=== PATIENT | male | born 1935 | race Caucasian/White ===

== ENCOUNTER 2018-03-01 18:12 | Emergency (ER) | payer OTHER ==
--- OUTSIDE RECORDS SUMMARY | 2018-03-01 18:15 | XMS REPORT | Clinical Summary ---
:1935 Author Organization [facility] Address [address] [place] [address] Phone Care Team Providers Name Role Phone Unavailable Primary Care Provider Unavailable Allergies No Known Allergies Current Medications Prescription Sig. Disp. Refills Start Date End Date Status amLODIPine (NORVASC) Take 10 mg by mouth Active 10 MG tablet daily. thyroid, pork, 60 mg Take 30 mg by mouth Active Tab daily. aspirin 81 MG EC Take 81 mg by mouth Active tablet daily Take one tablet by mouth at bedtime . carbidopa-levodopa Take 1 tablet by mouth Active (SINEMET CR) 25-100 2 (two) times daily mg per tablet Take 1 and 1/2 tablet by mouth four times a day . carbidopa-levodopa Take 1 tablet by mouth Active (SINEMET CR) 50-200 2 (two) times daily mg per tablet Take one tablet by mouth 2 times a day at 8 am and 6 pm . docusate sodium Take 100 mg by mouth Active (COLACE) 100 MG daily. capsule donepezil (ARICEPT) Take 10 mg by mouth Active 10 MG tablet nightly. enoxaparin (LOVENOX) Inject 90 mg Active 100 mg/mL Syrg subcutaneously every 12 (twelve) hours. escitalopram oxalate Take 20 mg by mouth Active (LEXAPRO) 20 MG nightly. tablet ferrous gluconate Take 324 mg by mouth 2 Active (FERGON) 324 MG (two) times daily. tablet finasteride (PROSCAR) Take 5 mg by mouth Active 5 mg tablet daily. melatonin 3 mg Tab Take 5 mg by mouth Active tablet nightly. multivitamin per Take 2 tablets by mouth Active tablet daily. tamsulosin (FLOMAX) Take 0.4 mg by mouth Active 0.4 mg Cp24 24 hr daily. capsule Active Problems Problem Noted Date Pacemaker 12/14/2016 Hematuria 12/11/2016 Urinary tract infection associated with indwelling urethral catheter (HCC) 10/2016 Cystitis 12/11/2016 Hypothyroidism 12/11/2016 Essential hypertension 12/11/2016 Type 2 diabetes mellitus without complication (HCC) 12/11/2016 Pulmonary embolism (HCC) 12/11/2016 Overview: hsitory of pe dvt BPH (benign prostatic hyperplasia) 12/11/2016 CKD (chronic kidney disease) stage 3, GFR 30-59 ml/min 12/11/2016 Insomnia 12/11/2016 Parkinson disease ([facility]) 12/11/2016 CAD (coronary artery disease) Social History Tobacco Use Types Packs/Day Years Used Date Never Assessed Sex Assigned at Date Recorded Not on file Last Filed Vital Signs Not on file Plan of Treatment Not on file Results Not on fileafter 02/28/2017
--- OUTSIDE RECORDS SUMMARY | 2018-03-01 18:16 | XMS REPORT ---
:1935 [facility] [place] [address] Care Team Providers Name Role Phone ELIZABETH SANDY Unavailable Unavailable Problems This patient has no known problems. Allergies, Adverse Reactions, Alerts This patient has no known allergies or adverse reactions. Medications This patient has no known medications. Results Test Description Test Time Test Comments Text Results Atomic Results Result Comments CBC W/PLT COUNT & AUTO DIFFERENTIAL 2016-12-19 09:47:00 Test Item Value Reference Range Comments WHITE BLOOD CELL COUNT (BEAKER) (test ceui=733) 9.1 K/ L 4.0-10.0 RED BLOOD CELL COUNT (BEAKER) (test gfqt=711) 3.43 M/ L 4.20-5.80 HEMOGLOBIN (BEAKER) (test wpwu=276) 9.1 GM/DL 13.0-16.8 HEMATOCRIT (BEAKER) (test tjsm=372) 29.7 % 40.0-50.0 MEAN CORPUSCULAR VOLUME (BEAKER) (test kmpd=478) 86.8 fL 82.0-98.0 MEAN CORPUSCULAR HEMOGLOBIN (BEAKER) (test ykzn=118) 26.6 pg 27.0-33.0 MEAN CORPUSCULAR HEMOGLOBIN CONC (BEAKER) (test uros=869) 30.7 GM/DL 32.0- 36.0 RED CELL DISTRIBUTION WIDTH (BEAKER) (test nbxw=259) 14.5 % 10.3-14.2 PLATELET COUNT (BEAKER) (test nyay=638) 211 K/CU MM 150-430 MEAN PLATELET VOLUME (BEAKER) (test zrnp=034) 7.4 fL 6.5-10.5 NUCLEATED RED BLOOD CELLS (BEAKER) (test oedv=635) 0 /100 WBC 0-0 NEUTROPHILS RELATIVE PERCENT (BEAKER) (test xlxd=464) 38 % LYMPHOCYTES RELATIVE PERCENT (BEAKER) (test ctcr=971) 52 % MONOCYTES RELATIVE PERCENT (BEAKER) (test crzo=860) 6 % EOSINOPHILS RELATIVE PERCENT (BEAKER) (test tfim=514) 3 % BASOPHILS RELATIVE PERCENT (BEAKER) (test jhhe=627) 1 % NEUTROPHILS ABSOLUTE COUNT (BEAKER) (test jvsj=104) 3.48 K/ L 1.80-8.00 LYMPHOCYTES ABSOLUTE COUNT (BEAKER) (test zdoz=228) 4.70 K/ L 1.48-4.50 MONOCYTES ABSOLUTE COUNT (BEAKER) (test usru=915) 0.57 K/ L 0.00-1.30 EOSINOPHILS ABSOLUTE COUNT (BEAKER) (test jadg=352) 0.26 K/ L 0.00-0.50 BASOPHILS ABSOLUTE COUNT (BEAKER) (test dpho=662) 0.06 K/ L 0.00-0.20 0.00(MANUAL DIFFERENTIAL)2016-12-19 09:47:00 Test Item Value Reference Range Comments TOTAL COUNTED (BEAKER) (test ijmt=4540) WBC MORPHOLOGY (BEAKER) (test ptto=880) Normal PLT MORPHOLOGY (BEAKER) (test sdqo=922) Normal RBC MORPHOLOGY (BEAKER) (test tqhz=998) Normal BASIC METABOLIC [id number] 04:52:00 Test Item Value Reference Range Comments SODIUM (BEAKER) (test 141 meq/L 136-145 ncam=162) POTASSIUM (BEAKER) (test 3.8 meq/L 3.5-5.1 kvxt=186) CHLORIDE (BEAKER) (test 111 meq/L 98-107 fxne=765) CO2 (BEAKER) (test 21 meq/L 22-29 dtjw=816) BLOOD UREA NITROGEN 16 mg/dL 7-21 (BEAKER) (test cuwl=783) CREATININE (BEAKER) (test 1.35 mg/dL 0.57-1.25 dfyl=552) GLUCOSE RANDOM (BEAKER) 96 mg/dL 70-105 (test xlrc=204) CALCIUM (BEAKER) (test 8.2 mg/dL 8.4-10.2 qxko=567) EGFR (BEAKER) (test 51 mL/min/1.73 sq m ESTIMATED GFR IS NOT khje=8912) ACCURATE CREATININE CLEARANCE IN PREDICTING GLOMERULAR FILTRATION RATE. ESTIMATED GFR IS NOT APPLICABLE FOR DIALYSIS PATIENTS. CBC W/PLT COUNT & AUTO [id number] 09:26:00 Test Item Value Reference Range Comments WHITE BLOOD CELL COUNT (BEAKER) (test eghs=595) 8.8 K/ L 4.0-10.0 RED BLOOD CELL COUNT (BEAKER) (test afke=064) 3.40 M/ L 4.20-5.80 HEMOGLOBIN (BEAKER) (test xwyc=871) 9.5 GM/DL 13.0-16.8 HEMATOCRIT (BEAKER) (test cwoz=013) 29.6 % 40.0-50.0 MEAN CORPUSCULAR VOLUME (BEAKER) (test eygg=226) 87.0 fL 82.0-98.0 MEAN CORPUSCULAR HEMOGLOBIN (BEAKER) (test 27.8 pg 27.0-33.0 nlui=989) MEAN CORPUSCULAR HEMOGLOBIN CONC (BEAKER) (test 31.9 GM/DL 32.0-36.0 hhhx=275) RED CELL DISTRIBUTION WIDTH (BEAKER) (test 14.6 % 10.3-14.2 jdpd=315) PLATELET COUNT (BEAKER) (test imsy=978) 193 K/CU MM 150-430 MEAN PLATELET VOLUME (BEAKER) (test obws=016) 7.7 fL 6.5-10.5 NUCLEATED RED BLOOD CELLS (BEAKER) (test 0 /100 WBC 0-0 dnta=642) NEUTROPHILS RELATIVE PERCENT (BEAKER) (test 40 % zoht=806) LYMPHOCYTES RELATIVE PERCENT (BEAKER) (test 51 % ggnp=962) MONOCYTES RELATIVE PERCENT (BEAKER) (test 6 % dgtn=310) EOSINOPHILS RELATIVE PERCENT (BEAKER) (test 3 % qqva=407) BASOPHILS RELATIVE PERCENT (BEAKER) (test 0 % wsqx=381) NEUTROPHILS ABSOLUTE COUNT (BEAKER) (test 3.46 K/ L 1.80-8.00 pidc=607) LYMPHOCYTES ABSOLUTE COUNT (BEAKER) (test 4.50 K/ L 1.48-4.50 dgke=328) MONOCYTES ABSOLUTE COUNT (BEAKER) (test 0.53 K/ L 0.00-1.30 ssbn=715) EOSINOPHILS ABSOLUTE COUNT (BEAKER) (test 0.26 K/ L 0.00-0.50 oyvl=866) BASOPHILS ABSOLUTE COUNT (BEAKER) (test 0.02 K/ L 0.00-0.20 pxxb=167) 0.00(MANUAL DIFFERENTIAL)2016-12-18 09:26:00 Test Item Value Reference Range Comments TOTAL COUNTED (BEAKER) (test fhjm=2634) WBC MORPHOLOGY (BEAKER) (test sjrh=661) Normal PLT MORPHOLOGY (BEAKER) (test cwpq=934) Normal RBC MORPHOLOGY (BEAKER) (test pkvn=963) Normal URINE [id number] 07:48:00 Test Item Value Reference Range Comments CULTURE (BEAKER) (test PSEUDOMONAS >100,000 col/mL ktuy=6203) AERUGINOSA Pseudomonas aeruginosa Amikacin (test code=1) Susceptible 0-16 , Resistant <0 or >16 Aztreonam (test Susceptible 0-8 , code=32) Resistant <0 or >8 Cefepime (test code=51) Susceptible 0-8 , Resistant <0 or >8 Ceftazidime (test Susceptible 0-8 , code=27) Resistant <0 or >8 Ciprofloxacin (test Susceptible 0-1 , code=7) Resistant <0 or >1 Doripenem (test Susceptible 0-2 , rxua=301) Resistant <0 or >2 Gentamicin (test Susceptible 0-4 , code=18) Resistant <0 or >4 Imipenem (test code=19) Susceptible 0-2 , Resistant <0 or >2 Levofloxacin (test Susceptible 0-2 , code=22) Resistant <0 or >2 Meropenem (test Susceptible 0-2 , code=34) Resistant <0 or >2 Piperacillin (test Susceptible 0-16 , code=24) Resistant <0 or >16 Piperacillin + Susceptible 0-16 , Tazobactam (test Resistant <0 or >16 code=29) Tobramycin (test Susceptible 0-4 , code=25) Resistant <0 or >4 BASIC METABOLIC [id number] 05:21:00 Test Item Value Reference Range Comments SODIUM (BEAKER) (test 138 meq/L 136-145 yxjm=831) POTASSIUM (BEAKER) (test 3.4 meq/L 3.5-5.1 jual=741) CHLORIDE (BEAKER) (test 110 meq/L 98-107 vsfk=855) CO2 (BEAKER) (test 18 meq/L 22-29 uttg=721) BLOOD UREA NITROGEN 16 mg/dL 7-21 (BEAKER) (test sbna=508) CREATININE (BEAKER) (test 1.28 mg/dL 0.57-1.25 cbry=803) GLUCOSE RANDOM (BEAKER) 99 mg/dL 70-105 (test hwrl=736) CALCIUM (BEAKER) (test 8.1 mg/dL 8.4-10.2 injd=622) EGFR (BEAKER) (test 54 mL/min/1.73 sq m ESTIMATED GFR IS NOT ejzs=5925) ACCURATE CREATININE CLEARANCE IN PREDICTING GLOMERULAR FILTRATION RATE. ESTIMATED GFR IS NOT APPLICABLE FOR DIALYSIS PATIENTS. HEPARIN ASSAY - LOW MOLECULAR [id number] 15:26:00 Test Item Value Reference Range Comments LOVENOX-ANTI 10A (BEAKER) (test gpsw=6173) 0.77 u/ml 0.60-2.00 Effective 07/18/2016: Reference Range ChangeNew: 0.60-2.00 Previous: 0.60- 1.99Anti-Factor 10A Level(Heparin Assay for Low Molecular Weight Heparin) Monitoring Guidelines: Blood samples should be obtained 4 hours post subcutaneous injection (time of Peak level) Therapeutic Peak Levels: 0.6-1.0 units/mL twice daily enoxaparin 1.0-2.0 units/mL once daily enoxaparinCBC W/PLT COUNT & AUTO [id number] 14:48:00 Test Item Value Reference Range Comments WHITE BLOOD CELL COUNT (BEAKER) (test cyux=141) 10.2 K/ L 4.0-10.0 RED BLOOD CELL COUNT (BEAKER) (test ojkc=839) 3.16 M/ L 4.20-5.80 HEMOGLOBIN (BEAKER) (test uwbo=700) 9.0 GM/DL 13.0-16.8 HEMATOCRIT (BEAKER) (test hzdr=785) 27.6 % 40.0-50.0 MEAN CORPUSCULAR VOLUME (BEAKER) (test ztsx=987) 87.3 fL 82.0-98.0 MEAN CORPUSCULAR HEMOGLOBIN (BEAKER) (test 28.6 pg 27.0-33.0 frac=740) MEAN CORPUSCULAR HEMOGLOBIN CONC (BEAKER) (test 32.7 GM/DL 32.0-36.0 vzju=794) RED CELL DISTRIBUTION WIDTH (BEAKER) (test 14.7 % 10.3-14.2 fngh=071) PLATELET COUNT (BEAKER) (test dvcg=619) 175 K/CU MM 150-430 MEAN PLATELET VOLUME (BEAKER) (test cbea=528) 7.9 fL 6.5-10.5 NUCLEATED RED BLOOD CELLS (BEAKER) (test 0 /100 WBC 0-0 cabs=816) NEUTROPHILS RELATIVE PERCENT (BEAKER) (test 46 % kupg=518) LYMPHOCYTES RELATIVE PERCENT (BEAKER) (test 48 % tqkq=513) MONOCYTES RELATIVE PERCENT (BEAKER) (test 3 % qyqf=786) EOSINOPHILS RELATIVE PERCENT (BEAKER) (test 2 % dvvp=199) BASOPHILS RELATIVE PERCENT (BEAKER) (test 1 % tfqy=514) NEUTROPHILS ABSOLUTE COUNT (BEAKER) (test 4.69 K/ L 1.80-8.00 vlxr=229) LYMPHOCYTES ABSOLUTE COUNT (BEAKER) (test 4.86 K/ L 1.48-4.50 nlsv=137) MONOCYTES ABSOLUTE COUNT (BEAKER) (test 0.35 K/ L 0.00-1.30 mihf=840) EOSINOPHILS ABSOLUTE COUNT (BEAKER) (test 0.22 K/ L 0.00-0.50 pwhc=792) BASOPHILS ABSOLUTE COUNT (BEAKER) (test 0.06 K/ L 0.00-0.20 gngz=962) 0.00(MANUAL DIFFERENTIAL)2016-12-17 14:48:00 Test Item Value Reference Range Comments TOTAL COUNTED (BEAKER) (test uefl=9876) WBC MORPHOLOGY (BEAKER) (test phvy=840) Normal PLT MORPHOLOGY (BEAKER) (test whqc=221) Normal ANISOCYTOSIS (BEAKER) (test dsoo=345) 1+ few HYPOCHROMIA (BEAKER) (test phgi=166) 1+ few POIKILOCYTES (BEAKER) (test wftk=955) 1+ few BASIC METABOLIC [id number] 05:13:00 Test Item Value Reference Range Comments SODIUM (BEAKER) (test 137 meq/L 136-145 dygq=005) POTASSIUM (BEAKER) (test 3.6 meq/L 3.5-5.1 tkzk=182) CHLORIDE (BEAKER) (test 111 meq/L 98-107 dqqg=905) CO2 (BEAKER) (test 17 meq/L 22-29 cukc=708) BLOOD UREA NITROGEN 18 mg/dL 7-21 (BEAKER) (test aayk=274) CREATININE (BEAKER) (test 1.39 mg/dL 0.57-1.25 nclm=802) GLUCOSE RANDOM (BEAKER) 104 mg/dL 70-105 (test qfft=129) CALCIUM (BEAKER) (test 8.2 mg/dL 8.4-10.2 wztk=181) EGFR (BEAKER) (test 49 mL/min/1.73 sq m ESTIMATED GFR IS NOT uucj=2688) ACCURATE CREATININE CLEARANCE IN PREDICTING GLOMERULAR FILTRATION RATE. ESTIMATED GFR IS NOT APPLICABLE FOR DIALYSIS PATIENTS. BLOOD [id number] 00:00:00 Test Item Value Reference Range Comments CULTURE (BEAKER) (test hsoz=3633) No growth in 5 days BASIC METABOLIC [id number] 06:19:00 Test Item Value Reference Range Comments SODIUM (BEAKER) (test 138 meq/L 136-145 drvf=410) POTASSIUM (BEAKER) (test 3.9 meq/L 3.5-5.1 tujp=160) CHLORIDE (BEAKER) (test 109 meq/L 98-107 rjld=164) CO2 (BEAKER) (test 20 meq/L 22-29 pyxj=892) BLOOD UREA NITROGEN 22 mg/dL 7-21 (BEAKER) (test jqhr=195) CREATININE (BEAKER) (test 1.58 mg/dL 0.57-1.25 fdcd=275) GLUCOSE RANDOM (BEAKER) 97 mg/dL 70-105 (test crzo=410) CALCIUM (BEAKER) (test 8.6 mg/dL 8.4-10.2 opsc=978) EGFR (BEAKER) (test 42 mL/min/1.73 sq m ESTIMATED GFR IS NOT urgt=3951) ACCURATE CREATININE CLEARANCE IN PREDICTING GLOMERULAR FILTRATION RATE. ESTIMATED GFR IS NOT APPLICABLE FOR DIALYSIS PATIENTS. URINALYSIS W/ [id number] 18:02:00 Test Item Value Reference Range Comments COLOR (BEAKER) (test kuof=390) Yellow CLARITY (BEAKER) (test ifpx=891) Cloudy SPECIFIC GRAVITY UA (BEAKER) (test erou=813) 1.017 1.001-1.035 PH UA (BEAKER) (test lgws=978) 5.5 5.0-8.0 PROTEIN UA (BEAKER) (test dzsn=719) 70 mg/dL Negative GLUCOSE UA (BEAKER) (test hwnl=964) Negative Negative KETONES UA (BEAKER) (test zgtp=558) Negative Negative BILIRUBIN UA (BEAKER) (test mdth=634) Negative Negative BLOOD UA (BEAKER) (test ypft=997) Large Negative NITRITE UA (BEAKER) (test raxw=469) Negative Negative LEUKOCYTE ESTERASE UA (BEAKER) (test xbgo=046) Large Negative UROBILINOGEN UA (BEAKER) (test qtyv=948) 0.2 mg/dL 0.2-1.0 RBC UA (BEAKER) (test bjua=177) > /HPF WBC UA (BEAKER) (test iiaj=746) > /HPF MUCUS (BEAKER) (test nxjj=5352) Rare SQUAMOUS EPITHELIAL (BEAKER) (test jsvs=521) 2 /HPF SOURCE(BEAKER) (test klnh=8091) Urine, [place] CBC W/PLT COUNT & AUTO [id number] 09:55:00 Test Item Value Reference Range Comments WHITE BLOOD CELL COUNT (BEAKER) (test dnta=438) 11.5 K/ L 4.0-10.0 RED BLOOD CELL COUNT (BEAKER) (test rwnu=812) 3.68 M/ L 4.20-5.80 HEMOGLOBIN (BEAKER) (test pinx=254) 10.5 GM/DL 13.0-16.8 HEMATOCRIT (BEAKER) (test thar=071) 32.0 % 40.0-50.0 MEAN CORPUSCULAR VOLUME (BEAKER) (test lblq=609) 87.1 fL 82.0-98.0 MEAN CORPUSCULAR HEMOGLOBIN (BEAKER) (test 28.4 pg 27.0-33.0 cwdj=542) MEAN CORPUSCULAR HEMOGLOBIN CONC (BEAKER) (test 32.6 GM/DL 32.0-36.0 vmvy=873) RED CELL DISTRIBUTION WIDTH (BEAKER) (test 15.7 % 10.3-14.2 szdl=949) PLATELET COUNT (BEAKER) (test xlzt=616) 167 K/CU MM 150-430 MEAN PLATELET VOLUME (BEAKER) (test qzqg=320) 8.2 fL 6.5-10.5 NUCLEATED RED BLOOD CELLS (BEAKER) (test 0 /100 WBC 0-0 lvbv=475) NEUTROPHILS RELATIVE PERCENT (BEAKER) (test 48 % ieqh=014) LYMPHOCYTES RELATIVE PERCENT (BEAKER) (test 45 % vieb=701) MONOCYTES RELATIVE PERCENT (BEAKER) (test 6 % stfq=919) EOSINOPHILS RELATIVE PERCENT (BEAKER) (test 0 % vvhl=465) BASOPHILS RELATIVE PERCENT (BEAKER) (test 0 % zoqi=007) NEUTROPHILS ABSOLUTE COUNT (BEAKER) (test 5.55 K/ L 1.80-8.00 cvsu=079) LYMPHOCYTES ABSOLUTE COUNT (BEAKER) (test 5.18 K/ L 1.48-4.50 zojb=729) MONOCYTES ABSOLUTE COUNT (BEAKER) (test 0.70 K/ L 0.00-1.30 txfy=446) EOSINOPHILS ABSOLUTE COUNT (BEAKER) (test 0.05 K/ L 0.00-0.50 lzdp=684) BASOPHILS ABSOLUTE COUNT (BEAKER) (test 0.06 K/ L 0.00-0.20 efzz=350) 0.00(MANUAL DIFFERENTIAL)2016-12-15 09:55:00 Test Item Value Reference Range Comments TOTAL COUNTED (BEAKER) (test wqag=0047) PLT MORPHOLOGY (BEAKER) (test zckk=232) Normal ATYPICAL LYMPHS(BEAKER) (test vgxy=3640) Present POLYCHROMATOPHILLIC RBCS(BEAKER) (test sves=126) 1+ few BASIC METABOLIC [id number] 05:46:00 Test Item Value Reference Range Comments SODIUM (BEAKER) (test 141 meq/L 136-145 uemn=623) POTASSIUM (BEAKER) (test 4.2 meq/L 3.5-5.1 amzj=617) CHLORIDE (BEAKER) (test 111 meq/L 98-107 hcmi=433) CO2 (BEAKER) (test 18 meq/L 22-29 pfpn=484) BLOOD UREA NITROGEN 24 mg/dL 7-21 (BEAKER) (test kfoq=671) CREATININE (BEAKER) (test 1.84 mg/dL 0.57-1.25 yjlp=987) GLUCOSE RANDOM (BEAKER) 119 mg/dL 70-105 (test nbnx=542) CALCIUM (BEAKER) (test 8.7 mg/dL 8.4-10.2 ezpu=293) EGFR (BEAKER) (test 35 mL/min/1.73 sq m ESTIMATED GFR IS NOT pcjy=2463) ACCURATE CREATININE CLEARANCE IN PREDICTING GLOMERULAR FILTRATION RATE. ESTIMATED GFR IS NOT APPLICABLE FOR DIALYSIS PATIENTS. [id number] 05:27:00 Test Item Value Reference Range Comments PROTIME (BEAKER) (test zxxk=344) 14.2 seconds 11.7-14.7 INR (BEAKER) (test xruq=910) 1.1 <=5.9 PARTIAL THROMBOPLASTIN TIME (BEAKER) (test 28.3 seconds 22.5-36.0 qtdu=505) RECOMMENDED COUMADIN/WARFARIN INR THERAPY RANGESSTANDARD DOSE: 2.0 - 3.0 Includes: PROPHYLAXIS forvenous thrombosis, systemic embolization; TREATMENT for venous thrombosis and/or pulmonary embolus.HIGH RISK: Target INR is 2.5-3.5 for patients with mechanical heart valves.CBC W/PLT COUNT & AUTO [id number] 11:32:00 Test Item Value Reference Range Comments WHITE BLOOD CELL COUNT (BEAKER) (test gjan=719) 10.7 K/ L 4.0-10.0 RED BLOOD CELL COUNT (BEAKER) (test yykx=009) 3.63 M/ L 4.20-5.80 HEMOGLOBIN (BEAKER) (test kxdy=430) 10.4 GM/DL 13.0-16.8 HEMATOCRIT (BEAKER) (test emlr=898) 31.8 % 40.0-50.0 MEAN CORPUSCULAR VOLUME (BEAKER) (test dteh=824) 87.8 fL 82.0-98.0 MEAN CORPUSCULAR HEMOGLOBIN (BEAKER) (test 28.5 pg 27.0-33.0 blic=487) MEAN CORPUSCULAR HEMOGLOBIN CONC (BEAKER) (test 32.5 GM/DL 32.0-36.0 iqje=724) RED CELL DISTRIBUTION WIDTH (BEAKER) (test 15.7 % 10.3-14.2 kutx=727) PLATELET COUNT (BEAKER) (test jwqf=789) 149 K/CU MM 150-430 MEAN PLATELET VOLUME (BEAKER) (test edbi=184) 8.9 fL 6.5-10.5 NUCLEATED RED BLOOD CELLS (BEAKER) (test 0 /100 WBC 0-0 sfqt=529) NEUTROPHILS RELATIVE PERCENT (BEAKER) (test 47 % mhnv=450) LYMPHOCYTES RELATIVE PERCENT (BEAKER) (test 44 % sccc=582) MONOCYTES RELATIVE PERCENT (BEAKER) (test 7 % pxnt=467) EOSINOPHILS RELATIVE PERCENT (BEAKER) (test 1 % pmun=006) BASOPHILS RELATIVE PERCENT (BEAKER) (test 0 % cgne=673) NEUTROPHILS ABSOLUTE COUNT (BEAKER) (test 5.07 K/ L 1.80-8.00 qbic=321) LYMPHOCYTES ABSOLUTE COUNT (BEAKER) (test 4.68 K/ L 1.48-4.50 yllc=294) MONOCYTES ABSOLUTE COUNT (BEAKER) (test 0.76 K/ L 0.00-1.30 jbky=901) EOSINOPHILS ABSOLUTE COUNT (BEAKER) (test 0.13 K/ L 0.00-0.50 serx=233) BASOPHILS ABSOLUTE COUNT (BEAKER) (test 0.04 K/ L 0.00-0.20 rsho=118) 0.00(MANUAL DIFFERENTIAL)2016-12-14 11:32:00 Test Item Value Reference Range Comments TOTAL COUNTED (BEAKER) (test plcl=4283) WBC MORPHOLOGY (BEAKER) (test mvlb=272) Normal PLT MORPHOLOGY (BEAKER) (test pnqt=779) Normal RBC MORPHOLOGY (BEAKER) (test huuv=230) Normal URINE [id number] 09:07:00 Test Item Value Reference Range Comments CULTURE (BEAKER) (test xrtc=3944) No growth HEPATIC FUNCTION [id number] 05:03:00 Test Item Value Reference Range Comments TOTAL PROTEIN (BEAKER) (test bjni=474) 6.9 gm/dL 6.0-8.3 ALBUMIN (BEAKER) (test grjg=7127) 3.5 g/dL 3.5-5.0 BILIRUBIN TOTAL (BEAKER) (test lwlk=358) 0.3 mg/dL 0.2-1.2 BILIRUBIN DIRECT (BEAKER) (test pveh=463) 0.2 mg/dL 0.1-0.5 ALKALINE PHOSPHATASE (BEAKER) (test uhdv=162) 78 U/L 40-150 AST (SGOT) (BEAKER) (test uhxk=524) 17 U/L 5-34 ALT (SGPT) (BEAKER) (test nhdf=092) < U/L 6-55 [id number] 05:03:00 Test Item Value Reference Range Comments PARTIAL THROMBOPLASTIN TIME (BEAKER) (test 47.9 seconds 22.5-36.0 uavl=542) [id number] 04:57:00 Test Item Value Reference Range Comments MAGNESIUM (BEAKER) (test eqir=427) 2.0 mg/dL 1.6-2.6 BASIC METABOLIC [id number] 04:57:00 Test Item Value Reference Range Comments SODIUM (BEAKER) (test 139 meq/L 136-145 firp=280) POTASSIUM (BEAKER) (test 4.5 meq/L 3.5-5.1 lklh=981) CHLORIDE (BEAKER) (test 108 meq/L 98-107 uxlw=212) CO2 (BEAKER) (test 20 meq/L 22-29 arfz=254) BLOOD UREA NITROGEN 29 mg/dL 7-21 (BEAKER) (test lwgu=092) CREATININE (BEAKER) (test 1.84 mg/dL 0.57-1.25 wsco=124) GLUCOSE RANDOM (BEAKER) 140 mg/dL 70-105 (test rfrh=594) CALCIUM (BEAKER) (test 8.6 mg/dL 8.4-10.2 hnta=079) EGFR (BEAKER) (test 35 mL/min/1.73 sq m ESTIMATED GFR IS NOT tdbr=8495) ACCURATE CREATININE CLEARANCE IN PREDICTING GLOMERULAR FILTRATION RATE. ESTIMATED GFR IS NOT APPLICABLE FOR DIALYSIS PATIENTS. PROTHROMBIN [id number] 04:36:00 Test Item Value Reference Range Comments PROTIME (BEAKER) (test ztjw=823) 13.5 seconds 11.7-14.7 INR (BEAKER) (test mgue=493) 1.0 <=5.9 RECOMMENDED COUMADIN/WARFARIN INR THERAPY RANGESSTANDARD DOSE: 2.0 - 3.0 Includes: PROPHYLAXIS forvenous thrombosis, systemic embolization; TREATMENT for venous thrombosis and/or pulmonary embolus.HIGH RISK: Target INR is 2.5-3.5 for patients with mechanical heart valves.VANCOMYCIN LEVEL, [id number] 21: 01:00 Test Item Value Reference Range Comments VANCOMYCIN TROUGH (BEAKER) (test hrwx=478) 16.7 ug/mL 10.0-20.0 Please draw vancomycin trough \R\30 minutes prior to administration time; For trough >20 mcg/mL,hold next dose and contact pharmacy and MD.CBC W/PLT COUNT & AUTO [id number] 07:27:00 Test Item Value Reference Range Comments WHITE BLOOD CELL COUNT (BEAKER) (test zxal=252) 12.2 K/ L 4.0-10.0 RED BLOOD CELL COUNT (BEAKER) (test htng=442) 3.47 M/ L 4.20-5.80 HEMOGLOBIN (BEAKER) (test eoaz=319) 9.8 GM/DL 13.0-16.8 HEMATOCRIT (BEAKER) (test bxzy=801) 30.8 % 40.0-50.0 MEAN CORPUSCULAR VOLUME (BEAKER) (test gtky=446) 88.6 fL 82.0-98.0 MEAN CORPUSCULAR HEMOGLOBIN (BEAKER) (test 28.2 pg 27.0-33.0 dndx=802) MEAN CORPUSCULAR HEMOGLOBIN CONC (BEAKER) (test 31.8 GM/DL 32.0-36.0 svqs=209) RED CELL DISTRIBUTION WIDTH (BEAKER) (test 15.7 % 10.3-14.2 ahju=475) PLATELET COUNT (BEAKER) (test hetz=608) 133 K/CU MM 150-430 MEAN PLATELET VOLUME (BEAKER) (test tand=100) 8.9 fL 6.5-10.5 NUCLEATED RED BLOOD CELLS (BEAKER) (test 0 /100 WBC 0-0 euox=456) NEUTROPHILS RELATIVE PERCENT (BEAKER) (test 51 % feoo=198) LYMPHOCYTES RELATIVE PERCENT (BEAKER) (test 43 % cyry=292) MONOCYTES RELATIVE PERCENT (BEAKER) (test 5 % ujue=884) EOSINOPHILS RELATIVE PERCENT (BEAKER) (test 0 % hrly=296) BASOPHILS RELATIVE PERCENT (BEAKER) (test 1 % zvjs=760) NEUTROPHILS ABSOLUTE COUNT (BEAKER) (test 6.24 K/ L 1.80-8.00 pxji=922) LYMPHOCYTES ABSOLUTE COUNT (BEAKER) (test 5.21 K/ L 1.48-4.50 hkbg=432) MONOCYTES ABSOLUTE COUNT (BEAKER) (test 0.64 K/ L 0.00-1.30 akhz=863) EOSINOPHILS ABSOLUTE COUNT (BEAKER) (test 0.05 K/ L 0.00-0.50 rppl=255) BASOPHILS ABSOLUTE COUNT (BEAKER) (test 0.07 K/ L 0.00-0.20 zhzb=389) 0.00HEPATIC FUNCTION [id number] 05:28:00 Test Item Value Reference Range Comments TOTAL PROTEIN (BEAKER) (test kgzz=683) 6.4 gm/dL 6.0-8.3 ALBUMIN (BEAKER) (test jwza=1481) 3.3 g/dL 3.5-5.0 BILIRUBIN TOTAL (BEAKER) (test vvgb=106) 0.5 mg/dL 0.2-1.2 BILIRUBIN DIRECT (BEAKER) (test ymgy=892) 0.2 mg/dL 0.1-0.5 ALKALINE PHOSPHATASE (BEAKER) (test faib=174) 69 U/L 40-150 AST (SGOT) (BEAKER) (test kzyy=757) 18 U/L 5-34 ALT (SGPT) (BEAKER) (test rvyw=710) < U/L 6-55 BASIC METABOLIC [id number] 05:28:00 Test Item Value Reference Range Comments SODIUM (BEAKER) (test 132 meq/L 136-145 sluo=193) POTASSIUM (BEAKER) (test 4.2 meq/L 3.5-5.1 ewdu=300) CHLORIDE (BEAKER) (test 104 meq/L 98-107 hdll=287) CO2 (BEAKER) (test 18 meq/L 22-29 dodz=156) BLOOD UREA NITROGEN 27 mg/dL 7-21 (BEAKER) (test ieng=619) CREATININE (BEAKER) (test 1.52 mg/dL 0.57-1.25 pslb=860) GLUCOSE RANDOM (BEAKER) 126 mg/dL 70-105 (test sicr=415) CALCIUM (BEAKER) (test 8.5 mg/dL 8.4-10.2 bain=662) EGFR (BEAKER) (test 44 mL/min/1.73 sq m ESTIMATED GFR IS NOT zwul=5522) ACCURATE CREATININE CLEARANCE IN PREDICTING GLOMERULAR FILTRATION RATE. ESTIMATED GFR IS NOT APPLICABLE FOR DIALYSIS PATIENTS. [id number] 05:27:00 Test Item Value Reference Range Comments MAGNESIUM (BEAKER) (test fpld=679) 1.9 mg/dL 1.6-2.6 PROTHROMBIN [id number] 05:10:00 Test Item Value Reference Range Comments PROTIME (BEAKER) (test geua=117) 13.0 seconds 11.7-14.7 INR (BEAKER) (test whyn=407) 1.0 <=5.9 RECOMMENDED COUMADIN/WARFARIN INR THERAPY RANGESSTANDARD DOSE: 2.0 - 3.0 Includes: PROPHYLAXIS forvenous thrombosis, systemic embolization; TREATMENT for venous thrombosis and/or pulmonary embolus.HIGH RISK: Target INR is 2.5-3.5 for patients with mechanical heart valves.HEMOGLOBIN AND [id number] 17 :05:00 Test Item Value Reference Range Comments HEMOGLOBIN (BEAKER) (test ffhy=152) 10.0 GM/DL 13.0-16.8 HEMATOCRIT (BEAKER) (test mvpr=888) 31.7 % 40.0-50.0 CBC W/PLT COUNT & AUTO [id number] 10:22:00 Test Item Value Reference Range Comments WHITE BLOOD CELL COUNT (BEAKER) (test gjcj=898) 10.8 K/ L 4.0-10.0 RED BLOOD CELL COUNT (BEAKER) (test qkvw=388) 3.45 M/ L 4.20-5.80 HEMOGLOBIN (BEAKER) (test tstx=743) 9.5 GM/DL 13.0-16.8 HEMATOCRIT (BEAKER) (test iiwj=390) 30.1 % 40.0-50.0 MEAN CORPUSCULAR VOLUME (BEAKER) (test acip=024) 87.1 fL 82.0-98.0 MEAN CORPUSCULAR HEMOGLOBIN (BEAKER) (test 27.7 pg 27.0-33.0 hjst=208) MEAN CORPUSCULAR HEMOGLOBIN CONC (BEAKER) (test 31.7 GM/DL 32.0-36.0 nppm=362) RED CELL DISTRIBUTION WIDTH (BEAKER) (test 15.0 % 10.3-14.2 esxo=105) PLATELET COUNT (BEAKER) (test wasm=069) 132 K/CU MM 150-430 MEAN PLATELET VOLUME (BEAKER) (test vhxr=108) 8.3 fL 6.5-10.5 NUCLEATED RED BLOOD CELLS (BEAKER) (test 0 /100 WBC 0-0 txxm=108) NEUTROPHILS RELATIVE PERCENT (BEAKER) (test 42 % wnyi=095) LYMPHOCYTES RELATIVE PERCENT (BEAKER) (test 53 % drhg=476) MONOCYTES RELATIVE PERCENT (BEAKER) (test 5 % wwbd=647) EOSINOPHILS RELATIVE PERCENT (BEAKER) (test 0 % ztko=684) BASOPHILS RELATIVE PERCENT (BEAKER) (test 0 % qyej=987) NEUTROPHILS ABSOLUTE COUNT (BEAKER) (test 4.48 K/ L 1.80-8.00 yunn=579) LYMPHOCYTES ABSOLUTE COUNT (BEAKER) (test 5.65 K/ L 1.48-4.50 hskj=366) MONOCYTES ABSOLUTE COUNT (BEAKER) (test 0.57 K/ L 0.00-1.30 qctw=469) EOSINOPHILS ABSOLUTE COUNT (BEAKER) (test 0.02 K/ L 0.00-0.50 ytus=495) BASOPHILS ABSOLUTE COUNT (BEAKER) (test 0.03 K/ L 0.00-0.20 xhzq=837) 0.00(MANUAL DIFFERENTIAL)[id number] 10:22:00 Test Item Value Reference Range Comments TOTAL COUNTED (BEAKER) (test qqey=2646) PLT MORPHOLOGY (BEAKER) (test jrkt=797) Normal ATYPICAL LYMPHS(BEAKER) (test gpri=9501) Present HYPOCHROMIA (BEAKER) (test gjtk=435) 1+ few POLYCHROMATOPHILLIC RBCS(BEAKER) (test pyku=753) 1+ few [id number] 07:21:00 Test Item Value Reference Range Comments MAGNESIUM (BEAKER) (test nizy=350) 2.1 mg/dL 1.6-2.6 BASIC METABOLIC [id number] 07:21:00 Test Item Value Reference Range Comments SODIUM (BEAKER) (test 140 meq/L 136-145 acuk=962) POTASSIUM (BEAKER) (test 4.2 meq/L 3.5-5.1 qvam=337) CHLORIDE (BEAKER) (test 110 meq/L 98-107 njdj=735) CO2 (BEAKER) (test 21 meq/L 22-29 oixn=791) BLOOD UREA NITROGEN 29 mg/dL 7-21 (BEAKER) (test wobz=143) CREATININE (BEAKER) (test 1.69 mg/dL 0.57-1.25 rfbj=256) GLUCOSE RANDOM (BEAKER) 96 mg/dL 70-105 (test snij=314) CALCIUM (BEAKER) (test 8.9 mg/dL 8.4-10.2 jxsl=964) EGFR (BEAKER) (test 39 mL/min/1.73 sq m ESTIMATED GFR IS NOT lmqf=1228) ACCURATE CREATININE CLEARANCE IN PREDICTING GLOMERULAR FILTRATION RATE. ESTIMATED GFR IS NOT APPLICABLE FOR DIALYSIS PATIENTS. HEPATIC FUNCTION [id number] 07:21:00 Test Item Value Reference Range Comments TOTAL PROTEIN (BEAKER) (test aaib=658) 6.7 gm/dL 6.0-8.3 ALBUMIN (BEAKER) (test szoj=3167) 3.5 g/dL 3.5-5.0 BILIRUBIN TOTAL (BEAKER) (test yuvv=636) 0.6 mg/dL 0.2-1.2 BILIRUBIN DIRECT (BEAKER) (test iqgg=984) 0.3 mg/dL 0.1-0.5 ALKALINE PHOSPHATASE (BEAKER) (test sfbp=179) 76 U/L 40-150 AST (SGOT) (BEAKER) (test mhfc=562) 20 U/L 5-34 ALT (SGPT) (BEAKER) (test qteu=822) 12 U/L 6-55 PROTHROMBIN [id number] 07:05:00 Test Item Value Reference Range Comments PROTIME (BEAKER) (test mjyo=256) 14.1 seconds 11.7-14.7 INR (BEAKER) (test cweu=021) 1.1 <=5.9 RECOMMENDED COUMADIN/WARFARIN INR THERAPY RANGESSTANDARD DOSE: 2.0 - 3.0 Includes: PROPHYLAXIS forvenous thrombosis, systemic embolization; TREATMENT for venous thrombosis and/or pulmonary embolus.HIGH RISK: Target INR is 2.5-3.5 for patients with mechanical heart valves.HEMOGLOBIN AND [id number] 01 :04:00 Test Item Value Reference Range Comments HEMOGLOBIN (BEAKER) (test chcm=879) 9.7 GM/DL 13.0-16.8 HEMATOCRIT (BEAKER) (test sxcc=117) 30.6 % 40.0-50.0 HEMOGLOBIN [id number] 20:57:00 Test Item Value Reference Range Comments HEMOGLOBIN A1C (BEAKER) (test uboo=917) 5.4 % 4.3-6.1 CBC W/PLT COUNT & AUTO [id number] 19:35:00 Test Item Value Reference Range Comments WHITE BLOOD CELL COUNT (BEAKER) (test khnz=186) 14.1 K/ L 4.0-10.0 RED BLOOD CELL COUNT (BEAKER) (test qrlj=006) 3.62 M/ L 4.20-5.80 HEMOGLOBIN (BEAKER) (test okmv=019) 10.2 GM/DL 13.0-16.8 HEMATOCRIT (BEAKER) (test xdwp=929) 31.5 % 40.0-50.0 MEAN CORPUSCULAR VOLUME (BEAKER) (test sorf=107) 87.0 fL 82.0-98.0 MEAN CORPUSCULAR HEMOGLOBIN (BEAKER) (test 28.1 pg 27.0-33.0 pocc=668) MEAN CORPUSCULAR HEMOGLOBIN CONC (BEAKER) (test 32.3 GM/DL 32.0-36.0 gtvl=264) RED CELL DISTRIBUTION WIDTH (BEAKER) (test 16.1 % 10.3-14.2 xffi=285) PLATELET COUNT (BEAKER) (test nwhc=384) 139 K/CU MM 150-430 MEAN PLATELET VOLUME (BEAKER) (test yonj=263) 8.6 fL 6.5-10.5 NUCLEATED RED BLOOD CELLS (BEAKER) (test 0 /100 WBC 0-0 mkbi=942) NEUTROPHILS RELATIVE PERCENT (BEAKER) (test 48 % xswd=117) LYMPHOCYTES RELATIVE PERCENT (BEAKER) (test 48 % wmsd=756) MONOCYTES RELATIVE PERCENT (BEAKER) (test 4 % jaqr=369) EOSINOPHILS RELATIVE PERCENT (BEAKER) (test 0 % xkek=019) BASOPHILS RELATIVE PERCENT (BEAKER) (test 1 % tsow=328) NEUTROPHILS ABSOLUTE COUNT (BEAKER) (test 6.72 K/ L 1.80-8.00 hmca=507) LYMPHOCYTES ABSOLUTE COUNT (BEAKER) (test 6.74 K/ L 1.48-4.50 spip=632) MONOCYTES ABSOLUTE COUNT (BEAKER) (test 0.52 K/ L 0.00-1.30 fdqh=788) EOSINOPHILS ABSOLUTE COUNT (BEAKER) (test 0.01 K/ L 0.00-0.50 jdhu=149) BASOPHILS ABSOLUTE COUNT ([facility]) (test 0.09 K/ L 0.00-0.20 ybsk=533) POCT-GLUCOSE [id number] 17:00:00 Test Item Value Reference Range Comments POC-GLUCOSE METER (AKER) 129 mg/dL 70-[address] [facility] [address] (test yrlx=6399) [facility] [id number]
--- NOTE | 2018-03-01 20:32 | ER ---
Nurse's Notes [facility] Name: Alvarez Aleman Jr Age: 82 yrs Sex: Male : 1935 Arrival Date: 03/01/2018 Time: 18:14 Bed 25 Private MD: Diagnosis: Retention of urine;Breakdown (mechanical) of cystostomy catheter Presentation: 03/01 18:51 Presenting complaint: Family- Sent from [facility] because his super pubic catheter is mb3 not flushing, pt has urine leaking from penis. Transition of care: patient was received from another setting of care (long-term care facility), [facility]. Onset of symptoms is unknown. Risk Assessment: Do you want to hurt yourself or someone else? Patient reports no desire to harm self or others. Initial Sepsis Screen: Does the patient meet any 2 criteria? No. Patient's initial sepsis screen is negative. Does the patient have a suspected source of infection? No. Patient's initial sepsis screen is negative. Care prior to arrival: None. 18:51 Method Of Arrival: Wheelchair mb3 18:51 Acuity: RYLEY 3 mb3 Triage Assessment: 18:54 General: Appears uncomfortable, well groomed, Behavior is flat, quiet, Smells of urine. mb3 Pain: Denies pain. EENT: No deficits noted. No signs and/or symptoms were reported regarding the EENT system. Neuro: Level of Consciousness is awake, alert, obeys commands. : suprapubic catheter in place Urine is cloudy, incontinent of urine, pants soaked. Musculoskeletal: Parent/caregiver report the patient having pt unable to stand or walk, has tremors. 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 - Social history:: Smoking status: Patient/guardian denies using tobacco. - Ebola Screening: : Patient denies travel to an Ebola-affected area in the 21 days before illness onset No symptoms or risks identified at this time. Screenin:57 Abuse screen: Denies threats or abuse. Nutritional screening: No deficits noted. mb3 Tuberculosis screening: No symptoms or risk factors identified. Fall Risk Fall in past 12 months (25 points). Secondary diagnosis (15 points) No IV (0 pts). Ambulatory Aid- None/Bed Rest/Nurse Assist (0 pts). Gait- Normal/Bed Rest/Wheelchair (0 pts) Mental Status- Overestimates/Forgets Limitations (15 pts.). Total Santiago Fall Scale indicates High Risk Score (45 or more points). Fall prevention measures have been instituted. Side Rails Up X 2 Placed Close to Nursing Station Frequent Obs/Assessments Occuring Family Present and informed to notify staff if the need to leave the bedside As available patient and family educated on Fall Prevention Program and Strategies. Assessment: 19:30 Reassessment: see triage assessment. General: Appears comfortable, Behavior is flat, mb3 quiet, Smells of stool and urine. Pain: Denies pain. Vital Signs: 18:53 BP 124 / 93; Pulse 84; Resp 20; Temp 98.6(O); Pulse Ox 98% on R/A; Weight 84.82 kg; mb3 Height 6 ft. 2 in. (187.96 cm); Pain 0/10; 20:03 BP 111 / 56; Pulse 69; Resp 16; Pulse Ox 98% on R/A; mt 22:24 BP 127 / 58; Pulse 79; Resp 18; Pulse Ox 99% on R/A; mt 18:53 Body Mass Index 24.01 (84.82 kg, 187.96 cm) mb3 ED Course: 18:14 Patient arrived in ED. ss 18:26 Stanislav De Los Santos, RN is Primary Nurse. mb3 18:53 Triage completed. mb3 19:08 Bismark Bejarano MD is Attending Physician. gs 19:45 Cleaned pt up from stool and urine all over pt. Stool was dried on. Changed pt and mb3 placed in clean brief. Attempted to flush suprapubic cath with sterile NS. No success. Dr Bejarano informed and patel kit placed at bedside. 20:19 Arm band placed on right wrist. mb3 20:19 Remove suprapubic catheter and replace with 18Fr catheter. Flushed with 30 cc NS. mb3 Reattached to securement device on right leg. Bag kept below bladder and off of floor. 20:31 Maira Hayes MD is Referral Physician. gs 23:38 Patient has correct armband on for positive identification. mb3 23:38 Patient did not have IV access during this emergency room visit. mb3 Administered Medications: No medications were administered Outcome: 20:31 Discharge ordered by . barron 23:37 Discharged to long term. discharge paperwork given to daughters at bedside. mb3 23:37 Condition: stable 23:37 Discharge instructions given to family, Instructed on discharge instructions, follow up and referral plans. Demonstrated understanding of instructions, follow-up care. 23:38 Patient left the ED. mb3 Signatures: Marley Hartmann, SHAQ RN Mel Ennis mt, Gregory, MD MD Stanislav De Los Santos RN RN mb3 Corrections: (The following items were deleted from the chart) 20:48 20:19 Remove suprapubic catheter and replace with 18Fr catheter mb3 mb3 20:48 20:19 Tried flushing suprapubic catheter, unable to. Informed Dr Bejarano. mb3 mb3
--- NOTE | 2018-03-01 20:32 | EDPHYS ---
Physician Documentation [facility] Name: Alvarez Aleman Jr Age: 82 yrs Sex: Male : 1935 Arrival Date: 03/01/2018 Time: 18:14 Bed 25 Private MD: ED Physician Bismark Bejarano HPI: 03/01 20:25 This 82 yrs old Male presents to ER via Wheelchair with unknown complaint. gs 20:25 The patient presents with a Sahu catheter problem, is not draining. Onset: The gs symptoms/episode began/occurred today. Modifying factors: the symptoms are aggravated by nothing. Associated signs and symptoms: Pertinent negatives: fever, hematuria. Severity of symptoms: At their worst the symptoms were severe. The patient has experienced similar episodes in the past, several times. 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 - Social history:: Smoking status: Patient/guardian denies using tobacco. - Ebola Screening: : Patient denies travel to an Ebola-affected area in the 21 days before illness onset No symptoms or risks identified at this time. ROS: 20:28 All other systems are negative. gs Exam: 20:28 Constitutional: The patient appears alert, awake. gs 20:28 Abdomen/GI: Palpation: nontender, mass, bladder. 20:28 Skin: breakdown skin buttocks. Vital Signs: 18:53 BP 124 / 93; Pulse 84; Resp 20; Temp 98.6(O); Pulse Ox 98% on R/A; Weight 84.82 kg; mb3 Height 6 ft. 2 in. (187.96 cm); Pain 0/10; 20:03 BP 111 / 56; Pulse 69; Resp 16; Pulse Ox 98% on R/A; mt 22:24 BP 127 / 58; Pulse 79; Resp 18; Pulse Ox 99% on R/A; mt 18:53 Body Mass Index 24.01 (84.82 kg, 187.96 cm) mb3 Procedures: 20:28 Sahu cath inserted by myself - 18 Fr. Returned clear yellow urine. Sahu cath. gs MDM: 19:22 Patient medically screened. gs 20:28 Data reviewed: vital signs, nurses notes. gs Administered Medications: No medications were administered Disposition: 03/01/18 20:31 Discharged to Home. Impression: Retention of urine, Breakdown (mechanical) of cystostomy catheter. - Condition is Stable. - Discharge Instructions: Sahu Catheter Care, Adult, [id number]. - SBAR form, Medication Reconciliation Form, Thank You Letter, Antibiotic Education, Prescription Opioid Use form. - Follow up: Maira Hayes MD; When: 2 - 3 days; Reason: Re-evaluation by your physician. Signatures: Bismark Bejarano MD MD Stanislav De Los Santos, RN RN mb3 Corrections: (The following items were deleted from the chart) 23:38 20:31 03/01/2018 20:31 Discharged to Home. Impression: Retention of urine; Breakdown mb3 (mechanical) of cystostomy catheter. Condition is Stable. Forms are Medication Reconciliation Form, Thank You Letter, Antibiotic Education, Prescription Opioid Use. Follow up: Maira Hayes; When: 2 - 3 days; Reason: Re-evaluation by your physician.
[2018-03-01 23:41] VITALS: TEMP 98.6
[2018-03-01 23:44] VITALS: BP 127/58; O2SAT 99
== END 2018-03-01 23:38 | disposition home or self-care (01) ==
LOC: ER 18:12
PROC: 0T2BX0Z Change Drainage Device in Bladder, External Approach (ICD-10-PCS; principal; 2018-03-01)
DX: T83.010A Breakdown (mechanical) of cystostomy catheter, initial encounter (principal); R33.8 Other retention of urine; Z86.718 Personal history of other venous thrombosis and embolism
CPT/HCPCS: 51702; 99281

== ENCOUNTER 2018-04-03 10:45 | Inpatient (IN) | payer OTHER ==
--- OUTSIDE RECORDS SUMMARY | 2018-04-03 11:01 | XMS REPORT | Clinical Summary ---
:1935 Author Organization [facility] Address [address] [place] [address] Phone Care Team Providers Name Role Phone [...] 30-59 ml/min 12/11/2016 Insomnia 12/11/2016 Parkinson disease ([facility]) 12/11/2016 CAD (coronary artery disease) Social History Tobacco Use Types Packs/Day Years Used Date Never Assessed Sex Assigned at Date Recorded Not on file Last Filed Vital Signs Not on file Plan of Treatment Not on file Results Not on fileafter 04/02/2017
--- OUTSIDE RECORDS SUMMARY | 2018-04-03 11:02 | XMS REPORT ---
:1935 [facility] [place] [address] Care Team Providers Name Role Phone ELIZABETH SANDYTiago Unavailable Unavailable Problems This patient has no known problems. Allergies, Adverse Reactions, Alerts This patient has no known allergies or adverse reactions. Medications This patient has no known medications. Results Test Description Test Time Test Comments Text Results Atomic Results Result Comments CBC W/PLT COUNT & AUTO DIFFERENTIAL 2016-12-19 09:47:00 Test Item Value Reference Range Comments WHITE BLOOD CELL COUNT (BEAKER) (test ijna=645) 9.1 K/ L 4.0-10.0 RED BLOOD CELL COUNT (BEAKER) (test glrm=790) 3.43 M/ L 4.20-5.80 HEMOGLOBIN (BEAKER) (test ykxr=284) 9.1 GM/DL 13.0-16.8 HEMATOCRIT (BEAKER) (test inll=802) 29.7 % 40.0-50.0 MEAN CORPUSCULAR VOLUME (BEAKER) (test etfl=877) 86.8 fL 82.0-98.0 MEAN CORPUSCULAR HEMOGLOBIN (BEAKER) (test ybpb=665) 26.6 pg 27.0-33.0 MEAN CORPUSCULAR HEMOGLOBIN CONC (BEAKER) (test npjo=244) 30.7 GM/DL 32.0- 36.0 RED CELL DISTRIBUTION WIDTH (BEAKER) (test evcv=905) 14.5 % 10.3-14.2 PLATELET COUNT (BEAKER) (test cjyf=287) 211 K/CU MM 150-430 MEAN PLATELET VOLUME (BEAKER) (test fekp=256) 7.4 fL 6.5-10.5 NUCLEATED RED BLOOD CELLS (BEAKER) (test wivv=981) 0 /100 WBC 0-0 NEUTROPHILS RELATIVE PERCENT (BEAKER) (test bwxf=783) 38 % LYMPHOCYTES RELATIVE PERCENT (BEAKER) (test zxrc=072) 52 % MONOCYTES RELATIVE PERCENT (BEAKER) (test qlku=091) 6 % EOSINOPHILS RELATIVE PERCENT (BEAKER) (test vqzf=580) 3 % BASOPHILS RELATIVE PERCENT (BEAKER) (test snyh=530) 1 % NEUTROPHILS ABSOLUTE COUNT (BEAKER) (test mnyk=317) 3.48 K/ L 1.80-8.00 LYMPHOCYTES ABSOLUTE COUNT (BEAKER) (test hfel=088) 4.70 K/ L 1.48-4.50 MONOCYTES ABSOLUTE COUNT (BEAKER) (test ingr=993) 0.57 K/ L 0.00-1.30 EOSINOPHILS ABSOLUTE COUNT (BEAKER) (test mxxc=651) 0.26 K/ L 0.00-0.50 BASOPHILS ABSOLUTE COUNT (BEAKER) (test vebp=195) 0.06 K/ L 0.00-0.20 0.00(MANUAL DIFFERENTIAL)2016-12-19 09:47:00 Test Item Value Reference Range Comments TOTAL COUNTED (BEAKER) (test scqu=8210) WBC MORPHOLOGY (BEAKER) (test pejw=310) Normal PLT MORPHOLOGY (BEAKER) (test ycpw=142) Normal RBC MORPHOLOGY (BEAKER) (test ysmp=770) Normal BASIC METABOLIC [id number] 04:52:00 Test Item Value Reference Range Comments SODIUM (BEAKER) (test 141 meq/L 136-145 qifw=823) POTASSIUM (BEAKER) (test 3.8 meq/L 3.5-5.1 cgrv=496) CHLORIDE (BEAKER) (test 111 meq/L 98-107 zxju=109) CO2 (BEAKER) (test 21 meq/L 22-29 zqnz=915) BLOOD UREA NITROGEN 16 mg/dL 7-21 (BEAKER) (test rmcl=064) CREATININE (BEAKER) (test 1.35 mg/dL 0.57-1.25 zenh=815) GLUCOSE RANDOM (BEAKER) 96 mg/dL 70-105 (test zejh=049) CALCIUM (BEAKER) (test 8.2 mg/dL 8.4-10.2 qoby=235) EGFR (BEAKER) (test 51 mL/min/1.73 sq m ESTIMATED GFR IS NOT dlsq=0732) ACCURATE CREATININE CLEARANCE IN PREDICTING GLOMERULAR FILTRATION RATE. ESTIMATED GFR IS NOT APPLICABLE FOR DIALYSIS PATIENTS. CBC W/PLT COUNT & AUTO [id number] 09:26:00 Test Item Value Reference Range Comments WHITE BLOOD CELL COUNT (BEAKER) (test niex=827) 8.8 K/ L 4.0-10.0 RED BLOOD CELL COUNT (BEAKER) (test qeqi=095) 3.40 M/ L 4.20-5.80 HEMOGLOBIN (BEAKER) (test erds=693) 9.5 GM/DL 13.0-16.8 HEMATOCRIT (BEAKER) (test ywnj=871) 29.6 % 40.0-50.0 MEAN CORPUSCULAR VOLUME (BEAKER) (test toct=000) 87.0 fL 82.0-98.0 MEAN CORPUSCULAR HEMOGLOBIN (BEAKER) (test 27.8 pg 27.0-33.0 zkho=843) MEAN CORPUSCULAR HEMOGLOBIN CONC (BEAKER) (test 31.9 GM/DL 32.0-36.0 dtqu=710) RED CELL DISTRIBUTION WIDTH (BEAKER) (test 14.6 % 10.3-14.2 vrfk=530) PLATELET COUNT (BEAKER) (test etbe=533) 193 K/CU MM 150-430 MEAN PLATELET VOLUME (BEAKER) (test oxpp=915) 7.7 fL 6.5-10.5 NUCLEATED RED BLOOD CELLS (BEAKER) (test 0 /100 WBC 0-0 dcjw=408) NEUTROPHILS RELATIVE PERCENT (BEAKER) (test 40 % acfb=042) LYMPHOCYTES RELATIVE PERCENT (BEAKER) (test 51 % xaha=268) MONOCYTES RELATIVE PERCENT (BEAKER) (test 6 % pwhx=800) EOSINOPHILS RELATIVE PERCENT (BEAKER) (test 3 % hroh=117) BASOPHILS RELATIVE PERCENT (BEAKER) (test 0 % gqpk=962) NEUTROPHILS ABSOLUTE COUNT (BEAKER) (test 3.46 K/ L 1.80-8.00 rhvp=083) LYMPHOCYTES ABSOLUTE COUNT (BEAKER) (test 4.50 K/ L 1.48-4.50 pltf=357) MONOCYTES ABSOLUTE COUNT (BEAKER) (test 0.53 K/ L 0.00-1.30 tcst=408) EOSINOPHILS ABSOLUTE COUNT (BEAKER) (test 0.26 K/ L 0.00-0.50 ullu=807) BASOPHILS ABSOLUTE COUNT (BEAKER) (test 0.02 K/ L 0.00-0.20 naol=485) 0.00(MANUAL DIFFERENTIAL)2016-12-18 09:26:00 Test Item Value Reference Range Comments TOTAL COUNTED (BEAKER) (test qtct=8839) WBC MORPHOLOGY (BEAKER) (test hefd=285) Normal PLT MORPHOLOGY (BEAKER) (test kuvb=202) Normal RBC MORPHOLOGY (BEAKER) (test frsl=210) Normal URINE [id number] 07:48:00 Test Item Value Reference Range Comments CULTURE (BEAKER) (test PSEUDOMONAS >100,000 col/mL cpjy=0207) AERUGINOSA Pseudomonas aeruginosa Amikacin (test code=1) Susceptible 0-16 , Resistant <0 or >16 Aztreonam (test Susceptible 0-8 , code=32) Resistant <0 or >8 Cefepime (test code=51) Susceptible 0-8 , Resistant <0 or >8 Ceftazidime (test Susceptible 0-8 , code=27) Resistant <0 or >8 Ciprofloxacin (test Susceptible 0-1 , code=7) Resistant <0 or >1 Doripenem (test Susceptible 0-2 , oues=255) Resistant <0 or >2 Gentamicin (test Susceptible [...] code=25) Resistant <0 or >4 BASIC METABOLIC [id number] 05:21:00 Test Item Value Reference Range Comments SODIUM (BEAKER) (test 138 meq/L 136-145 yavf=768) POTASSIUM (BEAKER) (test 3.4 meq/L 3.5-5.1 gacy=885) CHLORIDE (BEAKER) (test 110 meq/L 98-107 cwwb=865) CO2 (BEAKER) (test 18 meq/L 22-29 gxfc=522) BLOOD UREA NITROGEN 16 mg/dL 7-21 (BEAKER) (test tupg=355) CREATININE (BEAKER) (test 1.28 mg/dL 0.57-1.25 xpds=425) GLUCOSE RANDOM (BEAKER) 99 mg/dL 70-105 (test oezr=098) CALCIUM (BEAKER) (test 8.1 mg/dL 8.4-10.2 ttrl=351) EGFR (BEAKER) (test 54 mL/min/1.73 sq m ESTIMATED GFR IS NOT xmlj=6014) ACCURATE CREATININE CLEARANCE IN PREDICTING GLOMERULAR FILTRATION RATE. ESTIMATED GFR IS NOT APPLICABLE FOR DIALYSIS PATIENTS. HEPARIN ASSAY - LOW MOLECULAR [id number] 15:26:00 Test Item Value Reference Range Comments LOVENOX-ANTI 10A (BEAKER) (test dwdi=5911) 0.77 u/ml 0.60-2.00 Effective 07/18/2016: Reference Range ChangeNew: 0.60-2.00 Previous: 0.60- 1.99Anti-Factor 10A Level(Heparin Assay for Low Molecular Weight Heparin) Monitoring Guidelines: Blood samples should be obtained 4 hours post subcutaneous injection (time of Peak level) Therapeutic Peak Levels: 0.6-1.0 units/mL twice daily enoxaparin 1.0-2.0 units/mL once daily enoxaparinCBC W/PLT COUNT & AUTO [id number] 14:48:00 Test Item Value Reference Range Comments WHITE BLOOD CELL COUNT (BEAKER) (test zszr=406) 10.2 K/ L 4.0-10.0 RED BLOOD CELL COUNT (BEAKER) (test lkay=209) 3.16 M/ L 4.20-5.80 HEMOGLOBIN (BEAKER) (test ldgb=077) 9.0 GM/DL 13.0-16.8 HEMATOCRIT (BEAKER) (test sbka=694) 27.6 % 40.0-50.0 MEAN CORPUSCULAR VOLUME (BEAKER) (test uckb=096) 87.3 fL 82.0-98.0 MEAN CORPUSCULAR HEMOGLOBIN (BEAKER) (test 28.6 pg 27.0-33.0 yfud=239) MEAN CORPUSCULAR HEMOGLOBIN CONC (BEAKER) (test 32.7 GM/DL 32.0-36.0 inhy=814) RED CELL DISTRIBUTION WIDTH (BEAKER) (test 14.7 % 10.3-14.2 rpdp=853) PLATELET COUNT (BEAKER) (test ogpj=397) 175 K/CU MM 150-430 MEAN PLATELET VOLUME (BEAKER) (test kpyo=355) 7.9 fL 6.5-10.5 NUCLEATED RED BLOOD CELLS (BEAKER) (test 0 /100 WBC 0-0 mkmm=110) NEUTROPHILS RELATIVE PERCENT (BEAKER) (test 46 % wjte=951) LYMPHOCYTES RELATIVE PERCENT (BEAKER) (test 48 % wtws=436) MONOCYTES RELATIVE PERCENT (BEAKER) (test 3 % bgzt=604) EOSINOPHILS RELATIVE PERCENT (BEAKER) (test 2 % nlgb=439) BASOPHILS RELATIVE PERCENT (BEAKER) (test 1 % piwy=089) NEUTROPHILS ABSOLUTE COUNT (BEAKER) (test 4.69 K/ L 1.80-8.00 icyt=084) LYMPHOCYTES ABSOLUTE COUNT (BEAKER) (test 4.86 K/ L 1.48-4.50 mrmf=703) MONOCYTES ABSOLUTE COUNT (BEAKER) (test 0.35 K/ L 0.00-1.30 dxkn=981) EOSINOPHILS ABSOLUTE COUNT (BEAKER) (test 0.22 K/ L 0.00-0.50 igiy=676) BASOPHILS ABSOLUTE COUNT (BEAKER) (test 0.06 K/ L 0.00-0.20 exya=498) 0.00(MANUAL DIFFERENTIAL)2016-12-17 14:48:00 Test Item Value Reference Range Comments TOTAL COUNTED (BEAKER) (test sgyy=6941) WBC MORPHOLOGY (BEAKER) (test xisr=042) Normal PLT MORPHOLOGY (BEAKER) (test rbwe=508) Normal ANISOCYTOSIS (BEAKER) (test vtkq=570) 1+ few HYPOCHROMIA (BEAKER) (test ophl=616) 1+ few POIKILOCYTES (BEAKER) (test mkiw=578) 1+ few BASIC METABOLIC [id number] 05:13:00 Test Item Value Reference Range Comments SODIUM (BEAKER) (test 137 meq/L 136-145 ykbk=510) POTASSIUM (BEAKER) (test 3.6 meq/L 3.5-5.1 unui=213) CHLORIDE (BEAKER) (test 111 meq/L 98-107 vppq=989) CO2 (BEAKER) (test 17 meq/L 22-29 glri=435) BLOOD UREA NITROGEN 18 mg/dL 7-21 (BEAKER) (test aswt=956) CREATININE (BEAKER) (test 1.39 mg/dL 0.57-1.25 xqjx=701) GLUCOSE RANDOM (BEAKER) 104 mg/dL 70-105 (test bxmd=925) CALCIUM (BEAKER) (test 8.2 mg/dL 8.4-10.2 tvpl=123) EGFR (BEAKER) (test 49 mL/min/1.73 sq m ESTIMATED GFR IS NOT cjnb=1328) ACCURATE CREATININE CLEARANCE IN PREDICTING GLOMERULAR FILTRATION RATE. ESTIMATED GFR IS NOT APPLICABLE FOR DIALYSIS PATIENTS. BLOOD [id number] 00:00:00 Test Item Value Reference Range Comments CULTURE (BEAKER) (test bhbq=4340) No growth in 5 days BASIC METABOLIC [id number] 06:19:00 Test Item Value Reference Range Comments SODIUM (BEAKER) (test 138 meq/L 136-145 stjp=972) POTASSIUM (BEAKER) (test 3.9 meq/L 3.5-5.1 xjgx=266) CHLORIDE (BEAKER) (test 109 meq/L 98-107 evsq=437) CO2 (BEAKER) (test 20 meq/L 22-29 uogk=779) BLOOD UREA NITROGEN 22 mg/dL 7-21 (BEAKER) (test qfpu=931) CREATININE (BEAKER) (test 1.58 mg/dL 0.57-1.25 rjrw=452) GLUCOSE RANDOM (BEAKER) 97 mg/dL 70-105 (test qeom=641) CALCIUM (BEAKER) (test 8.6 mg/dL 8.4-10.2 zgki=632) EGFR (BEAKER) (test 42 mL/min/1.73 sq m ESTIMATED GFR IS NOT eabl=0659) ACCURATE CREATININE CLEARANCE IN PREDICTING GLOMERULAR FILTRATION RATE. ESTIMATED GFR IS NOT APPLICABLE FOR DIALYSIS PATIENTS. URINALYSIS W/ [id number] 18:02:00 Test Item Value Reference Range Comments COLOR (BEAKER) (test dxje=764) Yellow CLARITY (BEAKER) (test axbk=166) Cloudy SPECIFIC GRAVITY UA (BEAKER) (test cawv=682) 1.017 1.001-1.035 PH UA (BEAKER) (test gomm=529) 5.5 5.0-8.0 PROTEIN UA (BEAKER) (test ljag=870) 70 mg/dL Negative GLUCOSE UA (BEAKER) (test voom=118) Negative Negative KETONES UA (BEAKER) (test amdo=646) Negative Negative BILIRUBIN UA (BEAKER) (test ujyo=035) Negative Negative BLOOD UA (BEAKER) (test wnja=909) Large Negative NITRITE UA (BEAKER) (test pevf=532) Negative Negative LEUKOCYTE ESTERASE UA (BEAKER) (test kwhc=017) Large Negative UROBILINOGEN UA (BEAKER) (test eiha=438) 0.2 mg/dL 0.2-1.0 RBC UA (BEAKER) (test htma=516) > /HPF WBC UA (BEAKER) (test hbym=262) > /HPF MUCUS (BEAKER) (test utjk=0781) Rare SQUAMOUS EPITHELIAL (BEAKER) (test lqjx=102) 2 /HPF SOURCE(BEAKER) (test ddjk=8253) Urine, [place] CBC W/PLT COUNT & AUTO [id number] 09:55:00 Test Item Value Reference Range Comments WHITE BLOOD CELL COUNT (BEAKER) (test qmgj=165) 11.5 K/ L 4.0-10.0 RED BLOOD CELL COUNT (BEAKER) (test ziad=323) 3.68 M/ L 4.20-5.80 HEMOGLOBIN (BEAKER) (test ktnh=520) 10.5 GM/DL 13.0-16.8 HEMATOCRIT (BEAKER) (test rilc=982) 32.0 % 40.0-50.0 MEAN CORPUSCULAR VOLUME (BEAKER) (test zkiw=310) 87.1 fL 82.0-98.0 MEAN CORPUSCULAR HEMOGLOBIN (BEAKER) (test 28.4 pg 27.0-33.0 ycxq=962) MEAN CORPUSCULAR HEMOGLOBIN CONC (BEAKER) (test 32.6 GM/DL 32.0-36.0 kpdm=780) RED CELL DISTRIBUTION WIDTH (BEAKER) (test 15.7 % 10.3-14.2 ibfb=991) PLATELET COUNT (BEAKER) (test aksj=687) 167 K/CU MM 150-430 MEAN PLATELET VOLUME (BEAKER) (test gsmh=311) 8.2 fL 6.5-10.5 NUCLEATED RED BLOOD CELLS (BEAKER) (test 0 /100 WBC 0-0 qxgj=621) NEUTROPHILS RELATIVE PERCENT (BEAKER) (test 48 % gczg=306) LYMPHOCYTES RELATIVE PERCENT (BEAKER) (test 45 % fulr=220) MONOCYTES RELATIVE PERCENT (BEAKER) (test 6 % hnra=903) EOSINOPHILS RELATIVE PERCENT (BEAKER) (test 0 % ypzc=090) BASOPHILS RELATIVE PERCENT (BEAKER) (test 0 % plrz=428) NEUTROPHILS ABSOLUTE COUNT (BEAKER) (test 5.55 K/ L 1.80-8.00 xsey=299) LYMPHOCYTES ABSOLUTE COUNT (BEAKER) (test 5.18 K/ L 1.48-4.50 ccps=409) MONOCYTES ABSOLUTE COUNT (BEAKER) (test 0.70 K/ L 0.00-1.30 bytb=558) EOSINOPHILS ABSOLUTE COUNT (BEAKER) (test 0.05 K/ L 0.00-0.50 phpx=142) BASOPHILS ABSOLUTE COUNT (BEAKER) (test 0.06 K/ L 0.00-0.20 revt=373) 0.00(MANUAL DIFFERENTIAL)2016-12-15 09:55:00 Test Item Value Reference Range Comments TOTAL COUNTED (BEAKER) (test ywta=0016) PLT MORPHOLOGY (BEAKER) (test qagu=188) Normal ATYPICAL LYMPHS(BEAKER) (test gopm=3046) Present POLYCHROMATOPHILLIC RBCS(BEAKER) (test xsnz=828) 1+ few BASIC METABOLIC [id number] 05:46:00 Test Item Value Reference Range Comments SODIUM (BEAKER) (test 141 meq/L 136-145 nlie=749) POTASSIUM (BEAKER) (test 4.2 meq/L 3.5-5.1 iwfq=409) CHLORIDE (BEAKER) (test 111 meq/L 98-107 mtkc=334) CO2 (BEAKER) (test 18 meq/L 22-29 fgqp=256) BLOOD UREA NITROGEN 24 mg/dL 7-21 (BEAKER) (test kdgf=858) CREATININE (BEAKER) (test 1.84 mg/dL 0.57-1.25 zsvj=748) GLUCOSE RANDOM (BEAKER) 119 mg/dL 70-105 (test jzwq=149) CALCIUM (BEAKER) (test 8.7 mg/dL 8.4-10.2 jvxr=103) EGFR (BEAKER) (test 35 mL/min/1.73 sq m ESTIMATED GFR IS NOT wctb=9688) ACCURATE CREATININE CLEARANCE IN PREDICTING GLOMERULAR FILTRATION RATE. ESTIMATED GFR IS NOT APPLICABLE FOR DIALYSIS PATIENTS. [id number] 05:27:00 Test Item Value Reference Range Comments PROTIME (BEAKER) (test evgv=126) 14.2 seconds 11.7-14.7 INR (BEAKER) (test ffki=970) 1.1 <=5.9 PARTIAL THROMBOPLASTIN TIME (BEAKER) (test 28.3 seconds 22.5-36.0 dcsz=408) RECOMMENDED COUMADIN/WARFARIN INR THERAPY RANGESSTANDARD DOSE: 2.0 - 3.0 Includes: PROPHYLAXIS forvenous thrombosis, systemic embolization; TREATMENT for venous thrombosis and/or pulmonary embolus.HIGH RISK: Target INR is 2.5-3.5 for patients with mechanical heart valves.CBC W/PLT COUNT & AUTO [id number] 11:32:00 Test Item Value Reference Range Comments WHITE BLOOD CELL COUNT (BEAKER) (test udim=738) 10.7 K/ L 4.0-10.0 RED BLOOD CELL COUNT (BEAKER) (test gygh=512) 3.63 M/ L 4.20-5.80 HEMOGLOBIN (BEAKER) (test ibns=048) 10.4 GM/DL 13.0-16.8 HEMATOCRIT (BEAKER) (test rahe=662) 31.8 % 40.0-50.0 MEAN CORPUSCULAR VOLUME (BEAKER) (test sshx=418) 87.8 fL 82.0-98.0 MEAN CORPUSCULAR HEMOGLOBIN (BEAKER) (test 28.5 pg 27.0-33.0 bzgo=193) MEAN CORPUSCULAR HEMOGLOBIN CONC (BEAKER) (test 32.5 GM/DL 32.0-36.0 sdyq=622) RED CELL DISTRIBUTION WIDTH (BEAKER) (test 15.7 % 10.3-14.2 igok=704) PLATELET COUNT (BEAKER) (test sebw=850) 149 K/CU MM 150-430 MEAN PLATELET VOLUME (BEAKER) (test uose=658) 8.9 fL 6.5-10.5 NUCLEATED RED BLOOD CELLS (BEAKER) (test 0 /100 WBC 0-0 mhqp=418) NEUTROPHILS RELATIVE PERCENT (BEAKER) (test 47 % pbkb=561) LYMPHOCYTES RELATIVE PERCENT (BEAKER) (test 44 % clpr=363) MONOCYTES RELATIVE PERCENT (BEAKER) (test 7 % mwch=517) EOSINOPHILS RELATIVE PERCENT (BEAKER) (test 1 % npsh=763) BASOPHILS RELATIVE PERCENT (BEAKER) (test 0 % aces=937) NEUTROPHILS ABSOLUTE COUNT (BEAKER) (test 5.07 K/ L 1.80-8.00 zaob=257) LYMPHOCYTES ABSOLUTE COUNT (BEAKER) (test 4.68 K/ L 1.48-4.50 cqjn=610) MONOCYTES ABSOLUTE COUNT (BEAKER) (test 0.76 K/ L 0.00-1.30 gsxb=496) EOSINOPHILS ABSOLUTE COUNT (BEAKER) (test 0.13 K/ L 0.00-0.50 pjgt=464) BASOPHILS ABSOLUTE COUNT (BEAKER) (test 0.04 K/ L 0.00-0.20 ddev=476) 0.00(MANUAL DIFFERENTIAL)2016-12-14 11:32:00 Test Item Value Reference Range Comments TOTAL COUNTED (BEAKER) (test ydwq=8084) WBC MORPHOLOGY (BEAKER) (test wmhi=461) Normal PLT MORPHOLOGY (BEAKER) (test fnfy=491) Normal RBC MORPHOLOGY (BEAKER) (test fqlo=141) Normal URINE [id number] 09:07:00 Test Item Value Reference Range Comments CULTURE (BEAKER) (test rrbk=0438) No growth HEPATIC FUNCTION [id number] 05:03:00 Test Item Value Reference Range Comments TOTAL PROTEIN (BEAKER) (test ksaz=945) 6.9 gm/dL 6.0-8.3 ALBUMIN (BEAKER) (test xktv=3285) 3.5 g/dL 3.5-5.0 BILIRUBIN TOTAL (BEAKER) (test puxi=577) 0.3 mg/dL 0.2-1.2 BILIRUBIN DIRECT (BEAKER) (test tapy=718) 0.2 mg/dL 0.1-0.5 ALKALINE PHOSPHATASE (BEAKER) (test lwfb=989) 78 U/L 40-150 AST (SGOT) (BEAKER) (test brdc=606) 17 U/L 5-34 ALT (SGPT) (BEAKER) (test gssh=720) < U/L 6-55 [id number] 05:03:00 Test Item Value Reference Range Comments PARTIAL THROMBOPLASTIN TIME (BEAKER) (test 47.9 seconds 22.5-36.0 pcxs=727) [id number] 04:57:00 Test Item Value Reference Range Comments MAGNESIUM (BEAKER) (test ypph=937) 2.0 mg/dL 1.6-2.6 BASIC METABOLIC [id number] 04:57:00 Test Item Value Reference Range Comments SODIUM (BEAKER) (test 139 meq/L 136-145 djdr=926) POTASSIUM (BEAKER) (test 4.5 meq/L 3.5-5.1 eptn=660) CHLORIDE (BEAKER) (test 108 meq/L 98-107 tvbk=027) CO2 (BEAKER) (test 20 meq/L 22-29 awmt=208) BLOOD UREA NITROGEN 29 mg/dL 7-21 (BEAKER) (test rdct=268) CREATININE (BEAKER) (test 1.84 mg/dL 0.57-1.25 kgsu=269) GLUCOSE RANDOM (BEAKER) 140 mg/dL 70-105 (test ayix=781) CALCIUM (BEAKER) (test 8.6 mg/dL 8.4-10.2 ojbz=678) EGFR (BEAKER) (test 35 mL/min/1.73 sq m ESTIMATED GFR IS NOT qtds=1507) ACCURATE CREATININE CLEARANCE IN PREDICTING GLOMERULAR FILTRATION RATE. ESTIMATED GFR IS NOT APPLICABLE FOR DIALYSIS PATIENTS. PROTHROMBIN [id number] 04:36:00 Test Item Value Reference Range Comments PROTIME (BEAKER) (test rooe=626) 13.5 seconds 11.7-14.7 INR (BEAKER) (test vdmc=473) 1.0 <=5.9 RECOMMENDED COUMADIN/WARFARIN INR THERAPY RANGESSTANDARD DOSE: 2.0 - 3.0 Includes: PROPHYLAXIS forvenous thrombosis, systemic embolization; TREATMENT for venous thrombosis and/or pulmonary embolus.HIGH RISK: Target INR is 2.5-3.5 for patients with mechanical heart valves.VANCOMYCIN LEVEL, [id number] 21: 01:00 Test Item Value Reference Range Comments VANCOMYCIN TROUGH (BEAKER) (test yhrx=391) 16.7 ug/mL 10.0-20.0 Please draw vancomycin trough \R\30 minutes prior to administration time; For trough >20 mcg/mL,hold next dose and contact pharmacy and MD.CBC W/PLT COUNT & AUTO [id number] 07:27:00 Test Item Value Reference Range Comments WHITE BLOOD CELL COUNT (BEAKER) (test iaqg=511) 12.2 K/ L 4.0-10.0 RED BLOOD CELL COUNT (BEAKER) (test axau=474) 3.47 M/ L 4.20-5.80 HEMOGLOBIN (BEAKER) (test snha=290) 9.8 GM/DL 13.0-16.8 HEMATOCRIT (BEAKER) (test maom=644) 30.8 % 40.0-50.0 MEAN CORPUSCULAR VOLUME (BEAKER) (test yuns=903) 88.6 fL 82.0-98.0 MEAN CORPUSCULAR HEMOGLOBIN (BEAKER) (test 28.2 pg 27.0-33.0 xjjb=272) MEAN CORPUSCULAR HEMOGLOBIN CONC (BEAKER) (test 31.8 GM/DL 32.0-36.0 kktz=403) RED CELL DISTRIBUTION WIDTH (BEAKER) (test 15.7 % 10.3-14.2 hfeg=176) PLATELET COUNT (BEAKER) (test itci=909) 133 K/CU MM 150-430 MEAN PLATELET VOLUME (BEAKER) (test qjal=623) 8.9 fL 6.5-10.5 NUCLEATED RED BLOOD CELLS (BEAKER) (test 0 /100 WBC 0-0 gmdc=968) NEUTROPHILS RELATIVE PERCENT (BEAKER) (test 51 % cznk=595) LYMPHOCYTES RELATIVE PERCENT (BEAKER) (test 43 % pdtj=403) MONOCYTES RELATIVE PERCENT (BEAKER) (test 5 % spew=870) EOSINOPHILS RELATIVE PERCENT (BEAKER) (test 0 % erqm=261) BASOPHILS RELATIVE PERCENT (BEAKER) (test 1 % octu=491) NEUTROPHILS ABSOLUTE COUNT (BEAKER) (test 6.24 K/ L 1.80-8.00 tymu=852) LYMPHOCYTES ABSOLUTE COUNT (BEAKER) (test 5.21 K/ L 1.48-4.50 zpoa=026) MONOCYTES ABSOLUTE COUNT (BEAKER) (test 0.64 K/ L 0.00-1.30 idce=832) EOSINOPHILS ABSOLUTE COUNT (BEAKER) (test 0.05 K/ L 0.00-0.50 cagf=702) BASOPHILS ABSOLUTE COUNT (BEAKER) (test 0.07 K/ L 0.00-0.20 ksvx=387) 0.00HEPATIC FUNCTION [id number] 05:28:00 Test Item Value Reference Range Comments TOTAL PROTEIN (BEAKER) (test acwl=613) 6.4 gm/dL 6.0-8.3 ALBUMIN (BEAKER) (test iqop=9382) 3.3 g/dL 3.5-5.0 BILIRUBIN TOTAL (BEAKER) (test aewb=582) 0.5 mg/dL 0.2-1.2 BILIRUBIN DIRECT (BEAKER) (test avdb=602) 0.2 mg/dL 0.1-0.5 ALKALINE PHOSPHATASE (BEAKER) (test wffb=711) 69 U/L 40-150 AST (SGOT) (BEAKER) (test odrv=733) 18 U/L 5-34 ALT (SGPT) (BEAKER) (test tgiw=878) < U/L 6-55 BASIC METABOLIC [id number] 05:28:00 Test Item Value Reference Range Comments SODIUM (BEAKER) (test 132 meq/L 136-145 oyxn=630) POTASSIUM (BEAKER) (test 4.2 meq/L 3.5-5.1 nhtj=313) CHLORIDE (BEAKER) (test 104 meq/L 98-107 ycxf=398) CO2 (BEAKER) (test 18 meq/L 22-29 zmco=287) BLOOD UREA NITROGEN 27 mg/dL 7-21 (BEAKER) (test lqph=204) CREATININE (BEAKER) (test 1.52 mg/dL 0.57-1.25 czmi=116) GLUCOSE RANDOM (BEAKER) 126 mg/dL 70-105 (test powu=689) CALCIUM (BEAKER) (test 8.5 mg/dL 8.4-10.2 aevv=273) EGFR (BEAKER) (test 44 mL/min/1.73 sq m ESTIMATED GFR IS NOT idsq=9918) ACCURATE CREATININE CLEARANCE IN PREDICTING GLOMERULAR FILTRATION RATE. ESTIMATED GFR IS NOT APPLICABLE FOR DIALYSIS PATIENTS. [id number] 05:27:00 Test Item Value Reference Range Comments MAGNESIUM (BEAKER) (test ryfz=725) 1.9 mg/dL 1.6-2.6 PROTHROMBIN [id number] 05:10:00 Test Item Value Reference Range Comments PROTIME (BEAKER) (test xvdp=920) 13.0 seconds 11.7-14.7 INR (BEAKER) (test pkto=677) 1.0 <=5.9 RECOMMENDED COUMADIN/WARFARIN INR THERAPY RANGESSTANDARD DOSE: 2.0 - 3.0 Includes: PROPHYLAXIS forvenous thrombosis, systemic embolization; TREATMENT for venous thrombosis and/or pulmonary embolus.HIGH RISK: Target INR is 2.5-3.5 for patients with mechanical heart valves.HEMOGLOBIN AND [id number] 17 :05:00 Test Item Value Reference Range Comments HEMOGLOBIN (BEAKER) (test kyfq=212) 10.0 GM/DL 13.0-16.8 HEMATOCRIT (BEAKER) (test ldrk=952) 31.7 % 40.0-50.0 CBC W/PLT COUNT & AUTO [id number] 10:22:00 Test Item Value Reference Range Comments WHITE BLOOD CELL COUNT (BEAKER) (test iwrc=268) 10.8 K/ L 4.0-10.0 RED BLOOD CELL COUNT (BEAKER) (test lvdv=486) 3.45 M/ L 4.20-5.80 HEMOGLOBIN (BEAKER) (test ereh=517) 9.5 GM/DL 13.0-16.8 HEMATOCRIT (BEAKER) (test kexl=758) 30.1 % 40.0-50.0 MEAN CORPUSCULAR VOLUME (BEAKER) (test pfji=171) 87.1 fL 82.0-98.0 MEAN CORPUSCULAR HEMOGLOBIN (BEAKER) (test 27.7 pg 27.0-33.0 fqxv=375) MEAN CORPUSCULAR HEMOGLOBIN CONC (BEAKER) (test 31.7 GM/DL 32.0-36.0 etem=767) RED CELL DISTRIBUTION WIDTH (BEAKER) (test 15.0 % 10.3-14.2 xuxg=477) PLATELET COUNT (BEAKER) (test mcvl=128) 132 K/CU MM 150-430 MEAN PLATELET VOLUME (BEAKER) (test ivtz=251) 8.3 fL 6.5-10.5 NUCLEATED RED BLOOD CELLS (BEAKER) (test 0 /100 WBC 0-0 rsul=296) NEUTROPHILS RELATIVE PERCENT (BEAKER) (test 42 % ytqc=699) LYMPHOCYTES RELATIVE PERCENT (BEAKER) (test 53 % mqxk=512) MONOCYTES RELATIVE PERCENT (BEAKER) (test 5 % bvxq=217) EOSINOPHILS RELATIVE PERCENT (BEAKER) (test 0 % yxnz=087) BASOPHILS RELATIVE PERCENT (BEAKER) (test 0 % jlcg=808) NEUTROPHILS ABSOLUTE COUNT (BEAKER) (test 4.48 K/ L 1.80-8.00 mjdk=939) LYMPHOCYTES ABSOLUTE COUNT (BEAKER) (test 5.65 K/ L 1.48-4.50 lmjm=052) MONOCYTES ABSOLUTE COUNT (BEAKER) (test 0.57 K/ L 0.00-1.30 ercu=657) EOSINOPHILS ABSOLUTE COUNT (BEAKER) (test 0.02 K/ L 0.00-0.50 cvmc=146) BASOPHILS ABSOLUTE COUNT (BEAKER) (test 0.03 K/ L 0.00-0.20 ynns=404) 0.00(MANUAL DIFFERENTIAL)[id number] 10:22:00 Test Item Value Reference Range Comments TOTAL COUNTED (BEAKER) (test crcq=7749) PLT MORPHOLOGY (BEAKER) (test uwyx=209) Normal ATYPICAL LYMPHS(BEAKER) (test tqgm=1494) Present HYPOCHROMIA (BEAKER) (test gexz=803) 1+ few POLYCHROMATOPHILLIC RBCS(BEAKER) (test vvzj=668) 1+ few [id number] 07:21:00 Test Item Value Reference Range Comments MAGNESIUM (BEAKER) (test giuf=170) 2.1 mg/dL 1.6-2.6 BASIC METABOLIC [id number] 07:21:00 Test Item Value Reference Range Comments SODIUM (BEAKER) (test 140 meq/L 136-145 jxom=703) POTASSIUM (BEAKER) (test 4.2 meq/L 3.5-5.1 blvr=390) CHLORIDE (BEAKER) (test 110 meq/L 98-107 oieq=372) CO2 (BEAKER) (test 21 meq/L 22-29 xwah=979) BLOOD UREA NITROGEN 29 mg/dL 7-21 (BEAKER) (test bdmz=714) CREATININE (BEAKER) (test 1.69 mg/dL 0.57-1.25 kadt=671) GLUCOSE RANDOM (BEAKER) 96 mg/dL 70-105 (test qeby=959) CALCIUM (BEAKER) (test 8.9 mg/dL 8.4-10.2 uaqe=736) EGFR (BEAKER) (test 39 mL/min/1.73 sq m ESTIMATED GFR IS NOT mbhm=5188) ACCURATE CREATININE CLEARANCE IN PREDICTING GLOMERULAR FILTRATION RATE. ESTIMATED GFR IS NOT APPLICABLE FOR DIALYSIS PATIENTS. HEPATIC FUNCTION [id number] 07:21:00 Test Item Value Reference Range Comments TOTAL PROTEIN (BEAKER) (test elfo=380) 6.7 gm/dL 6.0-8.3 ALBUMIN (BEAKER) (test ngkz=5622) 3.5 g/dL 3.5-5.0 BILIRUBIN TOTAL (BEAKER) (test phkj=072) 0.6 mg/dL 0.2-1.2 BILIRUBIN DIRECT (BEAKER) (test zgjw=858) 0.3 mg/dL 0.1-0.5 ALKALINE PHOSPHATASE (BEAKER) (test mlcu=003) 76 U/L 40-150 AST (SGOT) (BEAKER) (test xbfd=192) 20 U/L 5-34 ALT (SGPT) (BEAKER) (test kzsr=956) 12 U/L 6-55 PROTHROMBIN [id number] 07:05:00 Test Item Value Reference Range Comments PROTIME (BEAKER) (test mamg=815) 14.1 seconds 11.7-14.7 INR (BEAKER) (test skhr=468) 1.1 <=5.9 RECOMMENDED COUMADIN/WARFARIN INR THERAPY RANGESSTANDARD DOSE: 2.0 - 3.0 Includes: PROPHYLAXIS forvenous thrombosis, systemic embolization; TREATMENT for venous thrombosis and/or pulmonary embolus.HIGH RISK: Target INR is 2.5-3.5 for patients with mechanical heart valves.HEMOGLOBIN AND [id number] 01 :04:00 Test Item Value Reference Range Comments HEMOGLOBIN (BEAKER) (test gtjk=982) 9.7 GM/DL 13.0-16.8 HEMATOCRIT (BEAKER) (test usjd=799) 30.6 % 40.0-50.0 HEMOGLOBIN [id number] 20:57:00 Test Item Value Reference Range Comments HEMOGLOBIN A1C (BEAKER) (test zutr=859) 5.4 % 4.3-6.1 CBC W/PLT COUNT & AUTO [id number] 19:35:00 Test Item Value Reference Range Comments WHITE BLOOD CELL COUNT (BEAKER) (test xwwy=524) 14.1 K/ L 4.0-10.0 RED BLOOD CELL COUNT (BEAKER) (test nlqd=934) 3.62 M/ L 4.20-5.80 HEMOGLOBIN (BEAKER) (test wrsr=685) 10.2 GM/DL 13.0-16.8 HEMATOCRIT (BEAKER) (test rucj=144) 31.5 % 40.0-50.0 MEAN CORPUSCULAR VOLUME (BEAKER) (test klbi=759) 87.0 fL 82.0-98.0 MEAN CORPUSCULAR HEMOGLOBIN (BEAKER) (test 28.1 pg 27.0-33.0 hswy=656) MEAN CORPUSCULAR HEMOGLOBIN CONC (BEAKER) (test 32.3 GM/DL 32.0-36.0 jhac=964) RED CELL DISTRIBUTION WIDTH (BEAKER) (test 16.1 % 10.3-14.2 vwzk=636) PLATELET COUNT (BEAKER) (test zygg=090) 139 K/CU MM 150-430 MEAN PLATELET VOLUME (BEAKER) (test zvhr=886) 8.6 fL 6.5-10.5 NUCLEATED RED BLOOD CELLS (BEAKER) (test 0 /100 WBC 0-0 hbck=086) NEUTROPHILS RELATIVE PERCENT (BEAKER) (test 48 % mlka=266) LYMPHOCYTES RELATIVE PERCENT (BEAKER) (test 48 % ovax=724) MONOCYTES RELATIVE PERCENT (BEAKER) (test 4 % yewn=620) EOSINOPHILS RELATIVE PERCENT (BEAKER) (test 0 % chnv=776) BASOPHILS RELATIVE PERCENT (BEAKER) (test 1 % ieat=968) NEUTROPHILS ABSOLUTE COUNT (BEAKER) (test 6.72 K/ L 1.80-8.00 xxat=432) LYMPHOCYTES ABSOLUTE COUNT (BEAKER) (test 6.74 K/ L 1.48-4.50 yuhh=227) MONOCYTES ABSOLUTE COUNT (BEAKER) (test 0.52 K/ L 0.00-1.30 bhdy=761) EOSINOPHILS ABSOLUTE COUNT (BEAKER) (test 0.01 K/ L 0.00-0.50 mcla=893) BASOPHILS ABSOLUTE COUNT (BEAKER) (test 0.09 K/ L 0.00-0.20 upat=537) POCT-GLUCOSE [id number] 17:00:00 Test Item Value Reference Range Comments POC-GLUCOSE METER (GURINDER) 129 mg/dL 70-110 TESTED AT [facility] [address] [place] [address] (test dmlv=3158) [facility] [id number]
[2018-04-03 11:19] LABS: Absolute Lymphocytes (CBC) 7.2 K/uL (0.7-4.9); Absolute Monocytes 0.6 K/uL (0.1-1.3); Absolute Neutrophil 5.7 K/uL (1.8-8.0); Basophils % 0.7 % (0-1.3); Eosinophils % 3.8 % (0-4.4); Hematocrit 41.1 % (39.6-49.0); Lymphocytes % 51.1 % (15.3-44.8); MCH 28.5 pg (27.0-35.0); MCV 86.3 fL (80-100); Monocytes % 4.2 % (3.3-12.3); RBC Red Blood Cell Count 4.76 M/uL (4.33-5.43)
[2018-04-03 11:39] LABS: ALT/SGPT < 6 U/L (12-78); AST/SGOT 19 U/L (15-37); Albumin 3.2 g/dL (3.4-5.0); Alkaline Phosphatase 99 U/L (45-117); BUN Blood Urea Nitrogen 27 mg/dL (7-18); Bicarbonate 29 mmol/L (21-32); Bilirubin Direct 0.2 mg/dL (0-0.2); Bilirubin Total 0.5 mg/dL (0.2-1.0); CKMB Creatine Kinase MB < 1.0 ng/mL (0.3-3.6); Creatine Phosphokinase 20 U/L (39-308); Glucose Level 118 mg/dL (74-106); Magnesium 2.4 mg/dL (1.8-2.4); NT PRO-BNP 2005 pg/mL (<450); Potassium 4.1 mmol/L (3.5-5.1); Protein, Total 8.3 g/dL (6.4-8.2); Sodium Level 141 mmol/L (136-145)
--- NOTE | 2018-04-03 12:12 | EKG ---
Test Date: 2018-04-03 Test Time: 11:18:20 Estimator And Drafter Supervisor: ARNULFO MEASUREMENT RESULTS: Intervals: Rate: 70 NV: QRSD: 190 QT: 490 QTc: 529 Addison: P: NV: QRS: -72 T: 92 INTERPRETIVE STATEMENTS: Ventricular-paced rhythm Abnormal ECG Compared to ECG 06/24/2017 13:59:31 No significant changes Electronically Signed On 04-03-18 12:11:36 CDT by Mikael Wilson
[2018-04-03] MEDS ORDERED: IPRATROPIUM BROM 0.5MG/2.5ML ONE (12:49)
[2018-04-03] MEDS ORDERED: ALBUTEROL 2.5 MG/3 ML NEB SOL ONE (12:49)
--- NOTE | 2018-04-03 12:49 | RAD REPORT ---
EXAM DESCRIPTION: CT - Head Brain Wo Cont - 04/03/2018 12:40 pm CLINICAL HISTORY: Transient alteration of awareness, history of TIA, declining state COMPARISON: June 2017 CT head TECHNIQUE: Axial 5 mm thick images of the head were obtained without IV contrast. All CT scans are performed using dose optimization technique as appropriate and may include automated exposure control or mA/KV adjustment according to patient size. FINDINGS: No intracranial hemorrhage, mass, edema or shift of mid-line structures. No acute cortical based infarction. No cortical edema or sulcal effacement. Moderate atrophy and moderate chronic isch emic changes are present. No abnormal extra-axial fluid collections. Ventricular size is in proportio n to volume loss. Patient has very dense arterial tree calcifications. Mastoid air cells and visualized portions of the paranasal sinuses are clear. No acute bony findings. IMPRESSION: Moderate atrophy and chronic ischemic change similar to June 2017. No acute intracranial finding seen.
--- NOTE | 2018-04-03 12:49 | RAD REPORT ---
EXAM DESCRIPTION: Frandy Single View04/03/2018 12:42 pm CLINICAL HISTORY: Shortness of breath COMPARISON: May 2017 FINDINGS: Right upper lobe opacity with volume loss is seen. Left lung appears clear of acute infil trate. . The heart is mildly enlarged. Postsurgical changes involve the chest. Pacemaker lead is in place IMPRESSION: Right upper lobe opacity may represent pneumonia. There is also a component of atelectas is. This should be followed until it is clear to help exclude a post obstructive process/underlying m ass
[2018-04-03] MEDS ORDERED: AZITHROMYCIN 500 MG/250 ML BAG ONE ×2 (12:50→13:48)
[2018-04-03] MEDS ORDERED: PIPER/TAZO/NS 3.375gm 3.375 GM/100 ML BAG ONE (12:50)
--- NOTE | 2018-04-03 12:53 | ER ---
Nurse's Notes [facility] Name: Alvarez Aleman Jr Age: 82 yrs Sex: Male : 1935 Arrival Date: 04/03/2018 Time: 10:47 Bed 8 Private MD: Diagnosis: Weakness;Pneumonia due to other specified bacteria;Dementia in other diseases classified elsewhere;Elevated white blood cell count Presentation: 04/03 10:41 Presenting complaint: EMS states: [facility] sending pt over for being lethargic sv unknown time. labs and CXR were done. CXR-pneumonia. Nurse reported at [facility] that she noticed him being lethargic around 0600 today. BS-139, Temp 98.4. Pt has a dressing to the right forearm from a skin tear. Transition of care: patient was received from another setting of care (long-term care facility), [facility]. Onset of symptoms was April 03, 2018. Risk Assessment: Do you want to hurt yourself or someone else? Patient reports no desire to harm self or others. Initial Sepsis Screen: Does the patient meet any 2 criteria? No. Patient's initial sepsis screen is negative. Does the patient have a suspected source of infection? No. Patient's initial sepsis screen is negative. Care prior to arrival: None. 10:41 Method Of Arrival: EMS: [facility] sv 10:41 Acuity: RYLEY 2 sv Triage Assessment: 10:45 General: Appears uncomfortable, ill, Behavior is calm, cooperative, appropriate for sv age. Pain: Denies pain. EENT: No signs and/or symptoms were reported regarding the EENT system. Neuro: Level of Consciousness is awake, alert, confused, Oriented to person, situation. Cardiovascular: Heart tones S1 S2 present Patient's skin is warm and dry. Respiratory: Respiratory effort is even, unlabored, Respiratory pattern is regular, symmetrical, Breath sounds are diminished bilaterally. Derm: Skin is pale. Historical: - Allergies: 10:50 No Known Allergies; sv - Home Meds: 16:37 amlodipine 10 mg tab 1 tab once daily [Active]; aspirin 81 mg oral chew [Active]; tw2 carbidopa-levodopa 50-200 mg Oral TbER 1 tab 3 times per day [Active]; carbidopa-levodopa 10-100 mg Oral TbDL 1.5 tabs 4 times per day [Active]; docusate sodium 100 mg Oral tab 1 tab once daily [Active]; donepezil 10 mg oral tab 1 tab once daily [Active]; DuoNeb 0.5 mg-3 mg(2.5 mg base)/3 mL Inhl nebu 3 mL 4 times per day [Active]; escitalopram oxalate 20 mg oral tab 1 tab once daily [Active]; Fergon 240 mg (27 mg iron) oral tab [Active]; ferrous gluconate 325 mg (37 mg iron) Oral tab [Active]; finasteride 5 mg oral tab 1 tab once daily [Active]; Chiqui-Tussin DM 10-100 mg/5 mL oral syrp 10 mL every 4 hours [Active]; Keppra 500 mg Oral tab 1 tab 2 times per day [Active]; levothyroxine 25 mcg tab 1 tab once daily [Active]; donepezil 10 mg oral tab 1 tab once daily [Active]; tamsulosin 0.4 mg oral cp24 1 cap once daily [Active]; thiamine HCl (vitamin B1) 100 mg Oral tab [Active]; warfarin 2.5 mg Oral tab 1 tab once daily [Active]; - PMHx: 10:50 Acute embolism \T\ 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 - Social history:: Smoking status: unknown. - Family history:: not pertinent. - Ebola Screening: : No symptoms or risks identified at this time. - Code Status:: Full code. Screenin:00 Abuse screen: Denies threats or abuse. Denies injuries from another. Nutritional sv screening: No deficits noted. Tuberculosis screening: No symptoms or risk factors identified. Fall Risk No fall in past 12 months (0 pts). No secondary diagnosis (0 pts). IV access (20 points). Ambulatory Aid- None/Bed Rest/Nurse Assist (0 pts). Gait- Normal/Bed Rest/Wheelchair (0 pts) Mental Status- Overestimates/Forgets Limitations (15 pts.). Total Santiago Fall Scale indicates Low Risk Score (25-44 pts). Fall prevention measures have been instituted. Side Rails Up X 2 Placed close to Nursing Station Frequent Obs/Assesments occuring As available Patient and Family Educated on Fall Prevention Program and strategies. Assessment: 10:50 General: Appears in no apparent distress. Behavior is calm. Pain: Unable to use pain tw2 scale. lethargic. Neuro: Level of Consciousness is lethargic, listless. Neuro: Oriented to person. Cardiovascular: Heart tones S1 S2 Capillary refill < 3 seconds Patient's skin is warm and dry. Respiratory: Airway is patent Respiratory effort is even, Respiratory pattern is regular, Breath sounds with crackles bilaterally. GI: Abdomen is round Bowel sounds present X 4 quads. : No signs and/or symptoms were reported regarding the genitourinary system. EENT: No signs and/or symptoms were reported regarding the EENT system. Derm: Skin is intact, is healthy with good turgor, Skin is moist, Skin temperature is warm. Musculoskeletal: Circulation, motion, and sensation intact. Parent/caregiver report the patient having pt does not ambulate anymore. 11:20 Reassessment: Patient appears in no apparent distress at this time. No changes from sv previously documented assessment. Patient and/or family updated on plan of care and expected duration. Pain level reassessed. 12:00 Reassessment: Patient appears in no apparent distress at this time. No changes from tw2 previously documented assessment. Patient and/or family updated on plan of care and expected duration. Pain level reassessed. 13:00 Reassessment: Patient appears in no apparent distress at this time. No changes from tw2 previously documented assessment. Patient and/or family updated on plan of care and expected duration. Pain level reassessed. 14:05 Reassessment: Dr. Watson at bedside at this time as well as daughter in law. tw2 Reassessment: spoke with Yanick in outside lab to run dipstick on urine sent from indwelling patel catch. 15:09 Reassessment: Patient appears in no apparent distress at this time. No changes from sv previously documented assessment. Patient and/or family updated on plan of care and expected duration. Pain level reassessed. 15:58 Reassessment: Patient appears in no apparent distress at this time. No changes from tw2 previously documented assessment. Patient and/or family updated on plan of care and expected duration. Pain level reassessed. Vital Signs: 10:50 BP 162 / 78; Pulse 70; Resp 26; Temp 98; Pulse Ox 99% on R/A; sv 12:00 BP 136 / 67; Pulse 70; Resp 23; Pulse Ox 100% on R/A; tw2 13:00 BP 138 / 67; Pulse 70; Resp 22; Pulse Ox 100% on R/A; tw2 14:04 BP 118 / 58; Pulse 70; Resp 22; Pulse Ox 99% on R/A; tw2 15:10 BP 115 / 62; Pulse 70; Resp 18; Pulse Ox 100% ; sv 15:58 BP 131 / 63; Pulse 70; Resp 22; Pulse Ox 100% on R/A; tw2 16:38 BP 125 / 65; Pulse 70; Resp 20; Pulse Ox 100% on R/A; tw2 ED Course: 10:47 Patient arrived in ED. sv 10:47 Maite Rosario RN is Primary Nurse. sv 10:49 Ayan Ag MD is Attending Physician. dee 10:49 Triage completed. sv 10:51 Arm band placed on right wrist. sv 11:00 Patient has correct armband on for positive identification. Placed in gown. Bed in low sv position. Side rails up X2. tobacco curer on. Pulse ox on. NIBP on. Head of bed elevated. 11:02 Inserted saline lock: 20 gauge in left forearm, using aseptic technique. Blood ss collected. Patient maintains SpO2 saturation greater than 95% on room air. 11:32 EKG done, by machines technician. reviewed by Ayan Ag MD. at1 12:40 CT Head Brain wo Cont In Process Unspecified. EDMS 12:40 X-ray completed. Portable x-ray completed in exam room. Patient tolerated procedure ml well. 12:43 XRAY Chest (1 view) In Process Unspecified. EDMS 12:43 Greg Watson DO is Hospitalizing Provider. dee 15:56 Awaiting: spoke with Veronica,clerk secretary she stated that they just know got the page that tw2 they were getting a pt and she needed 10 minutes to let the nurse know she was getting a pt, charge nurse SHAQ Acevedo notified. 15:59 No provider procedures requiring assistance completed. Patient admitted, IV remains in tw2 place. 16:30 Awaiting: attempted to call report, per Veronica the nurse is SHAQ Cook and she is tw2 finishing up a dressing change. 16:40 Awaiting: was told per SHAQ Cook stated will need to move pt in front of nurses station tw2 to room 403 and they will call when it is ready. Administered Medications: 12:50 Drug: Albuterol 2.5 mg Route: Inhalation; tw2 12:50 Drug: AtroVENT Aerosol 0.5 mg Route: Inhalation; tw2 13:07 Drug: Zosyn 3.375 grams Route: IVPB; Infused Over: 60 mins; Site: left forearm; tw2 14:03 Follow up: Response: No adverse reaction; IV Status: Completed infusion tw2 14:04 Drug: Zithromax 500 mg Route: IVPB; Infused Over: 1 hrs; Site: left forearm; tw2 15:03 Follow up: Response: No adverse reaction; IV Status: Completed infusion; IV Intake: sv 250ml 15:10 Follow up: Response: No adverse reaction; IV Status: Completed infusion tw2 Point of Care Testing: Blood Glucose: 11:05 Blood Glucose: 126 mg/dL; ss 16:41 Blood Glucose: 111 mg/dL; tw2 16:41 per Daren Torrez tw2 Ranges: Intake: 15:03 IV: 250ml; Total: 250ml. sv Outcome: 12:52 Decision to Hospitalize by Provider. dee 16:39 Admitted to Med/surg accompanied by tech, via stretcher, room 403, with chart, Report tw2 called to SHAQ Cook 16:39 Condition: stable 16:39 Instructed on the need for admit. 17:10 Patient left the ED. sv Signatures: Dispatcher [employer] Maite Baldwin RN RN sv Anderson, Corey, MD MD cha Lopez, Melissa ml Smirch, Shelby, RN RN Antonella roper, watchstander EKG Tat1 Susie Stone RN RN tw2
--- NOTE | 2018-04-03 12:53 | EDPHYS ---
Physician Documentation [facility] Name: Alvarez Aleman Jr Age: 82 yrs Sex: Male : 1935 Arrival Date: 04/03/2018 Time: 10:47 Bed 8 Private MD: ED Physician Ayan Ag HPI: 04/03 11:57 This 82 yrs old Male presents to ER via EMS with complaints of Lethargic, dee Pneumonia. 11:57 weakness, sent for pneumonia. The patient presents with decreased mental status, dee decreased responsiveness, trouble concentrating. Onset: The symptoms/episode began/occurred 1 week(s) ago. Possible causes: sepsis, the patient has a known history of pneumonia. The patient or guardian reports cough. Associated signs and symptoms: Pertinent positives: confusion, weakness. Severity of symptoms: At their worst the symptoms were mild, moderate, in the emergency department the symptoms are unchanged. Current symptoms: In the emergency department the patient's symptoms are unchanged from the initial presentation. Historical: - Allergies: 10:50 No Known Allergies; sv - Home Meds: 16:37 amlodipine 10 mg tab 1 tab once daily [Active]; aspirin 81 mg oral chew [Active]; tw2 carbidopa-levodopa 50-200 mg Oral TbER 1 tab 3 times per day [Active]; carbidopa-levodopa 10-100 mg Oral TbDL 1.5 tabs 4 times per day [Active]; docusate sodium 100 mg Oral tab 1 tab once daily [Active]; donepezil 10 mg oral tab 1 tab once daily [Active]; DuoNeb 0.5 mg-3 mg(2.5 mg base)/3 mL Inhl nebu 3 mL 4 times per day [Active]; escitalopram oxalate 20 mg oral tab 1 tab once daily [Active]; Fergon 240 mg (27 mg iron) oral tab [Active]; ferrous gluconate 325 mg (37 mg iron) Oral tab [Active]; finasteride 5 mg oral tab 1 tab once daily [Active]; Chiqui-Tussin DM 10-100 mg/5 mL oral syrp 10 mL every 4 hours [Active]; Keppra 500 mg Oral tab 1 tab 2 times per day [Active]; levothyroxine 25 mcg tab 1 tab once daily [Active]; donepezil 10 mg oral tab 1 tab once daily [Active]; tamsulosin 0.4 mg oral cp24 1 cap once daily [Active]; thiamine HCl (vitamin B1) 100 mg Oral tab [Active]; warfarin 2.5 mg Oral tab 1 tab once daily [Active]; - PMHx: 10:50 Acute embolism \T\ 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 - Social history:: Smoking status: unknown. - Family history:: not pertinent. - Ebola Screening: : No symptoms or risks identified at this time. - Code Status:: Full code. ROS: 11:57 Constitutional: Negative for fever, chills, and weight loss, Eyes: Negative for injury, dee pain, redness, and discharge, ENT: Negative for injury, pain, and discharge, Neck: Negative for injury, pain, and swelling, Cardiovascular: Negative for chest pain, palpitations, and edema, Abdomen/GI: Negative for abdominal pain, nausea, vomiting, diarrhea, and constipation, Back: Negative for injury and pain, : Negative for injury, bleeding, discharge, and swelling, MS/Extremity: Negative for injury and deformity, Skin: Negative for injury, rash, and discoloration, Neuro: Negative for headache, weakness, numbness, tingling, and seizure, Psych: Negative for depression, anxiety, suicide ideation, homicidal ideation, and hallucinations, Allergy/Immunology: Negative for hives, rash, and allergies, Endocrine: Negative for neck swelling, polydipsia, polyuria, polyphagia, and marked weight changes, Hematologic/Lymphatic: Negative for swollen nodes, abnormal bleeding, and unusual bruising. 11:57 Respiratory: Positive for cough, shortness of breath, at rest. Exam: 11:57 Head/Face: Normocephalic, atraumatic. Eyes: Pupils equal round and reactive to light, dee extra-ocular motions intact. Lids and lashes normal. Conjunctiva and sclera are non-icteric and not injected. Cornea within normal limits. Periorbital areas with no swelling, redness, or edema. Neck: Trachea midline, no thyromegaly or masses palpated, and no cervical lymphadenopathy. Supple, full range of motion without nuchal rigidity, or vertebral point tenderness. No Meningismus. Chest/axilla: Normal chest wall appearance and motion. Nontender with no deformity. No lesions are appreciated. Cardiovascular: Regular rate and rhythm with a normal S1 and S2. No gallops, murmurs, or rubs. Normal PMI, no JVD. No pulse deficits. Back: No spinal tenderness. No costovertebral tenderness. Full range of motion. Skin: Warm, dry with normal turgor. Normal color with no rashes, no lesions, and no evidence of cellulitis. MS/ Extremity: Pulses equal, no cyanosis. Neurovascular intact. Full, normal range of motion. Psych: Awake, alert, with orientation to person, place and time. Behavior, mood, and affect are within normal limits. 11:57 Cardiovascular: Rate: normal, Rhythm: irregular, Pulses: Pulses are 4+ in bilateral radial, brachial, femoral, popliteal, posterior tibial and and dorsalis pedis arteries.. Heart sounds: normal, Edema: is not appreciated, JVD: is not appreciated. 11:57 Respiratory: the patient does not display signs of respiratory distress, Respirations: normal, Breath sounds: decreased breath sounds, Respiratory rate: 28 Vital Signs: 10:50 BP 162 / 78; Pulse 70; Resp 26; Temp 98; Pulse Ox 99% on R/A; sv 12:00 BP 136 / 67; Pulse 70; Resp 23; Pulse Ox 100% on R/A; tw2 13:00 BP 138 / 67; Pulse 70; Resp 22; Pulse Ox 100% on R/A; tw2 14:04 BP 118 / 58; Pulse 70; Resp 22; Pulse Ox 99% on R/A; tw2 15:10 BP 115 / 62; Pulse 70; Resp 18; Pulse Ox 100% ; sv 15:58 BP 131 / 63; Pulse 70; Resp 22; Pulse Ox 100% on R/A; tw2 16:38 BP 125 / 65; Pulse 70; Resp 20; Pulse Ox 100% on R/A; tw2 MDM: 10:49 Patient medically screened. [facility] 12:00 Data reviewed: vital signs, nurses notes, lab test result(s), EKG, radiologic studies, dee plain films. 04/03 11:04 Order name: Basic Metabolic Panel 04/03 11:04 Order name: CBC with Diff 04/03 11:04 Order name: Ckmb 04/03 11:04 Order name: CPK; Complete Time: 12:01 04/03 11:04 Order name: LFT's; Complete Time: 12: 04/03 11:04 Order name: Magnesium; Complete Time: 12: 04/03 11:04 Order name: NT PRO-BNP; Complete Time: 12:01 04/03 11:04 Order name: PT-INR 04/03 11:04 Order name: Ptt, Activated 04/03 11:04 Order name: Troponin (emerg Dept Use Only); Complete Time: 12: 04/03 11:04 Order name: Blood Culture Adult (2) 04/03 11:04 Order name: Lactate; Complete Time: 12: 04/03 11:04 Order name: Basic Metabolic Panel; Complete Time: 12:01 [facility] 04/03 11:04 Order name: CBC with Automated Diff; Complete Time: 12:01 [facility] 04/03 11:04 Order name: XRAY Chest (1 view); Complete Time: 12:53 04/03 11:04 Order name: EKG; Complete Time: 11: 04/03 11:04 Order name: Cardiac monitoring; Complete Time: 12:43 04/03 11:04 Order name: EKG - Nurse/Tech; Complete Time: 12:43 04/03 11:04 Order name: IV Saline Lock; Complete Time: 11: 04/03 11:04 Order name: CKMB Creatine Kinase MB; Complete Time: 12:01 [facility] 04/03 11:57 Order name: Glucose, Ancillary Testing; Complete Time: 12:01 [facility] 04/03 12:00 Order name: TSH [facility] 04/03 12:00 Order name: CT Head Brain wo Cont; Complete Time: 12:53 [facility] 04/03 14:31 Order name: Urine Dipstick-Ancillary [facility] 04/03 15:57 Order name: T4 Free [facility] 04/03 16:43 Order name: Glucose, Ancillary Testing [facility] 04/03 11:04 Order name: Labs collected and sent; Complete Time: 12:43 04/03 11:04 Order name: O2 Per Protocol; Complete Time: 11:05 04/03 11:04 Order name: O2 Sat Monitoring; Complete Time: 11: 04/03 11:04 Order name: Urine Dipstick-Ancillary (obtain specimen); Complete Time: 14:01 ss 04/03 11:04 Order name: Glucose Level; Complete Time: 11:05 ss Administered Medications: 12:50 Drug: Albuterol 2.5 mg Route: Inhalation; tw2 12:50 Drug: AtroVENT Aerosol 0.5 mg Route: Inhalation; tw2 13:07 Drug: Zosyn 3.375 grams Route: IVPB; Infused Over: 60 mins; Site: left forearm; tw2 14:03 Follow up: Response: No adverse reaction; IV Status: Completed infusion tw2 14:04 Drug: Zithromax 500 mg Route: IVPB; Infused Over: 1 hrs; Site: left forearm; tw2 15:03 Follow up: Response: No adverse reaction; IV Status: Completed infusion; IV Intake: sv 250ml 15:10 Follow up: Response: No adverse reaction; IV Status: Completed infusion tw2 Point of Care Testing: Blood Glucose: 11:05 Blood Glucose: 126 mg/dL; ss 16:41 Blood Glucose: 111 mg/dL; tw2 16:41 per Daren Torrez tw2 Ranges: Critical Glucose Levels:Adult <50 mg/dl or >400 mg/dl <40 mg/dl or >180 mg/dl Disposition: 04/03/18 12:52 Hospitalization ordered by Greg Watson for Inpatient Admission. Preliminary diagnosis are Weakness, Pneumonia due to other specified bacteria, Dementia in other diseases classified elsewhere, Elevated white blood cell count. - Bed requested for Telemetry/MedSurg (Inpatient). - Status is Inpatient Admission. sv - Condition is Fair. - Problem is new. - Symptoms have improved. UTI on Admission? No Signatures: Dispatcher [employer] Maite Baldwin RN SHAQ Kelly Garza RN RN dw Anderson, Corey, MD MD cha Smirch, Shelby, RN RN ss Wise, Tara, RN RN tw2 Corrections: (The following items were deleted from the chart) 15:55 12:52 Hospitalization Ordered by Greg Watson DO for Inpatient Admission. Preliminary dw diagnosis is Weakness; Pneumonia due to other specified bacteria; Dementia in other diseases classified elsewhere; Elevated white blood cell count. Bed requested for Telemetry/MedSurg (Inpatient). Status is Inpatient Admission. Condition is Fair. Problem is new. Symptoms have improved. UTI on Admission? No. [facility] 17:10 15:55 04/03/2018 12:52 Hospitalization Ordered by Greg Watson DO for Inpatient sv Admission. Preliminary diagnosis is Weakness; Pneumonia due to other specified bacteria; Dementia in other diseases classified elsewhere; Elevated white blood cell count. Bed requested for Telemetry/MedSurg (Inpatient). Status is Inpatient Admission. Condition is Fair. Problem is new. Symptoms have improved. UTI on Admission? No. dw
[2018-04-03 13:36] LABS: Protime INR 2.43
[2018-04-03] MEDS ORDERED: IPRATROPIUM BROM 0.5MG/2.5ML NEB SCH (14:00)
[2018-04-03] MEDS ORDERED: ALBUTEROL 2.5 MG/3 ML NEB SOL NEB SCH (14:00)
[2018-04-03 14:30] LABS: Urine Blood 2+ (NEG); Urine Glucose NEGATIVE (NEG); Urine Protein 2+ (NEG)
[2018-04-03] MEDS ORDERED: MIRTAZAPINE 15 MG TAB PO PRN (14:51)
[2018-04-03] MEDS ORDERED: ACETAMINOPHEN 500 MG TAB PO PRN (14:51)
[2018-04-03] MEDS ORDERED: ONDANSETRON 4 MG/2 ML VIAL IV PRN (14:51)
[2018-04-03] MEDS ORDERED: IPRATROPIUM BROM 0.5MG/2.5ML NEB PRN (14:57)
[2018-04-03] MEDS ORDERED: ALBUTEROL 2.5 MG/3 ML NEB SOL NEB PRN (14:57)
[2018-04-03 15:44] LABS: Thyroid Stimulating Hormone 4.64 uIU/mL (0.36-3.74)
--- NOTE | 2018-04-03 16:46 | P.HP ---
Certification for Inpatient Patient admitted to: Inpatient With expected LOS: >2 Midnights Patient will require the following post-hospital care: Other Practitioner: I am a practitioner with admitting privileges, knowledge of patient current condition, hospital course, and medical plan of care. Services: Services provided to patient in accordance with Admission requirements found in Title 42 Section 412.3 of the Code of Federal Regulations Patient History Date of Service: 04/03/18 Primary Care Provider: Dr. Caba Reason for admission: Abnormal lab, fatigue History of Present Illness: 82 [facility] came to [facility] emergency room for fatigue and suspicion for pneumonia. Most of the information came from the daughter in law. Patient has been having increasing fatigue. There was some suspicion for pneumonia. His temperature has been normal. Blood sugar at the [facility] was normal. Patient with multiple becomes including history of blood clots on Coumadin, seizure disorder , Parkinson's and dementia. Patient was not able to give a reliable history. [id number] reports the patient has been declining in health over the past several months. He is mainly bed-bound. His appetite is poor. In the ER white count slightly elevated at 14.1. Chest x-ray shows possible right ammonia. CT head unremarkable. Patient was stabilized and admitted for treatment. Allergies No Known Allergies Allergy (Unverified 04/03/18 13:08) Home medications list reviewed: Yes - Past Medical/Surgical History Diabetic: Yes -: Parkinsons -: Dementia -: Seizure disorder -: Anemia -: BPH -: HTN Past Surgical History: Unable to obtain Psychosocial/ Personal History: Lives in custodial. - Family History Family History: Reviewed- Non-Contributory - Social History Smoking Status: Never smoker Alcohol use: No CD- Drugs: No Caffeine use: No Place of Residence: Shelter Review of Systems is unable to be obtained Physical Examination - Physical Exam General: Alert, In no apparent distress, Demented HEENT: Atraumatic, Normocephalic, Mucous membr. moist/pink Neck: Supple, No Thyromegaly Respiratory: Crackles/rales (to the right side) Cardiovascular: Normal pulses, Regular rate/rhythm Gastrointestinal: Normal bowel sounds, Soft and benign, Non-distended, No tenderness, No masses, No rebound, No guarding Musculoskeletal: No erythema, No tenderness, No warmth Integumentary: No tenderness/swelling, No erythema, No warmth, No cyanosis Neurological: Normal tone, Dementia - Studies Laboratory Data (last 24 hrs) 04/03/18 11:00: PT 28.9 H, INR 2.43, APTT 35.6 04/03/18 11:00: WBC 14.1 H D, Hgb 13.5 L, Hct 41.1, Plt Count 154 04/03/18 11:00: Sodium 141, Potassium 4.1, BUN 27 H, Creatinine 1.30, Glucose 118 H, Magnesium 2.4, Total Bilirubin 0.5, AST 19, ALT < 6 L, Alkaline Phosphatase 99 Assessment and Plan - Problems (Diagnosis) (1) Pneumonia Current Visit: Yes Status: Acute Plan: Possible aspiration. Will start Zosyn. Will obtain blood cultures. Will consult Dr. Hernández to address. Patient with B cell lymphoma. He may be a good candidate for Hospice as his health has declined. Family is willing. B cell lymphoma is not being treated due to his chronic condition. Family is not wanting PEG tube. Qualifiers: Pneumonia type: aspiration pneumonia Laterality: right Lung location: upper lobe of lung (2) HTN (hypertension) Current Visit: Yes Status: Chronic Plan: Continue with medication Qualifiers: Hypertension type: essential hypertension Qualified Code(s): I10 - Essential (primary) hypertension (3) Dementia Current Visit: Yes Status: Chronic Plan: This appears to be severe (4) Parkinson disease Current Visit: Yes Status: Chronic Plan: Will need to restart home medication. (5) Seizure disorder Current Visit: Yes Status: Chronic Plan: Continue with medication (6) Chronic anticoagulation Current Visit: Yes Status: Chronic Plan: Continue with medication and monitor INR (7) Hx of deep venous thrombosis Current Visit: Yes Status: Chronic Plan: Continue as above (8) Bedbound Current Visit: Yes Status: Chronic Plan: This is chronic. Will need to address advance directives with patient and family. Will recommend Hospice (9) BPH (benign prostatic hyperplasia) Current Visit: Yes Status: Chronic Plan: Continue with medication. Qualifiers: Lower urinary tract symptom presence: unspecified whether lower urinary tract symptoms present Qualified Code(s): N40.0 - Benign prostatic hyperplasia without lower urinary tract symptoms Discharge Plan: Shelter Plan to discharge in: Greater than 2 days - Advance Directives Does patient have a Living Will: Yes Does patient have a Durable POA for Healthcare: No - Code Status/Comfort Care Code Status Assessed: Yes Time Spent Managing Pts Care (In Minutes): 55
[2018-04-03] MEDS ORDERED: WARFARIN SODIUM 4 MG TAB PO SCH (17:00)
[2018-04-03] MEDS: CARBIDOPA/LEVODOPA 25/100 TAB PO SCH ×2 (19:49→21:00)
[2018-04-03] MEDS: NA CHLORIDE 0.9% 1,000 ML IV SCH (19:49)
[2018-04-03] MEDS: PIPER/TAZO/NS 3.375gm 3.375 GM/100 ML BAG IVPB SCH (20:16)
[2018-04-03] MEDS: levETIRAcetam 500 MG TAB PO SCH (20:20)
[2018-04-03] MEDS: FINASTERIDE 5 MG TAB PO SCH (20:20)
[2018-04-03 20:53] LABS: Urine Appearance CLOUDY; Urine Bilirubin NEGATIVE (NEG); Urine Blood 3+ (NEG); Urine Color YELLOW; Urine Glucose NEGATIVE (NEG); Urine Protein 2+ (NEG); Urine Urobilinogen 0.2 mg/dL (0.2-1.0)
[2018-04-03 21:05] LABS: Urine Microscopic Reflex ORDER UMIC
[2018-04-03 21:06] LABS: Urine Bacteria 20-50 /HPF (NONE SEEN); Urine Culture Reflex Order REFLEXED; Urine Mucus 3+ /HPF (NONE SEEN)
[2018-04-04] MEDS: PIPER/TAZO/NS 3.375gm 3.375 GM/100 ML BAG IVPB SCH ×3 (01:53→18:45)
[2018-04-04] MEDS: THYROID 30 MG TAB PO SCH (05:24)
[2018-04-04 06:32] LABS: Absolute Lymphocytes (CBC) 5.6 K/uL (0.7-4.9); Absolute Monocytes 0.5 K/uL (0.1-1.3); Basophils % 0.6 % (0-1.3); Eosinophils % 3.5 % (0-4.4); Lymphocytes % 53.2 % (15.3-44.8); MCH 28.9 pg (27.0-35.0); MCV 86.5 fL (80-100); MPV 8.4 fL (7.6-11.3); Monocytes % 5.1 % (3.3-12.3); Protime INR 2.38; RBC Red Blood Cell Count 4.62 M/uL (4.33-5.43)
[2018-04-04 06:44] LABS: Magnesium 2.4 mg/dL (1.8-2.4); Potassium 3.7 mmol/L (3.5-5.1)
[2018-04-04] MEDS ORDERED: POTASSIUM 25 MEQ EFFERV TAB PO ONE (06:47)
--- NOTE | 2018-04-04 07:02 | RAD REPORT ---
EXAM DESCRIPTION: RAD - Chest Single View - 04/04/2018 6:08 am CLINICAL HISTORY: Pneumonia COMPARISON: April 03 TECHNIQUE: AP portable chest image was obtained 0541 hours . FINDINGS: Lung volumes remain relatively low. Right upper lobe opacification has improved but not fu lly resolved. Right upper lobe atelectasis is evident. Right suprahilar fullness is present. Atelecta sis related to the hilar obstructing mass should be excluded. Follow-up CT chest with contrast would be recommended. If the patient cannot receive IV contrast, CT chest without contrast would still be helpful. Trachea is midline. No new or progressive lung parenchymal process. Heart and vasculature are normal. No measurable pleural effusion and no pneumothorax. No gross bony abnormality seen. No acute aortic findings suspected. IMPRESSION: Partial clearing of right upper lobe opacification. Right upper lobe atelectasis is stil l present. Right suprahilar fullness is present and the possibility of an obstructive hilar mass should be exclu ded. Follow-up contrast CT chest imaging would be recommended. If the cannot receive contrast, a noncontra st CT chest would still be helpful.
--- NOTE | 2018-04-04 07:56 | P.CNS ---
Date of Consult: 04/04/18 Reason for Consult: Possible pneumonia Primary Care Provider: Dr. Caba Chief Complaint: Abnormal lab, fatigue History of Present Illness: Patient is 82 years of age admitted with the possibility of pneumonia and he is currently nonverbal. Patient has been gradually declining he has Parkinson's disease and dementia hemodynamically stable Allergies No Known Allergies Allergy (Verified 04/03/18 20:24) Home Medications: Amlodipine Besylate 10 mg PO DAILY 04/03/18 Ascorbic Acid [Vitamin C] 500 mg PO BID 04/03/18 Aspirin [Children's Aspirin] 81 mg PO BEDTIME 04/03/18 Carbidopa/Levodopa [Carbidopa-Levo ER 50-200 Tab] 1 tab PO BID 04/03/18 Carbidopa/Levodopa [Carbidopa-Levodopa 25-100 Tab] 1.5 tab PO QID 04/03/18 Cefpodoxime Proxetil 1 tab PO Q12HR 04/03/18 Docusate [Colace Cap*] 1 cap PO DAILY 04/03/18 Donepezil HCl [Aricept] 1 tab PO BEDTIME 04/03/18 Erythromycin Ointment 2% 1 maegan IO TID 04/03/18 Finasteride 1 tab PO DAILY 04/03/18 Levetiracetam [Keppra] 1 tab PO Q12HR 04/03/18 Loperamide HCl [Imodium A-D] 2 mg PO Q6H 04/03/18 Magnesium Hydroxide [Milk of Magnesia] 30 ml PO Q6H 04/03/18 Mirtazapine [Remeron] 15 mg PO BEDTIME 04/03/18 Mupirocin Oint [Bactroban 2% Ointment*] 1 appl TOP BID 04/03/18 Nut.tx.gluc.intoler,Lac-Fr,Soy [Glucerna] 237 ml PO BID 04/03/18 Refresh Solution 1 drop EACH EYE QID 04/03/18 Tamsulosin HCl 1 cap PO BEDTIME 04/03/18 Thiamine HCl 2 tab PO DAILY 04/03/18 Thyroid,Pork [Nature-Throid] 30 mg PO DAILY 04/03/18 Tramadol HCl [Ultram] 1 tab PO Q6H PRN 04/03/18 Valacyclovir HCl [Valtrex] 1 tab PO DAILY 04/03/18 Warfarin Sodium [Coumadin] 4 mg PO DAILY 04/03/18 Zinc Sulfate [Zinc Sulfate*] 220 mg PO DAILY 04/03/18 - Past Medical/Surgical History Diabetic: Yes -: Parkinsons -: Dementia -: Seizure disorder -: Anemia -: BPH -: HTN -: Pulmonary Embolism 2015 -: DVT 2001 -: Greater Trochanter broken -: Non Hodgkins Lymphoma -: Triple Bypass 2000 -: Cancer Removal on top of the head 2017 -: Spinal Surgery for Stenosis -: Lithotripsy for Kidney Stones Psychosocial/ Personal History: Lives in skilled nursing. - Family History Father Medical History: Heart disease Mother Medical History: Cancer - Social History Smoking Status: Unknown if ever smoked Alcohol use: Yes CD- Drugs: No Caffeine use: No Place of Residence: [facility] Review of Systems is unable to be obtained Physical Examination Temp Pulse Resp BP Pulse Ox 97.1 F 70 19 129/64 95 04/04/18 04:00 04/04/18 04:00 04/04/18 04:00 04/04/18 04:00 04/04/18 04:00 General: Alert, Unresponsive, Other HEENT: Atraumatic Neck: Supple Respiratory: Clear to auscultation bilaterally Cardiovascular: No edema, Regular rate/rhythm, Normal S1 S2 Gastrointestinal: Normal bowel sounds, Soft and benign Laboratory Data (last 24 hrs) 04/03/18 11:00: PT 28.9 H, INR 2.43, APTT 35.6 04/03/18 11:00: WBC 14.1 H D, Hgb 13.5 L, Hct 41.1, Plt Count 154 04/03/18 11:00: Sodium 141, Potassium 4.1, BUN 27 H, Creatinine 1.30, Glucose 118 H, Magnesium 2.4, Total Bilirubin 0.5, AST 19, ALT < 6 L, Alkaline Phosphatase 99 - Problems (1) Altered mental status Current Visit: Yes Status: Acute Plan: Patient is 82 years of age admitted with altered mental status he has been progressively declining with Parkinson's disease and dementia no evidence of pneumonia doubt sepsis patient is not been eating or drinking his vital signs are stable room-air saturation is satisfactory cultures so far pending patient has a therapeutic INR recommend Dc all antibiotics consider hospice care Qualifiers: Altered mental status type: stupor Qualified Code(s): R40.1 - Stupor
[2018-04-04] MEDS: AMLODIPINE 10 MG TAB PO SCH (09:37)
[2018-04-04] MEDS: levETIRAcetam 500 MG TAB PO SCH ×2 (09:38→20:19)
[2018-04-04] MEDS: CARBIDOPA/LEVODOPA 25/100 TAB PO SCH ×5 (09:38→20:18)
[2018-04-04] MEDS: FERROUS SULFATE 325 MG TAB PO SCH (09:38)
[2018-04-04] MEDS: ENSURE HIGH PROTEIN 237 ML CAN PO SCH ×2 (09:38→14:31)
--- NOTE | 2018-04-04 12:08 | P.PN ---
Subjective Date of Service: 04/04/18 Primary Care Provider: Dr. Caba Chief Complaint: Abnormal lab, fatigue Subjective: Improving (Patient found to be more alert. Respirations stable.) Physical Examination - Vital Signs Temperature: 97.1 F Blood Pressure: 121/64 Pulse: 69 Respirations: 18 Pulse Ox (%): 97 - Physical Exam General: Alert, In no apparent distress, Cooperative HEENT: Atraumatic Neck: Supple Respiratory: Diminished (Bilaterally with poor inspiration) Cardiovascular: Normal pulses, Regular rate/rhythm Gastrointestinal: Normal bowel sounds, Soft and benign, Non-distended, No tenderness, No masses, No rebound, No guarding Musculoskeletal: No erythema, No tenderness, No warmth, Other (Mild muscle atrophy noted to the lower extremities) Integumentary: No tenderness/swelling, No erythema, No warmth, No cyanosis Neurological: Normal speech, Abnormal strength (Poor strength overall), Dementia - Studies Laboratory Data (last 24 hrs) 04/03/18 11:00: PT 28.9 H, INR 2.43, APTT 35.6 Medications List Reviewed: Yes Assessment & Plan - Problems (Diagnosis) (1) Pneumonia Onset Date: 04/04/18 Current Visit: Yes Status: Acute Plan: Possible aspiration noted. Will continue with IV Zosyn. Blood cultures obtained. Await results. Chest x-ray shows improvement. Patient also with UTI. Await culture results. Patient has been declining in health over the past several months. Patient with B-cell lymphoma and not able to be treated due to his current chronic condition. Will discuss with family about the possibility of hospice per family has expressed that they do not want PEG tube placement. Will continue monitor closely. Will discuss with nursing home social worker. Qualifiers: Pneumonia type: aspiration pneumonia Laterality: right Lung location: upper lobe of lung (2) HTN (hypertension) Onset Date: 04/04/18 Current Visit: Yes Status: Chronic Plan: Continue with medication Qualifiers: Hypertension type: essential hypertension Qualified Code(s): I10 - Essential (primary) hypertension (3) Dementia Onset Date: 04/04/18 Current Visit: Yes Status: Chronic Plan: The patient appears to have dementia. Mentation is improved. Will discuss with family about hospice. (4) Parkinson disease Onset Date: 04/04/18 Current Visit: Yes Status: Chronic Plan: Will continue his medication (5) Seizure disorder Onset Date: 04/04/18 Current Visit: Yes Status: Chronic Plan: Continue with medication (6) Chronic anticoagulation Onset Date: 04/04/18 Current Visit: Yes Status: Chronic Plan: Continue with medication and monitor INR (7) Hx of deep venous thrombosis Current Visit: Yes Status: Chronic Plan: Continue as above (8) Bedbound Onset Date: 04/04/18 Current Visit: Yes Status: Chronic Plan: This is chronic. Will need to address advance directives with patient and family. Will recommend Hospice (9) BPH (benign prostatic hyperplasia) Onset Date: 04/04/18 Current Visit: Yes Status: Chronic Plan: Continue with medication. Qualifiers: Lower urinary tract symptom presence: unspecified whether lower urinary tract symptoms present Qualified Code(s): N40.0 - Benign prostatic hyperplasia without lower urinary tract symptoms (10) UTI (urinary tract infection) Current Visit: Yes Status: Acute Plan: Await Urine culture. Will continue with medication. Qualifiers: Urinary tract infection type: site unspecified Hematuria presence: without hematuria Qualified Code(s): N39.0 - Urinary tract infection, site not specified (11) Physical deconditioning Current Visit: Yes Status: Chronic Plan: This is chronic. Will recommend Hospice Discharge Plan: Custodial Plan to discharge in: 48 Hours Time Spent Managing Pts Care (In Minutes): 55
--- NOTE | 2018-04-04 13:51 | RAD REPORT ---
EXAM DESCRIPTION: CT - Thorax Wo Con CLINICAL HISTORY: Chest pain Evaluate RUL opacity, Hx of Bcell Lymphoma COMPARISON: Chest Single View dated 04/04/2018; Chest Single View dated 04/03/2018 FINDINGS: Linear pulmonary opacity is seen in the posterior right upper lobe. Mild areas of ground-g lass opacities present in the superior segment right lower lobe. A small left pleural effusion is pre sent with linear atelectasis in the left lung base. No pneumothorax. Adenopathy is present in the mediastinum, including the right paratracheal location appearing 14 mm, pretracheal space measuring 17 mm, subcarinal space measuring 2.8 x 3.4 cm. Pericardial lymph node is present measuring 12 mm. Soft tissue fullness in the right hilar region is also noted which may elizabeth kimber hilar adenopathy, although somewhat poorly defined due to lack of IV contrast. Right hilar mass lesion is also a possibility. Thoracic degenerative changes are noted. The spleen is mildly prominent. Cholecystectomy clips. All CT scans are performed using dose optimization technique as appropriate and may include automated exposure control or mA/KV adjustment according to patient size. IMPRESSION: Linear opacity in the right upper lobe with along with ill-defined ground-glass opacity in the superior segment right lower lobe is most likely related to infection/ pneumonia. A postobstru ctive process is possible given the soft tissue fullness in the right hilar region which may indicate adenopathy or mass. The patient may benefit from a contrast-enhanced CT of the chest. Lymphadenopathy is seen in the mediastinum as detailed. A small left pleural effusion is present.
[2018-04-04] MEDS: POLYVINYL ALCOHOL 1.4% 15 ML EACH EYE SCH ×3 (14:30→20:21)
[2018-04-04] MEDS: ERYTHROMYCIN 1 APPL/1 GM TUBE EACH EYE SCH ×2 (14:30→20:17)
[2018-04-04] MEDS: NA CHLORIDE 0.9% 1,000 ML IV SCH ×2 (18:44→20:17)
[2018-04-04] MEDS: WARFARIN SODIUM 4 MG TAB PO SCH (18:44)
[2018-04-04] MEDS: JUVEN PACKET PO SCH (20:17)
[2018-04-04] MEDS: GLUCERNA SHAKE 237 ML CAN PO SCH (20:17)
[2018-04-04] MEDS: TAMSULOSIN 0.4 MG SR CAP PO SCH (20:19)
[2018-04-04] MEDS: DONEPEZIL HCL 5 MG TAB PO SCH (20:19)
[2018-04-04] MEDS: FINASTERIDE 5 MG TAB PO SCH (20:19)
[2018-04-04] MEDS ORDERED: LEVODOPA PO SCH (21:00)
[2018-04-04] MEDS ORDERED: CARBIDOPA PO SCH (21:00)
[2018-04-04] MEDS ORDERED: HOME MED 1 EA UNK (Donepezil Hcl [Aricept] 1 TAB) PO SCH (21:00)
[2018-04-05] MEDS: PIPER/TAZO/NS 3.375gm 3.375 GM/100 ML BAG IVPB SCH ×3 (00:18→17:10)
[2018-04-05 04:09] LABS: Absolute Lymphocytes (CBC) 6.6 K/uL (0.7-4.9); Absolute Monocytes 0.5 K/uL (0.1-1.3); Absolute Neutrophil 5.5 K/uL (1.8-8.0); Basophils % 0.7 % (0-1.3); Eosinophils % 2.6 % (0-4.4); Lymphocytes % 50.6 % (15.3-44.8); MCH 29.5 pg (27.0-35.0); MCV 86.7 fL (80-100); MPV 8.4 fL (7.6-11.3); Protime INR 2.17; RBC Red Blood Cell Count 4.38 M/uL (4.33-5.43)
[2018-04-05 04:26] LABS: Magnesium 2.1 mg/dL (1.8-2.4); Potassium 3.7 mmol/L (3.5-5.1)
[2018-04-05] MEDS ORDERED: POTASSIUM 25 MEQ EFFERV TAB PO ONE (05:21)
[2018-04-05] MEDS: THYROID 30 MG TAB PO SCH (05:44)
[2018-04-05 06:24] LABS: Blood Morphology Comment NOT SEEN (NOT SEEN); Platelet Estimate ADEQ
[2018-04-05] MEDS: POLYVINYL ALCOHOL 1.4% 15 ML EACH EYE SCH ×4 (09:00→21:59)
[2018-04-05] MEDS ORDERED: THIAMINE HCL PO SCH (09:00)
[2018-04-05] MEDS: CARBIDOPA/LEVODOPA 25/100 TAB PO SCH ×4 (09:21→21:58)
[2018-04-05] MEDS: ERYTHROMYCIN 1 APPL/1 GM TUBE EACH EYE SCH ×3 (09:22→21:57)
[2018-04-05] MEDS: FERROUS SULFATE 325 MG TAB PO SCH (09:22)
[2018-04-05] MEDS: ZINC SULFATE 220 MG CAP PO SCH (09:22)
[2018-04-05] MEDS: AMLODIPINE 10 MG TAB PO SCH (09:23)
[2018-04-05] MEDS: THIAMINE HCL 100 MG TABLET PO SCH (09:23)
[2018-04-05] MEDS: levETIRAcetam 500 MG TAB PO SCH ×2 (09:24→21:59)
[2018-04-05] MEDS: GLUCERNA SHAKE 237 ML CAN PO SCH ×2 (10:00→21:58)
[2018-04-05] MEDS: JUVEN PACKET PO SCH ×2 (11:00→21:58)
--- NOTE | 2018-04-05 13:14 | P.PN ---
Subjective Date of Service: 04/05/18 Primary Care Provider: Dr. Caba Chief Complaint: Abnormal lab, fatigue Subjective: Improving Physical Examination - Vital Signs Temperature: 97.4 F Blood Pressure: 129/64 Pulse: 70 Respirations: 18 Pulse Ox (%): 98 - Physical Exam General: Alert, Cooperative, Demented HEENT: Atraumatic Neck: Supple Respiratory: Clear to auscultation bilaterally Cardiovascular: Normal pulses, Regular rate/rhythm Gastrointestinal: Normal bowel sounds, Soft and benign, Non-distended, No masses , No rebound, No guarding Musculoskeletal: No erythema, No tenderness, No warmth, Other (Patient is bedbound) Integumentary: No erythema, No warmth, No cyanosis Neurological: Dementia - Studies Medications List Reviewed: Yes Assessment & Plan - Problems (Diagnosis) (1) Pneumonia Onset Date: 04/04/18 Current Visit: Yes Status: Acute Plan: Possible aspiration noted. Will continue with IV Zosyn. Blood cultures obtained. Await results. Chest x-ray shows improvement. Patient also with UTI. Await culture results. Patient has been declining in health over the past several months. Patient with B-cell lymphoma and not able to be treated due to his current chronic condition. Will discuss with family about the possibility of hospice per family has expressed that they do not want PEG tube placement. Will continue monitor closely. Will discuss with social media sr strategy manager. CT scan reviewed. Will discuss with Pulmonary on if patient will need CT chest with contrast. Qualifiers: Pneumonia type: aspiration pneumonia Laterality: right Lung location: upper lobe of lung (2) HTN (hypertension) Onset Date: 04/04/18 Current Visit: Yes Status: Chronic Plan: Continue with medication Qualifiers: Hypertension type: essential hypertension Qualified Code(s): I10 - Essential (primary) hypertension (3) Dementia Onset Date: 04/04/18 Current Visit: Yes Status: Chronic Plan: The patient appears to have dementia. Mentation is improved. Will discuss with family again about Hospice at [facility]. (4) Parkinson disease Onset Date: 04/04/18 Current Visit: Yes Status: Chronic Plan: Will continue his medication (5) Seizure disorder Onset Date: 04/04/18 Current Visit: Yes Status: Chronic Plan: Continue with medication (6) Chronic anticoagulation Onset Date: 04/04/18 Current Visit: Yes Status: Chronic Plan: Continue with medication and monitor INR (7) Hx of deep venous thrombosis Current Visit: Yes Status: Chronic Plan: Continue as above (8) Bedbound Onset Date: 04/04/18 Current Visit: Yes Status: Chronic Plan: This is chronic. Will need to address advance directives with patient and family. Will recommend Hospice (9) BPH (benign prostatic hyperplasia) Onset Date: 04/04/18 Current Visit: Yes Status: Chronic Plan: Continue with medication. Qualifiers: Lower urinary tract symptom presence: unspecified whether lower urinary tract symptoms present Qualified Code(s): N40.0 - Benign prostatic hyperplasia without lower urinary tract symptoms (10) UTI (urinary tract infection) Current Visit: Yes Status: Acute Plan: Await Urine culture. Will continue with medication. Will consult Infectious disease for continuity Qualifiers: Urinary tract infection type: site unspecified Hematuria presence: without hematuria Qualified Code(s): N39.0 - Urinary tract infection, site not specified (11) Physical deconditioning Current Visit: Yes Status: Chronic Plan: This is chronic. Will recommend Hospice Discharge Plan: [facility] Living Plan to discharge in: 48 Hours Time Spent Managing Pts Care (In Minutes): 55
[2018-04-05] MEDS: WARFARIN SODIUM 4 MG TAB PO SCH (17:11)
[2018-04-05 19:12] LABS: Hematocrit 38.2 % (39.6-49.0)
[2018-04-05] MEDS: DONEPEZIL HCL 5 MG TAB PO SCH (21:57)
[2018-04-05] MEDS: TAMSULOSIN 0.4 MG SR CAP PO SCH (21:58)
[2018-04-05] MEDS: FINASTERIDE 5 MG TAB PO SCH (21:59)
[2018-04-05] MEDS: NA CHLORIDE 0.9% 1,000 ML IV SCH (23:47)
[2018-04-06] MEDS: PIPER/TAZO/NS 3.375gm 3.375 GM/100 ML BAG IVPB SCH ×2 (00:05→09:00)
[2018-04-06 04:47] VITALS: BMI 27.4
[2018-04-06] MEDS: THYROID 30 MG TAB PO SCH (06:00)
[2018-04-06 09:17] LABS: Protime INR 2.23
[2018-04-06 09:19] LABS: Potassium 3.9 mmol/L (3.5-5.1)
[2018-04-06 09:20] LABS: Magnesium 2.1 mg/dL (1.8-2.4)
--- NOTE | 2018-04-06 09:24 | P.PN ---
Subjective Date of Service: 04/06/18 Primary Care Provider: Dr. Caba Chief Complaint: Abnormal lab, fatigue Subjective: Improving (Patient improving. Patient appears to be at a baseline mentation) Physical Examination - Vital Signs Temperature: 97.0 F Blood Pressure: 149/73 Pulse: 69 Respirations: 19 Pulse Ox (%): 96 - Physical Exam General: Alert, In no apparent distress, Cooperative, Demented HEENT: Atraumatic Neck: Supple Respiratory: Clear to auscultation bilaterally, Normal air movement Cardiovascular: Normal pulses, Regular rate/rhythm Gastrointestinal: Normal bowel sounds, Soft and benign, Non-distended, No tenderness, No masses, No rebound, No guarding Musculoskeletal: Other (Muscle wasting to the lower extremity. Patient bed- bound.) Neurological: Dementia - Studies Medications List Reviewed: Yes Assessment & Plan - Problems (Diagnosis) (1) Pneumonia Onset Date: 04/04/18 Current Visit: Yes Status: Acute Plan: Patient likely with right upper lobe pneumonia likely from aspiration overall improved. Will continue with IV Zosyn. Blood cultures so far negative. Patient also with UTI. Awaiting urine culture results. Will discuss case further with pulmonology concerning CT scan. Patient has been afebrile. Await lab results. Anticipate discharge to [facility] as early as today or tomorrow. Will discuss with family about hospice at the [facility]. Qualifiers: Pneumonia type: aspiration pneumonia Laterality: right Lung location: upper lobe of lung (2) HTN (hypertension) Onset Date: 04/04/18 Current Visit: Yes Status: Chronic Plan: Continue with medication Qualifiers: Hypertension type: essential hypertension Qualified Code(s): I10 - Essential (primary) hypertension (3) Dementia Onset Date: 04/04/18 Current Visit: Yes Status: Chronic Plan: The patient appears to have dementia. Mentation is improved. He appears to be at his baseline level. Will discuss with family again about Hospice at [facility]. (4) Parkinson disease Onset Date: 04/04/18 Current Visit: Yes Status: Chronic Plan: Will continue his medication (5) Seizure disorder Onset Date: 04/04/18 Current Visit: Yes Status: Chronic Plan: Continue with medication (6) Chronic anticoagulation Onset Date: 04/04/18 Current Visit: Yes Status: Chronic Plan: Continue with medication and monitor INR (7) Hx of deep venous thrombosis Current Visit: Yes Status: Chronic Plan: Continue as above (8) Bedbound Onset Date: 04/04/18 Current Visit: Yes Status: Chronic Plan: This is chronic. Will need to address advance directives with patient and family. Will recommend Hospice (9) BPH (benign prostatic hyperplasia) Onset Date: 04/04/18 Current Visit: Yes Status: Chronic Plan: Continue with medication. Qualifiers: Lower urinary tract symptom presence: unspecified whether lower urinary tract symptoms present Qualified Code(s): N40.0 - Benign prostatic hyperplasia without lower urinary tract symptoms (10) UTI (urinary tract infection) Current Visit: Yes Status: Acute Plan: Await Urine culture. Will continue with medication. Will consult Infectious disease for continuity Qualifiers: Urinary tract infection type: site unspecified Hematuria presence: without hematuria Qualified Code(s): N39.0 - Urinary tract infection, site not specified (11) Physical deconditioning Current Visit: Yes Status: Chronic Plan: This is chronic. Will recommend Hospice Discharge Plan: Assisted Plan to discharge in: 24 Hours Time Spent Managing Pts Care (In Minutes): 55
[2018-04-06] MEDS: ZINC SULFATE 220 MG CAP PO SCH (09:34)
[2018-04-06] MEDS: levETIRAcetam 500 MG TAB PO SCH ×2 (09:34→21:29)
[2018-04-06] MEDS: FERROUS SULFATE 325 MG TAB PO SCH (09:34)
[2018-04-06] MEDS: AMLODIPINE 10 MG TAB PO SCH (09:34)
[2018-04-06] MEDS: JUVEN PACKET PO SCH ×2 (09:35→21:00)
[2018-04-06] MEDS: GLUCERNA SHAKE 237 ML CAN PO SCH ×2 (09:35→21:00)
[2018-04-06] MEDS: POLYVINYL ALCOHOL 1.4% 15 ML EACH EYE SCH ×4 (09:35→21:00)
[2018-04-06] MEDS: ERYTHROMYCIN 1 APPL/1 GM TUBE EACH EYE SCH ×3 (09:35→21:00)
[2018-04-06] MEDS: CARBIDOPA/LEVODOPA 25/100 TAB PO SCH ×4 (09:36→21:29)
[2018-04-06 09:37] LABS: Absolute Lymphocytes (CBC) 7.6 K/uL (0.7-4.9); Absolute Monocytes 0.6 K/uL (0.1-1.3); Absolute Neutrophil 5.3 K/uL (1.8-8.0); Basophils % 0.7 % (0-1.3); Hematocrit 40.2 % (39.6-49.0); Lymphocytes % 54.4 % (15.3-44.8); MCV 86.7 fL (80-100); MPV 8.7 fL (7.6-11.3); RBC Red Blood Cell Count 4.64 M/uL (4.33-5.43)
[2018-04-06] MEDS: THIAMINE HCL 100 MG TABLET PO SCH (09:37)
[2018-04-06 09:57] LABS: Platelet Estimate ADEQ
[2018-04-06 09:58] LABS: Blood Morphology Comment NOT SEEN (NOT SEEN)
[2018-04-06] MEDS ORDERED: POTASSIUM CL SA 10 MEQ TAB PO ONE (14:00)
[2018-04-06] MEDS: Meropenem 1,000 MG in NA CHLORIDE 0.9% 100 ML IV SCH ×2 (14:01→21:31)
--- NOTE | 2018-04-06 14:28 | PN ---
Subjective: The patient is doing well at this time. The patient with dementia, but more appropriate . The patient appears to be back to his baseline level. Objective: Vital Signs: Remained stable. He has been afebrile. Pulse rate 69, respiratory rate 19 , blood pressure 149/73, oxygen saturations 96% on room air. General: He is alert, cooperative. Dementia noted. The patient appears to be at his baseline level . Heart: Regular rate and rhythm. Lungs: Clear to auscultation bilateral. Abdomen: Soft, nontender, nondistended. Extremities: Revealed muscle atrophy to the lower extremities. The patient is bedbound. Laboratory Data: Pending for this morning, but improvement noted over the last day. The patient wit h UTI. Urine culture pending. Impression: As previous, includes right upper lobe pneumonia, urinary tract infection, Parkinson's, dementia, renal insufficiency, anemia, B-cell lymphoma, untreated due to his chronic medical conditio n. Plan: The patient is doing well at this time. The patient appears to be at his baseline level. Sasha it urine culture to determine if we can transition to oral medication. If able to transition to oral medications, the patient can be qualified to go back to the long-term. X-rays yesterday showed i mprovement to the pneumonia. We will discuss further with pulmonology. We will discuss with high school social studies tutor in anticipation for return to long-term likely later today or tomorrow. KAREN/HCAY Voice ID: [id number] Report ID: [id number]
[2018-04-06] MEDS: WARFARIN SODIUM 4 MG TAB PO SCH (16:34)
--- NOTE | 2018-04-06 16:43 | CON ---
History Of Present Illness: This is an 82-year-old male I was consulted for the ESBL urinary tract i nfection. The patient is known to me from nursing halfway facility, where I have been seeing him for buttock wound. The patient has suprapubic catheter and recurrent urinary tract infection fo r which he ended up getting suprapubic catheter. The patient also initially admitted to the hospital for pneumonia. Current Medications: Include Meropenem. Initially the patient was treated with Zosyn for 1 day. Not a good historian. Most of the history was obtained through medical record. Past Medical History: Includes Parkinson's, dementia, seizure disorder, anemia, BPH, hypertension. Social History: Nonsmoker, nondrinker. Lives at nursing facility. Medications: Meropenem. See MARs for other medication. Allergies: NO KNOWN DRUG ALLERGIES. Review of Systems: A 10-point review was performed. Physical Examination: General: This is an 82-year-old old male lying in bed, not in any acute cardiopulmonary distress. Vital Signs: Temperature 97.4, pulse 71, respiration 18, blood pressure 147/72. HEENT: Unremarkable. Neck: Supple. Lungs: Basal crackles. Heart: S1, S2. Regular. Abdomen: Soft, nontender. Bowel sounds positive. Extremities: No edema. Laboratory Data: Shows Proteus mirabilis, ESBL, currently being treated with meropenem. As the patie nt has history of seizure, we will keep those at lower level of [address] scan of the est shows linear opacity in the right upper lobe with ill-defined ground-glass opacity in the superio r segment, right lower lobe, is most likely related to infection, pneumonia, postobstructive process is possible. Given the soft tissue fullness in right hilar region, which may indicate adenopathy or mass. The patient may benefit from contrast-enhanced CT of the chest. Lab data WBC 14,000, hemoglob in 13.5, platelets are 147. Chemistry shows sodium 142, potassium 3.9, chloride 108, bicarb 28, BUN 26, creatinine 1.2, glucose is 103. Blood cultures are negative for 24 hour urine culture, positive for Proteus mirabilis. Assessment And Plan: Right lobe infiltrate pneumonia versus lung mass, urinary tract infection secon ibeth to extended-spectrum beta-lactamase urinary tract infection. Continue meropenem 500 mg q.12 manav rs for 5 days. Can be switched to Levaquin after that for 7 more days. Continue antibiotic and supp ortive care. Continue Medihoney with alginate to the buttock area. We will follow the patient close ly. DION/CHAY Voice ID: [id number] Report ID: [id number]
[2018-04-06] MEDS ORDERED: Meropenem 1000 MG/VIAL IV SCH (21:00)
[2018-04-06] MEDS: CARBIDOPA LEVODOPA PO SCH (21:00)
[2018-04-06] MEDS ORDERED: Meropenem 500 MG VIAL IV SCH (21:00)
[2018-04-06 21:15] VITALS: O2SAT 91
[2018-04-06] MEDS: DONEPEZIL HCL 5 MG TAB PO SCH (21:29)
[2018-04-06] MEDS: TAMSULOSIN 0.4 MG SR CAP PO SCH (21:29)
[2018-04-06] MEDS: FINASTERIDE 5 MG TAB PO SCH (21:29)
[2018-04-07] MEDS: NA CHLORIDE 0.9% 1,000 ML IV SCH (00:15)
--- NOTE | 2018-04-07 01:04 | RAD REPORT ---
EXAM DESCRIPTION: RAD - Chest Single View - 04/07/2018 12:31 am CLINICAL HISTORY: s/p picc insertion COMPARISON: Chest Single View dated 04/04/2018; Chest Single View dated 04/03/2018; Chest Single View dated 06/24/2017; Chest Single View dated 06/06/2017 FINDINGS: Portable chest was obtained following placement of a right upper extremity PICC line. The catheter tip projects over the SVC..
[2018-04-07] MEDS: THYROID 30 MG TAB PO SCH (05:20)
[2018-04-07 06:39] LABS: Protime INR 2.34
[2018-04-07 06:55] LABS: Magnesium 2.1 mg/dL (1.8-2.4); Potassium 3.9 mmol/L (3.5-5.1)
[2018-04-07] MEDS ORDERED: ACETIC ACID 0.25% IRRIG IRR SCH (09:00)
[2018-04-07] MEDS: CARBIDOPA LEVODOPA PO SCH (09:27)
[2018-04-07 09:28] VITALS: TEMP 97.4
[2018-04-07] MEDS: CARBIDOPA/LEVODOPA 25/100 TAB PO SCH ×2 (09:28→14:09)
[2018-04-07] MEDS: FERROUS SULFATE 325 MG TAB PO SCH (09:29)
[2018-04-07] MEDS: ZINC SULFATE 220 MG CAP PO SCH (09:29)
[2018-04-07] MEDS: levETIRAcetam 500 MG TAB PO SCH (09:29)
[2018-04-07] MEDS: AMLODIPINE 10 MG TAB PO SCH (09:29)
[2018-04-07] MEDS: GLUCERNA SHAKE 237 ML CAN PO SCH (09:29)
[2018-04-07] MEDS: JUVEN PACKET PO SCH (09:29)
[2018-04-07] MEDS: THIAMINE HCL 100 MG TABLET PO SCH (09:29)
[2018-04-07] MEDS: Meropenem 1,000 MG in NA CHLORIDE 0.9% 100 ML IV SCH (09:31)
[2018-04-07] MEDS: ERYTHROMYCIN 1 APPL/1 GM TUBE EACH EYE SCH (09:32)
[2018-04-07] MEDS: POLYVINYL ALCOHOL 1.4% 15 ML EACH EYE SCH (09:32)
--- NOTE | 2018-04-07 09:36 | P.PN ---
Subjective Date of Service: 04/07/18 Primary Care Provider: Dr. Caba Chief Complaint: Abnormal lab, fatigue Subjective: Demented (Patient doing well this time. No significant changes noted since yesterday) Physical Examination - Vital Signs Temperature: 97.4 F Blood Pressure: 152/71 Pulse: 70 Respirations: 18 Pulse Ox (%): 96 - Physical Exam General: Alert, In no apparent distress, Cooperative, Demented HEENT: Atraumatic Neck: Supple Respiratory: Clear to auscultation bilaterally, Normal air movement Cardiovascular: Normal pulses, Regular rate/rhythm Gastrointestinal: Normal bowel sounds, Soft and benign, Non-distended, No tenderness, No masses, No rebound, No guarding Musculoskeletal: No tenderness, No warmth, Other (Muscle wasting to the lower extremities. Patient bed-bound) Neurological: Dementia Urinary: Suprapubic catheter - Studies Microbiology Data (last 24 hrs): 04/03/18 02:04 Clean Catch Urine Blackwell Count - Final BETWEEN 10,000 & 100,000 CFU/ML 04/03/18 02:04 Clean Catch Urine - Final Proteus Mirabilis Medications List Reviewed: Yes Assessment & Plan - Problems (Diagnosis) (1) Pneumonia Onset Date: 04/04/18 Current Visit: Yes Status: Acute Plan: Patient likely with right upper lobe pneumonia likely from aspiration, overall improved. Antibiotics have been adjusted due to [id number]-GHNV. Patient will continue with IV meropenem 500 mg twice daily for 5 days. Case discussed in detail with infectious disease. PICC line in place. Awaiting approval for transfer back to the long-term today. Qualifiers: Pneumonia type: aspiration pneumonia Laterality: right Lung location: upper lobe of lung (2) HTN (hypertension) Onset Date: 04/04/18 Current Visit: Yes Status: Chronic Plan: Continue with medication Qualifiers: Hypertension type: essential hypertension Qualified Code(s): I10 - Essential (primary) hypertension (3) Dementia Onset Date: 04/04/18 Current Visit: Yes Status: Chronic Plan: The patient appears to have dementia. Mentation is improved. He appears to be at his baseline level. (4) Parkinson disease Onset Date: 04/04/18 Current Visit: Yes Status: Chronic Plan: Will continue his medication. (5) Seizure disorder Onset Date: 04/04/18 Current Visit: Yes Status: Chronic Plan: Continue with medication (6) Chronic anticoagulation Onset Date: 04/04/18 Current Visit: Yes Status: Chronic Plan: Continue with medication and monitor INR. Overall stable. (7) Hx of deep venous thrombosis Current Visit: Yes Status: Chronic Plan: Continue as above (8) Bedbound Onset Date: 04/04/18 Current Visit: Yes Status: Chronic Plan: This is chronic. Will need to address advance directives with patient and family. Will recommend Hospice (9) BPH (benign prostatic hyperplasia) Onset Date: 04/04/18 Current Visit: Yes Status: Chronic Plan: Continue with medication. Qualifiers: Lower urinary tract symptom presence: unspecified whether lower urinary tract symptoms present Qualified Code(s): N40.0 - Benign prostatic hyperplasia without lower urinary tract symptoms (10) UTI (urinary tract infection) Current Visit: Yes Status: Acute Plan: Urine culture positive for Proteus-ESBL. Antibiotics adjusted by Infectious disease. Patient will continue with meropenem mg 1 pill twice daily for [address] days[address] Line in place. Await approval for transfer back to the long-term as early as today. Qualifiers: Urinary tract infection type: site unspecified Hematuria presence: without hematuria Qualified Code(s): N39.0 - Urinary tract infection, site not specified (11) Physical deconditioning Current Visit: Yes Status: Chronic Plan: This is chronic. Will recommend Hospice Discharge Plan: Long Term Plan to discharge in: 24 Hours Time Spent Managing Pts Care (In Minutes): 55
--- NOTE | 2018-04-07 12:34 | P.DS ---
Admission Date: 04/03/18 Discharge Date: 04/07/18 Primary Care Provider: Dr. Caba Disposition: TRANSFER TO SENIOR CARE Discharge Condition: GOOD Reason for Admission: Abnormal lab, fatigue Consultations: Pulmonary-Dr. Hernández Infectious Disease-Dr. Lloyd Procedures: CT head shows no acute changes. CT chest: COMPARISON: Chest Single View dated 04/04/2018; Chest Single View dated 2017 FINDINGS: Linear pulmonary opacity is seen in the posterior right upper lobe. Mild areas of ground-glass opacities present in the superior segment right lower lobe. A small left pleural effusion is present with linear atelectasis in the left lung base. No pneumothorax. Adenopathy is present in the mediastinum, including the right paratracheal location appearing 14 mm, pretracheal space measuring 17 mm, subcarinal space measuring 2.8 x 3.4 cm. Pericardial lymph node is present measuring 12 mm. Soft tissue fullness in the right hilar region is also noted which may indicate hilar adenopathy, although somewhat poorly defined due to lack of IV contrast. Right hilar mass lesion is also a possibility. Thoracic degenerative changes are noted. The spleen is mildly prominent. Cholecystectomy clips. All CT scans are performed using dose optimization technique as appropriate and may include automated exposure control or mA/KV adjustment according to patient size. IMPRESSION: Linear opacity in the right upper lobe with along with ill-defined ground-glass opacity in the superior segment right lower lobe is most likely related to infection/ pneumonia. A postobstructive process is possible given the soft tissue fullness in the right hilar region which may indicate adenopathy or mass. The patient may benefit from a contrast-enhanced CT of the chest. Lymphadenopathy is seen in the mediastinum as detailed. A small left pleural effusion is present. - Problems (1) Pneumonia Onset Date: 04/04/18 Current Visit: Yes Status: Acute Qualifiers: Pneumonia type: aspiration pneumonia Laterality: right Lung location: upper lobe of lung (2) HTN (hypertension) Onset Date: 04/04/18 Current Visit: Yes Status: Chronic Qualifiers: Hypertension type: essential hypertension Qualified Code(s): I10 - Essential (primary) hypertension (3) Dementia Onset Date: 04/04/18 Current Visit: Yes Status: Chronic Qualifiers: Dementia type: unspecified type (4) Parkinson disease Onset Date: 04/04/18 Current Visit: Yes Status: Chronic (5) Seizure disorder Onset Date: 04/04/18 Current Visit: Yes Status: Chronic (6) Chronic anticoagulation Onset Date: 04/04/18 Current Visit: Yes Status: Chronic (7) Hx of deep venous thrombosis Current Visit: Yes Status: Chronic (8) Bedbound Onset Date: 04/04/18 Current Visit: Yes Status: Chronic (9) BPH (benign prostatic hyperplasia) Onset Date: 04/04/18 Current Visit: Yes Status: Chronic Qualifiers: Lower urinary tract symptom presence: unspecified whether lower urinary tract symptoms present Qualified Code(s): N40.0 - Benign prostatic hyperplasia without lower urinary tract symptoms (10) UTI (urinary tract infection) Current Visit: Yes Status: Acute Qualifiers: Urinary tract infection type: site unspecified Hematuria presence: without hematuria Qualified Code(s): N39.0 - Urinary tract infection, site not specified (11) Physical deconditioning Current Visit: Yes Status: Chronic (12) Hypothyroidism Current Visit: Yes Status: Chronic Qualifiers: Hypothyroidism type: unspecified Qualified Code(s): E03.9 - Hypothyroidism , unspecified (13) Anemia Current Visit: Yes Status: Chronic Qualifiers: Anemia type: iron deficiency Iron deficiency anemia type: unspecified iron deficiency Qualified Code(s): D50.9 - Iron deficiency anemia, unspecified (14) B-cell lymphoma Current Visit: Yes Status: Chronic Qualifiers: Lymphoma site: unspecified region (15) Suprapubic catheter Current Visit: Yes Status: Acute (16) Malnutrition Current Visit: Yes Status: Chronic Qualifiers: Malnutrition type: protein-calorie malnutrition Protein-calorie malnutrition severity: moderate Qualified Code(s): E44.0 - Moderate protein- calorie malnutrition (17) Renal insufficiency Current Visit: Yes Status: Acute Brief History of Present Illness: 82 yo male from the halfway came to the emergency room for fatigue and suspicion for pneumonia. Most of the information came from the daughter in law. Patient has been having increasing fatigue. There was some suspicion for pneumonia. His temperature has been normal. Blood sugar at the halfway was normal. Patient with multiple becomes including history of blood clots on Coumadin, seizure disorder , Parkinson's and dementia. Patient was not able to give a reliable history. [id number] reports the patient has been declining in health over the past several months. He is mainly bed-bound. His appetite is poor. In the ER white count slightly elevated at 14.1. Chest x-ray shows possible right ammonia. CT head unremarkable. Patient was stabilized and admitted for treatment. Hospital Course: During the course of his stay patient was found to have right upper lobe pneumonia. CT scan also showed some adenopathy to the right hilar region. There was some suspicion that this may be postobstructive process related to B- cell lymphoma. No further workup was recommended at this time after discussion with family. Patient with history of B-cell lymphoma. He has not gotten any treatment due to his chronic medical conditions. Patient evaluated by pulmonology. No further recommendation was given. X-ray shows improvement. At discharge he will continue with current medication including meropenem 500 mg IV twice daily for 5 days. This is to also help cover for UTI which was identified. Urine culture positive for Proteus-ESBL. Patient with history of chronic suprapubic catheter and recurrent UTI. Case discussed in detail with infectious disease who was consulted. Infectious disease recommended to continue with antibiotic therapy for 5 days. Recommendation to recheck urine culture after that time to monitor resolution. Infectious Disease recommends daily flushes with acetic acid to the Sahu catheter. Infectious Disease plans to follow the patient at the halfway. PICC line in place. Patient continue with PICC line care. This can be discontinued once UTI has been resolved. Patient has dementia. He will continue with his medication-Aricept 10 mg daily. Patient has Parkinson's. This remained stable during his stay. He will continue with his medication-carbidopa levodopa ER 50/200 mg 1 pill twice daily and carbidopa levodopa 25/100 mg 1.5 pills 4 times a day. Patient has BPH. Patient will continue with his medications-Flomax 0.4 mg daily and finasteride 5 mg daily. Patient has hypertension. Patient will continue with medication-Norvasc 10 mg daily. Recommendation is to maintain blood pressures less 150/80. Further adjustment can be done by his PCP. Patient may continue with aspirin 81 mg daily. Patient with history seizure disorder. He will continue with Keppra 500 mg 1 pill twice daily. Patient has history of DVT. He is on chronic anti coagulation therapy. Patient will continue with Coumadin at 4 mg daily. INR will need to be monitored closely by the halfway. Recommendation to recheck INR in 1 week. Patient has hypothyroidism. Patient continue with [place] thyroid 30 mg daily. Recommendation to recheck tsh and free/total T3/T4 in 1 month to monitor and adjust appropriately. Patient found to have iron and B12 deficiency. Patient will continue with supplementation including iron 325 mg 1 pill once daily and thiamine 100 mg daily. Recommendation to recheck CBC in 2-4 weeks to monitor his progress. Patient is bed bound. Patient also with malnutrition. Patient has declined over the past several months. Family is not desiring PEG tube in the near future. Continue with supplementation. Patient had renal insufficiency likely related to infection. Recommendation to recheck lab-BMP to monitor closely. I did discuss the possibility of hospice for the patient at the halfway. Family is to reconsider this in the future. They want a continue with his current quality of life. If his condition deteriorates over time the family will reconsider. Vital Signs/Physical Exam: Temp Pulse Resp BP Pulse Ox 97.4 F 70 18 152/71 H 96 04/07/18 09:36 04/07/18 09:36 04/07/18 09:36 04/07/18 09:36 04/07/18 09:36 General: Alert, Cooperative, Demented HEENT: Atraumatic Neck: Supple Respiratory: Clear to auscultation bilaterally, Normal air movement Cardiovascular: Normal pulses, Regular rate/rhythm Gastrointestinal: Normal bowel sounds, Soft and benign, Non-distended, No masses , No rebound, No guarding Musculoskeletal: No erythema, No tenderness, No warmth Integumentary: No warmth, No cyanosis, Other (Patient is bed bound. Muscle atrophy noted to the lower extremities.) Urinary: Suprapubic catheter Laboratory Data at Discharge: WBC 14.0 K/uL (4.3-10.9) H 04/06/18 05:46 Hgb 13.5 g/dL (13.6-17.9) L 04/06/18 05:46 Hct 40.2 % (39.6-49.0) 04/06/18 05:46 Plt Count 147 K/uL (152-406) L 04/06/18 05:46 PT 27.9 SECONDS (9.5-12.5) H 04/07/18 06:17 INR 2.34 04/07/18 06:17 APTT 35.6 SECONDS (24.3-36.9) 04/03/18 11:00 Sodium 144 mmol/L (136-145) 04/07/18 06:17 Potassium 3.9 mmol/L (3.5-5.1) 04/07/18 06:17 BUN 27 mg/dL (7-18) H 04/07/18 06:17 Creatinine 1.20 mg/dL (0.55-1.3) 04/07/18 06:17 Glucose 99 mg/dL (74-106) 04/07/18 06:17 Magnesium 2.1 mg/dL (1.8-2.4) 04/07/18 06:17 Total Bilirubin 0.5 mg/dL (0.2-1.0) 04/03/18 11:00 AST 19 U/L (15-37) 04/03/18 11:00 ALT < 6 U/L (12-78) L 04/03/18 11:00 Alkaline Phosphatase 99 U/L (45-117) 04/03/18 11:00 Home Medications: Amlodipine Besylate 10 mg PO DAILY 04/03/18 Ascorbic Acid [Vitamin C] 500 mg PO BID 04/03/18 Aspirin [Children's Aspirin] 81 mg PO BEDTIME 04/03/18 Carbidopa/Levodopa [Carbidopa-Levo ER 50-200 Tab] 1 tab PO BID 04/03/18 Carbidopa/Levodopa [Carbidopa-Levodopa 25-100 Tab] 1.5 tab PO QID 04/03/18 Docusate [Colace Cap*] 1 cap PO DAILY 04/03/18 Donepezil HCl [Aricept] 1 tab PO BEDTIME 04/03/18 Erythromycin Ointment 2% 1 maegan IO TID 04/03/18 Finasteride 1 tab PO DAILY 04/03/18 Levetiracetam [Keppra] 1 tab PO Q12HR 04/03/18 Mirtazapine [Remeron] 15 mg PO BEDTIME 04/03/18 Mupirocin Oint [Bactroban 2% Ointment*] 1 appl TOP BID 04/03/18 Nut.tx.gluc.intoler,Lac-Fr,Soy [Glucerna] 237 ml PO BID 04/03/18 Refresh Solution 1 drop EACH EYE QID 04/03/18 Tamsulosin HCl 1 cap PO BEDTIME 04/03/18 Thiamine HCl 2 tab PO DAILY 04/03/18 Thyroid,Pork [Nature-Throid] 30 mg PO DAILY 04/03/18 Tramadol HCl [Ultram] 1 tab PO Q6H PRN 04/03/18 Warfarin Sodium [Coumadin] 4 mg PO DAILY 04/03/18 Zinc Sulfate [Zinc Sulfate*] 220 mg PO DAILY 04/03/18 Acetic Acid 0.25% [Acetic Acid 0.25%*] 1,000 ml IRR DAILY #30 btl 04/07/18 Ferrous Sulfate [Ferrous Sulfate*] 325 mg PO DAILY #30 tab 04/07/18 New Medications: Acetic Acid 0.25% [Acetic Acid 0.25%*] 1,000 ml IRR DAILY #30 btl Ferrous Sulfate [Ferrous Sulfate*] 325 mg PO DAILY #30 tab Patient Discharge Instructions: 1. Patient will return to the halfway. 2. Patient found to have right upper lobe pneumonia with [id number]. PICC line in place. Patient will continue with PICC line care. At discharge he will continue with meropenem 500 mg IV twice daily for 5 days. This was recommended by infectious disease. Recommendation to recheck urine culture after that time to monitor resolution. Patient with history of recurrent UTIs and chronic suprapubic catheter. Patient is to have daily flushes with acetic acid to the Sahu catheter. Infectious Disease plans to follow the patient at the halfway. PICC line can be removed once UTI has resolved. 3. Patient has dementia. He will continue with his medication-Aricept 10 mg daily. 4. Patient has Parkinson's. This remained stable during his stay. He will continue with his medication-carbidopa levodopa ER 50/200 mg 1 pill twice daily and carbidopa levodopa 25/100 mg 1.5 pills 4 times a day. 5. Patient has BPH. Patient will continue with his medications-Flomax 0.4 mg daily and finasteride 5 mg daily. 6. Patient has hypertension. Patient will continue with medication-Norvasc 10 mg daily. Recommendation is to maintain blood pressures less 150/80. Further adjustment can be done by his PCP. Patient may continue with aspirin 81 mg daily. 7. Patient with history seizure disorder. He will continue with Keppra 500 mg 1 pill twice daily. 8. Patient has history of DVT. He is on chronic anti coagulation therapy. Patient will continue with Coumadin at 4 mg daily. INR will need to be monitored closely by the halfway. Recommendation to recheck INR in 1 week. 9. Patient has hypothyroidism. Patient continue with [place] thyroid 30 mg daily. Recommendation to recheck tsh and free/total T3/T4 in 1 month to monitor and adjust appropriately. 10. Patient has iron and B12 deficiency. Patient will continue with supplementation including iron 325 mg 1 pill once daily and thiamine 100 mg daily. Recommendation to recheck CBC in 2-4 weeks to monitor his progress. 11. Patient has history of B-cell lymphoma. This is not treated due to his chronic medical conditions. 12. Patient is bed bound. Continue with fall precautions. 13. Patient with malnutrition. Continue with supplementation. Diet: AHA Activity: Fall precautions Time spent managing pt's care (in minutes): 55
[2018-04-07 13:24] VITALS: BP 126/59
== END 2018-04-07 14:55 | DRG 178 ==
LOC: ER 10:45 → ERHOLD 12:54 → 4TH 16:40
PROVIDERS: ADMIT Family Medicine; ATTEND Family Medicine
PROC: 02HV33Z Insertion of Infusion Device into Superior Vena Cava, Percutaneous Approach (ICD-10-PCS; principal; 2018-04-07)
DX: J69.0 Pneumonitis due to inhalation of food and vomit (principal); N39.0 Urinary tract infection, site not specified; C85.10 Unspecified B-cell lymphoma, unspecified site; E44.0 Moderate protein-calorie malnutrition; I10 Essential (primary) hypertension; F03.90 Unspecified dementia, unspecified severity, without behavioral disturbance, psychotic disturbance, mood disturbance, and anxiety; G20 Parkinson's disease; G40.909 Epilepsy, unspecified, not intractable, without status epilepticus; N40.0 Benign prostatic hyperplasia without lower urinary tract symptoms; E03.9 Hypothyroidism, unspecified; D50.9 Iron deficiency anemia, unspecified; N28.9 Disorder of kidney and ureter, unspecified; R53.81 Other malaise; B96.4 Proteus (mirabilis) (morganii) as the cause of diseases classified elsewhere; Z16.12 Extended spectrum beta lactamase (ESBL) resistance; D51.9 Vitamin B12 deficiency anemia, unspecified; Z74.01 Bed confinement status; Z86.718 Personal history of other venous thrombosis and embolism; Z79.01 Long term (current) use of anticoagulants; Z79.82 Long term (current) use of aspirin
CPT/HCPCS: 36415; 70450; 71045; 71250; 80048; 80076; 81003; 81015; 82550; 82553; 82962; 83605; 83735; 83880; 84145; 84439; 84443; 84484; 85014; 85018; 85025; 85610; 85730; 87040; 87077; 87086; 87088; 87186; 93005; 96365; 96367; 99285; J0456; J2543; J7030

== ENCOUNTER 2018-07-15 13:26 | Emergency (ER) | payer OTHER ==
--- OUTSIDE RECORDS SUMMARY | 2018-07-15 13:30 | XMS REPORT | Clinical Summary ---
:1935 Author Organization [facility] Address [address] [place] [address] Care Team Providers Name Role Phone Unavailable Primary Care Provider Unavailable Allergies No Known Allergies Medications Medication Sig Dispensed Refills Start Date End Date Status amLODIPine Take 10 mg by mouth 0 Active (NORVASC) 10 MG daily. tablet thyroid, pork, 60 Take 30 mg by mouth 0 Active mg Tab daily. aspirin 81 MG EC Take 81 mg by mouth 0 Active tablet daily Take one tablet by mouth at bedtime . carbidopa-levodopa Take 1 tablet by 0 Active (SINEMET CR) 25-100 mouth 2 (two) times mg per tablet daily Take 1 and 1/2 tablet by mouth four times a day . carbidopa-levodopa Take 1 tablet by 0 Active (SINEMET CR) 50-200 mouth 2 (two) times mg per tablet daily Take one tablet by mouth 2 times a day at 8 am and 6 pm . docusate sodium Take 100 mg by mouth 0 Active (COLACE) 100 MG daily. capsule donepezil (ARICEPT) Take 10 mg by mouth 0 Active 10 MG tablet nightly. enoxaparin Inject 90 mg 0 Active (LOVENOX) 100 mg/mL subcutaneously every Syrg 12 (twelve) hours. escitalopram Take 20 mg by mouth 0 Active oxalate (LEXAPRO) nightly. 20 MG tablet ferrous gluconate Take 324 mg by mouth 0 Active (FERGON) 324 MG 2 (two) times daily. tablet finasteride Take 5 mg by mouth 0 Active (PROSCAR) 5 mg daily. tablet melatonin 3 mg Tab Take 5 mg by mouth 0 Active tablet nightly. multivitamin per Take 2 tablets by 0 Active tablet mouth daily. tamsulosin (FLOMAX) Take 0.4 mg by mouth 0 Active 0.4 mg Cp24 24 hr daily. capsule Active Problems Problem Noted Date Pacemaker 12/14/2016 Hematuria 12/11/2016 Urinary tract infection associated with indwelling urethral catheter 2016 Cystitis 12/11/2016 Hypothyroidism 12/11/2016 Essential hypertension 12/11/2016 Type 2 diabetes mellitus without complication 12/11/2016 Pulmonary embolism 12/11/2016 Overview: hsitory of pe dvt BPH (benign prostatic hyperplasia) 12/11/2016 CKD (chronic kidney disease) stage 3, GFR 30-59 ml/min 12/11/2016 Insomnia 12/11/2016 Parkinson disease 12/11/2016 CAD (coronary artery disease) Social History Tobacco Use Types Packs/Day Years Used Date Never Assessed Sex Assigned at Date Recorded Not on file Job Start Date Occupation Industry Not on file Not on file Not on file Travel History Travel Start Travel End No recent travel history available. Last Filed Vital Signs Not on file Plan of Treatment Not on file Results Not on fileafter 07/14/2017 Insurance Payer Benefit Plan / Group Subscriber ID Type Phone Address MEDICARE MEDICARE A B xxxxxxxxxx Medicare A[employer]NA - [employer] CARE [employer] INDEMNITY NON CONTR xxxxxxxxx Comm Advance Directives For more information, please contact:[address] [phone] Code Status Date Activated Date Inactivated Comments Full Code 12/11/2016 5:27 PM 12/20/2016 3:30 PM This code status was determined by: Patient
--- OUTSIDE RECORDS SUMMARY | 2018-07-15 13:31 | XMS REPORT ---
:1935 [facility] Address [address] [place] [address] Care Team Providers Name Role Phone ELIZABETH [...] Comments WHITE BLOOD CELL COUNT (BEAKER) (test lehv=147) 9.1 K/ L 4.0-10.0 RED BLOOD CELL COUNT (BEAKER) (test hodb=959) 3.43 M/ L 4.20-5.80 HEMOGLOBIN (BEAKER) (test uglo=923) 9.1 GM/DL 13.0-16.8 HEMATOCRIT (BEAKER) (test xokj=124) 29.7 % 40.0-50.0 MEAN CORPUSCULAR VOLUME (BEAKER) (test hvbo=188) 86.8 fL 82.0-98.0 MEAN CORPUSCULAR HEMOGLOBIN (BEAKER) (test ccvm=584) 26.6 pg 27.0-33.0 MEAN CORPUSCULAR HEMOGLOBIN CONC (BEAKER) (test bhyg=108) 30.7 GM/DL 32.0- 36.0 RED CELL DISTRIBUTION WIDTH (BEAKER) (test degr=731) 14.5 % 10.3-14.2 PLATELET COUNT (BEAKER) (test gtox=809) 211 K/CU MM 150-430 MEAN PLATELET VOLUME (BEAKER) (test musp=484) 7.4 fL 6.5-10.5 NUCLEATED RED BLOOD CELLS (BEAKER) (test xqfy=245) 0 /100 WBC 0-0 NEUTROPHILS RELATIVE PERCENT (BEAKER) (test eypb=489) 38 % LYMPHOCYTES RELATIVE PERCENT (BEAKER) (test ufvb=740) 52 % MONOCYTES RELATIVE PERCENT (BEAKER) (test zcen=026) 6 % EOSINOPHILS RELATIVE PERCENT (BEAKER) (test wsfe=795) 3 % BASOPHILS RELATIVE PERCENT (BEAKER) (test cpou=365) 1 % NEUTROPHILS ABSOLUTE COUNT (BEAKER) (test vkmg=475) 3.48 K/ L 1.80-8.00 LYMPHOCYTES ABSOLUTE COUNT (BEAKER) (test znss=735) 4.70 K/ L 1.48-4.50 MONOCYTES ABSOLUTE COUNT (BEAKER) (test aqof=174) 0.57 K/ L 0.00-1.30 EOSINOPHILS ABSOLUTE COUNT (BEAKER) (test ugee=140) 0.26 K/ L 0.00-0.50 BASOPHILS ABSOLUTE COUNT (BEAKER) (test ineo=581) 0.06 K/ L 0.00-0.20 0.00(MANUAL DIFFERENTIAL)2016-12-19 09:47:00 Test Item Value Reference Range Comments TOTAL COUNTED (BEAKER) (test uofi=8803) WBC MORPHOLOGY (BEAKER) (test wdbu=669) Normal PLT MORPHOLOGY (BEAKER) (test gajn=987) Normal RBC MORPHOLOGY (BEAKER) (test brbd=631) Normal BASIC METABOLIC [id number] 04:52:00 Test Item Value Reference Range Comments SODIUM (BEAKER) (test 141 meq/L 136-145 ring=125) POTASSIUM (BEAKER) (test 3.8 meq/L 3.5-5.1 ehbh=527) CHLORIDE (BEAKER) (test 111 meq/L 98-107 yqpg=080) CO2 (BEAKER) (test 21 meq/L 22-29 ckye=885) BLOOD UREA NITROGEN 16 mg/dL 7-21 (BEAKER) (test zbmr=361) CREATININE (BEAKER) (test 1.35 mg/dL 0.57-1.25 glto=970) GLUCOSE RANDOM (BEAKER) 96 mg/dL 70-105 (test tixb=565) CALCIUM (BEAKER) (test 8.2 mg/dL 8.4-10.2 iber=334) EGFR (BEAKER) (test 51 mL/min/1.73 sq m ESTIMATED GFR IS NOT xtmm=7298) ACCURATE CREATININE CLEARANCE IN PREDICTING GLOMERULAR FILTRATION RATE. ESTIMATED GFR IS NOT APPLICABLE FOR DIALYSIS PATIENTS. CBC W/PLT COUNT & AUTO [id number] 09:26:00 Test Item Value Reference Range Comments WHITE BLOOD CELL COUNT (BEAKER) (test gpsw=143) 8.8 K/ L 4.0-10.0 RED BLOOD CELL COUNT (BEAKER) (test vqkd=697) 3.40 M/ L 4.20-5.80 HEMOGLOBIN (BEAKER) (test ycbt=697) 9.5 GM/DL 13.0-16.8 HEMATOCRIT (BEAKER) (test pipw=594) 29.6 % 40.0-50.0 MEAN CORPUSCULAR VOLUME (BEAKER) (test jrrn=546) 87.0 fL 82.0-98.0 MEAN CORPUSCULAR HEMOGLOBIN (BEAKER) (test 27.8 pg 27.0-33.0 scty=273) MEAN CORPUSCULAR HEMOGLOBIN CONC (BEAKER) (test 31.9 GM/DL 32.0-36.0 kbie=360) RED CELL DISTRIBUTION WIDTH (BEAKER) (test 14.6 % 10.3-14.2 yqoh=038) PLATELET COUNT (BEAKER) (test qjgp=568) 193 K/CU MM 150-430 MEAN PLATELET VOLUME (BEAKER) (test pbxf=458) 7.7 fL 6.5-10.5 NUCLEATED RED BLOOD CELLS (BEAKER) (test 0 /100 WBC 0-0 dlto=179) NEUTROPHILS RELATIVE PERCENT (BEAKER) (test 40 % huaa=156) LYMPHOCYTES RELATIVE PERCENT (BEAKER) (test 51 % lrno=433) MONOCYTES RELATIVE PERCENT (BEAKER) (test 6 % grae=294) EOSINOPHILS RELATIVE PERCENT (BEAKER) (test 3 % gzzq=171) BASOPHILS RELATIVE PERCENT (BEAKER) (test 0 % zomw=428) NEUTROPHILS ABSOLUTE COUNT (BEAKER) (test 3.46 K/ L 1.80-8.00 vwue=888) LYMPHOCYTES ABSOLUTE COUNT (BEAKER) (test 4.50 K/ L 1.48-4.50 crrz=669) MONOCYTES ABSOLUTE COUNT (BEAKER) (test 0.53 K/ L 0.00-1.30 cbny=697) EOSINOPHILS ABSOLUTE COUNT (BEAKER) (test 0.26 K/ L 0.00-0.50 kdwi=454) BASOPHILS ABSOLUTE COUNT (BEAKER) (test 0.02 K/ L 0.00-0.20 hhmo=641) 0.00(MANUAL DIFFERENTIAL)2016-12-18 09:26:00 Test Item Value Reference Range Comments TOTAL COUNTED (BEAKER) (test svfh=3901) WBC MORPHOLOGY (BEAKER) (test wamn=857) Normal PLT MORPHOLOGY (BEAKER) (test qsku=256) Normal RBC MORPHOLOGY (BEAKER) (test dkbb=771) Normal URINE [id number] 07:48:00 Test Item Value Reference Range Comments CULTURE (BEAKER) (test PSEUDOMONAS >100,000 col/mL kwdw=7130) AERUGINOSA Pseudomonas aeruginosa Amikacin (test code=1) Susceptible 0-16 , Resistant <0 or >16 Aztreonam (test Susceptible 0-8 , code=32) Resistant <0 or >8 Cefepime (test code=51) Susceptible 0-8 , Resistant <0 or >8 Ceftazidime (test Susceptible 0-8 , code=27) Resistant <0 or >8 Ciprofloxacin (test Susceptible 0-1 , code=7) Resistant <0 or >1 Doripenem (test Susceptible 0-2 , vnjj=706) Resistant <0 or >2 Gentamicin (test Susceptible [...] code=25) Resistant <0 or >4 BASIC METABOLIC [id number] 05:21:00 Test Item Value Reference Range Comments SODIUM (BEAKER) (test 138 meq/L 136-145 afzs=895) POTASSIUM (BEAKER) (test 3.4 meq/L 3.5-5.1 ucgz=872) CHLORIDE (BEAKER) (test 110 meq/L 98-107 vlbw=747) CO2 (BEAKER) (test 18 meq/L 22-29 tyxx=458) BLOOD UREA NITROGEN 16 mg/dL 7-21 (BEAKER) (test mwxb=588) CREATININE (BEAKER) (test 1.28 mg/dL 0.57-1.25 aacj=185) GLUCOSE RANDOM (BEAKER) 99 mg/dL 70-105 (test mypi=261) CALCIUM (BEAKER) (test 8.1 mg/dL 8.4-10.2 hbim=214) EGFR (BEAKER) (test 54 mL/min/1.73 sq m ESTIMATED GFR IS NOT ofwy=4411) ACCURATE CREATININE CLEARANCE IN PREDICTING GLOMERULAR FILTRATION RATE. ESTIMATED GFR IS NOT APPLICABLE FOR DIALYSIS PATIENTS. HEPARIN ASSAY - LOW MOLECULAR [id number] 15:26:00 Test Item Value Reference Range Comments LOVENOX-ANTI 10A (BEAKER) (test uwns=9859) 0.77 u/ml 0.60-2.00 Effective 07/18/2016: Reference Range ChangeNew: 0.60-2.00 Previous: 0.60- 1.99Anti-Factor 10A Level(Heparin Assay for Low Molecular Weight Heparin) Monitoring Guidelines: Blood samples should be obtained 4 hours post subcutaneous injection (time of Peak level) Therapeutic Peak Levels: 0.6-1.0 units/mL twice daily enoxaparin 1.0-2.0 units/mL once daily enoxaparinCBC W/PLT COUNT & AUTO [id number] 14:48:00 Test Item Value Reference Range Comments WHITE BLOOD CELL COUNT (BEAKER) (test okue=973) 10.2 K/ L 4.0-10.0 RED BLOOD CELL COUNT (BEAKER) (test umym=951) 3.16 M/ L 4.20-5.80 HEMOGLOBIN (BEAKER) (test nadu=803) 9.0 GM/DL 13.0-16.8 HEMATOCRIT (BEAKER) (test xhyx=688) 27.6 % 40.0-50.0 MEAN CORPUSCULAR VOLUME (BEAKER) (test txwp=274) 87.3 fL 82.0-98.0 MEAN CORPUSCULAR HEMOGLOBIN (BEAKER) (test 28.6 pg 27.0-33.0 btpu=965) MEAN CORPUSCULAR HEMOGLOBIN CONC (BEAKER) (test 32.7 GM/DL 32.0-36.0 kfsi=584) RED CELL DISTRIBUTION WIDTH (BEAKER) (test 14.7 % 10.3-14.2 qbuv=722) PLATELET COUNT (BEAKER) (test rfug=730) 175 K/CU MM 150-430 MEAN PLATELET VOLUME (BEAKER) (test kaop=948) 7.9 fL 6.5-10.5 NUCLEATED RED BLOOD CELLS (BEAKER) (test 0 /100 WBC 0-0 mvhg=144) NEUTROPHILS RELATIVE PERCENT (BEAKER) (test 46 % regj=458) LYMPHOCYTES RELATIVE PERCENT (BEAKER) (test 48 % nbtm=624) MONOCYTES RELATIVE PERCENT (BEAKER) (test 3 % aewr=240) EOSINOPHILS RELATIVE PERCENT (BEAKER) (test 2 % liht=680) BASOPHILS RELATIVE PERCENT (BEAKER) (test 1 % rjni=871) NEUTROPHILS ABSOLUTE COUNT (BEAKER) (test 4.69 K/ L 1.80-8.00 jilu=858) LYMPHOCYTES ABSOLUTE COUNT (BEAKER) (test 4.86 K/ L 1.48-4.50 bjdp=537) MONOCYTES ABSOLUTE COUNT (BEAKER) (test 0.35 K/ L 0.00-1.30 hmsh=356) EOSINOPHILS ABSOLUTE COUNT (BEAKER) (test 0.22 K/ L 0.00-0.50 tzcf=052) BASOPHILS ABSOLUTE COUNT (BEAKER) (test 0.06 K/ L 0.00-0.20 tdgz=962) 0.00(MANUAL DIFFERENTIAL)2016-12-17 14:48:00 Test Item Value Reference Range Comments TOTAL COUNTED (BEAKER) (test jude=2046) WBC MORPHOLOGY (BEAKER) (test llkb=394) Normal PLT MORPHOLOGY (BEAKER) (test vnum=592) Normal ANISOCYTOSIS (BEAKER) (test nesa=490) 1+ few HYPOCHROMIA (BEAKER) (test ssan=483) 1+ few POIKILOCYTES (BEAKER) (test sstk=508) 1+ few BASIC METABOLIC [id number] 05:13:00 Test Item Value Reference Range Comments SODIUM (BEAKER) (test 137 meq/L 136-145 scrb=310) POTASSIUM (BEAKER) (test 3.6 meq/L 3.5-5.1 ntky=872) CHLORIDE (BEAKER) (test 111 meq/L 98-107 yxpl=622) CO2 (BEAKER) (test 17 meq/L 22-29 cesd=248) BLOOD UREA NITROGEN 18 mg/dL 7-21 (BEAKER) (test ekij=460) CREATININE (BEAKER) (test 1.39 mg/dL 0.57-1.25 hdjo=106) GLUCOSE RANDOM (BEAKER) 104 mg/dL 70-105 (test eidd=795) CALCIUM (BEAKER) (test 8.2 mg/dL 8.4-10.2 iauu=792) EGFR (BEAKER) (test 49 mL/min/1.73 sq m ESTIMATED GFR IS NOT xvjf=1060) ACCURATE CREATININE CLEARANCE IN PREDICTING GLOMERULAR FILTRATION RATE. ESTIMATED GFR IS NOT APPLICABLE FOR DIALYSIS PATIENTS. BLOOD [id number] 00:00:00 Test Item Value Reference Range Comments CULTURE (BEAKER) (test amdj=4750) No growth in 5 days BASIC METABOLIC [id number] 06:19:00 Test Item Value Reference Range Comments SODIUM (BEAKER) (test 138 meq/L 136-145 uzhe=750) POTASSIUM (BEAKER) (test 3.9 meq/L 3.5-5.1 wfkd=596) CHLORIDE (BEAKER) (test 109 meq/L 98-107 nlis=517) CO2 (BEAKER) (test 20 meq/L 22-29 zsbp=033) BLOOD UREA NITROGEN 22 mg/dL 7-21 (BEAKER) (test hygg=163) CREATININE (BEAKER) (test 1.58 mg/dL 0.57-1.25 bvvg=046) GLUCOSE RANDOM (BEAKER) 97 mg/dL 70-105 (test vgpy=026) CALCIUM (BEAKER) (test 8.6 mg/dL 8.4-10.2 jhik=342) EGFR (BEAKER) (test 42 mL/min/1.73 sq m ESTIMATED GFR IS NOT zbya=8449) ACCURATE CREATININE CLEARANCE IN PREDICTING GLOMERULAR FILTRATION RATE. ESTIMATED GFR IS NOT APPLICABLE FOR DIALYSIS PATIENTS. URINALYSIS W/ [id number] 18:02:00 Test Item Value Reference Range Comments COLOR (BEAKER) (test ppet=482) Yellow CLARITY (BEAKER) (test kvek=192) Cloudy SPECIFIC GRAVITY UA (BEAKER) (test qeun=288) 1.017 1.001-1.035 PH UA (BEAKER) (test lech=005) 5.5 5.0-8.0 PROTEIN UA (BEAKER) (test vvei=729) 70 mg/dL Negative GLUCOSE UA (BEAKER) (test fpth=898) Negative Negative KETONES UA (BEAKER) (test xgpj=384) Negative Negative BILIRUBIN UA (BEAKER) (test siol=339) Negative Negative BLOOD UA (BEAKER) (test zenn=852) Large Negative NITRITE UA (BEAKER) (test jore=278) Negative Negative LEUKOCYTE ESTERASE UA (BEAKER) (test dsfv=286) Large Negative UROBILINOGEN UA (BEAKER) (test ywik=814) 0.2 mg/dL 0.2-1.0 RBC UA (BEAKER) (test xktp=855) > /HPF WBC UA (BEAKER) (test rbqf=678) > /HPF MUCUS (BEAKER) (test fwxj=7862) Rare SQUAMOUS EPITHELIAL (BEAKER) (test pydp=106) 2 /HPF SOURCE(BEAKER) (test zhxq=5065) Urine, [place] CBC W/PLT COUNT & AUTO [id number] 09:55:00 Test Item Value Reference Range Comments WHITE BLOOD CELL COUNT (BEAKER) (test vrqe=966) 11.5 K/ L 4.0-10.0 RED BLOOD CELL COUNT (BEAKER) (test ztgy=434) 3.68 M/ L 4.20-5.80 HEMOGLOBIN (BEAKER) (test flli=761) 10.5 GM/DL 13.0-16.8 HEMATOCRIT (BEAKER) (test dyqo=221) 32.0 % 40.0-50.0 MEAN CORPUSCULAR VOLUME (BEAKER) (test bpit=285) 87.1 fL 82.0-98.0 MEAN CORPUSCULAR HEMOGLOBIN (BEAKER) (test 28.4 pg 27.0-33.0 meas=488) MEAN CORPUSCULAR HEMOGLOBIN CONC (BEAKER) (test 32.6 GM/DL 32.0-36.0 gzxa=213) RED CELL DISTRIBUTION WIDTH (BEAKER) (test 15.7 % 10.3-14.2 lkin=499) PLATELET COUNT (BEAKER) (test hkzq=918) 167 K/CU MM 150-430 MEAN PLATELET VOLUME (BEAKER) (test ufcv=743) 8.2 fL 6.5-10.5 NUCLEATED RED BLOOD CELLS (BEAKER) (test 0 /100 WBC 0-0 twdc=729) NEUTROPHILS RELATIVE PERCENT (BEAKER) (test 48 % dise=199) LYMPHOCYTES RELATIVE PERCENT (BEAKER) (test 45 % giyu=128) MONOCYTES RELATIVE PERCENT (BEAKER) (test 6 % bodp=684) EOSINOPHILS RELATIVE PERCENT (BEAKER) (test 0 % avha=581) BASOPHILS RELATIVE PERCENT (BEAKER) (test 0 % azua=920) NEUTROPHILS ABSOLUTE COUNT (BEAKER) (test 5.55 K/ L 1.80-8.00 tkql=642) LYMPHOCYTES ABSOLUTE COUNT (BEAKER) (test 5.18 K/ L 1.48-4.50 dscs=879) MONOCYTES ABSOLUTE COUNT (BEAKER) (test 0.70 K/ L 0.00-1.30 qoqc=371) EOSINOPHILS ABSOLUTE COUNT (BEAKER) (test 0.05 K/ L 0.00-0.50 jxji=346) BASOPHILS ABSOLUTE COUNT (BEAKER) (test 0.06 K/ L 0.00-0.20 bilr=676) 0.00(MANUAL DIFFERENTIAL)2016-12-15 09:55:00 Test Item Value Reference Range Comments TOTAL COUNTED (BEAKER) (test ufem=0212) PLT MORPHOLOGY (BEAKER) (test wohe=069) Normal ATYPICAL LYMPHS(BEAKER) (test lkqg=8136) Present POLYCHROMATOPHILLIC RBCS(BEAKER) (test qnun=829) 1+ few BASIC METABOLIC [id number] 05:46:00 Test Item Value Reference Range Comments SODIUM (BEAKER) (test 141 meq/L 136-145 bgzl=220) POTASSIUM (BEAKER) (test 4.2 meq/L 3.5-5.1 pxds=553) CHLORIDE (BEAKER) (test 111 meq/L 98-107 nzdz=642) CO2 (BEAKER) (test 18 meq/L 22-29 xlzs=392) BLOOD UREA NITROGEN 24 mg/dL 7-21 (BEAKER) (test vvon=322) CREATININE (BEAKER) (test 1.84 mg/dL 0.57-1.25 suqr=281) GLUCOSE RANDOM (BEAKER) 119 mg/dL 70-105 (test fxac=391) CALCIUM (BEAKER) (test 8.7 mg/dL 8.4-10.2 nprq=465) EGFR (BEAKER) (test 35 mL/min/1.73 sq m ESTIMATED GFR IS NOT wdit=3261) ACCURATE CREATININE CLEARANCE IN PREDICTING GLOMERULAR FILTRATION RATE. ESTIMATED GFR IS NOT APPLICABLE FOR DIALYSIS PATIENTS. [id number] 05:27:00 Test Item Value Reference Range Comments PROTIME (BEAKER) (test wujj=175) 14.2 seconds 11.7-14.7 INR (BEAKER) (test zdlu=048) 1.1 <=5.9 PARTIAL THROMBOPLASTIN TIME (BEAKER) (test 28.3 seconds 22.5-36.0 edev=576) RECOMMENDED COUMADIN/WARFARIN INR THERAPY RANGESSTANDARD DOSE: 2.0 - 3.0 Includes: PROPHYLAXIS forvenous thrombosis, systemic embolization; TREATMENT for venous thrombosis and/or pulmonary embolus.HIGH RISK: Target INR is 2.5-3.5 for patients with mechanical heart valves.CBC W/PLT COUNT & AUTO [id number] 11:32:00 Test Item Value Reference Range Comments WHITE BLOOD CELL COUNT (BEAKER) (test dlxw=302) 10.7 K/ L 4.0-10.0 RED BLOOD CELL COUNT (BEAKER) (test zemu=816) 3.63 M/ L 4.20-5.80 HEMOGLOBIN (BEAKER) (test akla=280) 10.4 GM/DL 13.0-16.8 HEMATOCRIT (BEAKER) (test darv=924) 31.8 % 40.0-50.0 MEAN CORPUSCULAR VOLUME (BEAKER) (test szmb=482) 87.8 fL 82.0-98.0 MEAN CORPUSCULAR HEMOGLOBIN (BEAKER) (test 28.5 pg 27.0-33.0 adrh=383) MEAN CORPUSCULAR HEMOGLOBIN CONC (BEAKER) (test 32.5 GM/DL 32.0-36.0 runt=644) RED CELL DISTRIBUTION WIDTH (BEAKER) (test 15.7 % 10.3-14.2 jqim=514) PLATELET COUNT (BEAKER) (test iotw=132) 149 K/CU MM 150-430 MEAN PLATELET VOLUME (BEAKER) (test kxtt=106) 8.9 fL 6.5-10.5 NUCLEATED RED BLOOD CELLS (BEAKER) (test 0 /100 WBC 0-0 exnf=021) NEUTROPHILS RELATIVE PERCENT (BEAKER) (test 47 % eccl=308) LYMPHOCYTES RELATIVE PERCENT (BEAKER) (test 44 % wgrt=396) MONOCYTES RELATIVE PERCENT (BEAKER) (test 7 % ftip=538) EOSINOPHILS RELATIVE PERCENT (BEAKER) (test 1 % czyu=623) BASOPHILS RELATIVE PERCENT (BEAKER) (test 0 % nppa=547) NEUTROPHILS ABSOLUTE COUNT (BEAKER) (test 5.07 K/ L 1.80-8.00 josz=369) LYMPHOCYTES ABSOLUTE COUNT (BEAKER) (test 4.68 K/ L 1.48-4.50 iegn=822) MONOCYTES ABSOLUTE COUNT (BEAKER) (test 0.76 K/ L 0.00-1.30 mvrr=903) EOSINOPHILS ABSOLUTE COUNT (BEAKER) (test 0.13 K/ L 0.00-0.50 vgrp=383) BASOPHILS ABSOLUTE COUNT (BEAKER) (test 0.04 K/ L 0.00-0.20 wvoz=668) 0.00(MANUAL DIFFERENTIAL)2016-12-14 11:32:00 Test Item Value Reference Range Comments TOTAL COUNTED (BEAKER) (test stej=1528) WBC MORPHOLOGY (BEAKER) (test veel=722) Normal PLT MORPHOLOGY (BEAKER) (test gnsu=687) Normal RBC MORPHOLOGY (BEAKER) (test pgey=346) Normal URINE [id number] 09:07:00 Test Item Value Reference Range Comments CULTURE (BEAKER) (test vdei=3477) No growth HEPATIC FUNCTION [id number] 05:03:00 Test Item Value Reference Range Comments TOTAL PROTEIN (BEAKER) (test nanl=369) 6.9 gm/dL 6.0-8.3 ALBUMIN (BEAKER) (test kcic=7341) 3.5 g/dL 3.5-5.0 BILIRUBIN TOTAL (BEAKER) (test rxjy=785) 0.3 mg/dL 0.2-1.2 BILIRUBIN DIRECT (BEAKER) (test kacx=676) 0.2 mg/dL 0.1-0.5 ALKALINE PHOSPHATASE (BEAKER) (test rliw=164) 78 U/L 40-150 AST (SGOT) (BEAKER) (test vmqb=113) 17 U/L 5-34 ALT (SGPT) (BEAKER) (test ldii=459) < U/L 6-55 [id number] 05:03:00 Test Item Value Reference Range Comments PARTIAL THROMBOPLASTIN TIME (BEAKER) (test 47.9 seconds 22.5-36.0 rpeo=020) [id number] 04:57:00 Test Item Value Reference Range Comments MAGNESIUM (BEAKER) (test gduu=087) 2.0 mg/dL 1.6-2.6 BASIC METABOLIC [id number] 04:57:00 Test Item Value Reference Range Comments SODIUM (BEAKER) (test 139 meq/L 136-145 vkdu=881) POTASSIUM (BEAKER) (test 4.5 meq/L 3.5-5.1 jjto=929) CHLORIDE (BEAKER) (test 108 meq/L 98-107 ebnz=206) CO2 (BEAKER) (test 20 meq/L 22-29 gvok=872) BLOOD UREA NITROGEN 29 mg/dL 7-21 (BEAKER) (test mnce=362) CREATININE (BEAKER) (test 1.84 mg/dL 0.57-1.25 ydkq=326) GLUCOSE RANDOM (BEAKER) 140 mg/dL 70-105 (test sapu=962) CALCIUM (BEAKER) (test 8.6 mg/dL 8.4-10.2 dvun=434) EGFR (BEAKER) (test 35 mL/min/1.73 sq m ESTIMATED GFR IS NOT ldnc=7009) ACCURATE CREATININE CLEARANCE IN PREDICTING GLOMERULAR FILTRATION RATE. ESTIMATED GFR IS NOT APPLICABLE FOR DIALYSIS PATIENTS. PROTHROMBIN [id number] 04:36:00 Test Item Value Reference Range Comments PROTIME (BEAKER) (test qzma=524) 13.5 seconds 11.7-14.7 INR (BEAKER) (test jcif=713) 1.0 <=5.9 RECOMMENDED COUMADIN/WARFARIN INR THERAPY RANGESSTANDARD DOSE: 2.0 - 3.0 Includes: PROPHYLAXIS forvenous thrombosis, systemic embolization; TREATMENT for venous thrombosis and/or pulmonary embolus.HIGH RISK: Target INR is 2.5-3.5 for patients with mechanical heart valves.VANCOMYCIN LEVEL, [id number] 21: 01:00 Test Item Value Reference Range Comments VANCOMYCIN TROUGH (BEAKER) (test lhqp=904) 16.7 ug/mL 10.0-20.0 Please draw vancomycin trough \R\30 minutes prior to administration time; For trough >20 mcg/mL,hold next dose and contact pharmacy and MD.CBC W/PLT COUNT & AUTO [id number] 07:27:00 Test Item Value Reference Range Comments WHITE BLOOD CELL COUNT (BEAKER) (test imri=639) 12.2 K/ L 4.0-10.0 RED BLOOD CELL COUNT (BEAKER) (test wzer=600) 3.47 M/ L 4.20-5.80 HEMOGLOBIN (BEAKER) (test xgke=757) 9.8 GM/DL 13.0-16.8 HEMATOCRIT (BEAKER) (test zbsv=948) 30.8 % 40.0-50.0 MEAN CORPUSCULAR VOLUME (BEAKER) (test msew=560) 88.6 fL 82.0-98.0 MEAN CORPUSCULAR HEMOGLOBIN (BEAKER) (test 28.2 pg 27.0-33.0 qodk=022) MEAN CORPUSCULAR HEMOGLOBIN CONC (BEAKER) (test 31.8 GM/DL 32.0-36.0 ojxo=029) RED CELL DISTRIBUTION WIDTH (BEAKER) (test 15.7 % 10.3-14.2 rwos=452) PLATELET COUNT (BEAKER) (test uptj=743) 133 K/CU MM 150-430 MEAN PLATELET VOLUME (BEAKER) (test dyeu=085) 8.9 fL 6.5-10.5 NUCLEATED RED BLOOD CELLS (BEAKER) (test 0 /100 WBC 0-0 nbis=445) NEUTROPHILS RELATIVE PERCENT (BEAKER) (test 51 % zjfe=941) LYMPHOCYTES RELATIVE PERCENT (BEAKER) (test 43 % msil=468) MONOCYTES RELATIVE PERCENT (BEAKER) (test 5 % yhat=709) EOSINOPHILS RELATIVE PERCENT (BEAKER) (test 0 % uyjc=393) BASOPHILS RELATIVE PERCENT (BEAKER) (test 1 % vqzi=514) NEUTROPHILS ABSOLUTE COUNT (BEAKER) (test 6.24 K/ L 1.80-8.00 jmfn=600) LYMPHOCYTES ABSOLUTE COUNT (BEAKER) (test 5.21 K/ L 1.48-4.50 nzod=859) MONOCYTES ABSOLUTE COUNT (BEAKER) (test 0.64 K/ L 0.00-1.30 dkyn=420) EOSINOPHILS ABSOLUTE COUNT (BEAKER) (test 0.05 K/ L 0.00-0.50 dfns=776) BASOPHILS ABSOLUTE COUNT (BEAKER) (test 0.07 K/ L 0.00-0.20 hkxh=790) 0.00HEPATIC FUNCTION [id number] 05:28:00 Test Item Value Reference Range Comments TOTAL PROTEIN (BEAKER) (test kkgq=621) 6.4 gm/dL 6.0-8.3 ALBUMIN (BEAKER) (test caqu=7696) 3.3 g/dL 3.5-5.0 BILIRUBIN TOTAL (BEAKER) (test bmhv=394) 0.5 mg/dL 0.2-1.2 BILIRUBIN DIRECT (BEAKER) (test iciz=432) 0.2 mg/dL 0.1-0.5 ALKALINE PHOSPHATASE (BEAKER) (test ahpn=304) 69 U/L 40-150 AST (SGOT) (BEAKER) (test qlvv=945) 18 U/L 5-34 ALT (SGPT) (BEAKER) (test cyyx=739) < U/L 6-55 BASIC METABOLIC [id number] 05:28:00 Test Item Value Reference Range Comments SODIUM (BEAKER) (test 132 meq/L 136-145 rvac=239) POTASSIUM (BEAKER) (test 4.2 meq/L 3.5-5.1 dqea=722) CHLORIDE (BEAKER) (test 104 meq/L 98-107 atcl=861) CO2 (BEAKER) (test 18 meq/L 22-29 phni=808) BLOOD UREA NITROGEN 27 mg/dL 7-21 (BEAKER) (test acjq=917) CREATININE (BEAKER) (test 1.52 mg/dL 0.57-1.25 hdqo=745) GLUCOSE RANDOM (BEAKER) 126 mg/dL 70-105 (test zeto=521) CALCIUM (BEAKER) (test 8.5 mg/dL 8.4-10.2 nejp=735) EGFR (BEAKER) (test 44 mL/min/1.73 sq m ESTIMATED GFR IS NOT xgic=8387) ACCURATE CREATININE CLEARANCE IN PREDICTING GLOMERULAR FILTRATION RATE. ESTIMATED GFR IS NOT APPLICABLE FOR DIALYSIS PATIENTS. [id number] 05:27:00 Test Item Value Reference Range Comments MAGNESIUM (BEAKER) (test lohz=676) 1.9 mg/dL 1.6-2.6 PROTHROMBIN [id number] 05:10:00 Test Item Value Reference Range Comments PROTIME (BEAKER) (test qatg=746) 13.0 seconds 11.7-14.7 INR (BEAKER) (test ewut=968) 1.0 <=5.9 RECOMMENDED COUMADIN/WARFARIN INR THERAPY RANGESSTANDARD DOSE: 2.0 - 3.0 Includes: PROPHYLAXIS forvenous thrombosis, systemic embolization; TREATMENT for venous thrombosis and/or pulmonary embolus.HIGH RISK: Target INR is 2.5-3.5 for patients with mechanical heart valves.HEMOGLOBIN AND [id number] 17 :05:00 Test Item Value Reference Range Comments HEMOGLOBIN (BEAKER) (test tpek=733) 10.0 GM/DL 13.0-16.8 HEMATOCRIT (BEAKER) (test qyqu=411) 31.7 % 40.0-50.0 CBC W/PLT COUNT & AUTO [id number] 10:22:00 Test Item Value Reference Range Comments WHITE BLOOD CELL COUNT (BEAKER) (test vkwy=651) 10.8 K/ L 4.0-10.0 RED BLOOD CELL COUNT (BEAKER) (test hoee=260) 3.45 M/ L 4.20-5.80 HEMOGLOBIN (BEAKER) (test ijtw=678) 9.5 GM/DL 13.0-16.8 HEMATOCRIT (BEAKER) (test jwcq=782) 30.1 % 40.0-50.0 MEAN CORPUSCULAR VOLUME (BEAKER) (test ishs=548) 87.1 fL 82.0-98.0 MEAN CORPUSCULAR HEMOGLOBIN (BEAKER) (test 27.7 pg 27.0-33.0 uoxa=532) MEAN CORPUSCULAR HEMOGLOBIN CONC (BEAKER) (test 31.7 GM/DL 32.0-36.0 ouhh=184) RED CELL DISTRIBUTION WIDTH (BEAKER) (test 15.0 % 10.3-14.2 aemy=413) PLATELET COUNT (BEAKER) (test gsdg=863) 132 K/CU MM 150-430 MEAN PLATELET VOLUME (BEAKER) (test qxmy=887) 8.3 fL 6.5-10.5 NUCLEATED RED BLOOD CELLS (BEAKER) (test 0 /100 WBC 0-0 kskb=371) NEUTROPHILS RELATIVE PERCENT (BEAKER) (test 42 % cbhw=286) LYMPHOCYTES RELATIVE PERCENT (BEAKER) (test 53 % qise=087) MONOCYTES RELATIVE PERCENT (BEAKER) (test 5 % kxyp=098) EOSINOPHILS RELATIVE PERCENT (BEAKER) (test 0 % iohr=480) BASOPHILS RELATIVE PERCENT (BEAKER) (test 0 % ljaa=770) NEUTROPHILS ABSOLUTE COUNT (BEAKER) (test 4.48 K/ L 1.80-8.00 oepy=660) LYMPHOCYTES ABSOLUTE COUNT (BEAKER) (test 5.65 K/ L 1.48-4.50 ndfp=384) MONOCYTES ABSOLUTE COUNT (BEAKER) (test 0.57 K/ L 0.00-1.30 fujy=119) EOSINOPHILS ABSOLUTE COUNT (BEAKER) (test 0.02 K/ L 0.00-0.50 jslk=845) BASOPHILS ABSOLUTE COUNT (BEAKER) (test 0.03 K/ L 0.00-0.20 bkcy=695) 0.00(MANUAL DIFFERENTIAL)[id number] 10:22:00 Test Item Value Reference Range Comments TOTAL COUNTED (BEAKER) (test zfyo=0971) PLT MORPHOLOGY (BEAKER) (test knaw=511) Normal ATYPICAL LYMPHS(BEAKER) (test muhm=0763) Present HYPOCHROMIA (BEAKER) (test azak=681) 1+ few POLYCHROMATOPHILLIC RBCS(BEAKER) (test eexn=147) 1+ few [id number] 07:21:00 Test Item Value Reference Range Comments MAGNESIUM (BEAKER) (test zgsy=468) 2.1 mg/dL 1.6-2.6 BASIC METABOLIC [id number] 07:21:00 Test Item Value Reference Range Comments SODIUM (BEAKER) (test 140 meq/L 136-145 jekf=923) POTASSIUM (BEAKER) (test 4.2 meq/L 3.5-5.1 ezul=715) CHLORIDE (BEAKER) (test 110 meq/L 98-107 xrpy=607) CO2 (BEAKER) (test 21 meq/L 22-29 zkll=734) BLOOD UREA NITROGEN 29 mg/dL 7-21 (BEAKER) (test waif=635) CREATININE (BEAKER) (test 1.69 mg/dL 0.57-1.25 errh=643) GLUCOSE RANDOM (BEAKER) 96 mg/dL 70-105 (test qjxz=711) CALCIUM (BEAKER) (test 8.9 mg/dL 8.4-10.2 vezj=199) EGFR (BEAKER) (test 39 mL/min/1.73 sq m ESTIMATED GFR IS NOT renb=8943) ACCURATE CREATININE CLEARANCE IN PREDICTING GLOMERULAR FILTRATION RATE. ESTIMATED GFR IS NOT APPLICABLE FOR DIALYSIS PATIENTS. HEPATIC FUNCTION [id number] 07:21:00 Test Item Value Reference Range Comments TOTAL PROTEIN (BEAKER) (test eeqy=257) 6.7 gm/dL 6.0-8.3 ALBUMIN (BEAKER) (test rbpk=4728) 3.5 g/dL 3.5-5.0 BILIRUBIN TOTAL (BEAKER) (test xscs=545) 0.6 mg/dL 0.2-1.2 BILIRUBIN DIRECT (BEAKER) (test pivm=689) 0.3 mg/dL 0.1-0.5 ALKALINE PHOSPHATASE (BEAKER) (test nsor=688) 76 U/L 40-150 AST (SGOT) (BEAKER) (test kons=539) 20 U/L 5-34 ALT (SGPT) (BEAKER) (test xyer=399) 12 U/L 6-55 PROTHROMBIN [id number] 07:05:00 Test Item Value Reference Range Comments PROTIME (BEAKER) (test adgc=249) 14.1 seconds 11.7-14.7 INR (BEAKER) (test ordd=369) 1.1 <=5.9 RECOMMENDED COUMADIN/WARFARIN INR THERAPY RANGESSTANDARD DOSE: 2.0 - 3.0 Includes: PROPHYLAXIS forvenous thrombosis, systemic embolization; TREATMENT for venous thrombosis and/or pulmonary embolus.HIGH RISK: Target INR is 2.5-3.5 for patients with mechanical heart valves.HEMOGLOBIN AND [id number] 01 :04:00 Test Item Value Reference Range Comments HEMOGLOBIN (BEAKER) (test efoc=874) 9.7 GM/DL 13.0-16.8 HEMATOCRIT (BEAKER) (test hxrr=158) 30.6 % 40.0-50.0 HEMOGLOBIN [id number] 20:57:00 Test Item Value Reference Range Comments HEMOGLOBIN A1C (BEAKER) (test visg=041) 5.4 % 4.3-6.1 CBC W/PLT COUNT & AUTO [id number] 19:35:00 Test Item Value Reference Range Comments WHITE BLOOD CELL COUNT (BEAKER) (test sqxr=978) 14.1 K/ L 4.0-10.0 RED BLOOD CELL COUNT (BEAKER) (test vhdn=487) 3.62 M/ L 4.20-5.80 HEMOGLOBIN (BEAKER) (test lhci=837) 10.2 GM/DL 13.0-16.8 HEMATOCRIT (BEAKER) (test yplt=295) 31.5 % 40.0-50.0 MEAN CORPUSCULAR VOLUME (BEAKER) (test gvfl=134) 87.0 fL 82.0-98.0 MEAN CORPUSCULAR HEMOGLOBIN (BEAKER) (test 28.1 pg 27.0-33.0 skyo=158) MEAN CORPUSCULAR HEMOGLOBIN CONC (BEAKER) (test 32.3 GM/DL 32.0-36.0 vcua=334) RED CELL DISTRIBUTION WIDTH (BEAKER) (test 16.1 % 10.3-14.2 mxqd=026) PLATELET COUNT (BEAKER) (test tidj=154) 139 K/CU MM 150-430 MEAN PLATELET VOLUME (BEAKER) (test ulwm=187) 8.6 fL 6.5-10.5 NUCLEATED RED BLOOD CELLS (BEAKER) (test 0 /100 WBC 0-0 oqfs=255) NEUTROPHILS RELATIVE PERCENT (BEAKER) (test 48 % ogqv=293) LYMPHOCYTES RELATIVE PERCENT (BEAKER) (test 48 % xipc=879) MONOCYTES RELATIVE PERCENT (BEAKER) (test 4 % xnce=480) EOSINOPHILS RELATIVE PERCENT (BEAKER) (test 0 % ulfe=565) BASOPHILS RELATIVE PERCENT (BEAKER) (test 1 % ukfr=651) NEUTROPHILS ABSOLUTE COUNT (BEAKER) (test 6.72 K/ L 1.80-8.00 xrqt=143) LYMPHOCYTES ABSOLUTE COUNT (BEAKER) (test 6.74 K/ L 1.48-4.50 xkid=798) MONOCYTES ABSOLUTE COUNT (BEAKER) (test 0.52 K/ L 0.00-1.30 oiwp=760) EOSINOPHILS ABSOLUTE COUNT (BEAKER) (test 0.01 K/ L 0.00-0.50 hhld=340) BASOPHILS ABSOLUTE COUNT (BEAKER) (test 0.09 K/ L 0.00-0.20 mvby=170) POCT-GLUCOSE [id number] 17:00:00 Test Item Value Reference Range Comments POC-GLUCOSE METER (GURINDER) 129 mg/dL 70-110 TESTED AT [facility] [address] [facility] (test erxm=2762) [facility] [id number]
[2018-07-15 15:18] LABS: Urine Bacteria 20-50 /HPF (NONE SEEN); Urine Culture Reflex Order REFLEXED; Urine RBC TNTC /HPF (NONE SEEN)
--- NOTE | 2018-07-15 15:57 | ER ---
Nurse's Notes [facility] Name: Alvarez Aleman Jr Age: 82 yrs Sex: Male : 1935 Arrival Date: 07/15/2018 Time: 13:34 Bed 24 Private MD: Diagnosis: Encounter for fitting and adjustment of non-vascular catheter-Suprapubic Presentation: 07/15 13:34 Presenting complaint: EMS states: Patient is a resident at [facility], they kr2 were unable to flush his suprapubic catheter and could not remove it either. It is leaking at the insertion site and the patient is complaining of bladder pain. Transition of care: patient was not received from another setting of care. Onset of symptoms was July 15, 2018. Risk Assessment: Do you want to hurt yourself or someone else? Patient reports no desire to harm self or others. Initial Sepsis Screen: Does the patient meet any 2 criteria? No. Patient's initial sepsis screen is negative. Does the patient have a suspected source of infection? Yes: Catheter related infection ([facility]/dialysis/PICC/central line). Care prior to arrival: None. 13:34 Method Of Arrival: EMS: [facility] kr2 13:34 Acuity: RYLEY 4 kr2 Triage Assessment: 13:52 General: Appears in no apparent distress. uncomfortable, well groomed, Behavior is kr2 calm, cooperative, appropriate for age. Pain: Complains of pain in pelvis Pain currently is 10 out of 10 on a pain scale. Quality of pain is described as sharp, tender, Is continuous, Alleviated by nothing. Historical: - Allergies: 13:51 No Known Allergies; kr2 - Home Meds: 13:51 aspirin 81 mg Oral chew [Active]; amlodipine 10 mg tab 1 tab once daily [Active]; kr2 carbidopa-levodopa 50-200 mg Oral TbER 1 tab 2 times per day [Active]; carbidopa-levodopa 10-100 mg Oral TbDL 1.5 tabs 4 times per day [Active]; docusate sodium 100 mg Oral tab 1 tab once daily [Active]; donepezil 10 mg Oral tab 1 tab once daily [Active]; Keppra 500 mg Oral tab 1 tab 2 times per day [Active]; warfarin 3.5mg Oral tab 1 tab once daily [Active]; valacyclovir 500 mg Oral tab 1 tab once daily [Active]; ferrous gluconate 325 mg (37 mg iron) Oral tab [Active]; tramadol 50 mg Oral tab 1 tab every 6 hours [Active]; Nature-Throid oral 30mg oral 1 tab once daily [Active]; zinc sulfate 220 (50) mg Oral cap [Active]; ascorbic acid (vitamin C) 500 mg tab twice a day [Active]; thiamine HCl (vitamin B1) 100 mg Oral tab 100 mg daily [Active]; Remeron 15 mg Oral tab 1 tab once daily [Active]; Imodium Oral 2 mg [Active]; Glucerna Oral liqd twice a day [Active]; - PMHx: 13:51 Acute embolism \T\ 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 - Social history:: Smoking status: Patient/guardian denies using tobacco. - Ebola Screening: : No symptoms or risks identified at this time. Screenin:52 Abuse screen: Denies threats or abuse. Denies injuries from another. Nutritional kr2 screening: No deficits noted. Tuberculosis screening: No symptoms or risk factors identified. Fall Risk Gait- Normal/Bed Rest/Wheelchair (0 pts). Assessment: 14:00 Reassessment: Bladder scan performed with reading of 251 ML. Attempted to flush SP cath kr2 as ordered, unable to flush, provider notified. Orders pending. 15:00 Reassessment: Patient appears in no apparent distress at this time. Patient and/or kr2 family updated on plan of care and expected duration. Pain level reassessed. Patient is alert, oriented x 3, equal unlabored respirations, skin warm/dry/pink. 4x4 split gauze to SP cath site, secured with tape Patient states feeling better. Patient states symptoms have improved. 16:00 Reassessment: Patient appears in no apparent distress at this time. Patient and/or kr2 family updated on plan of care and expected duration. Pain level reassessed. Patient is alert, oriented x 3, equal unlabored respirations, skin warm/dry/pink. Catheter remains in place and draining urine. Patient states feeling better. 16:30 Reassessment: [facility] transport will arrive in about 1 hour to pick patient kr2 up. 17:51 Reassessment: Patient appears in no apparent distress at this time. Patient and/or kr2 family updated on plan of care and expected duration. Pain level reassessed. Patient is alert, oriented x 3, equal unlabored respirations, skin warm/dry/pink. [facility] here to transport patient back to facility. Patient denies pain at this time. Vital Signs: 13:51 BP 141 / 63; Pulse 74; Resp 16; Temp 97.9; Pulse Ox 96% ; Weight 108.41 kg; Height 6 kr2 ft. 2 in. (187.96 cm); Pain 10/10; 15:05 BP 134 / 74; mg2 15:35 BP 139 / 72; Pulse 78; Resp 16; Pulse Ox 99% on R/A; kr2 16:30 BP 140 / 78; Pulse 74; Resp 18; Pulse Ox 97% on R/A; kr2 17:54 BP 136 / 70; Pulse 72; Resp 16; Pulse Ox 99% on R/A; kr2 13:51 Body Mass Index 30.69 (108.41 kg, 187.96 cm) kr2 ED Course: 13:30 Arm band placed on left wrist. kr2 13:30 Patient has correct armband on for positive identification. Bed in low position. Call kr2 light in reach. Side rails up X2. Pulse ox on. NIBP on. Door closed. Warm blanket given. Head of bed elevated. 13:34 Patient arrived in ED. kr2 13:35 Ayan Guerrero PA is PHCP. cp 13:35 Lenin Gan MD is Attending Physician. cp 13:37 Triage completed. kr2 14:00 Bladder scan completed. 251 ML. Attempted to irrigate bladder as ordered, unable to kr2 irrigate, provider notified. 14:26 Elham Stewart, SHAQ is Primary Nurse. kr2 14:45 Provider, Anjelica removed existing 16 Fr Coud SP cath and replaced with 16 Fr Coud and kr2 new urine drainage bag. Patient tolerated well. Cloudy, pink colored urine returned with sediment. Sample collected. 17:55 No provider procedures requiring assistance completed. Patient did not have IV access kr2 during this emergency room visit. Administered Medications: 16:11 Drug: Rocephin (cefTRIAXone) 1 grams Route: IM; Site: left gluteus; kr2 17:56 Follow up: Response: No adverse reaction kr2 Outcome: 15:56 Discharge ordered by . cp 17:55 Discharged to alf. Transported by [facility] kr2 17:55 Condition: good 17:55 Discharge instructions given to EMS, Instructed on discharge instructions, follow up and referral plans. medication usage, Demonstrated understanding of instructions, follow-up care, medications, Prescriptions given X 1. 17:56 Patient left the ED. kr2 Addendum: 07/18/2018 12:04 Addendum: Culture Results: Positive urine culture. Spoke with Michel at [facility]. FAXED culture report to [facility]. Signatures: Marley Hartmann RN RN ss Ayan Guerrero PA PA cp Reaves, Karey, RN RN kr2 Saurabh Hernandez RN RN mg2 Corrections: (The following items were deleted from the chart) 12:06 12:04 Addendum: Culture Results: Positive urine culture. Spoke with Michel at [facility]. ss
--- NOTE | 2018-07-15 15:57 | EDPHYS ---
Physician Documentation [facility] Name: Alvarez Aleman Jr Age: 82 yrs Sex: Male : 1935 Arrival Date: 07/15/2018 Time: 13:34 Bed 24 Private MD: ED Physician Lenin Gan HPI: 07/15 13:35 This 82 yrs old Male presents to ER via Unassigned with complaints of Problem cp With Urinary Catheter. 13:35 Onset: The symptoms/episode began/occurred observed today. Associated signs and cp symptoms: Pertinent positives: suprapubic pain, Pertinent negatives: fever, vomiting. Severity of symptoms: in the emergency department the symptoms are unchanged. 13:35 The patient presents with suprapubic catheter that is not draining. cp Historical: - Allergies: 13:51 No Known Allergies; kr2 - Home Meds: 13:51 aspirin 81 mg Oral chew [Active]; amlodipine 10 mg tab 1 tab once daily [Active]; kr2 carbidopa-levodopa 50-200 mg Oral TbER 1 tab 2 times per day [Active]; carbidopa-levodopa 10-100 mg Oral TbDL 1.5 tabs 4 times per day [Active]; docusate sodium 100 mg Oral tab 1 tab once daily [Active]; donepezil 10 mg Oral tab 1 tab once daily [Active]; Keppra 500 mg Oral tab 1 tab 2 times per day [Active]; warfarin 3.5mg Oral tab 1 tab once daily [Active]; valacyclovir 500 mg Oral tab 1 tab once daily [Active]; ferrous gluconate 325 mg (37 mg iron) Oral tab [Active]; tramadol 50 mg Oral tab 1 tab every 6 hours [Active]; Nature-Throid oral 30mg oral 1 tab once daily [Active]; zinc sulfate 220 (50) mg Oral cap [Active]; ascorbic acid (vitamin C) 500 mg tab twice a day [Active]; thiamine HCl (vitamin B1) 100 mg Oral tab 100 mg daily [Active]; Remeron 15 mg Oral tab 1 tab once daily [Active]; Imodium Oral 2 mg [Active]; Glucerna Oral liqd twice a day [Active]; - PMHx: 13:51 Acute embolism \T\ 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 - Social history:: Smoking status: Patient/guardian denies using tobacco. - Ebola Screening: : No symptoms or risks identified at this time. ROS: 13:45 Constitutional: Negative for body aches, chills, fever, poor PO intake. cp 13:45 Cardiovascular: Negative for chest pain. cp 13:45 Respiratory: Negative for cough, wheezing. 13:45 Abdomen/GI: Positive for abdominal pain, of the suprapubic area, Negative for nausea, vomiting, and diarrhea, constipation. 13:45 : Positive for suprapubic catheter problem. 13:45 Neuro: Negative for altered mental status, headache. 13:45 All other systems are negative. Exam: 13:52 Constitutional: The patient appears in no acute distress, alert, awake, cp non-diaphoretic, non-toxic, well developed, well nourished. 13:52 Head/Face: Normocephalic, atraumatic. cp 13:52 Eyes: Periorbital structures: appear normal, Conjunctiva: normal, no exudate, no injection, Sclera: no appreciated abnormality, Lids and lashes: appear normal, bilaterally. 13:52 ENT: External ear(s): are unremarkable, Nose: is normal, Mouth: is normal, Posterior pharynx: Airway: no evidence of obstruction, patent. 13:52 Chest/axilla: Inspection: normal. 13:52 Cardiovascular: Rate: normal. 13:52 Respiratory: the patient does not display signs of respiratory distress, Respirations: normal, no use of accessory muscles, no retractions, no splinting, no tachypnea, labored breathing, is not present. 13:52 Abdomen/GI: Inspection: distension, is not seen, suprapubic catheter, Bowel sounds: active, all quadrants, Palpation: soft, in all quadrants, moderate abdominal tenderness, in the suprapubic area, rebound tenderness, is not appreciated. 13:52 Neuro: Orientation: no acute changes, per EMS, Mentation: no acute changes, per EMS. Vital Signs: 13:51 BP 141 / 63; Pulse 74; Resp 16; Temp 97.9; Pulse Ox 96% ; Weight 108.41 kg; Height 6 kr2 ft. 2 in. (187.96 cm); Pain 10/10; 15:05 BP 134 / 74; mg2 15:35 BP 139 / 72; Pulse 78; Resp 16; Pulse Ox 99% on R/A; kr2 16:30 BP 140 / 78; Pulse 74; Resp 18; Pulse Ox 97% on R/A; kr2 17:54 BP 136 / 70; Pulse 72; Resp 16; Pulse Ox 99% on R/A; kr2 13:51 Body Mass Index 30.69 (108.41 kg, 187.96 cm) kr2 Procedures: 14:57 suprapubic catheter, 16 danish replaced w/o complication. cp MDM: 13:37 Patient medically screened. cp 15:55 Data reviewed: vital signs, nurses notes, lab test result(s). cp 15:55 Response to treatment: the patient's symptoms have markedly improved after treatment, cp Suprapubic catheter replaced successfully, and as a result, I will discharge patient. 07/15 14:57 Order name: Urine Microscopic Only; Complete Time: 15:53 cp 07/15 15:53 Interpretation: Abnormal: UWBC TNTC; URBC TNTC; UBACT 20-50. cp 07/15 15:05 Order name: Urine Dipstick--Ancillary (enter results) em1 07/15 13:36 Order name: Bladder Scanner; Complete Time: 15:29 cp 07/15 13:36 Order name: Patel: flush patel; Complete Time: 15:29 cp 07/15 15:19 Order name: Urine Culture EDMS 07/15 14:57 Order name: Urine Dipstick-Ancillary (obtain specimen); Complete Time: 15:04 cp Administered Medications: 16:11 Drug: Rocephin (cefTRIAXone) 1 grams Route: IM; Site: left gluteus; kr2 17:56 Follow up: Response: No adverse reaction kr2 Disposition: 18:00 Chart complete. cp 18:04 Co-signature as Attending Physician, Lenin Gan MD I agree with the assessment and kdr plan of care. Disposition: 07/15/18 15:56 Discharged to Home. Impression: Encounter for fitting and adjustment of non-vascular catheter - Suprapubic. - Condition is Stable. - Discharge Instructions: Suprapubic Catheter Replacement, Suprapubic Catheter Home Guide. - Prescriptions for Keflex 500 mg Oral Capsule - take 1 capsule by ORAL route every 12 hours for 10 days; 20 capsule. - Medication Reconciliation Form, Thank You Letter, Antibiotic Education, Prescription Opioid Use form. - Follow up: Emergency Department; When: As needed; Reason: Worsening of condition. - Problem is new. - Symptoms have improved. Signatures: Dispatcher [employer] EDMS Lenin Gan MD MD kdr Ayan Guerrero PA PA cp Elham Stewart RN RN kr2 Corrections: (The following items were deleted from the chart) 17:56 15:56 07/15/2018 15:56 Discharged to Home. Impression: Encounter for fitting and kr2 adjustment of non-vascular catheter - Suprapubic. Condition is Stable. Forms are Medication Reconciliation Form, Thank You Letter, Antibiotic Education, Prescription Opioid Use. Follow up: Emergency Department; When: As needed; Reason: Worsening of condition. Problem is new. Symptoms have improved. cp 07/16 06:35 07/15 13:35 The patient presents with a Patel catheter problem, is not draining, cp cp
[2018-07-15] MEDS ORDERED: LIDOCAINE 1% MPF 2 ML AMPULE ONE (16:09)
[2018-07-15] MEDS ORDERED: CEFTRIAXONE 1000 MG/VIAL ONE (16:09)
[2018-07-15 18:07] VITALS: TEMP 97.9
[2018-07-15 18:07] LABS: Urine Blood 3+ (NEG); Urine Glucose NEGATIVE (NEG); Urine Protein 3+ (NEG); Urine pH 8.5 (5.0-7.0)
[2018-07-15 18:12] VITALS: BP 136/70; O2SAT 99
== END 2018-07-15 17:56 | disposition home or self-care (01) ==
LOC: ER 13:26
DX: Z46.82 Encounter for fitting and adjustment of non-vascular catheter (principal); G20 Parkinson's disease; F02.80 Dementia in other diseases classified elsewhere, unspecified severity, without behavioral disturbance, psychotic disturbance, mood disturbance, and anxiety; E03.9 Hypothyroidism, unspecified; F32.9 Major depressive disorder, single episode, unspecified; Z79.01 Long term (current) use of anticoagulants; Z79.82 Long term (current) use of aspirin; Z95.0 Presence of cardiac pacemaker
CPT/HCPCS: 87077; 87086; 87088; 87186; 96372; 99284; J2001; 81003; 81015

== ENCOUNTER 2018-09-15 11:42 | Inpatient (IN) | payer OTHER ==
--- OUTSIDE RECORDS SUMMARY | 2018-09-15 11:45 | XMS REPORT ---
:1935 [facility] Address [address] [place] [address] Care Team Providers Name Role Phone ELIZABETH [...] Comments WHITE BLOOD CELL COUNT (BEAKER) (test bqtx=939) 9.1 K/ L 4.0-10.0 RED BLOOD CELL COUNT (BEAKER) (test nthp=183) 3.43 M/ L 4.20-5.80 HEMOGLOBIN (BEAKER) (test tkfz=401) 9.1 GM/DL 13.0-16.8 HEMATOCRIT (BEAKER) (test ygxe=333) 29.7 % 40.0-50.0 MEAN CORPUSCULAR VOLUME (BEAKER) (test qvph=312) 86.8 fL 82.0-98.0 MEAN CORPUSCULAR HEMOGLOBIN (BEAKER) (test bcxo=547) 26.6 pg 27.0-33.0 MEAN CORPUSCULAR HEMOGLOBIN CONC (BEAKER) (test dypl=530) 30.7 GM/DL 32.0- 36.0 RED CELL DISTRIBUTION WIDTH (BEAKER) (test wkgn=213) 14.5 % 10.3-14.2 PLATELET COUNT (BEAKER) (test viou=808) 211 K/CU MM 150-430 MEAN PLATELET VOLUME (BEAKER) (test fhjz=141) 7.4 fL 6.5-10.5 NUCLEATED RED BLOOD CELLS (BEAKER) (test fwke=798) 0 /100 WBC 0-0 NEUTROPHILS RELATIVE PERCENT (BEAKER) (test wozz=473) 38 % LYMPHOCYTES RELATIVE PERCENT (BEAKER) (test iaqd=017) 52 % MONOCYTES RELATIVE PERCENT (BEAKER) (test tonx=139) 6 % EOSINOPHILS RELATIVE PERCENT (BEAKER) (test cail=019) 3 % BASOPHILS RELATIVE PERCENT (BEAKER) (test xnxf=341) 1 % NEUTROPHILS ABSOLUTE COUNT (BEAKER) (test vcri=037) 3.48 K/ L 1.80-8.00 LYMPHOCYTES ABSOLUTE COUNT (BEAKER) (test cslp=419) 4.70 K/ L 1.48-4.50 MONOCYTES ABSOLUTE COUNT (BEAKER) (test cryb=587) 0.57 K/ L 0.00-1.30 EOSINOPHILS ABSOLUTE COUNT (BEAKER) (test mgww=599) 0.26 K/ L 0.00-0.50 BASOPHILS ABSOLUTE COUNT (BEAKER) (test gwle=540) 0.06 K/ L 0.00-0.20 0.00(MANUAL DIFFERENTIAL)2016-12-19 09:47:00 Test Item Value Reference Range Comments TOTAL COUNTED (BEAKER) (test gdkk=9139) WBC MORPHOLOGY (BEAKER) (test qpru=334) Normal PLT MORPHOLOGY (BEAKER) (test mfnx=548) Normal RBC MORPHOLOGY (BEAKER) (test wppn=958) Normal BASIC METABOLIC [id number] 04:52:00 Test Item Value Reference Range Comments SODIUM (BEAKER) (test 141 meq/L 136-145 acgs=349) POTASSIUM (BEAKER) (test 3.8 meq/L 3.5-5.1 zpfm=641) CHLORIDE (BEAKER) (test 111 meq/L 98-107 kdgw=043) CO2 (BEAKER) (test 21 meq/L 22-29 ncke=536) BLOOD UREA NITROGEN 16 mg/dL 7-21 (BEAKER) (test fhhb=182) CREATININE (BEAKER) (test 1.35 mg/dL 0.57-1.25 hevj=106) GLUCOSE RANDOM (BEAKER) 96 mg/dL 70-105 (test ryqg=681) CALCIUM (BEAKER) (test 8.2 mg/dL 8.4-10.2 cgje=415) EGFR (BEAKER) (test 51 mL/min/1.73 sq m ESTIMATED GFR IS NOT acie=6117) ACCURATE CREATININE CLEARANCE IN PREDICTING GLOMERULAR FILTRATION RATE. ESTIMATED GFR IS NOT APPLICABLE FOR DIALYSIS PATIENTS. CBC W/PLT COUNT & AUTO [id number] 09:26:00 Test Item Value Reference Range Comments WHITE BLOOD CELL COUNT (BEAKER) (test qxcu=581) 8.8 K/ L 4.0-10.0 RED BLOOD CELL COUNT (BEAKER) (test kmza=339) 3.40 M/ L 4.20-5.80 HEMOGLOBIN (BEAKER) (test fhxd=779) 9.5 GM/DL 13.0-16.8 HEMATOCRIT (BEAKER) (test sgal=357) 29.6 % 40.0-50.0 MEAN CORPUSCULAR VOLUME (BEAKER) (test ovvp=144) 87.0 fL 82.0-98.0 MEAN CORPUSCULAR HEMOGLOBIN (BEAKER) (test 27.8 pg 27.0-33.0 clex=355) MEAN CORPUSCULAR HEMOGLOBIN CONC (BEAKER) (test 31.9 GM/DL 32.0-36.0 plmw=873) RED CELL DISTRIBUTION WIDTH (BEAKER) (test 14.6 % 10.3-14.2 myhg=158) PLATELET COUNT (BEAKER) (test sfev=575) 193 K/CU MM 150-430 MEAN PLATELET VOLUME (BEAKER) (test gphw=963) 7.7 fL 6.5-10.5 NUCLEATED RED BLOOD CELLS (BEAKER) (test 0 /100 WBC 0-0 msyh=016) NEUTROPHILS RELATIVE PERCENT (BEAKER) (test 40 % nckd=922) LYMPHOCYTES RELATIVE PERCENT (BEAKER) (test 51 % goss=298) MONOCYTES RELATIVE PERCENT (BEAKER) (test 6 % kjpj=948) EOSINOPHILS RELATIVE PERCENT (BEAKER) (test 3 % jktt=954) BASOPHILS RELATIVE PERCENT (BEAKER) (test 0 % tmwa=448) NEUTROPHILS ABSOLUTE COUNT (BEAKER) (test 3.46 K/ L 1.80-8.00 wwom=425) LYMPHOCYTES ABSOLUTE COUNT (BEAKER) (test 4.50 K/ L 1.48-4.50 vfdq=899) MONOCYTES ABSOLUTE COUNT (BEAKER) (test 0.53 K/ L 0.00-1.30 kqcu=747) EOSINOPHILS ABSOLUTE COUNT (BEAKER) (test 0.26 K/ L 0.00-0.50 mzma=562) BASOPHILS ABSOLUTE COUNT (BEAKER) (test 0.02 K/ L 0.00-0.20 rqwl=365) 0.00(MANUAL DIFFERENTIAL)2016-12-18 09:26:00 Test Item Value Reference Range Comments TOTAL COUNTED (BEAKER) (test ywch=6913) WBC MORPHOLOGY (BEAKER) (test mwch=255) Normal PLT MORPHOLOGY (BEAKER) (test rxxm=055) Normal RBC MORPHOLOGY (BEAKER) (test vcsf=439) Normal URINE [id number] 07:48:00 Test Item Value Reference Range Comments CULTURE (BEAKER) (test PSEUDOMONAS >100,000 col/mL evxy=9206) AERUGINOSA Pseudomonas aeruginosa Amikacin (test code=1) Susceptible 0-16 , Resistant <0 or >16 Aztreonam (test Susceptible 0-8 , code=32) Resistant <0 or >8 Cefepime (test code=51) Susceptible 0-8 , Resistant <0 or >8 Ceftazidime (test Susceptible 0-8 , code=27) Resistant <0 or >8 Ciprofloxacin (test Susceptible 0-1 , code=7) Resistant <0 or >1 Doripenem (test Susceptible 0-2 , ypsx=415) Resistant <0 or >2 Gentamicin (test Susceptible [...] code=25) Resistant <0 or >4 BASIC METABOLIC [id number] 05:21:00 Test Item Value Reference Range Comments SODIUM (BEAKER) (test 138 meq/L 136-145 oago=683) POTASSIUM (BEAKER) (test 3.4 meq/L 3.5-5.1 bpaj=378) CHLORIDE (BEAKER) (test 110 meq/L 98-107 jqmh=196) CO2 (BEAKER) (test 18 meq/L 22-29 rpua=520) BLOOD UREA NITROGEN 16 mg/dL 7-21 (BEAKER) (test wvgj=733) CREATININE (BEAKER) (test 1.28 mg/dL 0.57-1.25 rlvw=805) GLUCOSE RANDOM (BEAKER) 99 mg/dL 70-105 (test pqvw=300) CALCIUM (BEAKER) (test 8.1 mg/dL 8.4-10.2 psei=946) EGFR (BEAKER) (test 54 mL/min/1.73 sq m ESTIMATED GFR IS NOT gqwx=7062) ACCURATE CREATININE CLEARANCE IN PREDICTING GLOMERULAR FILTRATION RATE. ESTIMATED GFR IS NOT APPLICABLE FOR DIALYSIS PATIENTS. HEPARIN ASSAY - LOW MOLECULAR [id number] 15:26:00 Test Item Value Reference Range Comments LOVENOX-ANTI 10A (BEAKER) (test xylx=6032) 0.77 u/ml 0.60-2.00 Effective 07/18/2016: Reference Range ChangeNew: 0.60-2.00 Previous: 0.60- 1.99Anti-Factor 10A Level(Heparin Assay for Low Molecular Weight Heparin) Monitoring Guidelines: Blood samples should be obtained 4 hours post subcutaneous injection (time of Peak level) Therapeutic Peak Levels: 0.6-1.0 units/mL twice daily enoxaparin 1.0-2.0 units/mL once daily enoxaparinCBC W/PLT COUNT & AUTO [id number] 14:48:00 Test Item Value Reference Range Comments WHITE BLOOD CELL COUNT (BEAKER) (test ebda=241) 10.2 K/ L 4.0-10.0 RED BLOOD CELL COUNT (BEAKER) (test xfyj=512) 3.16 M/ L 4.20-5.80 HEMOGLOBIN (BEAKER) (test asbd=928) 9.0 GM/DL 13.0-16.8 HEMATOCRIT (BEAKER) (test eonv=798) 27.6 % 40.0-50.0 MEAN CORPUSCULAR VOLUME (BEAKER) (test nnac=233) 87.3 fL 82.0-98.0 MEAN CORPUSCULAR HEMOGLOBIN (BEAKER) (test 28.6 pg 27.0-33.0 zblr=963) MEAN CORPUSCULAR HEMOGLOBIN CONC (BEAKER) (test 32.7 GM/DL 32.0-36.0 ffzw=007) RED CELL DISTRIBUTION WIDTH (BEAKER) (test 14.7 % 10.3-14.2 uwoi=782) PLATELET COUNT (BEAKER) (test tpbm=440) 175 K/CU MM 150-430 MEAN PLATELET VOLUME (BEAKER) (test dvnh=704) 7.9 fL 6.5-10.5 NUCLEATED RED BLOOD CELLS (BEAKER) (test 0 /100 WBC 0-0 pnml=040) NEUTROPHILS RELATIVE PERCENT (BEAKER) (test 46 % hymm=158) LYMPHOCYTES RELATIVE PERCENT (BEAKER) (test 48 % xgyv=808) MONOCYTES RELATIVE PERCENT (BEAKER) (test 3 % vlox=716) EOSINOPHILS RELATIVE PERCENT (BEAKER) (test 2 % elgv=950) BASOPHILS RELATIVE PERCENT (BEAKER) (test 1 % cqsu=661) NEUTROPHILS ABSOLUTE COUNT (BEAKER) (test 4.69 K/ L 1.80-8.00 vizo=411) LYMPHOCYTES ABSOLUTE COUNT (BEAKER) (test 4.86 K/ L 1.48-4.50 plgw=663) MONOCYTES ABSOLUTE COUNT (BEAKER) (test 0.35 K/ L 0.00-1.30 eujp=695) EOSINOPHILS ABSOLUTE COUNT (BEAKER) (test 0.22 K/ L 0.00-0.50 zfrh=626) BASOPHILS ABSOLUTE COUNT (BEAKER) (test 0.06 K/ L 0.00-0.20 kmvx=332) 0.00(MANUAL DIFFERENTIAL)2016-12-17 14:48:00 Test Item Value Reference Range Comments TOTAL COUNTED (BEAKER) (test auru=4137) WBC MORPHOLOGY (BEAKER) (test pbqe=847) Normal PLT MORPHOLOGY (BEAKER) (test bjhv=148) Normal ANISOCYTOSIS (BEAKER) (test oorv=568) 1+ few HYPOCHROMIA (BEAKER) (test kcuy=102) 1+ few POIKILOCYTES (BEAKER) (test nsnx=103) 1+ few BASIC METABOLIC [id number] 05:13:00 Test Item Value Reference Range Comments SODIUM (BEAKER) (test 137 meq/L 136-145 mris=973) POTASSIUM (BEAKER) (test 3.6 meq/L 3.5-5.1 obba=339) CHLORIDE (BEAKER) (test 111 meq/L 98-107 jtdy=159) CO2 (BEAKER) (test 17 meq/L 22-29 sahr=611) BLOOD UREA NITROGEN 18 mg/dL 7-21 (BEAKER) (test bxhz=409) CREATININE (BEAKER) (test 1.39 mg/dL 0.57-1.25 qpga=174) GLUCOSE RANDOM (BEAKER) 104 mg/dL 70-105 (test opvm=977) CALCIUM (BEAKER) (test 8.2 mg/dL 8.4-10.2 ridh=160) EGFR (BEAKER) (test 49 mL/min/1.73 sq m ESTIMATED GFR IS NOT rmrv=6395) ACCURATE CREATININE CLEARANCE IN PREDICTING GLOMERULAR FILTRATION RATE. ESTIMATED GFR IS NOT APPLICABLE FOR DIALYSIS PATIENTS. BLOOD [id number] 00:00:00 Test Item Value Reference Range Comments CULTURE (BEAKER) (test feir=1881) No growth in 5 days BASIC METABOLIC [id number] 06:19:00 Test Item Value Reference Range Comments SODIUM (BEAKER) (test 138 meq/L 136-145 gdew=693) POTASSIUM (BEAKER) (test 3.9 meq/L 3.5-5.1 zdti=516) CHLORIDE (BEAKER) (test 109 meq/L 98-107 erzn=867) CO2 (BEAKER) (test 20 meq/L 22-29 lfwr=779) BLOOD UREA NITROGEN 22 mg/dL 7-21 (BEAKER) (test wqbn=543) CREATININE (BEAKER) (test 1.58 mg/dL 0.57-1.25 sbom=063) GLUCOSE RANDOM (BEAKER) 97 mg/dL 70-105 (test drpz=136) CALCIUM (BEAKER) (test 8.6 mg/dL 8.4-10.2 xlro=314) EGFR (BEAKER) (test 42 mL/min/1.73 sq m ESTIMATED GFR IS NOT ggdc=9885) ACCURATE CREATININE CLEARANCE IN PREDICTING GLOMERULAR FILTRATION RATE. ESTIMATED GFR IS NOT APPLICABLE FOR DIALYSIS PATIENTS. URINALYSIS W/ [id number] 18:02:00 Test Item Value Reference Range Comments COLOR (BEAKER) (test dzyp=827) Yellow CLARITY (BEAKER) (test dgpn=218) Cloudy SPECIFIC GRAVITY UA (BEAKER) (test eyte=091) 1.017 1.001-1.035 PH UA (BEAKER) (test ukxe=278) 5.5 5.0-8.0 PROTEIN UA (BEAKER) (test etgj=541) 70 mg/dL Negative GLUCOSE UA (BEAKER) (test xtdb=207) Negative Negative KETONES UA (BEAKER) (test tdbb=318) Negative Negative BILIRUBIN UA (BEAKER) (test mkrz=366) Negative Negative BLOOD UA (BEAKER) (test qvyj=238) Large Negative NITRITE UA (BEAKER) (test oqqy=614) Negative Negative LEUKOCYTE ESTERASE UA (BEAKER) (test rhrj=567) Large Negative UROBILINOGEN UA (BEAKER) (test aszu=816) 0.2 mg/dL 0.2-1.0 RBC UA (BEAKER) (test szmd=978) > /HPF WBC UA (BEAKER) (test rrna=884) > /HPF MUCUS (BEAKER) (test mnwj=8411) Rare SQUAMOUS EPITHELIAL (BEAKER) (test nqdb=332) 2 /HPF SOURCE(BEAKER) (test bthd=5601) Urine, [place] CBC W/PLT COUNT & AUTO [id number] 09:55:00 Test Item Value Reference Range Comments WHITE BLOOD CELL COUNT (BEAKER) (test jrih=152) 11.5 K/ L 4.0-10.0 RED BLOOD CELL COUNT (BEAKER) (test rhhb=910) 3.68 M/ L 4.20-5.80 HEMOGLOBIN (BEAKER) (test usir=348) 10.5 GM/DL 13.0-16.8 HEMATOCRIT (BEAKER) (test claj=299) 32.0 % 40.0-50.0 MEAN CORPUSCULAR VOLUME (BEAKER) (test ixfq=616) 87.1 fL 82.0-98.0 MEAN CORPUSCULAR HEMOGLOBIN (BEAKER) (test 28.4 pg 27.0-33.0 zful=022) MEAN CORPUSCULAR HEMOGLOBIN CONC (BEAKER) (test 32.6 GM/DL 32.0-36.0 aejz=930) RED CELL DISTRIBUTION WIDTH (BEAKER) (test 15.7 % 10.3-14.2 oeel=666) PLATELET COUNT (BEAKER) (test bvum=496) 167 K/CU MM 150-430 MEAN PLATELET VOLUME (BEAKER) (test lmfo=372) 8.2 fL 6.5-10.5 NUCLEATED RED BLOOD CELLS (BEAKER) (test 0 /100 WBC 0-0 djno=918) NEUTROPHILS RELATIVE PERCENT (BEAKER) (test 48 % oqok=487) LYMPHOCYTES RELATIVE PERCENT (BEAKER) (test 45 % afgq=171) MONOCYTES RELATIVE PERCENT (BEAKER) (test 6 % azfj=572) EOSINOPHILS RELATIVE PERCENT (BEAKER) (test 0 % swlz=304) BASOPHILS RELATIVE PERCENT (BEAKER) (test 0 % wldy=019) NEUTROPHILS ABSOLUTE COUNT (BEAKER) (test 5.55 K/ L 1.80-8.00 yktz=784) LYMPHOCYTES ABSOLUTE COUNT (BEAKER) (test 5.18 K/ L 1.48-4.50 zpbz=728) MONOCYTES ABSOLUTE COUNT (BEAKER) (test 0.70 K/ L 0.00-1.30 izyi=908) EOSINOPHILS ABSOLUTE COUNT (BEAKER) (test 0.05 K/ L 0.00-0.50 fewq=273) BASOPHILS ABSOLUTE COUNT (BEAKER) (test 0.06 K/ L 0.00-0.20 kzlh=217) 0.00(MANUAL DIFFERENTIAL)2016-12-15 09:55:00 Test Item Value Reference Range Comments TOTAL COUNTED (BEAKER) (test bxvv=0376) PLT MORPHOLOGY (BEAKER) (test zikn=133) Normal ATYPICAL LYMPHS(BEAKER) (test bwro=4628) Present POLYCHROMATOPHILLIC RBCS(BEAKER) (test yukr=509) 1+ few BASIC METABOLIC [id number] 05:46:00 Test Item Value Reference Range Comments SODIUM (BEAKER) (test 141 meq/L 136-145 mrqu=979) POTASSIUM (BEAKER) (test 4.2 meq/L 3.5-5.1 evqu=637) CHLORIDE (BEAKER) (test 111 meq/L 98-107 yxlx=929) CO2 (BEAKER) (test 18 meq/L 22-29 srxk=693) BLOOD UREA NITROGEN 24 mg/dL 7-21 (BEAKER) (test enrz=736) CREATININE (BEAKER) (test 1.84 mg/dL 0.57-1.25 pqlu=781) GLUCOSE RANDOM (BEAKER) 119 mg/dL 70-105 (test wytv=259) CALCIUM (BEAKER) (test 8.7 mg/dL 8.4-10.2 qtih=568) EGFR (BEAKER) (test 35 mL/min/1.73 sq m ESTIMATED GFR IS NOT lbeg=4666) ACCURATE CREATININE CLEARANCE IN PREDICTING GLOMERULAR FILTRATION RATE. ESTIMATED GFR IS NOT APPLICABLE FOR DIALYSIS PATIENTS. [id number] 05:27:00 Test Item Value Reference Range Comments PROTIME (BEAKER) (test ktzx=334) 14.2 seconds 11.7-14.7 INR (BEAKER) (test ndfe=739) 1.1 <=5.9 PARTIAL THROMBOPLASTIN TIME (BEAKER) (test 28.3 seconds 22.5-36.0 ayct=880) RECOMMENDED COUMADIN/WARFARIN INR THERAPY RANGESSTANDARD DOSE: 2.0 - 3.0 Includes: PROPHYLAXIS forvenous thrombosis, systemic embolization; TREATMENT for venous thrombosis and/or pulmonary embolus.HIGH RISK: Target INR is 2.5-3.5 for patients with mechanical heart valves.CBC W/PLT COUNT & AUTO [id number] 11:32:00 Test Item Value Reference Range Comments WHITE BLOOD CELL COUNT (BEAKER) (test avlw=258) 10.7 K/ L 4.0-10.0 RED BLOOD CELL COUNT (BEAKER) (test xbdg=431) 3.63 M/ L 4.20-5.80 HEMOGLOBIN (BEAKER) (test uohy=204) 10.4 GM/DL 13.0-16.8 HEMATOCRIT (BEAKER) (test fxpa=047) 31.8 % 40.0-50.0 MEAN CORPUSCULAR VOLUME (BEAKER) (test fynt=822) 87.8 fL 82.0-98.0 MEAN CORPUSCULAR HEMOGLOBIN (BEAKER) (test 28.5 pg 27.0-33.0 hxyz=584) MEAN CORPUSCULAR HEMOGLOBIN CONC (BEAKER) (test 32.5 GM/DL 32.0-36.0 oiwd=912) RED CELL DISTRIBUTION WIDTH (BEAKER) (test 15.7 % 10.3-14.2 iqws=570) PLATELET COUNT (BEAKER) (test zsff=450) 149 K/CU MM 150-430 MEAN PLATELET VOLUME (BEAKER) (test qloj=068) 8.9 fL 6.5-10.5 NUCLEATED RED BLOOD CELLS (BEAKER) (test 0 /100 WBC 0-0 hdjx=646) NEUTROPHILS RELATIVE PERCENT (BEAKER) (test 47 % wcma=168) LYMPHOCYTES RELATIVE PERCENT (BEAKER) (test 44 % ftpo=455) MONOCYTES RELATIVE PERCENT (BEAKER) (test 7 % ujun=226) EOSINOPHILS RELATIVE PERCENT (BEAKER) (test 1 % hftu=441) BASOPHILS RELATIVE PERCENT (BEAKER) (test 0 % bkvi=194) NEUTROPHILS ABSOLUTE COUNT (BEAKER) (test 5.07 K/ L 1.80-8.00 wuzm=261) LYMPHOCYTES ABSOLUTE COUNT (BEAKER) (test 4.68 K/ L 1.48-4.50 qjsb=407) MONOCYTES ABSOLUTE COUNT (BEAKER) (test 0.76 K/ L 0.00-1.30 ldif=276) EOSINOPHILS ABSOLUTE COUNT (BEAKER) (test 0.13 K/ L 0.00-0.50 uxmm=742) BASOPHILS ABSOLUTE COUNT (BEAKER) (test 0.04 K/ L 0.00-0.20 hzet=030) 0.00(MANUAL DIFFERENTIAL)2016-12-14 11:32:00 Test Item Value Reference Range Comments TOTAL COUNTED (BEAKER) (test avqn=1795) WBC MORPHOLOGY (BEAKER) (test eipr=730) Normal PLT MORPHOLOGY (BEAKER) (test sxpl=015) Normal RBC MORPHOLOGY (BEAKER) (test ctak=012) Normal URINE [id number] 09:07:00 Test Item Value Reference Range Comments CULTURE (BEAKER) (test giug=3822) No growth HEPATIC FUNCTION [id number] 05:03:00 Test Item Value Reference Range Comments TOTAL PROTEIN (BEAKER) (test yevk=986) 6.9 gm/dL 6.0-8.3 ALBUMIN (BEAKER) (test gkqr=2849) 3.5 g/dL 3.5-5.0 BILIRUBIN TOTAL (BEAKER) (test uvlj=804) 0.3 mg/dL 0.2-1.2 BILIRUBIN DIRECT (BEAKER) (test dcpv=099) 0.2 mg/dL 0.1-0.5 ALKALINE PHOSPHATASE (BEAKER) (test hzlb=142) 78 U/L 40-150 AST (SGOT) (BEAKER) (test gfsp=462) 17 U/L 5-34 ALT (SGPT) (BEAKER) (test oewb=226) < U/L 6-55 [id number] 05:03:00 Test Item Value Reference Range Comments PARTIAL THROMBOPLASTIN TIME (BEAKER) (test 47.9 seconds 22.5-36.0 rdkh=191) [id number] 04:57:00 Test Item Value Reference Range Comments MAGNESIUM (BEAKER) (test ktaw=283) 2.0 mg/dL 1.6-2.6 BASIC METABOLIC [id number] 04:57:00 Test Item Value Reference Range Comments SODIUM (BEAKER) (test 139 meq/L 136-145 njtf=648) POTASSIUM (BEAKER) (test 4.5 meq/L 3.5-5.1 lipm=206) CHLORIDE (BEAKER) (test 108 meq/L 98-107 ayso=293) CO2 (BEAKER) (test 20 meq/L 22-29 ltwh=000) BLOOD UREA NITROGEN 29 mg/dL 7-21 (BEAKER) (test mkab=056) CREATININE (BEAKER) (test 1.84 mg/dL 0.57-1.25 asnr=492) GLUCOSE RANDOM (BEAKER) 140 mg/dL 70-105 (test cwvx=954) CALCIUM (BEAKER) (test 8.6 mg/dL 8.4-10.2 ywgp=358) EGFR (BEAKER) (test 35 mL/min/1.73 sq m ESTIMATED GFR IS NOT xamw=7027) ACCURATE CREATININE CLEARANCE IN PREDICTING GLOMERULAR FILTRATION RATE. ESTIMATED GFR IS NOT APPLICABLE FOR DIALYSIS PATIENTS. PROTHROMBIN [id number] 04:36:00 Test Item Value Reference Range Comments PROTIME (BEAKER) (test quky=624) 13.5 seconds 11.7-14.7 INR (BEAKER) (test rfni=565) 1.0 <=5.9 RECOMMENDED COUMADIN/WARFARIN INR THERAPY RANGESSTANDARD DOSE: 2.0 - 3.0 Includes: PROPHYLAXIS forvenous thrombosis, systemic embolization; TREATMENT for venous thrombosis and/or pulmonary embolus.HIGH RISK: Target INR is 2.5-3.5 for patients with mechanical heart valves.VANCOMYCIN LEVEL, [id number] 21: 01:00 Test Item Value Reference Range Comments VANCOMYCIN TROUGH (BEAKER) (test xhen=556) 16.7 ug/mL 10.0-20.0 Please draw vancomycin trough \R\30 minutes prior to administration time; For trough >20 mcg/mL,hold next dose and contact pharmacy and MD.CBC W/PLT COUNT & AUTO [id number] 07:27:00 Test Item Value Reference Range Comments WHITE BLOOD CELL COUNT (BEAKER) (test nacp=729) 12.2 K/ L 4.0-10.0 RED BLOOD CELL COUNT (BEAKER) (test deeg=650) 3.47 M/ L 4.20-5.80 HEMOGLOBIN (BEAKER) (test alqz=431) 9.8 GM/DL 13.0-16.8 HEMATOCRIT (BEAKER) (test onum=643) 30.8 % 40.0-50.0 MEAN CORPUSCULAR VOLUME (BEAKER) (test fhdy=114) 88.6 fL 82.0-98.0 MEAN CORPUSCULAR HEMOGLOBIN (BEAKER) (test 28.2 pg 27.0-33.0 arge=541) MEAN CORPUSCULAR HEMOGLOBIN CONC (BEAKER) (test 31.8 GM/DL 32.0-36.0 nard=262) RED CELL DISTRIBUTION WIDTH (BEAKER) (test 15.7 % 10.3-14.2 qlpr=630) PLATELET COUNT (BEAKER) (test hxuo=005) 133 K/CU MM 150-430 MEAN PLATELET VOLUME (BEAKER) (test gwwj=595) 8.9 fL 6.5-10.5 NUCLEATED RED BLOOD CELLS (BEAKER) (test 0 /100 WBC 0-0 bkvp=333) NEUTROPHILS RELATIVE PERCENT (BEAKER) (test 51 % nwyz=327) LYMPHOCYTES RELATIVE PERCENT (BEAKER) (test 43 % qqkg=791) MONOCYTES RELATIVE PERCENT (BEAKER) (test 5 % bivc=014) EOSINOPHILS RELATIVE PERCENT (BEAKER) (test 0 % mzzq=123) BASOPHILS RELATIVE PERCENT (BEAKER) (test 1 % vvna=341) NEUTROPHILS ABSOLUTE COUNT (BEAKER) (test 6.24 K/ L 1.80-8.00 iyrn=828) LYMPHOCYTES ABSOLUTE COUNT (BEAKER) (test 5.21 K/ L 1.48-4.50 aqlh=281) MONOCYTES ABSOLUTE COUNT (BEAKER) (test 0.64 K/ L 0.00-1.30 bypv=504) EOSINOPHILS ABSOLUTE COUNT (BEAKER) (test 0.05 K/ L 0.00-0.50 fsgb=979) BASOPHILS ABSOLUTE COUNT (BEAKER) (test 0.07 K/ L 0.00-0.20 ykdr=790) 0.00HEPATIC FUNCTION [id number] 05:28:00 Test Item Value Reference Range Comments TOTAL PROTEIN (BEAKER) (test lymq=608) 6.4 gm/dL 6.0-8.3 ALBUMIN (BEAKER) (test glon=4222) 3.3 g/dL 3.5-5.0 BILIRUBIN TOTAL (BEAKER) (test rkrp=566) 0.5 mg/dL 0.2-1.2 BILIRUBIN DIRECT (BEAKER) (test nrtz=031) 0.2 mg/dL 0.1-0.5 ALKALINE PHOSPHATASE (BEAKER) (test defw=869) 69 U/L 40-150 AST (SGOT) (BEAKER) (test juwk=366) 18 U/L 5-34 ALT (SGPT) (BEAKER) (test yils=382) < U/L 6-55 BASIC METABOLIC [id number] 05:28:00 Test Item Value Reference Range Comments SODIUM (BEAKER) (test 132 meq/L 136-145 bdhc=554) POTASSIUM (BEAKER) (test 4.2 meq/L 3.5-5.1 ekeb=907) CHLORIDE (BEAKER) (test 104 meq/L 98-107 lfzn=793) CO2 (BEAKER) (test 18 meq/L 22-29 wgtb=085) BLOOD UREA NITROGEN 27 mg/dL 7-21 (BEAKER) (test meyi=904) CREATININE (BEAKER) (test 1.52 mg/dL 0.57-1.25 dedo=004) GLUCOSE RANDOM (BEAKER) 126 mg/dL 70-105 (test ngpk=637) CALCIUM (BEAKER) (test 8.5 mg/dL 8.4-10.2 adix=175) EGFR (BEAKER) (test 44 mL/min/1.73 sq m ESTIMATED GFR IS NOT lopx=8368) ACCURATE CREATININE CLEARANCE IN PREDICTING GLOMERULAR FILTRATION RATE. ESTIMATED GFR IS NOT APPLICABLE FOR DIALYSIS PATIENTS. [id number] 05:27:00 Test Item Value Reference Range Comments MAGNESIUM (BEAKER) (test pwii=915) 1.9 mg/dL 1.6-2.6 PROTHROMBIN [id number] 05:10:00 Test Item Value Reference Range Comments PROTIME (BEAKER) (test vlpk=349) 13.0 seconds 11.7-14.7 INR (BEAKER) (test cvps=056) 1.0 <=5.9 RECOMMENDED COUMADIN/WARFARIN INR THERAPY RANGESSTANDARD DOSE: 2.0 - 3.0 Includes: PROPHYLAXIS forvenous thrombosis, systemic embolization; TREATMENT for venous thrombosis and/or pulmonary embolus.HIGH RISK: Target INR is 2.5-3.5 for patients with mechanical heart valves.HEMOGLOBIN AND [id number] 17 :05:00 Test Item Value Reference Range Comments HEMOGLOBIN (BEAKER) (test xowo=161) 10.0 GM/DL 13.0-16.8 HEMATOCRIT (BEAKER) (test ztsy=892) 31.7 % 40.0-50.0 CBC W/PLT COUNT & AUTO [id number] 10:22:00 Test Item Value Reference Range Comments WHITE BLOOD CELL COUNT (BEAKER) (test adbx=838) 10.8 K/ L 4.0-10.0 RED BLOOD CELL COUNT (BEAKER) (test mjze=752) 3.45 M/ L 4.20-5.80 HEMOGLOBIN (BEAKER) (test zwbo=527) 9.5 GM/DL 13.0-16.8 HEMATOCRIT (BEAKER) (test gzxb=807) 30.1 % 40.0-50.0 MEAN CORPUSCULAR VOLUME (BEAKER) (test efvz=687) 87.1 fL 82.0-98.0 MEAN CORPUSCULAR HEMOGLOBIN (BEAKER) (test 27.7 pg 27.0-33.0 bqvw=619) MEAN CORPUSCULAR HEMOGLOBIN CONC (BEAKER) (test 31.7 GM/DL 32.0-36.0 jbpd=920) RED CELL DISTRIBUTION WIDTH (BEAKER) (test 15.0 % 10.3-14.2 dpch=148) PLATELET COUNT (BEAKER) (test sybe=135) 132 K/CU MM 150-430 MEAN PLATELET VOLUME (BEAKER) (test lyut=464) 8.3 fL 6.5-10.5 NUCLEATED RED BLOOD CELLS (BEAKER) (test 0 /100 WBC 0-0 fogb=777) NEUTROPHILS RELATIVE PERCENT (BEAKER) (test 42 % igxy=778) LYMPHOCYTES RELATIVE PERCENT (BEAKER) (test 53 % kyas=681) MONOCYTES RELATIVE PERCENT (BEAKER) (test 5 % quxe=492) EOSINOPHILS RELATIVE PERCENT (BEAKER) (test 0 % bwdq=380) BASOPHILS RELATIVE PERCENT (BEAKER) (test 0 % frpb=041) NEUTROPHILS ABSOLUTE COUNT (BEAKER) (test 4.48 K/ L 1.80-8.00 aidf=077) LYMPHOCYTES ABSOLUTE COUNT (BEAKER) (test 5.65 K/ L 1.48-4.50 powv=309) MONOCYTES ABSOLUTE COUNT (BEAKER) (test 0.57 K/ L 0.00-1.30 bmwa=918) EOSINOPHILS ABSOLUTE COUNT (BEAKER) (test 0.02 K/ L 0.00-0.50 omkq=459) BASOPHILS ABSOLUTE COUNT (BEAKER) (test 0.03 K/ L 0.00-0.20 ldxk=795) 0.00(MANUAL DIFFERENTIAL)[id number] 10:22:00 Test Item Value Reference Range Comments TOTAL COUNTED (BEAKER) (test tnrq=2997) PLT MORPHOLOGY (BEAKER) (test ufnj=065) Normal ATYPICAL LYMPHS(BEAKER) (test eaea=6729) Present HYPOCHROMIA (BEAKER) (test ccwe=144) 1+ few POLYCHROMATOPHILLIC RBCS(BEAKER) (test kbtw=125) 1+ few [id number] 07:21:00 Test Item Value Reference Range Comments MAGNESIUM (BEAKER) (test lsqk=905) 2.1 mg/dL 1.6-2.6 BASIC METABOLIC [id number] 07:21:00 Test Item Value Reference Range Comments SODIUM (BEAKER) (test 140 meq/L 136-145 jlfy=255) POTASSIUM (BEAKER) (test 4.2 meq/L 3.5-5.1 bjkq=209) CHLORIDE (BEAKER) (test 110 meq/L 98-107 mlnz=602) CO2 (BEAKER) (test 21 meq/L 22-29 zxbv=829) BLOOD UREA NITROGEN 29 mg/dL 7-21 (BEAKER) (test shii=037) CREATININE (BEAKER) (test 1.69 mg/dL 0.57-1.25 eutx=871) GLUCOSE RANDOM (BEAKER) 96 mg/dL 70-105 (test wiig=326) CALCIUM (BEAKER) (test 8.9 mg/dL 8.4-10.2 zxsx=397) EGFR (BEAKER) (test 39 mL/min/1.73 sq m ESTIMATED GFR IS NOT tdsg=3389) ACCURATE CREATININE CLEARANCE IN PREDICTING GLOMERULAR FILTRATION RATE. ESTIMATED GFR IS NOT APPLICABLE FOR DIALYSIS PATIENTS. HEPATIC FUNCTION [id number] 07:21:00 Test Item Value Reference Range Comments TOTAL PROTEIN (BEAKER) (test givz=143) 6.7 gm/dL 6.0-8.3 ALBUMIN (BEAKER) (test kqxf=8105) 3.5 g/dL 3.5-5.0 BILIRUBIN TOTAL (BEAKER) (test dumu=481) 0.6 mg/dL 0.2-1.2 BILIRUBIN DIRECT (BEAKER) (test rfjc=035) 0.3 mg/dL 0.1-0.5 ALKALINE PHOSPHATASE (BEAKER) (test vbsb=959) 76 U/L 40-150 AST (SGOT) (BEAKER) (test oxwn=050) 20 U/L 5-34 ALT (SGPT) (BEAKER) (test gdiw=072) 12 U/L 6-55 PROTHROMBIN [id number] 07:05:00 Test Item Value Reference Range Comments PROTIME (BEAKER) (test zrac=151) 14.1 seconds 11.7-14.7 INR (BEAKER) (test cehw=958) 1.1 <=5.9 RECOMMENDED COUMADIN/WARFARIN INR THERAPY RANGESSTANDARD DOSE: 2.0 - 3.0 Includes: PROPHYLAXIS forvenous thrombosis, systemic embolization; TREATMENT for venous thrombosis and/or pulmonary embolus.HIGH RISK: Target INR is 2.5-3.5 for patients with mechanical heart valves.HEMOGLOBIN AND [id number] 01 :04:00 Test Item Value Reference Range Comments HEMOGLOBIN (BEAKER) (test nxjv=100) 9.7 GM/DL 13.0-16.8 HEMATOCRIT (BEAKER) (test acff=488) 30.6 % 40.0-50.0 HEMOGLOBIN [id number] 20:57:00 Test Item Value Reference Range Comments HEMOGLOBIN A1C (BEAKER) (test kuss=695) 5.4 % 4.3-6.1 CBC W/PLT COUNT & AUTO [id number] 19:35:00 Test Item Value Reference Range Comments WHITE BLOOD CELL COUNT (BEAKER) (test rtis=384) 14.1 K/ L 4.0-10.0 RED BLOOD CELL COUNT (BEAKER) (test ypxa=265) 3.62 M/ L 4.20-5.80 HEMOGLOBIN (BEAKER) (test khrw=297) 10.2 GM/DL 13.0-16.8 HEMATOCRIT (BEAKER) (test obvp=944) 31.5 % 40.0-50.0 MEAN CORPUSCULAR VOLUME (BEAKER) (test vdcf=551) 87.0 fL 82.0-98.0 MEAN CORPUSCULAR HEMOGLOBIN (BEAKER) (test 28.1 pg 27.0-33.0 fexf=457) MEAN CORPUSCULAR HEMOGLOBIN CONC (BEAKER) (test 32.3 GM/DL 32.0-36.0 agbh=337) RED CELL DISTRIBUTION WIDTH (BEAKER) (test 16.1 % 10.3-14.2 awht=529) PLATELET COUNT (BEAKER) (test wokr=542) 139 K/CU MM 150-430 MEAN PLATELET VOLUME (BEAKER) (test obyd=757) 8.6 fL 6.5-10.5 NUCLEATED RED BLOOD CELLS (BEAKER) (test 0 /100 WBC 0-0 kvyj=615) NEUTROPHILS RELATIVE PERCENT (BEAKER) (test 48 % zqdn=359) LYMPHOCYTES RELATIVE PERCENT (BEAKER) (test 48 % vmxy=616) MONOCYTES RELATIVE PERCENT (BEAKER) (test 4 % dlwk=600) EOSINOPHILS RELATIVE PERCENT (BEAKER) (test 0 % aenr=020) BASOPHILS RELATIVE PERCENT (BEAKER) (test 1 % sysi=662) NEUTROPHILS ABSOLUTE COUNT (BEAKER) (test 6.72 K/ L 1.80-8.00 jsfu=923) LYMPHOCYTES ABSOLUTE COUNT (BEAKER) (test 6.74 K/ L 1.48-4.50 dgej=910) MONOCYTES ABSOLUTE COUNT (BEAKER) (test 0.52 K/ L 0.00-1.30 aqqj=385) EOSINOPHILS ABSOLUTE COUNT (BEAKER) (test 0.01 K/ L 0.00-0.50 cnii=723) BASOPHILS ABSOLUTE COUNT (BEAKER) (test 0.09 K/ L 0.00-0.20 vtop=305) POCT-GLUCOSE [id number] 17:00:00 Test Item Value Reference Range Comments POC-GLUCOSE METER (GURINDER) 129 mg/dL 70-[address] [facility] [address] [facility] [facility] (test mrpi=5874) [facility] [address]
--- OUTSIDE RECORDS SUMMARY | 2018-09-15 11:45 | XMS REPORT | Clinical Summary ---
:1935 Author Organization [facility] Address [address] [place] [address] Care Team Providers Name Role Phone Unavailable [...] Not on file Results Not on fileafter 09/14/2017 Insurance Payer Benefit Plan / Group Subscriber ID Type Phone Address MEDICARE MEDICARE A B xxxxxxxxxx Medicare AETNA - MGD CARE AETNA INDEMNITY NON CONTR xxxxxxxxx Comm Advance Directives For more information, please contact:[address] [phone] Code Status Date Activated Date Inactivated Comments Full Code 12/11/2016 5:27 PM 12/20/2016 3:30 PM This code status was determined by: Patient
[2018-09-15 12:40] LABS: Absolute Lymphocytes (CBC) 9.3 K/uL (0.7-4.9); Absolute Monocytes 0.4 K/uL (0.1-1.3); Absolute Neutrophil 4.8 K/uL (1.8-8.0); Basophils % 0.5 % (0-1.3); Eosinophils % 2.7 % (0-4.4); Hematocrit 42.9 % (39.6-49.0); Monocytes % 2.9 % (3.3-12.3); RBC Red Blood Cell Count 4.66 M/uL (4.33-5.43)
[2018-09-15 12:47] LABS: Protime INR 4.44
[2018-09-15 13:10] LABS: AST/SGOT 19 U/L (15-37); Albumin 3.1 g/dL (3.4-5.0); Alkaline Phosphatase 102 U/L (45-117); BUN Blood Urea Nitrogen 19 mg/dL (7-18); Bicarbonate 29 mmol/L (21-32); Bilirubin Direct 0.2 mg/dL (0-0.2); Bilirubin Total 0.8 mg/dL (0.2-1.0); Glucose Level 105 mg/dL (74-106); Magnesium 2.2 mg/dL (1.8-2.4); NT PRO-BNP 2645 pg/mL (<450); Potassium 3.6 mmol/L (3.5-5.1); Protein, Total 7.8 g/dL (6.4-8.2); Sodium Level 145 mmol/L (136-145); Troponin (Emerg Dept Use Only) < 0.02 ng/mL (0.0-0.045)
--- NOTE | 2018-09-15 13:12 | RAD REPORT ---
EXAM DESCRIPTION: Frandy Single View09/15/2018 12:13 pm CLINICAL HISTORY: Cough COMPARISON: March 2018 FINDINGS: Rectangular right upper lobe opacity with mild volume loss. Mild additional right lung op acities Left lung appears clear of acute infiltrate Postsurgical changes involve the chest. The heart is mildly enlarged. Pacemaker leads are in place. IMPRESSION: Rectangular right upper lobe opacity with mild volume loss has not cleared when compare d to March 2018. This may represent postobstructive pneumonitis/atelectasis. Bronchoscopy is recommend ed
[2018-09-15 13:14] LABS: ALT/SGPT < 6 U/L (12-78)
[2018-09-15 13:16] LABS: Blood Morphology Comment NOT SEEN (NOT SEEN); Platelet Estimate ADEQ
[2018-09-15 14:09] LABS: Urine Bacteria >50 /HPF (NONE SEEN); Urine Culture Reflex Order REFLEXED; Urine RBC >50 /HPF (NONE SEEN)
[2018-09-15 14:11] LABS: Urine Blood 3+ (NEG); Urine Glucose NEGATIVE (NEG); Urine Protein 3+ (NEG); Urine Specific Gravity 1.015 (1.005-1.030); Urine pH >8.5 (5.0-7.0)
--- NOTE | 2018-09-15 14:18 | EDPHYS ---
Physician Documentation [facility] Name: Alvarez Aleman Jr Age: 82 yrs Sex: Male : 1935 Arrival Date: 09/15/2018 Time: 11:43 Bed 3 Private MD: ED Physician Ayan Ag HPI: 09/15 12:35 This 82 yrs old Male presents to ER via EMS with complaints of Altered Mental jr8 Status. 12:35 The patient presents with confusion, decreased mental status. Onset: The jr8 symptoms/episode began/occurred acutely, today. Possible causes: unknown. Associated signs and symptoms: The patient has no apparent associated signs or symptoms. Current symptoms: In the emergency department the patient's symptoms have improved. Patient's baseline: Neuro: alert and fully oriented, Motor: no deficits, Ambulation: unable to walk, is bedridden, Speech: normal. It is unknown whether or not the patient has had similar symptoms in the past. It is unknown whether or not the patient has recently seen a physician. Patient with history of dementia and Parkinson's. Brought to ED today for acute change in mental status that was noted this AM. Patient alert to person, place, time currently . Historical: - Allergies: 11:49 No Known Allergies; hj - Home Meds: 11:49 amlodipine 10 mg tab 1 tab once daily [Active]; ascorbic acid (vitamin C) 500 mg tab hj twice a day [Active]; aspirin 81 mg Oral chew [Active]; warfarin 3.5mg Oral tab 1 tab once daily [Active]; carbidopa-levodopa 50-200 mg Oral TbER 1 tab 2 times per day [Active]; carbidopa-levodopa 10-100 mg Oral TbDL 1.5 tabs 4 times per day [Active]; docusate sodium 100 mg Oral tab 1 tab once daily [Active]; donepezil 10 mg Oral tab 1 tab once daily [Active]; ferrous gluconate 325 mg (37 mg iron) Oral tab [Active]; Glucerna Oral liqd twice a day [Active]; Keppra 500 mg Oral tab 1 tab 2 times per day [Active]; Remeron 15 mg Oral tab 1 tab once daily [Active]; thiamine HCl (vitamin B1) 100 mg Oral tab 100 mg daily [Active]; tramadol 50 mg Oral tab 1 tab every 6 hours [Active]; - PMHx: 11:49 Acute embolism \T\ 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 - Social history:: Smoking status: Patient/guardian denies using tobacco, Patient/guardian denies using alcohol. - Ebola Screening: : Patient negative for fever greater than or equal to 101.5 degrees Fahrenheit, and additional compatible Ebola Virus Disease symptoms Patient denies exposure to infectious person Patient denies travel to an Ebola-affected area in the 21 days before illness onset. ROS: 12:37 Eyes: Negative for injury, pain, redness, and discharge, ENT: Negative for injury, jr8 pain, and discharge, Neck: Negative for injury, pain, and swelling, Cardiovascular: Negative for chest pain, palpitations, and edema, Respiratory: Negative for shortness of breath, cough, wheezing, and pleuritic chest pain, Abdomen/GI: Negative for abdominal pain, nausea, vomiting, diarrhea, and constipation, Back: Negative for injury and pain, MS/Extremity: Negative for injury and deformity, Skin: Negative for injury, rash, and discoloration, Neuro: Negative for headache, weakness, numbness, tingling, and seizure. Exam: 12:37 Eyes: Pupils equal round and reactive to light, extra-ocular motions intact. Lids and jr8 lashes normal. Conjunctiva and sclera are non-icteric and not injected. Cornea within normal limits. Periorbital areas with no swelling, redness, or edema. ENT: Nares patent. No nasal discharge, no septal abnormalities noted. Tympanic membranes are normal and external auditory canals are clear. Oropharynx with no redness, swelling, or masses, exudates, or evidence of obstruction, uvula midline. Mucous membranes moist. Neck: Trachea midline, no thyromegaly or masses palpated, and no cervical lymphadenopathy. Supple, full range of motion without nuchal rigidity, or vertebral point tenderness. No Meningismus. Cardiovascular: Regular rate and rhythm with a normal S1 and S2. No gallops, murmurs, or rubs. Normal PMI, no JVD. No pulse deficits. Respiratory: Lungs have equal breath sounds bilaterally, clear to auscultation and percussion. No rales, rhonchi or wheezes noted. No increased work of breathing, no retractions or nasal flaring. Abdomen/GI: Soft, non-tender, with normal bowel sounds. No distension or tympany. No guarding or rebound. No evidence of tenderness throughout. Back: No spinal tenderness. No costovertebral tenderness. Full range of motion. Skin: Warm, dry with normal turgor. Normal color with no rashes, no lesions, and no evidence of cellulitis. MS/ Extremity: Pulses equal, no cyanosis. Neurovascular intact. Full, normal range of motion. Neuro: Awake and alert, GCS 15, oriented to person, place, situation. Cranial nerves II-XII grossly intact. Motor strength 3/5 in all extremities. Sensory grossly intact Vital Signs: 11:49 BP 141 / 76; Pulse 70; Resp 18; Temp 97.7(O); Pulse Ox 99% on 3 lpm NC; Weight 99.79 hj kg; Height 5 ft. 11 in. (180.34 cm); Pain 0/10; 12:30 BP 142 / 78; Pulse 70; Resp 18; Pulse Ox 100% on R/A; hj 13:30 BP 140 / 75; Pulse 70; Resp 18; Pulse Ox 100% on R/A; hj 14:00 BP 141 / 71; Pulse 70; Resp 18; Pulse Ox 98% on R/A; hj 15:34 BP 147 / 67; Pulse 70; Resp 18; Pulse Ox 100% on R/A; hj 11:49 Body Mass Index 30.68 (99.79 kg, 180.34 cm) MDM: 11:44 [facility] 14[facility]17 Data reviewed: vital signs, nurses notes, lab test result(s), and as a result, I will jr8 admit patient. Data interpreted: Pulse oximetry: on room air is 98 %. Interpretation: normal. Counseling: I had a detailed discussion with the patient and/or guardian regarding: the historical points, exam findings, and any diagnostic results supporting the discharge/admit diagnosis, lab results, the need for further work-up and treatment in the hospital. 09/15 11:55 Order name: Basic Metabolic Panel [facility] 09/15 11:55 Order name: CBC with Diff [facility] 09/15 11:55 Order name: LFT's; Complete Time: 13:19 8 09/15 11:55 Order name: Magnesium; Complete Time: 13:19 09/15 11:55 Order name: NT PRO-BNP; Complete Time: 13:19 09/15 11:55 Order name: PT-INR; Complete Time: 13:19 09/15 11:55 Order name: Troponin (emerg Dept Use Only); Complete Time: 13:19 09/15 11:55 Order name: XRAY Chest (1 view); Complete Time: 13:19 09/15 11:55 Order name: Urine Microscopic Only; Complete Time: 14:17 8 09/15 11:56 Order name: Basic Metabolic Panel; Complete Time: 13:19 [facility] 09/15 11:56 Order name: CBC with Automated Diff; Complete Time: 13: [facility] 09/15 13:16 Order name: Manual Differential; Complete Time: 13: [facility] 09/15 13:39 Order name: Urine Dipstick--Ancillary (enter results); Complete Time: 14: ag 09/15 14:11 Order name: Urine Culture [facility] 09/15 11:55 Order name: EKG; Complete Time: 11:56 8 09/15 11:55 Order name: Cardiac monitoring; Complete Time: 12:11 09/15 11:55 Order name: EKG - Nurse/Tech; Complete Time: 12:11 09/15 11:55 Order name: IV Saline Lock; Complete Time: 13:14 [facility] 09/15 11:55 Order name: Labs collected and sent; Complete Time: 13:14 09/15 11:55 Order name: O2 Per Protocol; Complete Time: 12:11 09/15 11:55 Order name: O2 Sat Monitoring; Complete Time: 12:11 09/15 11:55 Order name: Urine Dipstick-Ancillary (obtain specimen); Complete Time: 13:30 jr Administered Medications: 14:20 Drug: Rocephin 1 grams Route: IV; Rate: calculated rate; Site: left forearm; hj 16:04 Follow up: IV Status: Completed infusion hj 14:20 Drug: NS 0.9% 1000 ml Route: IV; Rate: 75 ml/hr; Site: left forearm; hj 16:04 Follow up: IV Status: Infusion continued hj Disposition: 09/15/18 14:18 Hospitalization ordered by Debra Green for Inpatient Admission. Preliminary diagnosis are Altered mental status, unspecified, Urinary tract infection, site not specified. - Bed requested for Telemetry/MedSurg (Inpatient). - Status is Inpatient Admission. hj - Condition is Stable. - Problem is new. - Symptoms have improved. UTI on Admission? Yes Addendum: 09/19/2018 07:54 Co-signature as Attending Physician, Ayan Ag MD I agree with the assessment and c coronel plan of care. Signatures: Dispatcher [employer] EDWY Kelly Garza RN RN Ayan Newberry MD MD cha Roszak, Josh, PA PA jr8 Robb Ayala RN RN Corrections: (The following items were deleted from the chart) 09/15 15:27 14:18 Hospitalization Ordered by Debra Green MD for Inpatient Admission. Preliminary diagnosis is Altered mental status, unspecified; Urinary tract infection, site not specified. Bed requested for Telemetry/MedSurg (Inpatient). Status is Inpatient Admission. Condition is Stable. Problem is new. Symptoms have improved. UTI on Admission? Yes. jr8 16:09 15:27 09/15/2018 14:18 Hospitalization Ordered by Debra Green MD for Inpatient hj Admission. Preliminary diagnosis is Altered mental status, unspecified; Urinary tract infection, site not specified. Bed requested for Telemetry/MedSurg (Inpatient). Status is Inpatient Admission. Condition is Stable. Problem is new. Symptoms have improved. UTI on Admission? Yes. ankul
--- NOTE | 2018-09-15 14:18 | ER ---
Nurse's Notes [facility] Name: Alvarez Aleman Jr Age: 82 yrs Sex: Male : 1935 Arrival Date: 09/15/2018 Time: 11:43 Bed 3 Private MD: Diagnosis: Altered mental status, unspecified;Urinary tract infection, site not specified Presentation: 09/15 11:43 Presenting complaint: EMS states: this morning per [facility] staff, pt wasn't the usual self and not talking back to them, awake, O2 sat 84%, placed on O2 3L, O2 went up to 96%; on Sahu cath, with tea colored urine; paced at 70; BP- 147/84; per EMS, diminished sounds on bilateral bases;. Transition of care: patient was received from another setting of care (long-term care facility). Onset of symptoms was September 15, 2018. Risk Assessment: Do you want to hurt yourself or someone else? Patient reports no desire to harm self or others. Initial Sepsis Screen: Does the patient meet any 2 criteria? Altered Mental Status. Yes Does the patient have a suspected source of infection? Yes:. Care prior to arrival: None. 11:43 Method Of Arrival: EMS: [facility] 11:43 Acuity: RYLEY 3 hj Triage Assessment: 11:51 General: Appears in no apparent distress. uncomfortable, Behavior is calm, cooperative, hj appropriate for age. Pain: Denies pain. Neuro: Level of Consciousness is awake, alert, obeys commands, Oriented to person, place, time, situation, Appropriate for age. Historical: - Allergies: 11:49 No Known Allergies; hj - Home Meds: 11:49 amlodipine 10 mg tab 1 tab once daily [Active]; ascorbic acid (vitamin C) 500 mg tab hj twice a day [Active]; aspirin 81 mg Oral chew [Active]; warfarin 3.5mg Oral tab 1 tab once daily [Active]; carbidopa-levodopa 50-200 mg Oral TbER 1 tab 2 times per day [Active]; carbidopa-levodopa 10-100 mg Oral TbDL 1.5 tabs 4 times per day [Active]; docusate sodium 100 mg Oral tab 1 tab once daily [Active]; donepezil 10 mg Oral tab 1 tab once daily [Active]; ferrous gluconate 325 mg (37 mg iron) Oral tab [Active]; Glucerna Oral liqd twice a day [Active]; Keppra 500 mg Oral tab 1 tab 2 times per day [Active]; Remeron 15 mg Oral tab 1 tab once daily [Active]; thiamine HCl (vitamin B1) 100 mg Oral tab 100 mg daily [Active]; tramadol 50 mg Oral tab 1 tab every 6 hours [Active]; - PMHx: 11:49 Acute embolism \T\ 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 - Social history:: Smoking status: Patient/guardian denies using tobacco, Patient/guardian denies using alcohol. - Ebola Screening: : Patient negative for fever greater than or equal to 101.5 degrees Fahrenheit, and additional compatible Ebola Virus Disease symptoms Patient denies exposure to infectious person Patient denies travel to an Ebola-affected area in the 21 days before illness onset. Screenin:50 Abuse screen: Denies threats or abuse. Denies injuries from another. Nutritional hj screening: No deficits noted. Tuberculosis screening: No symptoms or risk factors identified. Fall Risk None identified. Assessment: 11:49 General: Appears in no apparent distress. uncomfortable, Behavior is calm, cooperative, hj appropriate for age. Pain: Denies pain. Neuro: Level of Consciousness is awake, alert, obeys commands, Oriented to person, place, time, situation, Appropriate for age. Cardiovascular: Capillary refill < 3 seconds Patient's skin is warm and dry. Respiratory: Airway is patent Respiratory effort is even, unlabored, Respiratory pattern is regular, symmetrical. GI: No signs and/or symptoms were reported involving the gastrointestinal system. : suprapubic catheter in place to gravity drainage. EENT: No signs and/or symptoms were reported regarding the EENT system. Derm: Parent/caregiver reports the patient having skin breakdown on bilateral heel and buttocks;. Musculoskeletal: No signs and/or symptoms reported regarding the musculoskeletal system. 12:30 Reassessment: Patient and/or family updated on plan of care and expected duration. Pain hj level reassessed. Patient is alert, oriented x 3, equal unlabored respirations, skin warm/dry/pink. 13:30 Reassessment: Patient and/or family updated on plan of care and expected duration. Pain hj level reassessed. Patient is alert, oriented x 3, equal unlabored respirations, skin warm/dry/pink. family with pt;. 14:30 Reassessment: Patient and/or family updated on plan of care and expected duration. Pain hj level reassessed. Patient is alert, oriented x 3, equal unlabored respirations, skin warm/dry/pink. 15:20 Reassessment: per family; pt Coumadin was on hold; hes taking 3 mg per day;. hj Vital Signs: 11:49 BP 141 / 76; Pulse 70; Resp 18; Temp 97.7(O); Pulse Ox 99% on 3 lpm NC; Weight 99.79 hj kg; Height 5 ft. 11 in. (180.34 cm); Pain 0/10; 12:30 BP 142 / 78; Pulse 70; Resp 18; Pulse Ox 100% on R/A; hj 13:30 BP 140 / 75; Pulse 70; Resp 18; Pulse Ox 100% on R/A; hj 14:00 BP 141 / 71; Pulse 70; Resp 18; Pulse Ox 98% on R/A; hj 15:34 BP 147 / 67; Pulse 70; Resp 18; Pulse Ox 100% on R/A; hj 11:49 Body Mass Index 30.68 (99.79 kg, 180.34 cm) hj ED Course: 11:43 Patient arrived in ED. hj 11:44 Ayan Ag MD is Attending Physician. dee 11:47 Triage completed. hj 11:50 [facility] Duke [facility] jr8 11:51 Arm band placed on right wrist. hj 11:51 Patient has correct armband on for positive identification. Placed in gown. Bed in low hj position. Call light in reach. Side rails up X 1. 12:03 Robb Ayala, SHAQ is Primary Nurse. hj 12:09 X-ray completed. Portable x-ray completed in exam room. Patient tolerated procedure sg4 well. 12:10 EKG done, by ED staff, reviewed by Alli MÁRQUEZ. jb1 12:12 XRAY Chest (1 view) In Process Unspecified. EDMS 12:46 Initial lab(s) drawn, by me, sent to lab. Inserted saline lock: 22 gauge in left hj forearm, using aseptic technique. Blood collected. 14:18 Debra Green MD is Hospitalizing Provider. jr8 16:08 No provider procedures requiring assistance completed. Patient admitted, IV remains in hj place. intact. Administered Medications: 14:20 Drug: Rocephin 1 grams Route: IV; Rate: calculated rate; Site: left forearm; 16:04 Follow up: IV Status: Completed infusion 14:20 Drug: NS 0.9% 1000 ml Route: IV; Rate: 75 ml/hr; Site: left forearm; 16:04 Follow up: IV Status: Infusion continued Outcome: 14:18 Decision to Hospitalize by Provider. jr8 16:08 Admitted to Tele accompanied by tech, family with patient, via stretcher, room 421, with chart, Report called to SHAQ Casas 16:08 Condition: stable 16:08 Instructed on the need for admit, Demonstrated understanding of instructions. 16:09 Patient left the ED. Signatures: Dispatcher [employer] EDAlvarez Spencer jb1 Ayan Ag MD MD cha Roszak, Josh, PA PA jr8 Robb Ayala, RN RN Merlene Rodriguez sg4
[2018-09-15] MEDS ORDERED: NA CHLORIDE 0.9% 1,000 ML ONE (14:33)
[2018-09-15] MEDS ORDERED: CEFTRIAXONE/SWI 1gm 1 GM/10 ML SYR ONE (14:33)
[2018-09-15] MEDS ORDERED: ACETAMINOPHEN 500 MG TAB PO PRN (16:10)
[2018-09-15] MEDS ORDERED: ONDANSETRON 4 MG/2 ML VIAL IV PRN (16:10)
[2018-09-15] MEDS ORDERED: Meropenem 1000 MG/VIAL IV SCH (17:00)
[2018-09-15] MEDS ORDERED: POTASSIUM CL SA 10 MEQ TAB PO ONE (17:14)
[2018-09-15] MEDS: Meropenem 1,000 MG in NA CHLORIDE 0.9% 100 ML IV SCH (17:40)
[2018-09-15] MEDS ORDERED: TRAMADOL HCL 50 MG TAB PO PRN (18:09)
[2018-09-15 18:21] VITALS: BMI 30.7
--- NOTE | 2018-09-15 18:22 | P.HP ---
Certification for Inpatient Patient admitted to: Observation With expected LOS: >2 Midnights Patient will require the following post-hospital care: None Practitioner: I am a practitioner with admitting privileges, knowledge of patient current condition, hospital course, and medical plan of care. Services: Services provided to patient in accordance with Admission requirements found in Title 42 Section 412.3 of the Code of Federal Regulations Patient History Date of Service: 09/15/18 Primary Care Provider: Residential Resident Reason for admission: AMS History of Present Illness: This is a 82-year-old male with significant past medical history of Parkinson's , seizures, hypertension, hyper thyroidism, suprapubic catheter placement 1 and half year ago at the IN who presented to the ED from the senior living after was have altered mental status. Most of the information came from the daughter at bedside. Patient is daughter at bedside stated that this morning patient started having some staring spells and was not responding verbally to any conversation by the nursing staff for the family members and thus they decided to bring him to the ER. Patient's daughter says that about a week ago patient was seen at the senior living at the senior living doctor would recommended changing the bandages around the suprapubic catheter however was not able to be done and the bandages were old and most likely got infected. Patient has had similar episodes in the past and had similar symptoms in the past as well. Daughter states that he has had couple of more episodes like his while here in the hospital as well. Denies having any fever nausea vomiting constipation or any other associated symptoms. Part the daughter at bedside at baseline patient is able to recognize and talk to the family members Allergies No Known Allergies Allergy (Verified 04/03/18 20:24) Home Medications: Amlodipine [Norvasc*] 1 tab PO DAILY 09/15/18 Ascorbic Acid [C-500] 1 tab PO BID 09/15/18 Aspirin [Aspirin EC 81 MG] 1 tab PO DAILY 09/15/18 Carbidopa/Levodopa [Carbidopa-Levo ER 50-200 Tab] 1 tab PO BID 09/15/18 Carbidopa/Levodopa [Carbidopa-Levodopa 25-100 Tab] 1.5 tab PO DAILY 09/15/18 Carboxymethylcell/Glycerin/Pf [Lubricant 0.5-0.9% Eye Drops] 1 drop TOP QID 01/27 Docusate Sodium [Colace] 1 cap PO DAILY 09/15/18 Donepezil HCl 10 mg PO DAILY 09/15/18 Doxycycline Hyclate 1 cap PO BID 09/15/18 Ferrous Gluconate [Iron] 240 mg PO BID 09/15/18 Glucerna Shake [Glucerna*] 237 ml PO DAILY 09/15/18 Levetiracetam [Keppra] 1 tab PO Q12H 09/15/18 Loperamide HCl [Imodium A-D] 1 cap PO Q6H PRN 09/15/18 Mirtazapine [Remeron] 1 tab PO BEDTIME 09/15/18 Mupirocin Cream [Bactroban 2% Cream*] 1 appl TOP Q12H 09/15/18 Thiamine HCl 1 tab PO DAILY 09/15/18 Thyroid,Pork [Nature-Throid] 1 tab PO DAILY 09/15/18 Valacyclovir [Valtrex*] 1 tab PO DAILY 09/15/18 Warfarin Sodium [Coumadin*] 1 tab PO DAILY 09/15/18 Zinc Sulfate [Zinc Sulfate*] 1 tab PO DAILY 09/15/18 traMADol HCL [Ultram*] 1 tab PO Q6H PRN 09/15/18 - Past Medical/Surgical History Has patient received pneumonia vaccine in the past: Yes Diabetic: Yes -: Parkinsons -: Dementia -: Seizure disorder -: Anemia -: BPH -: HTN -: Pulmonary Embolism 2015 -: DVT 2001 -: Greater Trochanter broken -: Non Hodgkins Lymphoma -: Triple Bypass 2000 -: Cancer Removal on top of the head 2017 -: Spinal Surgery for Stenosis -: Lithotripsy for Kidney Stones Psychosocial/ Personal History: Lives in [facility]. - Family History Family History: Reviewed- Non-Contributory - Family History Father -: Heart disease Mother -: Cancer - Social History Smoking Status: Never smoker Alcohol use: No CD- Drugs: No Caffeine use: No Place of Residence: Residential Review of Systems 10-point ROS is otherwise unremarkable Physical Examination - Vital Signs Temperature: 97.2 F Blood Pressure: 159/74 Pulse: 70 Respirations: 22 Pulse Ox (%): 99 - Physical Exam General: Alert, In no apparent distress, Confused HEENT: Atraumatic Neck: Supple Respiratory: Clear to auscultation bilaterally, Normal air movement Cardiovascular: Regular rate/rhythm, Normal S1 S2 Gastrointestinal: Normal bowel sounds, Soft and benign, Non-distended, No tenderness Musculoskeletal: No tenderness Integumentary: No rashes Neurological: Other, Abnormal speech, Abnormal affect Lymphatics: No axilla or inguinal lymphadenopathy Urinary: Suprapubic catheter (Surronding Skin inflammed and erythema ) - Studies Laboratory Data (last 24 hrs) 09/15/18 12:10: PT 53.2 H, INR 4.44 H* 09/15/18 12:10: WBC 14.9 H, Hgb 14.2, Hct 42.9, Plt Count 115 L 09/15/18 12:10: Sodium 145, Potassium 3.6, BUN 19 H, Creatinine 1.21, Glucose 105, Magnesium 2.2, Total Bilirubin 0.8, AST 19, ALT < 6 L, Alkaline Phosphatase 102 Assessment and Plan - Problems (Diagnosis) (1) Altered mental status Current Visit: No Status: Acute Plan: Acute altered mental status most likely secondary to toxic encephalopathy from UTI -currently alert and oriented x1. Nonverbal at this time -will get head CT to rule out any neurological deficit -patient does have pacemaker this is not a candidate for MRI -will monitor for next 24-48 hr. Qualifiers: Altered mental status type: stupor Qualified Code(s): R40.1 - Stupor (2) UTI (urinary tract infection) Current Visit: No Status: Acute Plan: Patient's UA consistent with UTI. UTI most likely secondary to suprapubic catheter. -indwelling catheter related infection -currently started on IV meropenem given the history of multi-drug resistant bacteria -will follow up with urine culture here shortly. Qualifiers: Urinary tract infection type: site unspecified Hematuria presence: without hematuria Qualified Code(s): N39.0 - Urinary tract infection, site not specified (3) Dementia Onset Date: 04/04/18 Current Visit: No Status: Chronic Plan: Currently stable at this time. Patient's altered mental status or change in mentation could be secondary to advancing dementia and Parkinson's disease. However will rule out any organic cause of this time. Qualifiers: Dementia type: Parkinson's disease Dementia behavioral disturbance: without behavioral disturbance Qualified Code(s): G20 - Parkinson's disease; F02.80 - Dementia in other diseases classified elsewhere without behavioral disturbance (4) HTN (hypertension) Onset Date: 04/04/18 Current Visit: No Status: Chronic Qualifiers: Hypertension type: essential hypertension Qualified Code(s): I10 - Essential (primary) hypertension (5) Hypothyroidism Current Visit: No Status: Chronic Qualifiers: Hypothyroidism type: acquired Qualified Code(s): E03.9 - Hypothyroidism, unspecified (6) Parkinson disease Onset Date: 04/04/18 Current Visit: No Status: Chronic (7) Seizure disorder Onset Date: 04/04/18 Current Visit: No Status: Chronic - Plan Patient will be admitted to medical-surgical floor for further treatment for his UTI and toxic encephalopathy. Discharge Plan: Residential Plan to discharge in: 48 Hours - Advance Directives Does patient have a Living Will: No Does patient have a Durable POA for Healthcare: No - Code Status/Comfort Care Code Status Assessed: Yes Critical Care: No
[2018-09-15] MEDS: MIRTAZAPINE 15 MG TAB PO SCH (21:00)
[2018-09-15] MEDS: CIPROFLOXACIN 0.3% ML OPHTH OPTH SCH (21:00)
[2018-09-15] MEDS: levETIRAcetam 500 MG TAB PO SCH (21:00)
[2018-09-15] MEDS: POLYVINYL ALCOHOL 1.4% 15 ML OPTH SCH (21:00)
[2018-09-15] MEDS ORDERED: MIRTAZAPINE PO SCH (21:00)
[2018-09-15] MEDS: MUPIROCIN 2% OINT 22GM TUBE TOP SCH (21:00)
[2018-09-15] MEDS: DONEPEZIL HCL 5 MG TAB PO SCH (21:00)
[2018-09-15] MEDS: FERROUS GLUCONATE 300 MG TAB PO SCH (21:00)
[2018-09-15] MEDS: NA CHLORIDE 0.9% 1,000 ML IV SCH (23:45)
[2018-09-16] MEDS: levETIRAcetam 500 MG in NA CHLORIDE 0.9% 100 ML IV SCH ×2 (00:49→11:30)
[2018-09-16] MEDS ORDERED: LEVETIRACETAM 500 MG/5 ML VIAL IV ONE (00:49)
[2018-09-16] MEDS ORDERED: NA CHLORIDE 0.9% 100 ML IV ONE (00:54)
[2018-09-16] MEDS: Meropenem 1,000 MG in NA CHLORIDE 0.9% 100 ML IV SCH ×3 (02:11→16:56)
[2018-09-16] MEDS: NA CHLORIDE 0.9% 1,000 ML IV SCH ×3 (02:13→22:05)
[2018-09-16] MEDS: THYROID 30 MG TAB PO SCH (05:18)
[2018-09-16 05:42] LABS: Absolute Lymphocytes (CBC) 7.9 K/uL (0.7-4.9); Absolute Monocytes 0.5 K/uL (0.1-1.3); Basophils % 0.4 % (0-1.3); Eosinophils % 1.8 % (0-4.4); Hematocrit 43.3 % (39.6-49.0); MPV 8.8 fL (7.6-11.3); Monocytes % 3.6 % (3.3-12.3)
[2018-09-16 05:45] LABS: Lymphocytes % 57.9 % (15.3-44.8)
[2018-09-16 06:00] LABS: ALT/SGPT < 6 U/L (12-78); AST/SGOT 16 U/L (15-37); Albumin 3.2 g/dL (3.4-5.0); Alkaline Phosphatase 103 U/L (45-117); BUN Blood Urea Nitrogen 18 mg/dL (7-18); Bicarbonate 27 mmol/L (21-32); Bilirubin Total 0.8 mg/dL (0.2-1.0); Glucose Level 92 mg/dL (74-106); Potassium 3.3 mmol/L (3.5-5.1); Protein, Total 7.7 g/dL (6.4-8.2); Sodium Level 146 mmol/L (136-145)
[2018-09-16 06:13] LABS: Protime INR 4.05
[2018-09-16] MEDS: KCL 20 MEQ/100 mL IVPB 20 MEQ/100 ML BAG IV SCH ×2 (08:00→11:00)
[2018-09-16] MEDS: FERROUS GLUCONATE 300 MG TAB PO SCH ×2 (09:00→21:00)
[2018-09-16] MEDS: VALACYCLOVIR 500 MG TAB PO SCH (09:00)
[2018-09-16] MEDS: DOCUSATE NA 100 MG CAP PO SCH (09:00)
[2018-09-16] MEDS ORDERED: CARBIDOPA/LEVODOPA 25/100 TAB PO SCH (09:00)
[2018-09-16] MEDS: ZINC SULFATE 220 MG CAP PO SCH (09:00)
[2018-09-16] MEDS: MUPIROCIN 2% OINT 22GM TUBE TOP SCH ×2 (09:00→21:00)
[2018-09-16] MEDS: ASPIRIN EC 81 MG TAB PO SCH (09:00)
[2018-09-16] MEDS: GLUCERNA SHAKE 237 ML CAN PO SCH (09:00)
[2018-09-16] MEDS: THIAMINE HCL 100 MG TABLET PO SCH (09:00)
[2018-09-16] MEDS: AMLODIPINE 10 MG TAB PO SCH (09:00)
[2018-09-16] MEDS: levETIRAcetam 500 MG TAB PO SCH (09:00)
--- NOTE | 2018-09-16 09:47 | RAD REPORT ---
EXAM DESCRIPTION: CT - Head Brain Wo Cont - 09/16/2018 5:29 am CLINICAL HISTORY: AMS with Dementia Drowsiness COMPARISON: Head Brain Wo Cont dated 04/03/2018; Head Brain Wo Cont dated 06/24/2017 TECHNIQUE: All CT scans are performed using dose optimization technique as appropriate and may inclu de automated exposure control or mA/KV adjustment according to patient size. FINDINGS: No intracranial hemorrhage, hydrocephalus or extra-axial fluid collection.Moderate general ized brain atrophy is present with moderate periventricular and deep white matter chronic microvascul ar ischemic changes.No areas of brain edema or evidence of midline shift. The paranasal sinuses and mastoids are clear. The calvarium is intact. Vertebral arteries are calcifi ed. IMPRESSION: No acute intracranial abnormality.
[2018-09-16] MEDS: POLYVINYL ALCOHOL 1.4% 15 ML OPTH SCH ×4 (10:06→22:04)
[2018-09-16] MEDS: CIPROFLOXACIN 0.3% ML OPHTH OPTH SCH ×2 (10:07→22:04)
--- NOTE | 2018-09-16 12:39 | P.PN ---
Subjective Date of Service: 09/16/18 Primary Care Provider: Longterm Resident Chief Complaint: AMS Review of Systems 10-point ROS is otherwise unremarkable Physical Examination - Vital Signs Temperature: 98.0 F Blood Pressure: 138/66 Pulse: 70 Respirations: 16 Pulse Ox (%): 92 - Physical Exam General: Alert, In no apparent distress, Oriented x2 HEENT: Atraumatic, PERRLA, EOMI Neck: Supple, JVD not distended Respiratory: Clear to auscultation bilaterally, Normal air movement Cardiovascular: Regular rate/rhythm, Normal S1 S2 Gastrointestinal: Normal bowel sounds, No tenderness Musculoskeletal: No tenderness Integumentary: Skin breakdown Neurological: Normal speech, Normal tone, Abnormal affect Lymphatics: No axilla or inguinal lymphadenopathy - Studies Laboratory Data (last 24 hrs) 09/15/18 12:10: PT 53.2 H, INR 4.44 H* 09/15/18 12:10: WBC 14.9 H, Hgb 14.2, Hct 42.9, Plt Count 115 L 09/15/18 12:10: Sodium 145, Potassium 3.6, BUN 19 H, Creatinine 1.21, Glucose 105, Magnesium 2.2, Total Bilirubin 0.8, AST 19, ALT < 6 L, Alkaline Phosphatase 102 Medications List Reviewed: Yes Assessment And Plan - Current Problems (Diagnosis) (1) Altered mental status Current Visit: No Status: Acute Plan: Acute altered mental status most likely secondary to toxic encephalopathy from UTI. Currently Improved. -currently alert and oriented x2 now. -Head CT negative for Acute abnormality -patient does have pacemaker thus is not a candidate for MRI -will monitor for next 24-48 hr. Qualifiers: Altered mental status type: stupor Qualified Code(s): R40.1 - Stupor (2) UTI (urinary tract infection) Current Visit: No Status: Acute Plan: Patient's UA consistent with UTI. UTI most likely secondary to suprapubic catheter. -indwelling catheter related infection -currently started on IV meropenem given the history of multi-drug resistant bacteria -will follow up with urine culture here shortly. Qualifiers: Urinary tract infection type: site unspecified Hematuria presence: without hematuria Qualified Code(s): N39.0 - Urinary tract infection, site not specified (3) Dementia Onset Date: 04/04/18 Current Visit: No Status: Chronic Plan: Currently stable at this time. Patient's altered mental status or change in mentation could be secondary to advancing dementia and Parkinson's disease. However will rule out any organic cause of this time. Qualifiers: Dementia type: Parkinson's disease Dementia behavioral disturbance: without behavioral disturbance Qualified Code(s): G20 - Parkinson's disease; F02.80 - Dementia in other diseases classified elsewhere without behavioral disturbance (4) HTN (hypertension) Onset Date: 04/04/18 Current Visit: No Status: Chronic Qualifiers: Hypertension type: essential hypertension Qualified Code(s): I10 - Essential (primary) hypertension (5) Hypothyroidism Current Visit: No Status: Chronic Qualifiers: Hypothyroidism type: acquired Qualified Code(s): E03.9 - Hypothyroidism, unspecified (6) Parkinson disease Onset Date: 04/04/18 Current Visit: No Status: Chronic (7) Seizure disorder Onset Date: 04/04/18 Current Visit: No Status: Chronic (8) Supratherapeutic INR Current Visit: Yes Status: Acute Plan: Patient with history of chronic anti coagulation takes Coumadin for AFib -INR today is 4.04 -will hold warfarin at this time -monitor closely for next 24-48 hrs - Plan Patient currently pending clinical improvement at this time. Discharge Plan: Longterm Plan to discharge in: 48 Hours - Code Status/Comfort Care Code Status Assessed: Yes Critical Care: No
--- NOTE | 2018-09-16 13:32 | EKG ---
Test Date: 2018-09-15 Test Time: 11:54:19 Campus Rep: [place] MEASUREMENT RESULTS: Intervals: Rate: 70 MS: QRSD: 198 QT: 500 QTc: 540 [place]: P: MS: QRS: -74 T: 110 INTERPRETIVE STATEMENTS: Sinus tachycardia with complete heart block and Ventricular-paced rhythm Abnormal ECG Compared to ECG 04/03/2018 11:18:20 AV block, complete (third-degree) now present Electronically Signed On 09-16-18 13:22:10 DEAN by Mikael Wilson
[2018-09-16] MEDS: CARBIDOPA/LEVODOPA 25/100 TAB PO SCH ×2 (17:00→21:00)
[2018-09-16 18:52] LABS: Potassium 3.6 mmol/L (3.5-5.1)
[2018-09-16] MEDS ORDERED: KCL 20 MEQ/100 mL IVPB 20 MEQ/100 ML BAG IV SCH (20:00)
[2018-09-16] MEDS: MIRTAZAPINE 15 MG TAB PO SCH (21:00)
[2018-09-16] MEDS: DONEPEZIL HCL 5 MG TAB PO SCH (21:00)
[2018-09-17] MEDS: levETIRAcetam 500 MG in NA CHLORIDE 0.9% 100 ML IV SCH ×3 (00:21→23:09)
[2018-09-17] MEDS: Meropenem 1,000 MG in NA CHLORIDE 0.9% 100 ML IV SCH (01:40)
[2018-09-17] MEDS: THYROID 30 MG TAB PO SCH (03:56)
[2018-09-17 04:23] LABS: Absolute Lymphocytes (CBC) 7.4 K/uL (0.7-4.9); Absolute Monocytes 0.6 K/uL (0.1-1.3); Basophils % 0.3 % (0-1.3); Eosinophils % 1.5 % (0-4.4); Hematocrit 39.9 % (39.6-49.0); MPV 9.1 fL (7.6-11.3); Monocytes % 4.9 % (3.3-12.3); RBC Red Blood Cell Count 4.29 M/uL (4.33-5.43)
[2018-09-17 04:33] LABS: Lymphocytes % 60.7 % (15.3-44.8)
[2018-09-17 04:41] LABS: Protime INR 4.77
[2018-09-17 04:46] LABS: Albumin 2.8 g/dL (3.4-5.0); Bilirubin Total 0.7 mg/dL (0.2-1.0); Potassium 3.8 mmol/L (3.5-5.1); Protein, Total 6.9 g/dL (6.4-8.2)
[2018-09-17] MEDS ORDERED: KCL 20 MEQ/100 mL IVPB 20 MEQ/100 ML BAG IV SCH (05:00)
--- NOTE | 2018-09-17 08:32 | P.CNS ---
Date of Consult: 09/17/18 Primary Care Provider: Penitentiary Resident Chief Complaint: Lung mass History of Present Illness: Patient is 82 years of age admitted with altered mental status. I suspect secondary to urosepsis he does have a suprapubic catheter. Proteus was isolated he is on Procrit antibiotics Found to have a right upper lobe lung mass patient denies any complaints denies any pulmonary complaints he has a history of underlying dementia and Parkinson' s disease is never smoked in prior history of non-Hodgkin's lymphoma. Patient has become progressively more hypernatremic INR is very elevated Allergies No Known Allergies Allergy (Verified 04/03/18 20:24) Home Medications: Amlodipine [Norvasc*] 1 tab PO DAILY 09/15/18 Ascorbic Acid [C-500] 1 tab PO BID 09/15/18 Aspirin [Aspirin EC 81 MG] 1 tab PO DAILY 09/15/18 Carbidopa/Levodopa [Carbidopa-Levo ER 50-200 Tab] 1 tab PO BID 09/15/18 Carbidopa/Levodopa [Carbidopa-Levodopa 25-100 Tab] 1.5 tab PO QID 09/15/18 Carboxymethylcell/Glycerin/Pf [Lubricant 0.5-0.9% Eye Drops] 1 drop TOP QID 01/27 Docusate Sodium [Colace] 1 cap PO DAILY 09/15/18 Donepezil HCl 10 mg PO DAILY 09/15/18 Doxycycline Hyclate 1 cap PO BID 09/15/18 Ferrous Gluconate [Iron] 240 mg PO BID 09/15/18 Glucerna Shake [Glucerna*] 237 ml PO DAILY 09/15/18 Levetiracetam [Keppra] 1 tab PO Q12H 09/15/18 Loperamide HCl [Imodium A-D] 1 cap PO Q6H PRN 09/15/18 Mirtazapine [Remeron] 1 tab PO BEDTIME 09/15/18 Mupirocin Cream [Bactroban 2% Cream*] 1 appl TOP Q12H 09/15/18 Thiamine HCl 1 tab PO DAILY 09/15/18 Thyroid,Pork [Nature-Throid] 1 tab PO DAILY 09/15/18 Valacyclovir [Valtrex*] 1 tab PO DAILY 09/15/18 Warfarin Sodium [Coumadin*] 1 tab PO DAILY 09/15/18 Zinc Sulfate [Zinc Sulfate*] 1 tab PO DAILY 09/15/18 traMADol HCL [Ultram*] 1 tab PO Q6H PRN 09/15/18 - Past Medical/Surgical History Diabetic: Yes -: Parkinsons -: Dementia -: Seizure disorder -: Anemia -: BPH -: HTN -: Pulmonary Embolism 2015 -: DVT 2001 -: Greater Trochanter broken -: Non Hodgkins Lymphoma -: Triple Bypass 2000 -: Cancer Removal on top of the head 2017 -: Spinal Surgery for Stenosis -: Lithotripsy for Kidney Stones Psychosocial/ Personal History: [facility]. - Family History Father Medical History: Heart disease Mother Medical History: Cancer - Social History Smoking Status: Unknown if ever smoked Alcohol use: No CD- Drugs: No Caffeine use: No Place of Residence: Pen[facility]iary Review of Systems Chronic lower extremity weakness General: Weakness Physical Examination Temp Pulse Resp BP Pulse Ox 97.6 F 69 18 151/61 H 95 09/17/18 04:00 09/17/18 04:00 09/17/18 04:00 09/17/18 04:00 09/17/18 04:00 General: Alert, Oriented x3 HEENT: Atraumatic Neck: Supple Respiratory: Clear to auscultation bilaterally Cardiovascular: Normal S1 S2 Gastrointestinal: Normal bowel sounds, Soft and benign Laboratory Data (last 24 hrs) 09/16/18 18:20: Sodium 148 H, Potassium 3.6, BUN 16, Creatinine 1.08, Glucose 86 - Problems (1) Lung mass Current Visit: Yes Status: Acute Plan: Patient is 82 years of age evaluated by me for a right upper lobe lung mass he has never smoked. History of non-Hodgkin's lymphoma denies any pulmonary complaints although he does have underlying dementia Parkinson's disease INR elevated supratherapeutic right now patient is not a candidate for bronchoscopy as an inpatient will discuss this as an outpatient vital signs satisfactory oxygenation satisfactory (2) Hypernatremia Current Visit: Yes Status: Acute Plan: Change to D5 water is probably going to need 2 weeks of IV treatment with meropenem due to EES BAL organism
[2018-09-17] MEDS: DOCUSATE NA 100 MG CAP PO SCH (08:45)
[2018-09-17] MEDS: ASPIRIN EC 81 MG TAB PO SCH (08:45)
[2018-09-17] MEDS: FERROUS GLUCONATE 300 MG TAB PO SCH ×2 (08:46→21:00)
[2018-09-17] MEDS: ZINC SULFATE 220 MG CAP PO SCH (08:46)
[2018-09-17] MEDS: AMLODIPINE 10 MG TAB PO SCH (08:46)
[2018-09-17] MEDS: THIAMINE HCL 100 MG TABLET PO SCH (08:46)
[2018-09-17] MEDS: VALACYCLOVIR 500 MG TAB PO SCH (08:46)
[2018-09-17] MEDS: CARBIDOPA/LEVODOPA 25/100 TAB PO SCH ×4 (08:46→21:45)
[2018-09-17] MEDS ORDERED: Meropenem 1000 MG/VIAL IV SCH (09:00)
[2018-09-17] MEDS: GLUCERNA SHAKE 237 ML CAN PO SCH (09:00)
[2018-09-17] MEDS: Meropenem 500 MG in NA CHLORIDE 0.9% 100 ML IV SCH ×2 (09:17→21:45)
[2018-09-17] MEDS: CIPROFLOXACIN 0.3% ML OPHTH OPTH SCH ×2 (09:18→21:00)
[2018-09-17] MEDS: MUPIROCIN 2% OINT 22GM TUBE TOP SCH ×2 (09:19→21:00)
[2018-09-17] MEDS: D5W 1,000 ML IV SCH ×2 (09:20→22:20)
[2018-09-17] MEDS: POLYVINYL ALCOHOL 1.4% 15 ML OPTH SCH ×4 (09:20→21:00)
[2018-09-17 11:02] LABS: Thyroid Stimulating Hormone 2.92 uIU/mL (0.360-3.740)
--- NOTE | 2018-09-17 14:51 | P.PN ---
Subjective Date of Service: 09/17/18 Primary Care Provider: Jail Resident Chief Complaint: Lung mass Patient seen and examined at bedside this morning. Chart read discussed with urology and pulmonology at this time. Patient currently alert and oriented x2. At baseline now. No complaints to offer overnight. States that we did talk to the daughter to update her regarding his medical treatment. Review of Systems 10-point ROS is otherwise unremarkable Physical Examination - Vital Signs Temperature: 98.5 F Blood Pressure: 152/68 Pulse: 70 Respirations: 18 Pulse Ox (%): 96 - Physical Exam General: Alert, In no apparent distress, Oriented x2 HEENT: Atraumatic, PERRLA, EOMI Neck: Supple, JVD not distended Respiratory: Clear to auscultation bilaterally, Normal air movement Cardiovascular: Regular rate/rhythm, Normal S1 S2 Gastrointestinal: Normal bowel sounds, No tenderness Musculoskeletal: Tenderness Integumentary: No rashes Neurological: Normal speech, Normal tone, Normal affect Lymphatics: No axilla or inguinal lymphadenopathy - Studies Laboratory Data (last 24 hrs) 09/16/18 18:20: Sodium 148 H, Potassium 3.6, BUN 16, Creatinine 1.08, Glucose 86 Microbiology Data (last 24 hrs): 09/15/18 13:30 Clean Catch Urine [place] Count - Final >100,000 CFU/ML. 09/15/18 13:30 Clean Catch Urine - Final Proteus Mirabilis Medications List Reviewed: Yes Assessment And Plan - Current Problems (Diagnosis) (1) Altered mental status Onset Date: 09/17/18 Current Visit: No Status: Acute Plan: Acute altered mental status most likely secondary to toxic encephalopathy from UTI. Currently Improved. -currently alert and oriented x2 now. -Head CT negative for Acute abnormality -patient does have pacemaker thus is not a candidate for MRI -will monitor for next 24-48 hr. Qualifiers: Altered mental status type: stupor Qualified Code(s): R40.1 - Stupor (2) UTI (urinary tract infection) Onset Date: 09/17/18 Current Visit: No Status: Acute Plan: Patient's UA consistent with UTI. UTI most likely secondary to suprapubic catheter. -indwelling catheter related infection -currently started on IV meropenem given the history of multi-drug resistant bacteria -urine culture positive for multidrug resistant Proteus -urology consulted. Appreciated recommendations at this time. -catheter replaced last time on August 27. Qualifiers: Urinary tract infection type: site unspecified Hematuria presence: without hematuria Qualified Code(s): N39.0 - Urinary tract infection, site not specified (3) Dementia Onset Date: 04/04/18 Current Visit: No Status: Chronic Plan: Currently stable at this time. Patient's altered mental status or change in mentation could be secondary to advancing dementia and Parkinson's disease. However will rule out any organic cause of this time. Qualifiers: Dementia type: Parkinson's disease Dementia behavioral disturbance: without behavioral disturbance Qualified Code(s): G20 - Parkinson's disease; F02.80 - Dementia in other diseases classified elsewhere without behavioral disturbance (4) HTN (hypertension) Onset Date: 04/04/18 Current Visit: No Status: Chronic Qualifiers: Hypertension type: essential hypertension Qualified Code(s): I10 - Essential (primary) hypertension (5) Hypothyroidism Onset Date: 09/17/18 Current Visit: No Status: Chronic Qualifiers: Hypothyroidism type: acquired Qualified Code(s): E03.9 - Hypothyroidism, unspecified (6) Parkinson disease Onset Date: 04/04/18 Current Visit: No Status: Chronic (7) Seizure disorder Onset Date: 04/04/18 Current Visit: No Status: Chronic (8) Supratherapeutic INR Onset Date: 09/17/18 Current Visit: Yes Status: Acute Plan: Patient with history of chronic anti coagulation takes Coumadin for AFib -INR today is 4. 77 -will hold warfarin at this time -monitor closely for next 24-48 hrs -if no change in next 24 hr will give vitamin K x1 - Plan Patient currently pending clinical improvement at this time. Discharge Plan: Jail Plan to discharge in: 48 Hours - Code Status/Comfort Care Code Status Assessed: Yes Critical Care: No
--- NOTE | 2018-09-17 17:27 | RAD REPORT ---
EXAM DESCRIPTION: RAD - Barium Swallow Modified - 09/17/2018 3:38 pm CLINICAL HISTORY: aspiration COMPARISON: [facility] Protocol dated 12/11/2016 TECHNIQUE: The patient was given liquid, semi-solid and solid forms of barium. Lateral view fluorosc opic imaging was performed in conjunction with speech pathology service. FINDINGS: Aspiration no cough with thin by tsp. Pharangeal residue on vallecular Barium tablet hung up in vallecula required pudding bolus to clear moderate to severe with pudding, jeremie cracker, and nectar (cleared with multiple swallows) Total fluoroscopy time: 2 minutes and 50 seconds.
--- NOTE | 2018-09-17 21:19 | RAD REPORT ---
EXAM DESCRIPTION: RAD - Abdomen 1 View (KUB) - 09/17/2018 9:04 pm CLINICAL HISTORY: Suprapubic Cather calcification Pain COMPARISON: Barium Swallow Modified dated 09/17/2018 FINDINGS: The bowel gas pattern is non-obstructive. No evidence of free air or pneumatosis. Suprapub ic catheter tubing projects over the pelvis. No unusual calcifications are seen associated with this tubing. Moderate lumbar degenerative changes.
[2018-09-17] MEDS: MIRTAZAPINE 15 MG TAB PO SCH (21:45)
[2018-09-17] MEDS: DONEPEZIL HCL 5 MG TAB PO SCH (21:45)
--- NOTE | 2018-09-17 21:57 | CON ---
INFECTIOUS DISEASE CONSULT History Of Present Illness: This is a known patient to me. He is an 82-year-old male from nursing [facility] resident, coming in with ESBL urinary tract infection. The patient has a suprapubic catheter for more than a year ago, now growing Proteus mirabilis ESBL on his urine. Currently being treated with meropenem, his suprapubic catheter will be changed tomorrow. Patient denies any headache, nausea, v omiting, chest pain, abdominal pain, constipation, or diarrhea. The patient also has a wound to his buttocks where hydrocolloid is being applied. Past Medical History: Suprapubic catheter, Parkinson disease, seizure disorder, anemia, BPH, hyperte nsion, greater trochanter bone fracture, non-Hodgkin lymphoma, kidney stone. Social History: Nonsmoker, nondrinker. Lives at a nursing facility. Family History: Noncontributory. Medications: Meropenem. See MARs for other medication. Allergies: NO KNOWN DRUG ALLERGIES. Review of Systems: A 10-point review was performed. Physical Examination: General: This is an 82-year-old male, lying in bed, not in any acute cardiopulmonary distress. Vital Signs: Temperature 98.5, pulse 70, respiration 18, blood pressure 152/68. HEENT: Unremarkable. Neck: Supple. Lungs: Basal crackles. Heart: S1, S2. Regular. Abdomen: Soft, nontender. Bowel sounds present. Extremities: Buttock wounds noted, suprapubic catheter noted. Laboratory Data: Shows WBC 12,200, hemoglobin 13.1, platelets are 97. Chemistry shows sodium 150, p otassium 3.8, chloride 117, bicarb 24, BUN 17, creatinine 1, glucose is 72. Micro data, urine growin g Proteus mirabilis ESBL. Chest x-ray shows right upper lobe opacity with mild volume loss, has not cleared up since March 2018, may represent post obstructive pneumonitis. Bronchoscopy recommended. Assessment And Plan: Urinary tract infection secondary to ESBL, suprapubic catheter in 82-year-old m tona, buttock wound healing well. Continue antibiotic for total of 2 weeks. Continue supportive care and wound care. We will follow the patient closely. Thank you Dr. Green, for consult. NF/MODL Voice ID: [id number] Report ID: [id number]
[2018-09-18] MEDS ORDERED: VITAMIN K (ADULT) 10 MG/ML SQ ONE (01:00)
[2018-09-18 04:14] LABS: Protime INR 3.17
[2018-09-18 04:15] LABS: Absolute Lymphocytes (CBC) 9.1 K/uL (0.7-4.9); Absolute Monocytes 0.6 K/uL (0.1-1.3); Absolute Neutrophil 3.9 K/uL (1.8-8.0); Basophils % 0.2 % (0-1.3); Eosinophils % 3.2 % (0-4.4); Hematocrit 41.2 % (39.6-49.0); Lymphocytes % 64.5 % (15.3-44.8); MPV 8.9 fL (7.6-11.3); Monocytes % 4.2 % (3.3-12.3); RBC Red Blood Cell Count 4.45 M/uL (4.33-5.43)
[2018-09-18 04:30] LABS: AST/SGOT 18 U/L (15-37); Albumin 2.9 g/dL (3.4-5.0); Alkaline Phosphatase 87 U/L (45-117); BUN Blood Urea Nitrogen 15 mg/dL (7-18); Bicarbonate 23 mmol/L (21-32); Bilirubin Total 0.8 mg/dL (0.2-1.0); Glucose Level 88 mg/dL (74-106); Phosphorus 2.3 mg/dL (2.5-4.9); Potassium 3.7 mmol/L (3.5-5.1); Sodium Level 144 mmol/L (136-145)
[2018-09-18 04:34] LABS: ALT/SGPT < 6 U/L (12-78)
[2018-09-18 04:47] LABS: Blood Morphology Comment NOT SEEN (NOT SEEN); Platelet Estimate DECR
[2018-09-18] MEDS: THYROID 30 MG TAB PO SCH (05:21)
[2018-09-18] MEDS ORDERED: POTASS/SODIUM PHOSPHATE 1 PKT POWD.PACK PO SCH (06:00)
[2018-09-18] MEDS: POTASS/SODIUM PHOSPHATE 1 PKT POWD.PACK PO SCH ×3 (06:27→11:20)
[2018-09-18] MEDS: MUPIROCIN 2% OINT 22GM TUBE TOP SCH ×2 (09:00→21:00)
[2018-09-18] MEDS: POLYVINYL ALCOHOL 1.4% 15 ML OPTH SCH ×4 (09:00→21:00)
[2018-09-18] MEDS: Meropenem 500 MG in NA CHLORIDE 0.9% 100 ML IV SCH ×2 (09:31→21:35)
[2018-09-18] MEDS: DOCUSATE NA 100 MG CAP PO SCH (09:32)
[2018-09-18] MEDS: AMLODIPINE 10 MG TAB PO SCH (09:32)
[2018-09-18] MEDS: THIAMINE HCL 100 MG TABLET PO SCH (09:32)
[2018-09-18] MEDS: FERROUS GLUCONATE 300 MG TAB PO SCH ×2 (09:32→21:32)
[2018-09-18] MEDS: ZINC SULFATE 220 MG CAP PO SCH (09:32)
[2018-09-18] MEDS: VALACYCLOVIR 500 MG TAB PO SCH (09:32)
[2018-09-18] MEDS: ASPIRIN EC 81 MG TAB PO SCH (09:32)
[2018-09-18] MEDS: CARBIDOPA/LEVODOPA 25/100 TAB PO SCH ×4 (09:33→21:31)
[2018-09-18] MEDS: GLUCERNA SHAKE 237 ML CAN PO SCH (09:34)
[2018-09-18] MEDS: CIPROFLOXACIN 0.3% ML OPHTH OPTH SCH ×2 (09:35→21:35)
[2018-09-18] MEDS: levETIRAcetam 500 MG in NA CHLORIDE 0.9% 100 ML IV SCH (12:51)
--- NOTE | 2018-09-18 14:28 | P.DS ---
Admission Date: 09/16/18 Discharge Date: 09/18/18 Primary Care Provider: Alf Resident Disposition: ROUTINE DISCHARGE Discharge Condition: GOOD Reason for Admission: Lung mass Consultations: Pulmonology Urology - Problems (1) Altered mental status Onset Date: 09/17/18 Current Visit: No Status: Acute Qualifiers: Altered mental status type: stupor Qualified Code(s): R40.1 - Stupor (2) UTI (urinary tract infection) Onset Date: 09/17/18 Current Visit: No Status: Acute Qualifiers: Urinary tract infection type: site unspecified Hematuria presence: without hematuria Qualified Code(s): N39.0 - Urinary tract infection, site not specified (3) Dementia Onset Date: 04/04/18 Current Visit: No Status: Chronic Qualifiers: Dementia type: Parkinson's disease Dementia behavioral disturbance: without behavioral disturbance Qualified Code(s): G20 - Parkinson's disease; F02.80 - Dementia in other diseases classified elsewhere without behavioral disturbance (4) HTN (hypertension) Onset Date: 04/04/18 Current Visit: No Status: Chronic Qualifiers: Hypertension type: essential hypertension Qualified Code(s): I10 - Essential (primary) hypertension (5) Hypothyroidism Onset Date: 09/17/18 Current Visit: No Status: Chronic Qualifiers: Hypothyroidism type: acquired Qualified Code(s): E03.9 - Hypothyroidism, unspecified (6) Parkinson disease Onset Date: 04/04/18 Current Visit: No Status: Chronic (7) Seizure disorder Onset Date: 04/04/18 Current Visit: No Status: Chronic (8) Supratherapeutic INR Onset Date: 09/17/18 Current Visit: Yes Status: Acute Brief History of Present Illness: This is a 82-year-old male with significant past medical history of Parkinson's , seizures, hypertension, hyper thyroidism, suprapubic catheter placement 1 and half year ago at the [facility] who presented to the ED from the detention after was have altered mental status. Most of the information came from the daughter at bedside. Patient is daughter at bedside stated that this morning patient started having some staring spells and was not responding verbally to any conversation by the nursing staff for the family members and thus they decided to bring him to the ER. Patient's daughter says that about a week ago patient was seen at the detention at the detention doctor would recommended changing the bandages around the suprapubic catheter however was not able to be done and the bandages were old and most likely got infected. Patient has had similar episodes in the past and had similar symptoms in the past as well. Daughter states that he has had couple of more episodes like his while here in the hospital as well. Denies having any fever nausea vomiting constipation or any other associated symptoms. Part the daughter at bedside at baseline patient is able to recognize and talk to the family members Hospital Course: Overall during the hospital stay patient remained stable Patient was initially admitted to the hospital for altered mental status most likely secondary to toxic encephalopathy secondary to UTI. Patient has a long indwelling catheter suprapubic catheter then he has visited the hospital several x4. Patient's UA initially was concerning for UTI and thus was started on IV meropenem given the history of multi-drug resistant organism. Urology was consulted who replaced the suprapubic catheter. After initiation of IV antibiotics patient had marked improvement within 24 hr of stay here in the hospital. Altered mental status had resolved and patient was back to his baseline. Patient's urine culture finally resulted in was consistent with multidrug resistant Proteus. Patient was continued on IV meropenem. Patient was discharged back to the detention with IV meropenem 1 g q.8 hr for total of 2 weeks. Patient had a PICC line placed here in the hospital. While here in the hospital patient also was found to have a lung mass on the chest x-ray and the CT scan. Pulmonology was consulted who recommended no further workup for the patient given his advanced age and disease process. Patient is to follow up with pulmonology outpatient in about 1-2 weeks post discharge. While here in the hospital patient patient was also found to have concerning for aspiration pneumonia. Patient had modified barium swallow done here in the hospital which was consistent with no aspiration and patient was allowed to have mechanical soft diet. A detailed discussion was done with patient's family specifically daughter at bedside regarding the plan of care. Patient's family agreed with the plan of care this patient was discharged back to the detention under stable condition. Vital Signs/Physical Exam: Temp Pulse Resp BP Pulse Ox 97.2 F 70 16 126/62 94 09/18/18 12:00 09/18/18 12:00 09/18/18 12:00 09/18/18 12:00 09/18/18 12:00 General: Alert, In no apparent distress, Oriented x2, Other (Dementia and cachexia) HEENT: Atraumatic, PERRLA, EOMI Neck: Supple, JVD not distended Respiratory: Clear to auscultation bilaterally, Normal air movement Cardiovascular: Regular rate/rhythm, Normal S1 S2 Gastrointestinal: Normal bowel sounds, No tenderness Musculoskeletal: No tenderness Integumentary: Skin breakdown (Skin breakdown on the back), Other (Suprapubic catheter in place.) Neurological: Normal speech, Normal tone, Normal affect Lymphatics: No axilla or inguinal lymphadenopathy Laboratory Data at Discharge: WBC 14.1 K/uL (4.3-10.9) H D 09/18/18 03:28 Hgb 13.4 g/dL (13.6-17.9) L 09/18/18 03:28 Hct 41.2 % (39.6-49.0) 09/18/18 03:28 Plt Count 106 K/uL (152-406) L 09/18/18 03:28 PT 37.8 SECONDS (9.5-12.5) H 09/18/18 03:28 INR 3.17 09/18/18 03:28 Sodium 144 mmol/L (136-145) 09/18/18 03:28 Potassium 3.7 mmol/L (3.5-5.1) 09/18/18 03:28 BUN 15 mg/dL (7-18) 09/18/18 03:28 Creatinine 1.01 mg/dL (0.55-1.3) 09/18/18 03:28 Glucose 88 mg/dL (74-106) 09/18/18 03:28 Phosphorus 2.3 mg/dL (2.5-4.9) L 09/18/18 03:28 Magnesium 2.0 mg/dL (1.8-2.4) 09/18/18 03:28 Total Bilirubin 0.8 mg/dL (0.2-1.0) 09/18/18 03:28 AST 18 U/L (15-37) 09/18/18 03:28 ALT < 6 U/L (12-78) L 09/18/18 03:28 Alkaline Phosphatase 87 U/L (45-117) 09/18/18 03:28 Home Medications: Amlodipine [Norvasc*] 1 tab PO DAILY 09/15/18 Ascorbic Acid [C-500] 1 tab PO BID 09/15/18 Aspirin [Aspirin EC 81 MG] 1 tab PO DAILY 09/15/18 Carbidopa/Levodopa [Carbidopa-Levo ER 50-200 Tab] 1 tab PO BID 09/15/18 Carbidopa/Levodopa [Carbidopa-Levodopa 25-100 Tab] 1.5 tab PO QID 09/15/18 Carboxymethylcell/Glycerin/Pf [Lubricant 0.5-0.9% Eye Drops] 1 drop TOP QID 01/27 Docusate Sodium [Colace] 1 cap PO DAILY 09/15/18 Donepezil HCl 10 mg PO DAILY 09/15/18 Ferrous Gluconate [Iron] 240 mg PO BID 09/15/18 Glucerna Shake [Glucerna*] 237 ml PO DAILY 09/15/18 Levetiracetam [Keppra] 1 tab PO Q12H 09/15/18 Loperamide HCl [Imodium A-D] 1 cap PO Q6H PRN 09/15/18 Mirtazapine [Remeron] 1 tab PO BEDTIME 09/15/18 Mupirocin Cream [Bactroban 2% Cream*] 1 appl TOP Q12H 09/15/18 Thiamine HCl 1 tab PO DAILY 09/15/18 Thyroid,Pork [Nature-Throid] 1 tab PO DAILY 09/15/18 Valacyclovir [Valtrex*] 1 tab PO DAILY 09/15/18 Warfarin Sodium [Coumadin*] 1 tab PO DAILY 09/15/18 Zinc Sulfate [Zinc Sulfate*] 1 tab PO DAILY 09/15/18 traMADol HCL [Ultram*] 1 tab PO Q6H PRN 09/15/18 Meropenem [Merrem] 1 gm IV Q8H #42 vial 09/18/18 New Medications: Meropenem [Merrem] 1 gm IV Q8H #42 vial Patient Discharge Instructions: Please f.u with PCP and Urology in 1 to 2 week post discharge. New medication. meropenum 1g q8h for 14 days. You need to Hold the warfarin for next 2 days and restart it at half the dose and adjust it according to the INR. Diet: Regular Activity: Ad tabatha
--- NOTE | 2018-09-18 15:16 | CON ---
History Of Present Illness: An 82-year-old gentleman who has history of Parkinson's, hypertension, hypothyroidism, he has a suprapubic catheter that was orginally placed about a year ago at the [facility]. I have not seen this patient in about 2 to 3 years in the office. He came to the ER from the half-way for altered mental status. Most of the information I am getting is from the chart. His urine culture is growing Proteus mirabilis with some ESBL sensitive to Augmentin, gentamicin, cefoxitin, cefotetan, Timentin, tobramycin, piperacillin and tazobactam, meropenem, and amikacin. Allergies: NO KNOWN DRUG ALLERGIES. Home Medications: Norvasc, vitamin C, aspirin, carbidopa and levodopa, carboxymethyl glycerin, Colace, __, doxycycline, ferrous gluconate, ___, Keppra , loperamide,___, Bactroban, ____, Valtrex, Coumadin, zinc, and tramadol. Past Medical History: Parkinson's, dementia, seizure, anemia, BPH, hypertension , pulmonary embolism, DVT, greater trochanter __ removal, spinal surgery for stenosis, and lithotripsy of kidney stones. Psychosocial: Lives in half-way. Family History: Noncontributory. Social History: Never smoked. No drug use. No caffeine use. Resides in a half-way Review of Systems: Ten-point review of systems otherwise unremarkable. Physical Examination: Vital Signs: Temperature 98.5, pulse 70, respiratory rate 18, and blood pressure 152/68. General: The patient is alert. HEENT: Atraumatic and normocephalic. Neck: Supple. Respiratory: Clear. Cardiovascular: S1 and S2. Gastrointestinal: Normal bowel sounds, benign. Musculoskeletal: dressed with soft boots Urinary: Suprapubic catheter. Skin: Nice clean area. Catheter is draining dark colored urine. Laboratory Data: PT elevated at 53, INR 4.4 and high. White count 14.9, H and H of 14 and 42, platelets 115. Urine culture as mentioned above. The patient is on the appropriate antibiotics. He is on meropenem in addition to ciprofloxacin. Recommend continue IV antibiotics while the patient is in- house, lots of hydration and we will have to find out when the last time the suprapubic tube was changed, it can either be changed here or when he gets back to the half-way depending on the length of time, but I do not have that information right now. GEORGI/CHAY Voice ID: [id number] Report ID: [id number] MTDD
[2018-09-18] MEDS: D5W 1,000 ML IV SCH (17:36)
--- NOTE | 2018-09-18 17:55 | PN ---
Subjective: The patient lying in bed, not in any acute distress. Denies any new complaints. Objective: Vital Signs: Temperature 97.7, pulse 70, respirations 15, and blood pressure 147/74. Lungs: Clear to auscultation. Heart: S1, S2. Regular. Abdomen: Soft. Bowel sounds present. Suprapubic catheter in place, has been replaced by Urology te am Laboratory Data: Shows WBC 14,000, hemoglobin 13.4, and platelets are 106. The patient is growing P roteus mirabilis in the urine culture, more than 100,000. Assessment And Plan: Extended-spectrum beta-lactamase, currently being treated with meropenem. Cont inue IV antibiotic and wound care to the buttock. Wound Care will follow the patient closely. DION/CHAY Voice ID: [id number] Report ID: [id number]
--- NOTE | 2018-09-18 18:07 | PN ---
Subjective: The patient feels well and verbalized his feelings. Also, the patient's catheter was ch anged less than a month ago from the nurse. Objective: Vital Signs: Temperature 97.7, pulse 70, respirations 16, BP 147/74, 94% sat on room air 21%. Is and Os, the patient took in 1350, put out 500 over the last shift so far. Assessment: Extended-spectrum beta-lactamase Proteus mirabilis. The patient is on IV meropenem. Plan: We will go ahead and change the catheter. This was done with nurse, Myriam. The patient was p repped and draped and the suprapubic tube was removed. We measured how much was inside and placed th e same amount of length on a new 16-Lith[place] Sahu catheter. Balloon was inserted with 10 cc sterile w ater. We then flushed the catheter to make sure it was draining well and confirmed that is so, and t he procedure was terminated. The patient may go back to [facility] soon on IV meropenem for 2 week s as recommended by Infectious Disease. The patient will be on probiotics about 1 tab per day after his antibiotics course is over with meropenem. GEORGI/CHAY Voice ID: [id number] Report ID: [id number]
[2018-09-18] MEDS: MIRTAZAPINE 15 MG TAB PO SCH (21:33)
[2018-09-18] MEDS: DONEPEZIL HCL 5 MG TAB PO SCH (21:33)
[2018-09-19] MEDS: levETIRAcetam 500 MG in NA CHLORIDE 0.9% 100 ML IV SCH ×2 (00:29→11:20)
[2018-09-19] MEDS: D5W 1,000 ML IV SCH (00:29)
[2018-09-19 05:40] LABS: Phosphorus 2.7 mg/dL (2.5-4.9); Potassium 3.2 mmol/L (3.5-5.1)
[2018-09-19] MEDS ORDERED: POTASSIUM 25 MEQ EFFERV TAB PO ONE (05:48)
[2018-09-19] MEDS: THYROID 30 MG TAB PO SCH (06:02)
--- NOTE | 2018-09-19 08:25 | RAD REPORT ---
EXAM DESCRIPTION: RAD - Chest Single View - 09/19/2018 2:49 am CLINICAL HISTORY: PICC line placement COMPARISON: September 19 FINDINGS: Portable chest was obtained following placement of a right upper extremity PICC line. The catheter tip is in the distal SVC. Right upper lobe volume loss and right hilar increase opacification again noted. Right costophrenic a ngle blunting is now now evident.
--- NOTE | 2018-09-19 08:25 | RAD REPORT ---
EXAM DESCRIPTION: RAD - Chest Single View - 09/19/2018 12:10 am CLINICAL HISTORY: PICC line placement, shortness of breath COMPARISON: September 15 TECHNIQUE: AP portable chest image was obtained 0007 hours . FINDINGS: Lungs are underinflated. Right upper extremity PICC line has been placed with the tip dist al SVC. Heart size is upper normal. Vasculature within normal limits. No measurable pleural effusion and no pneumothorax. Increased right hilar opacification is present. There is increased opacification and elevation of the minor fissure on the right. No acute aortic findings suspected. IMPRESSION: Right upper extremity PICC line placement with the tip in the distal SVC. Increasing right hilar opacification with increased opacification along the base of the elevated lennie r fissure. This could be infiltrate or mass resulting in right upper lobe atelectasis.
[2018-09-19] MEDS ORDERED: MEDIHONEY 44 ML TOPICAL TUBE TOP SCH (09:00)
[2018-09-19] MEDS: AMLODIPINE 10 MG TAB PO SCH (10:42)
[2018-09-19] MEDS: FERROUS GLUCONATE 300 MG TAB PO SCH (10:42)
[2018-09-19] MEDS: CARBIDOPA/LEVODOPA 25/100 TAB PO SCH ×2 (10:42→13:46)
[2018-09-19] MEDS: DOCUSATE NA 100 MG CAP PO SCH (10:42)
[2018-09-19] MEDS: VALACYCLOVIR 500 MG TAB PO SCH (10:42)
[2018-09-19] MEDS: ZINC SULFATE 220 MG CAP PO SCH (10:42)
[2018-09-19] MEDS: THIAMINE HCL 100 MG TABLET PO SCH (10:42)
[2018-09-19] MEDS: GLUCERNA SHAKE 237 ML CAN PO SCH (10:43)
[2018-09-19] MEDS: Meropenem 500 MG in NA CHLORIDE 0.9% 100 ML IV SCH (10:43)
[2018-09-19] MEDS: ASPIRIN EC 81 MG TAB PO SCH (10:45)
[2018-09-19] MEDS: POLYVINYL ALCOHOL 1.4% 15 ML OPTH SCH ×2 (10:46→13:46)
[2018-09-19] MEDS: MUPIROCIN 2% OINT 22GM TUBE TOP SCH (10:46)
[2018-09-19] MEDS: CIPROFLOXACIN 0.3% ML OPHTH OPTH SCH (10:47)
[2018-09-19 11:06] VITALS: O2SAT 92
--- NOTE | 2018-09-19 17:19 | PN ---
Subjective: The patient is lying in bed. No new acute event. Suprapubic catheter working well with out any challenges. The patient denies any pain or burning sensation. Objective: Vital signs: Temperature 98.5, pulse 70, respirations 16, blood pressure 148/71. Lungs: Basal crackles. Heart: S1, S2. Regular. Abdomen: Soft, nontender. Bowel sounds present. Extremities: Trace edema. Laboratory Data: Shows WBC from yesterday 14,000, hemoglobin 13.4, platelets 106. Chemistry shows s odium 141, potassium 3.2, chloride 108, bicarb 24, BUN 14, creatinine 0.98, glucose 112. Assessment And Plan: Urinary tract infection, leukocytosis. We will repeat CBC only if necessary. The patient is going to nursing facility where antibiotic will be continued. We will follow the froilan ent as needed. Extended-spectrum beta-lactamase Proteus mirabilis. Total course of treatment 10 day momo LOPEZ Voice ID: [id number] Report ID: [id number]
[2018-09-19 19:54] VITALS: BP 146/67; TEMP 97.8
== END 2018-09-19 16:15 | DRG 698 ==
LOC: ER 11:42 → ERHOLD 15:01 → 4TH 15:53 → OBSVTOIN 09-16 21:36
PROVIDERS: ADMIT Family Medicine; ATTEND Family Medicine
PROC: 0T9B30Z Drainage of Bladder with Drainage Device, Percutaneous Approach (ICD-10-PCS; principal; 2018-09-18)
PROC: 0TPBX0Z Removal of Drainage Device from Bladder, External Approach (ICD-10-PCS; 2018-09-18)
PROC: 02HV33Z Insertion of Infusion Device into Superior Vena Cava, Percutaneous Approach (ICD-10-PCS; 2018-09-19)
DX: T83.511A Infection and inflammatory reaction due to indwelling urethral catheter, initial encounter (principal); G92 Toxic encephalopathy; E87.0 Hyperosmolality and hypernatremia; N39.0 Urinary tract infection, site not specified; R91.8 Other nonspecific abnormal finding of lung field; R40.1 Stupor; G20 Parkinson's disease; G40.909 Epilepsy, unspecified, not intractable, without status epilepticus; I10 Essential (primary) hypertension; E03.9 Hypothyroidism, unspecified; Z86.711 Personal history of pulmonary embolism; Z86.718 Personal history of other venous thrombosis and embolism
CPT/HCPCS: 36415; 70450; 71045; 74018; 74230; 80048; 80053; 80076; 81003; 81015; 82607; 83735; 83880; 84100; 84132; 84443; 84484; 85025; 85610; 87077; 87086; 87088; 87186; 92611; 93005; 94760; 96365; 96366; 99285; J0696; J0744; J1953; J3430; J7030

== ENCOUNTER 2018-09-22 21:54 | Inpatient (IN) | payer OTHER ==
--- OUTSIDE RECORDS SUMMARY | 2018-09-22 21:57 | XMS REPORT | Clinical Summary ---
:1935 Author Organization [facility] Address [address] [place] [address] Care Team Providers Name Role Phone Unavailable [...] Not on file Results Not on fileafter 09/21/2017 Insurance Payer Benefit Plan / Group Subscriber ID Type Phone Address MEDICARE MEDICARE A B xxxxxxxxxx Medicare AETNA - [place] CARE AETNA INDEMNITY NON CONTR xxxxxxxxx Comm Advance Directives For more information, please contact:[address] [phone] Code Status Date Activated Date Inactivated Comments Full Code 12/11/2016 5:27 PM 12/20/2016 3:30 PM This code status was determined by: Patient
--- OUTSIDE RECORDS SUMMARY | 2018-09-22 21:58 | XMS REPORT ---
:1935 Author Organization [facility] Address [address] [place] [address] Care Team Providers Name Role Phone ELIZABETH [...] Comments WHITE BLOOD CELL COUNT (BEAKER) (test nhlb=190) 9.1 K/ L 4.0-10.0 RED BLOOD CELL COUNT (BEAKER) (test xrla=586) 3.43 M/ L 4.20-5.80 HEMOGLOBIN (BEAKER) (test jpfy=745) 9.1 GM/DL 13.0-16.8 HEMATOCRIT (BEAKER) (test zvzo=537) 29.7 % 40.0-50.0 MEAN CORPUSCULAR VOLUME (BEAKER) (test uupm=480) 86.8 fL 82.0-98.0 MEAN CORPUSCULAR HEMOGLOBIN (BEAKER) (test bwxw=353) 26.6 pg 27.0-33.0 MEAN CORPUSCULAR HEMOGLOBIN CONC (BEAKER) (test oebo=918) 30.7 GM/DL 32.0- 36.0 RED CELL DISTRIBUTION WIDTH (BEAKER) (test chfd=204) 14.5 % 10.3-14.2 PLATELET COUNT (BEAKER) (test jivu=617) 211 K/CU MM 150-430 MEAN PLATELET VOLUME (BEAKER) (test awze=511) 7.4 fL 6.5-10.5 NUCLEATED RED BLOOD CELLS (BEAKER) (test djuk=366) 0 /100 WBC 0-0 NEUTROPHILS RELATIVE PERCENT (BEAKER) (test nzjn=035) 38 % LYMPHOCYTES RELATIVE PERCENT (BEAKER) (test ijed=055) 52 % MONOCYTES RELATIVE PERCENT (BEAKER) (test pohj=548) 6 % EOSINOPHILS RELATIVE PERCENT (BEAKER) (test ficm=458) 3 % BASOPHILS RELATIVE PERCENT (BEAKER) (test vpgj=257) 1 % NEUTROPHILS ABSOLUTE COUNT (BEAKER) (test bcow=946) 3.48 K/ L 1.80-8.00 LYMPHOCYTES ABSOLUTE COUNT (BEAKER) (test cugz=014) 4.70 K/ L 1.48-4.50 MONOCYTES ABSOLUTE COUNT (BEAKER) (test ckqc=457) 0.57 K/ L 0.00-1.30 EOSINOPHILS ABSOLUTE COUNT (BEAKER) (test srvq=108) 0.26 K/ L 0.00-0.50 BASOPHILS ABSOLUTE COUNT (BEAKER) (test fmwf=535) 0.06 K/ L 0.00-0.20 0.00(MANUAL DIFFERENTIAL)2016-12-19 09:47:00 Test Item Value Reference Range Comments TOTAL COUNTED (BEAKER) (test qhas=8596) WBC MORPHOLOGY (BEAKER) (test jwld=567) Normal PLT MORPHOLOGY (BEAKER) (test mqpc=682) Normal RBC MORPHOLOGY (BEAKER) (test ryia=398) Normal BASIC METABOLIC [id number] 04:52:00 Test Item Value Reference Range Comments SODIUM (BEAKER) (test 141 meq/L 136-145 mqif=500) POTASSIUM (BEAKER) (test 3.8 meq/L 3.5-5.1 otmq=601) CHLORIDE (BEAKER) (test 111 meq/L 98-107 qrpj=542) CO2 (BEAKER) (test 21 meq/L 22-29 nkdf=469) BLOOD UREA NITROGEN 16 mg/dL 7-21 (BEAKER) (test pvnz=279) CREATININE (BEAKER) (test 1.35 mg/dL 0.57-1.25 fqde=490) GLUCOSE RANDOM (BEAKER) 96 mg/dL 70-105 (test rgun=752) CALCIUM (BEAKER) (test 8.2 mg/dL 8.4-10.2 fvhd=926) EGFR (BEAKER) (test 51 mL/min/1.73 sq m ESTIMATED GFR IS NOT zxkh=5725) ACCURATE CREATININE CLEARANCE IN PREDICTING GLOMERULAR FILTRATION RATE. ESTIMATED GFR IS NOT APPLICABLE FOR DIALYSIS PATIENTS. CBC W/PLT COUNT & AUTO [id number] 09:26:00 Test Item Value Reference Range Comments WHITE BLOOD CELL COUNT (BEAKER) (test jbhh=939) 8.8 K/ L 4.0-10.0 RED BLOOD CELL COUNT (BEAKER) (test wgcc=766) 3.40 M/ L 4.20-5.80 HEMOGLOBIN (BEAKER) (test qgee=650) 9.5 GM/DL 13.0-16.8 HEMATOCRIT (BEAKER) (test fbtm=949) 29.6 % 40.0-50.0 MEAN CORPUSCULAR VOLUME (BEAKER) (test chuy=329) 87.0 fL 82.0-98.0 MEAN CORPUSCULAR HEMOGLOBIN (BEAKER) (test 27.8 pg 27.0-33.0 vywy=622) MEAN CORPUSCULAR HEMOGLOBIN CONC (BEAKER) (test 31.9 GM/DL 32.0-36.0 vwlf=255) RED CELL DISTRIBUTION WIDTH (BEAKER) (test 14.6 % 10.3-14.2 kmls=747) PLATELET COUNT (BEAKER) (test xlkh=502) 193 K/CU MM 150-430 MEAN PLATELET VOLUME (BEAKER) (test gqrh=815) 7.7 fL 6.5-10.5 NUCLEATED RED BLOOD CELLS (BEAKER) (test 0 /100 WBC 0-0 whvl=339) NEUTROPHILS RELATIVE PERCENT (BEAKER) (test 40 % dpib=554) LYMPHOCYTES RELATIVE PERCENT (BEAKER) (test 51 % cmoe=882) MONOCYTES RELATIVE PERCENT (BEAKER) (test 6 % tnub=326) EOSINOPHILS RELATIVE PERCENT (BEAKER) (test 3 % cxxl=180) BASOPHILS RELATIVE PERCENT (BEAKER) (test 0 % udrn=584) NEUTROPHILS ABSOLUTE COUNT (BEAKER) (test 3.46 K/ L 1.80-8.00 xvce=884) LYMPHOCYTES ABSOLUTE COUNT (BEAKER) (test 4.50 K/ L 1.48-4.50 fpur=503) MONOCYTES ABSOLUTE COUNT (BEAKER) (test 0.53 K/ L 0.00-1.30 wemv=375) EOSINOPHILS ABSOLUTE COUNT (BEAKER) (test 0.26 K/ L 0.00-0.50 nlkh=313) BASOPHILS ABSOLUTE COUNT (BEAKER) (test 0.02 K/ L 0.00-0.20 uibu=544) 0.00(MANUAL DIFFERENTIAL)2016-12-18 09:26:00 Test Item Value Reference Range Comments TOTAL COUNTED (BEAKER) (test qjtx=7038) WBC MORPHOLOGY (BEAKER) (test zclr=556) Normal PLT MORPHOLOGY (BEAKER) (test avyy=388) Normal RBC MORPHOLOGY (BEAKER) (test mstc=296) Normal URINE [id number] 07:48:00 Test Item Value Reference Range Comments CULTURE (BEAKER) (test PSEUDOMONAS >100,000 col/mL kpfi=7503) AERUGINOSA Pseudomonas aeruginosa Amikacin (test code=1) Susceptible 0-16 , Resistant <0 or >16 Aztreonam (test Susceptible 0-8 , code=32) Resistant <0 or >8 Cefepime (test code=51) Susceptible 0-8 , Resistant <0 or >8 Ceftazidime (test Susceptible 0-8 , code=27) Resistant <0 or >8 Ciprofloxacin (test Susceptible 0-1 , code=7) Resistant <0 or >1 Doripenem (test Susceptible 0-2 , gjqg=053) Resistant <0 or >2 Gentamicin (test Susceptible [...] code=25) Resistant <0 or >4 BASIC METABOLIC [id number] 05:21:00 Test Item Value Reference Range Comments SODIUM (BEAKER) (test 138 meq/L 136-145 axwo=106) POTASSIUM (BEAKER) (test 3.4 meq/L 3.5-5.1 erqo=214) CHLORIDE (BEAKER) (test 110 meq/L 98-107 hqpp=488) CO2 (BEAKER) (test 18 meq/L 22-29 qyjq=497) BLOOD UREA NITROGEN 16 mg/dL 7-21 (BEAKER) (test xjem=542) CREATININE (BEAKER) (test 1.28 mg/dL 0.57-1.25 zyga=681) GLUCOSE RANDOM (BEAKER) 99 mg/dL 70-105 (test nitn=509) CALCIUM (BEAKER) (test 8.1 mg/dL 8.4-10.2 rlvu=770) EGFR (BEAKER) (test 54 mL/min/1.73 sq m ESTIMATED GFR IS NOT vhfx=8733) ACCURATE CREATININE CLEARANCE IN PREDICTING GLOMERULAR FILTRATION RATE. ESTIMATED GFR IS NOT APPLICABLE FOR DIALYSIS PATIENTS. HEPARIN ASSAY - LOW MOLECULAR [id number] 15:26:00 Test Item Value Reference Range Comments LOVENOX-ANTI 10A (BEAKER) (test ulhp=4362) 0.77 u/ml 0.60-2.00 Effective 07/18/2016: Reference Range ChangeNew: 0.60-2.00 Previous: 0.60- 1.99Anti-Factor 10A Level(Heparin Assay for Low Molecular Weight Heparin) Monitoring Guidelines: Blood samples should be obtained 4 hours post subcutaneous injection (time of Peak level) Therapeutic Peak Levels: 0.6-1.0 units/mL twice daily enoxaparin 1.0-2.0 units/mL once daily enoxaparinCBC W/PLT COUNT & AUTO [id number] 14:48:00 Test Item Value Reference Range Comments WHITE BLOOD CELL COUNT (BEAKER) (test giff=408) 10.2 K/ L 4.0-10.0 RED BLOOD CELL COUNT (BEAKER) (test mtvr=710) 3.16 M/ L 4.20-5.80 HEMOGLOBIN (BEAKER) (test byaa=253) 9.0 GM/DL 13.0-16.8 HEMATOCRIT (BEAKER) (test dlpg=242) 27.6 % 40.0-50.0 MEAN CORPUSCULAR VOLUME (BEAKER) (test fkez=799) 87.3 fL 82.0-98.0 MEAN CORPUSCULAR HEMOGLOBIN (BEAKER) (test 28.6 pg 27.0-33.0 ryau=820) MEAN CORPUSCULAR HEMOGLOBIN CONC (BEAKER) (test 32.7 GM/DL 32.0-36.0 vmyp=851) RED CELL DISTRIBUTION WIDTH (BEAKER) (test 14.7 % 10.3-14.2 lwha=873) PLATELET COUNT (BEAKER) (test slla=118) 175 K/CU MM 150-430 MEAN PLATELET VOLUME (BEAKER) (test sjzq=851) 7.9 fL 6.5-10.5 NUCLEATED RED BLOOD CELLS (BEAKER) (test 0 /100 WBC 0-0 tdbv=045) NEUTROPHILS RELATIVE PERCENT (BEAKER) (test 46 % jcpc=183) LYMPHOCYTES RELATIVE PERCENT (BEAKER) (test 48 % sgnp=278) MONOCYTES RELATIVE PERCENT (BEAKER) (test 3 % xfgn=788) EOSINOPHILS RELATIVE PERCENT (BEAKER) (test 2 % flgh=020) BASOPHILS RELATIVE PERCENT (BEAKER) (test 1 % byvd=111) NEUTROPHILS ABSOLUTE COUNT (BEAKER) (test 4.69 K/ L 1.80-8.00 lguu=312) LYMPHOCYTES ABSOLUTE COUNT (BEAKER) (test 4.86 K/ L 1.48-4.50 lurc=959) MONOCYTES ABSOLUTE COUNT (BEAKER) (test 0.35 K/ L 0.00-1.30 xhbj=072) EOSINOPHILS ABSOLUTE COUNT (BEAKER) (test 0.22 K/ L 0.00-0.50 okwh=799) BASOPHILS ABSOLUTE COUNT (BEAKER) (test 0.06 K/ L 0.00-0.20 pesh=466) 0.00(MANUAL DIFFERENTIAL)2016-12-17 14:48:00 Test Item Value Reference Range Comments TOTAL COUNTED (BEAKER) (test iwxo=5948) WBC MORPHOLOGY (BEAKER) (test lijj=970) Normal PLT MORPHOLOGY (BEAKER) (test mgdb=466) Normal ANISOCYTOSIS (BEAKER) (test jecg=402) 1+ few HYPOCHROMIA (BEAKER) (test ylws=263) 1+ few POIKILOCYTES (BEAKER) (test ujgm=291) 1+ few BASIC METABOLIC [id number] 05:13:00 Test Item Value Reference Range Comments SODIUM (BEAKER) (test 137 meq/L 136-145 nqei=835) POTASSIUM (BEAKER) (test 3.6 meq/L 3.5-5.1 iddw=913) CHLORIDE (BEAKER) (test 111 meq/L 98-107 swkp=942) CO2 (BEAKER) (test 17 meq/L 22-29 tdxk=798) BLOOD UREA NITROGEN 18 mg/dL 7-21 (BEAKER) (test yagn=394) CREATININE (BEAKER) (test 1.39 mg/dL 0.57-1.25 iyhq=434) GLUCOSE RANDOM (BEAKER) 104 mg/dL 70-105 (test uydw=045) CALCIUM (BEAKER) (test 8.2 mg/dL 8.4-10.2 qzje=708) EGFR (BEAKER) (test 49 mL/min/1.73 sq m ESTIMATED GFR IS NOT buqo=6218) ACCURATE CREATININE CLEARANCE IN PREDICTING GLOMERULAR FILTRATION RATE. ESTIMATED GFR IS NOT APPLICABLE FOR DIALYSIS PATIENTS. BLOOD [id number] 00:00:00 Test Item Value Reference Range Comments CULTURE (BEAKER) (test fosw=6072) No growth in 5 days BASIC METABOLIC [id number] 06:19:00 Test Item Value Reference Range Comments SODIUM (BEAKER) (test 138 meq/L 136-145 ibso=575) POTASSIUM (BEAKER) (test 3.9 meq/L 3.5-5.1 vjln=440) CHLORIDE (BEAKER) (test 109 meq/L 98-107 qxal=586) CO2 (BEAKER) (test 20 meq/L 22-29 mtnv=622) BLOOD UREA NITROGEN 22 mg/dL 7-21 (BEAKER) (test vjxt=317) CREATININE (BEAKER) (test 1.58 mg/dL 0.57-1.25 xbkw=034) GLUCOSE RANDOM (BEAKER) 97 mg/dL 70-105 (test abum=372) CALCIUM (BEAKER) (test 8.6 mg/dL 8.4-10.2 gvuh=384) EGFR (BEAKER) (test 42 mL/min/1.73 sq m ESTIMATED GFR IS NOT pelm=0610) ACCURATE CREATININE CLEARANCE IN PREDICTING GLOMERULAR FILTRATION RATE. ESTIMATED GFR IS NOT APPLICABLE FOR DIALYSIS PATIENTS. URINALYSIS W/ [id number] 18:02:00 Test Item Value Reference Range Comments COLOR (BEAKER) (test psuv=203) Yellow CLARITY (BEAKER) (test fvzr=026) Cloudy SPECIFIC GRAVITY UA (BEAKER) (test mpoe=425) 1.017 1.001-1.035 PH UA (BEAKER) (test rzst=497) 5.5 5.0-8.0 PROTEIN UA (BEAKER) (test poky=996) 70 mg/dL Negative GLUCOSE UA (BEAKER) (test buuy=115) Negative Negative KETONES UA (BEAKER) (test lyky=382) Negative Negative BILIRUBIN UA (BEAKER) (test xflh=360) Negative Negative BLOOD UA (BEAKER) (test xesa=568) Large Negative NITRITE UA (BEAKER) (test rall=479) Negative Negative LEUKOCYTE ESTERASE UA (BEAKER) (test beey=607) Large Negative UROBILINOGEN UA (BEAKER) (test dvkf=610) 0.2 mg/dL 0.2-1.0 RBC UA (BEAKER) (test kgzt=425) > /HPF WBC UA (BEAKER) (test cjrg=284) > /HPF MUCUS (BEAKER) (test fztf=6883) Rare SQUAMOUS EPITHELIAL (BEAKER) (test xups=989) 2 /HPF SOURCE(BEAKER) (test slbf=0658) Urine, [place] CBC W/PLT COUNT & AUTO [id number] 09:55:00 Test Item Value Reference Range Comments WHITE BLOOD CELL COUNT (BEAKER) (test wdak=110) 11.5 K/ L 4.0-10.0 RED BLOOD CELL COUNT (BEAKER) (test wzsx=160) 3.68 M/ L 4.20-5.80 HEMOGLOBIN (BEAKER) (test rsbi=536) 10.5 GM/DL 13.0-16.8 HEMATOCRIT (BEAKER) (test wytp=530) 32.0 % 40.0-50.0 MEAN CORPUSCULAR VOLUME (BEAKER) (test tlev=460) 87.1 fL 82.0-98.0 MEAN CORPUSCULAR HEMOGLOBIN (BEAKER) (test 28.4 pg 27.0-33.0 lslz=997) MEAN CORPUSCULAR HEMOGLOBIN CONC (BEAKER) (test 32.6 GM/DL 32.0-36.0 qnag=590) RED CELL DISTRIBUTION WIDTH (BEAKER) (test 15.7 % 10.3-14.2 yanu=993) PLATELET COUNT (BEAKER) (test dewo=976) 167 K/CU MM 150-430 MEAN PLATELET VOLUME (BEAKER) (test bbcu=385) 8.2 fL 6.5-10.5 NUCLEATED RED BLOOD CELLS (BEAKER) (test 0 /100 WBC 0-0 apww=201) NEUTROPHILS RELATIVE PERCENT (BEAKER) (test 48 % irno=810) LYMPHOCYTES RELATIVE PERCENT (BEAKER) (test 45 % lvju=474) MONOCYTES RELATIVE PERCENT (BEAKER) (test 6 % zrdu=255) EOSINOPHILS RELATIVE PERCENT (BEAKER) (test 0 % rthy=643) BASOPHILS RELATIVE PERCENT (BEAKER) (test 0 % dwhw=499) NEUTROPHILS ABSOLUTE COUNT (BEAKER) (test 5.55 K/ L 1.80-8.00 kcfl=021) LYMPHOCYTES ABSOLUTE COUNT (BEAKER) (test 5.18 K/ L 1.48-4.50 vnyg=533) MONOCYTES ABSOLUTE COUNT (BEAKER) (test 0.70 K/ L 0.00-1.30 sjny=605) EOSINOPHILS ABSOLUTE COUNT (BEAKER) (test 0.05 K/ L 0.00-0.50 gsqj=451) BASOPHILS ABSOLUTE COUNT (BEAKER) (test 0.06 K/ L 0.00-0.20 iirv=347) 0.00(MANUAL DIFFERENTIAL)2016-12-15 09:55:00 Test Item Value Reference Range Comments TOTAL COUNTED (BEAKER) (test ivos=8691) PLT MORPHOLOGY (BEAKER) (test cidg=505) Normal ATYPICAL LYMPHS(BEAKER) (test oall=7244) Present POLYCHROMATOPHILLIC RBCS(BEAKER) (test nqnp=922) 1+ few BASIC METABOLIC [id number] 05:46:00 Test Item Value Reference Range Comments SODIUM (BEAKER) (test 141 meq/L 136-145 jzgl=296) POTASSIUM (BEAKER) (test 4.2 meq/L 3.5-5.1 jvrc=128) CHLORIDE (BEAKER) (test 111 meq/L 98-107 mcnd=815) CO2 (BEAKER) (test 18 meq/L 22-29 sump=365) BLOOD UREA NITROGEN 24 mg/dL 7-21 (BEAKER) (test qkzy=294) CREATININE (BEAKER) (test 1.84 mg/dL 0.57-1.25 zsfp=649) GLUCOSE RANDOM (BEAKER) 119 mg/dL 70-105 (test kbsn=130) CALCIUM (BEAKER) (test 8.7 mg/dL 8.4-10.2 muax=705) EGFR (BEAKER) (test 35 mL/min/1.73 sq m ESTIMATED GFR IS NOT xdrq=1260) ACCURATE CREATININE CLEARANCE IN PREDICTING GLOMERULAR FILTRATION RATE. ESTIMATED GFR IS NOT APPLICABLE FOR DIALYSIS PATIENTS. [id number] 05:27:00 Test Item Value Reference Range Comments PROTIME (BEAKER) (test krnf=629) 14.2 seconds 11.7-14.7 INR (BEAKER) (test qpgq=786) 1.1 <=5.9 PARTIAL THROMBOPLASTIN TIME (BEAKER) (test 28.3 seconds 22.5-36.0 nwbz=519) RECOMMENDED COUMADIN/WARFARIN INR THERAPY RANGESSTANDARD DOSE: 2.0 - 3.0 Includes: PROPHYLAXIS forvenous thrombosis, systemic embolization; TREATMENT for venous thrombosis and/or pulmonary embolus.HIGH RISK: Target INR is 2.5-3.5 for patients with mechanical heart valves.CBC W/PLT COUNT & AUTO [id number] 11:32:00 Test Item Value Reference Range Comments WHITE BLOOD CELL COUNT (BEAKER) (test kaqr=901) 10.7 K/ L 4.0-10.0 RED BLOOD CELL COUNT (BEAKER) (test urfh=710) 3.63 M/ L 4.20-5.80 HEMOGLOBIN (BEAKER) (test pdys=131) 10.4 GM/DL 13.0-16.8 HEMATOCRIT (BEAKER) (test zodz=914) 31.8 % 40.0-50.0 MEAN CORPUSCULAR VOLUME (BEAKER) (test xajh=105) 87.8 fL 82.0-98.0 MEAN CORPUSCULAR HEMOGLOBIN (BEAKER) (test 28.5 pg 27.0-33.0 dsdc=657) MEAN CORPUSCULAR HEMOGLOBIN CONC (BEAKER) (test 32.5 GM/DL 32.0-36.0 gjhf=595) RED CELL DISTRIBUTION WIDTH (BEAKER) (test 15.7 % 10.3-14.2 ihrw=585) PLATELET COUNT (BEAKER) (test grux=178) 149 K/CU MM 150-430 MEAN PLATELET VOLUME (BEAKER) (test cusz=922) 8.9 fL 6.5-10.5 NUCLEATED RED BLOOD CELLS (BEAKER) (test 0 /100 WBC 0-0 wpvf=750) NEUTROPHILS RELATIVE PERCENT (BEAKER) (test 47 % hqbp=629) LYMPHOCYTES RELATIVE PERCENT (BEAKER) (test 44 % fvim=634) MONOCYTES RELATIVE PERCENT (BEAKER) (test 7 % bhhh=552) EOSINOPHILS RELATIVE PERCENT (BEAKER) (test 1 % igxt=787) BASOPHILS RELATIVE PERCENT (BEAKER) (test 0 % evnv=118) NEUTROPHILS ABSOLUTE COUNT (BEAKER) (test 5.07 K/ L 1.80-8.00 einv=157) LYMPHOCYTES ABSOLUTE COUNT (BEAKER) (test 4.68 K/ L 1.48-4.50 figl=195) MONOCYTES ABSOLUTE COUNT (BEAKER) (test 0.76 K/ L 0.00-1.30 nanh=390) EOSINOPHILS ABSOLUTE COUNT (BEAKER) (test 0.13 K/ L 0.00-0.50 elmg=687) BASOPHILS ABSOLUTE COUNT (BEAKER) (test 0.04 K/ L 0.00-0.20 jagc=659) 0.00(MANUAL DIFFERENTIAL)2016-12-14 11:32:00 Test Item Value Reference Range Comments TOTAL COUNTED (BEAKER) (test vjim=4225) WBC MORPHOLOGY (BEAKER) (test dozc=414) Normal PLT MORPHOLOGY (BEAKER) (test bpdc=759) Normal RBC MORPHOLOGY (BEAKER) (test avpi=782) Normal URINE [id number] 09:07:00 Test Item Value Reference Range Comments CULTURE (BEAKER) (test twvt=7957) No growth HEPATIC FUNCTION [id number] 05:03:00 Test Item Value Reference Range Comments TOTAL PROTEIN (BEAKER) (test bfpl=544) 6.9 gm/dL 6.0-8.3 ALBUMIN (BEAKER) (test yvsc=4279) 3.5 g/dL 3.5-5.0 BILIRUBIN TOTAL (BEAKER) (test qohz=116) 0.3 mg/dL 0.2-1.2 BILIRUBIN DIRECT (BEAKER) (test qjhb=532) 0.2 mg/dL 0.1-0.5 ALKALINE PHOSPHATASE (BEAKER) (test mtcz=468) 78 U/L 40-150 AST (SGOT) (BEAKER) (test uryg=292) 17 U/L 5-34 ALT (SGPT) (BEAKER) (test lgcp=746) < U/L 6-55 [id number] 05:03:00 Test Item Value Reference Range Comments PARTIAL THROMBOPLASTIN TIME (BEAKER) (test 47.9 seconds 22.5-36.0 sepf=278) [id number] 04:57:00 Test Item Value Reference Range Comments MAGNESIUM (BEAKER) (test mwue=645) 2.0 mg/dL 1.6-2.6 BASIC METABOLIC [id number] 04:57:00 Test Item Value Reference Range Comments SODIUM (BEAKER) (test 139 meq/L 136-145 jhrn=030) POTASSIUM (BEAKER) (test 4.5 meq/L 3.5-5.1 lxlp=975) CHLORIDE (BEAKER) (test 108 meq/L 98-107 jhud=545) CO2 (BEAKER) (test 20 meq/L 22-29 ltpc=961) BLOOD UREA NITROGEN 29 mg/dL 7-21 (BEAKER) (test gnxw=623) CREATININE (BEAKER) (test 1.84 mg/dL 0.57-1.25 nxuu=287) GLUCOSE RANDOM (BEAKER) 140 mg/dL 70-105 (test tltq=823) CALCIUM (BEAKER) (test 8.6 mg/dL 8.4-10.2 waga=716) EGFR (BEAKER) (test 35 mL/min/1.73 sq m ESTIMATED GFR IS NOT eoyg=2045) ACCURATE CREATININE CLEARANCE IN PREDICTING GLOMERULAR FILTRATION RATE. ESTIMATED GFR IS NOT APPLICABLE FOR DIALYSIS PATIENTS. PROTHROMBIN [id number] 04:36:00 Test Item Value Reference Range Comments PROTIME (BEAKER) (test nbzj=620) 13.5 seconds 11.7-14.7 INR (BEAKER) (test lrbd=235) 1.0 <=5.9 RECOMMENDED COUMADIN/WARFARIN INR THERAPY RANGESSTANDARD DOSE: 2.0 - 3.0 Includes: PROPHYLAXIS forvenous thrombosis, systemic embolization; TREATMENT for venous thrombosis and/or pulmonary embolus.HIGH RISK: Target INR is 2.5-3.5 for patients with mechanical heart valves.VANCOMYCIN LEVEL, [id number] 21: 01:00 Test Item Value Reference Range Comments VANCOMYCIN TROUGH (BEAKER) (test hryc=752) 16.7 ug/mL 10.0-20.0 Please draw vancomycin trough \R\30 minutes prior to administration time; For trough >20 mcg/mL,hold next dose and contact pharmacy and MD.CBC W/PLT COUNT & AUTO [id number] 07:27:00 Test Item Value Reference Range Comments WHITE BLOOD CELL COUNT (BEAKER) (test hugu=227) 12.2 K/ L 4.0-10.0 RED BLOOD CELL COUNT (BEAKER) (test gcdi=342) 3.47 M/ L 4.20-5.80 HEMOGLOBIN (BEAKER) (test tctw=998) 9.8 GM/DL 13.0-16.8 HEMATOCRIT (BEAKER) (test jdqu=414) 30.8 % 40.0-50.0 MEAN CORPUSCULAR VOLUME (BEAKER) (test javn=267) 88.6 fL 82.0-98.0 MEAN CORPUSCULAR HEMOGLOBIN (BEAKER) (test 28.2 pg 27.0-33.0 bmkq=473) MEAN CORPUSCULAR HEMOGLOBIN CONC (BEAKER) (test 31.8 GM/DL 32.0-36.0 rhuc=953) RED CELL DISTRIBUTION WIDTH (BEAKER) (test 15.7 % 10.3-14.2 dano=796) PLATELET COUNT (BEAKER) (test rpyc=929) 133 K/CU MM 150-430 MEAN PLATELET VOLUME (BEAKER) (test eyme=663) 8.9 fL 6.5-10.5 NUCLEATED RED BLOOD CELLS (BEAKER) (test 0 /100 WBC 0-0 wzev=405) NEUTROPHILS RELATIVE PERCENT (BEAKER) (test 51 % ptgr=377) LYMPHOCYTES RELATIVE PERCENT (BEAKER) (test 43 % ecig=028) MONOCYTES RELATIVE PERCENT (BEAKER) (test 5 % dcqu=664) EOSINOPHILS RELATIVE PERCENT (BEAKER) (test 0 % wulr=960) BASOPHILS RELATIVE PERCENT (BEAKER) (test 1 % byuj=197) NEUTROPHILS ABSOLUTE COUNT (BEAKER) (test 6.24 K/ L 1.80-8.00 xhbd=640) LYMPHOCYTES ABSOLUTE COUNT (BEAKER) (test 5.21 K/ L 1.48-4.50 zulc=107) MONOCYTES ABSOLUTE COUNT (BEAKER) (test 0.64 K/ L 0.00-1.30 hlyi=630) EOSINOPHILS ABSOLUTE COUNT (BEAKER) (test 0.05 K/ L 0.00-0.50 hfvr=777) BASOPHILS ABSOLUTE COUNT (BEAKER) (test 0.07 K/ L 0.00-0.20 pgpm=441) 0.00HEPATIC FUNCTION [id number] 05:28:00 Test Item Value Reference Range Comments TOTAL PROTEIN (BEAKER) (test ciss=884) 6.4 gm/dL 6.0-8.3 ALBUMIN (BEAKER) (test onis=7206) 3.3 g/dL 3.5-5.0 BILIRUBIN TOTAL (BEAKER) (test xtad=171) 0.5 mg/dL 0.2-1.2 BILIRUBIN DIRECT (BEAKER) (test oags=533) 0.2 mg/dL 0.1-0.5 ALKALINE PHOSPHATASE (BEAKER) (test gxdp=221) 69 U/L 40-150 AST (SGOT) (BEAKER) (test qlgl=124) 18 U/L 5-34 ALT (SGPT) (BEAKER) (test cfii=140) < U/L 6-55 BASIC METABOLIC [id number] 05:28:00 Test Item Value Reference Range Comments SODIUM (BEAKER) (test 132 meq/L 136-145 zzff=248) POTASSIUM (BEAKER) (test 4.2 meq/L 3.5-5.1 jglr=921) CHLORIDE (BEAKER) (test 104 meq/L 98-107 sfjv=302) CO2 (BEAKER) (test 18 meq/L 22-29 kxfi=231) BLOOD UREA NITROGEN 27 mg/dL 7-21 (BEAKER) (test nrwp=241) CREATININE (BEAKER) (test 1.52 mg/dL 0.57-1.25 fsbr=136) GLUCOSE RANDOM (BEAKER) 126 mg/dL 70-105 (test izoq=295) CALCIUM (BEAKER) (test 8.5 mg/dL 8.4-10.2 pwtk=180) EGFR (BEAKER) (test 44 mL/min/1.73 sq m ESTIMATED GFR IS NOT ncjc=6398) ACCURATE CREATININE CLEARANCE IN PREDICTING GLOMERULAR FILTRATION RATE. ESTIMATED GFR IS NOT APPLICABLE FOR DIALYSIS PATIENTS. [id number] 05:27:00 Test Item Value Reference Range Comments MAGNESIUM (BEAKER) (test szhm=666) 1.9 mg/dL 1.6-2.6 PROTHROMBIN [id number] 05:10:00 Test Item Value Reference Range Comments PROTIME (BEAKER) (test ihsm=734) 13.0 seconds 11.7-14.7 INR (BEAKER) (test mniu=875) 1.0 <=5.9 RECOMMENDED COUMADIN/WARFARIN INR THERAPY RANGESSTANDARD DOSE: 2.0 - 3.0 Includes: PROPHYLAXIS forvenous thrombosis, systemic embolization; TREATMENT for venous thrombosis and/or pulmonary embolus.HIGH RISK: Target INR is 2.5-3.5 for patients with mechanical heart valves.HEMOGLOBIN AND [id number] 17 :05:00 Test Item Value Reference Range Comments HEMOGLOBIN (BEAKER) (test awtt=192) 10.0 GM/DL 13.0-16.8 HEMATOCRIT (BEAKER) (test dnrf=665) 31.7 % 40.0-50.0 CBC W/PLT COUNT & AUTO [id number] 10:22:00 Test Item Value Reference Range Comments WHITE BLOOD CELL COUNT (BEAKER) (test ujpp=987) 10.8 K/ L 4.0-10.0 RED BLOOD CELL COUNT (BEAKER) (test kege=941) 3.45 M/ L 4.20-5.80 HEMOGLOBIN (BEAKER) (test nmzy=361) 9.5 GM/DL 13.0-16.8 HEMATOCRIT (BEAKER) (test tqil=763) 30.1 % 40.0-50.0 MEAN CORPUSCULAR VOLUME (BEAKER) (test ayvd=681) 87.1 fL 82.0-98.0 MEAN CORPUSCULAR HEMOGLOBIN (BEAKER) (test 27.7 pg 27.0-33.0 cohx=811) MEAN CORPUSCULAR HEMOGLOBIN CONC (BEAKER) (test 31.7 GM/DL 32.0-36.0 ffne=893) RED CELL DISTRIBUTION WIDTH (BEAKER) (test 15.0 % 10.3-14.2 lnmp=819) PLATELET COUNT (BEAKER) (test vypf=137) 132 K/CU MM 150-430 MEAN PLATELET VOLUME (BEAKER) (test qvav=709) 8.3 fL 6.5-10.5 NUCLEATED RED BLOOD CELLS (BEAKER) (test 0 /100 WBC 0-0 hmvn=125) NEUTROPHILS RELATIVE PERCENT (BEAKER) (test 42 % qwao=921) LYMPHOCYTES RELATIVE PERCENT (BEAKER) (test 53 % cogc=355) MONOCYTES RELATIVE PERCENT (BEAKER) (test 5 % fqnk=567) EOSINOPHILS RELATIVE PERCENT (BEAKER) (test 0 % xqza=298) BASOPHILS RELATIVE PERCENT (BEAKER) (test 0 % jjdg=225) NEUTROPHILS ABSOLUTE COUNT (BEAKER) (test 4.48 K/ L 1.80-8.00 buwo=918) LYMPHOCYTES ABSOLUTE COUNT (BEAKER) (test 5.65 K/ L 1.48-4.50 yrhp=058) MONOCYTES ABSOLUTE COUNT (BEAKER) (test 0.57 K/ L 0.00-1.30 enic=747) EOSINOPHILS ABSOLUTE COUNT (BEAKER) (test 0.02 K/ L 0.00-0.50 njyc=095) BASOPHILS ABSOLUTE COUNT (BEAKER) (test 0.03 K/ L 0.00-0.20 beia=530) 0.00(MANUAL DIFFERENTIAL)[id number] 10:22:00 Test Item Value Reference Range Comments TOTAL COUNTED (BEAKER) (test eqqm=9981) PLT MORPHOLOGY (BEAKER) (test qjuy=582) Normal ATYPICAL LYMPHS(BEAKER) (test cjfi=8147) Present HYPOCHROMIA (BEAKER) (test ugkm=303) 1+ few POLYCHROMATOPHILLIC RBCS(BEAKER) (test lfkm=890) 1+ few [id number] 07:21:00 Test Item Value Reference Range Comments MAGNESIUM (BEAKER) (test yyxk=699) 2.1 mg/dL 1.6-2.6 BASIC METABOLIC [id number] 07:21:00 Test Item Value Reference Range Comments SODIUM (BEAKER) (test 140 meq/L 136-145 ugnt=662) POTASSIUM (BEAKER) (test 4.2 meq/L 3.5-5.1 xhec=472) CHLORIDE (BEAKER) (test 110 meq/L 98-107 aznq=786) CO2 (BEAKER) (test 21 meq/L 22-29 hnhy=653) BLOOD UREA NITROGEN 29 mg/dL 7-21 (BEAKER) (test lyrz=172) CREATININE (BEAKER) (test 1.69 mg/dL 0.57-1.25 wmui=238) GLUCOSE RANDOM (BEAKER) 96 mg/dL 70-105 (test zcdz=688) CALCIUM (BEAKER) (test 8.9 mg/dL 8.4-10.2 pxxf=512) EGFR (BEAKER) (test 39 mL/min/1.73 sq m ESTIMATED GFR IS NOT yozo=4313) ACCURATE CREATININE CLEARANCE IN PREDICTING GLOMERULAR FILTRATION RATE. ESTIMATED GFR IS NOT APPLICABLE FOR DIALYSIS PATIENTS. HEPATIC FUNCTION [id number] 07:21:00 Test Item Value Reference Range Comments TOTAL PROTEIN (BEAKER) (test zhel=346) 6.7 gm/dL 6.0-8.3 ALBUMIN (BEAKER) (test wtca=7108) 3.5 g/dL 3.5-5.0 BILIRUBIN TOTAL (BEAKER) (test dqqb=587) 0.6 mg/dL 0.2-1.2 BILIRUBIN DIRECT (BEAKER) (test jxlv=345) 0.3 mg/dL 0.1-0.5 ALKALINE PHOSPHATASE (BEAKER) (test rssu=118) 76 U/L 40-150 AST (SGOT) (BEAKER) (test uuhv=217) 20 U/L 5-34 ALT (SGPT) (BEAKER) (test kokm=797) 12 U/L 6-55 PROTHROMBIN [id number] 07:05:00 Test Item Value Reference Range Comments PROTIME (BEAKER) (test fycd=031) 14.1 seconds 11.7-14.7 INR (BEAKER) (test wbfn=123) 1.1 <=5.9 RECOMMENDED COUMADIN/WARFARIN INR THERAPY RANGESSTANDARD DOSE: 2.0 - 3.0 Includes: PROPHYLAXIS forvenous thrombosis, systemic embolization; TREATMENT for venous thrombosis and/or pulmonary embolus.HIGH RISK: Target INR is 2.5-3.5 for patients with mechanical heart valves.HEMOGLOBIN AND [id number] 01 :04:00 Test Item Value Reference Range Comments HEMOGLOBIN (BEAKER) (test psdr=611) 9.7 GM/DL 13.0-16.8 HEMATOCRIT (BEAKER) (test bqmm=942) 30.6 % 40.0-50.0 HEMOGLOBIN [id number] 20:57:00 Test Item Value Reference Range Comments HEMOGLOBIN A1C (BEAKER) (test qgai=295) 5.4 % 4.3-6.1 CBC W/PLT COUNT & AUTO [id number] 19:35:00 Test Item Value Reference Range Comments WHITE BLOOD CELL COUNT (BEAKER) (test eaxr=610) 14.1 K/ L 4.0-10.0 RED BLOOD CELL COUNT (BEAKER) (test zzer=359) 3.62 M/ L 4.20-5.80 HEMOGLOBIN (BEAKER) (test wkzc=391) 10.2 GM/DL 13.0-16.8 HEMATOCRIT (BEAKER) (test hdgf=565) 31.5 % 40.0-50.0 MEAN CORPUSCULAR VOLUME (BEAKER) (test urps=592) 87.0 fL 82.0-98.0 MEAN CORPUSCULAR HEMOGLOBIN (BEAKER) (test 28.1 pg 27.0-33.0 lqxz=808) MEAN CORPUSCULAR HEMOGLOBIN CONC (BEAKER) (test 32.3 GM/DL 32.0-36.0 wwcd=373) RED CELL DISTRIBUTION WIDTH (BEAKER) (test 16.1 % 10.3-14.2 inil=506) PLATELET COUNT (BEAKER) (test amkw=248) 139 K/CU MM 150-430 MEAN PLATELET VOLUME (BEAKER) (test mqak=639) 8.6 fL 6.5-10.5 NUCLEATED RED BLOOD CELLS (BEAKER) (test 0 /100 WBC 0-0 orrl=736) NEUTROPHILS RELATIVE PERCENT (BEAKER) (test 48 % jedd=596) LYMPHOCYTES RELATIVE PERCENT (BEAKER) (test 48 % hzoh=754) MONOCYTES RELATIVE PERCENT (BEAKER) (test 4 % zxqt=388) EOSINOPHILS RELATIVE PERCENT (BEAKER) (test 0 % rmra=463) BASOPHILS RELATIVE PERCENT (BEAKER) (test 1 % pvkn=589) NEUTROPHILS ABSOLUTE COUNT (BEAKER) (test 6.72 K/ L 1.80-8.00 nhhq=577) LYMPHOCYTES ABSOLUTE COUNT (BEAKER) (test 6.74 K/ L 1.48-4.50 ykjp=046) MONOCYTES ABSOLUTE COUNT (BEAKER) (test 0.52 K/ L 0.00-1.30 gqvc=641) EOSINOPHILS ABSOLUTE COUNT (BEAKER) (test 0.01 K/ L 0.00-0.50 reje=901) BASOPHILS ABSOLUTE COUNT (BEAKER) (test 0.09 K/ L 0.00-0.20 tnoe=451) POCT-GLUCOSE [id number] 17:00:00 Test Item Value Reference Range Comments POC-GLUCOSE METER (GURINDER) 129 mg/dL 70-[address] [facility] [address] [facility] (test ojly=5512) [facility] [id number]
[2018-09-22 22:21] LABS: Absolute Lymphocytes (CBC) 10.3 K/uL (0.7-4.9); Absolute Monocytes 0.8 K/uL (0.1-1.3); Absolute Neutrophil 10.1 K/uL (1.8-8.0); Basophils % 0.4 % (0-1.3); Eosinophils % 0.9 % (0-4.4); Hematocrit 42.5 % (39.6-49.0); MPV 9.6 fL (7.6-11.3); Monocytes % 3.6 % (3.3-12.3); RBC Red Blood Cell Count 4.51 M/uL (4.33-5.43)
[2018-09-22 22:24] LABS: Protime INR 1.19
[2018-09-22 22:44] LABS: Potassium 3.9 mmol/L (3.5-5.1); Troponin (Emerg Dept Use Only) 0.03 ng/mL (0.0-0.045)
[2018-09-22] MEDS ORDERED: Meropenem 1 GM/100 ML BAG ONE (22:45)
[2018-09-22] MEDS ORDERED: LEVALBUTEROL 1.25 MG/3 ML NEB ONE (22:45)
[2018-09-22] MEDS ORDERED: Levofloxacin 750mg IV 750 MG/150 ML BAG IV ONE (22:45)
[2018-09-22] MEDS ORDERED: NA CHLORIDE 0.9% 250 ML ONE (22:45)
[2018-09-22 23:02] LABS: Blood Morphology Comment NOT SEEN (NOT SEEN); Platelet Estimate ADEQ
--- NOTE | 2018-09-22 23:53 | EDPHYS ---
Physician Documentation [facility] Name: Alvarez Aleman Jr Age: 82 yrs Sex: Male : 1935 Arrival Date: 09/22/2018 Time: 21:55 Bed 2 Private MD: ED Physician Carrillo Mack HPI: 09/22 22:33 This 82 yrs old Male presents to ER via EMS with complaints of sob, low rn oxygen. 22:33 The patient has shortness of breath at rest. Onset: The symptoms/episode began/occurred rn 4 day(s) ago. Duration: The symptoms are continuous. The patient's shortness of breath is aggravated by exertion. Severity of symptoms: At their worst the symptoms were moderate in the emergency department the symptoms are unchanged. The patient has experienced a previous episode. The patient has been recently been admitted at [facility]. Recently admitted to this hospital for UTI, has PICC line, taking meropenem and levaquin, daughter reports had pulmonary symptoms around time of discharge, got worse , and progressed.. Historical: - Allergies: 22:08 No Known Allergies; ed1 - Home Meds: 22:08 warfarin 2 mg oral tab 1 tab once daily [Active]; ipratropium-albuterol 0.5 mg-3 mg(2.5 ed1 mg base)/3 mL Inhl nebu 3 mL every 4 hours PRN [Active]; Acidophilus Oral cap 1 cap daily [Active]; Levaquin 500 mg Oral tab 1 tab once daily [Active]; amlodipine 10 mg tab 1 tab once daily [Active]; ascorbic acid (vitamin C) 500 mg tab twice a day [Active]; aspirin 81 mg Oral chew [Active]; carbidopa-levodopa 50-200 mg Oral TbER 1 tab 2 times per day [Active]; carbidopa-levodopa 10-100 mg Oral TbDL 1.5 tabs 4 times per day [Active]; docusate sodium 100 mg Oral tab 1 tab once daily [Active]; donepezil 10 mg Oral tab 1 tab once daily [Active]; ferrous gluconate 325 mg (37 mg iron) Oral tab [Active]; Glucerna Oral liqd twice a day [Active]; Keppra 500 mg Oral tab 1 tab 2 times per day [Active]; Remeron 15 mg Oral tab 1 tab once daily [Active]; thiamine HCl (vitamin B1) 100 mg Oral tab 100 mg daily [Active]; tramadol 50 mg Oral tab 1 tab every 6 hours [Active]; - PMHx: 22:08 Acute embolism \T\ 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 - Social history:: Smoking status: Patient/guardian denies using tobacco. - Ebola Screening: : Patient negative for fever greater than or equal to 101.5 degrees Fahrenheit, and additional compatible Ebola Virus Disease symptoms Patient denies exposure to infectious person Patient denies travel to an Ebola-affected area in the 21 days before illness onset No symptoms or risks identified at this time. - Family history:: not pertinent. - Hospitalizations: : The patient was recently seen at [facility]. ROS: 22:33 Constitutional: + fever, + thirst Eyes: Negative for injury, pain, redness, and pharmacy grad intern, ENT: Negative for injury, pain, and discharge, Cardiovascular: Negative for chest pain, palpitations, and edema, Respiratory: + cough and sob Abdomen/GI: Negative for abdominal pain, nausea, vomiting, diarrhea, and constipation, MS/Extremity: Negative for injury and deformity, Neuro: + generalized weakness Exam: 22:33 Constitutional: This is a well developed, well nourished patient who is awake, alert, rn on bipap, answering questions, + moderate respiratory distress Head/Face: Normocephalic, atraumatic. Eyes: Pupils equal round and reactive to light ENT: dry MM, no stridor Cardiovascular: Regular rate and rhythm, No pulse deficits. Respiratory: + moderate tachypnea with coarse bilateral breath sounds, R>L Abdomen/GI: soft, non-tender MS/ Extremity: Pulses equal, no cyanosis. Neuro: Awake, answering questions Vital Signs: 22:08 BP 147 / 71; Pulse 86; Resp 37; Temp 98(A); Pulse Ox 96% on 100% BiPAP; Pain 0/10; ed1 22:15 BP 130 / 67; Pulse 90; Resp 29; Pulse Ox 100% on 100% BiPAP; lp1 22:21 Temp 99.1(R); ms 22:30 BP 126 / 72; Pulse 88; Resp 40; Pulse Ox 100% on 100% BiPAP; lp1 23:00 Weight 99.79 kg (R); Height 5 ft. 11 in. (180.34 cm) (R); lp1 23:00 BP 129 / 64; Pulse 83; Resp 40; Pulse Ox 100% on 100% BiPAP; lp1 23:12 Weight 86 kg; lp1 23:34 BP 146 / 74; Pulse 83; Resp 35; Pulse Ox 100% on 100% BiPAP; lp1 09/23 00:00 BP 127 / 64; Pulse 82; Resp 40; Pulse Ox 100% on 100% BiPAP; lp1 00:30 BP 134 / 70; Pulse 86; Resp 35; Pulse Ox 100% on 100% BiPAP; lp1 09/22 23:12 Body Mass Index 26.44 (86.00 kg, 180.34 cm) lp1 Ventilator: 09/22 22:30 Fi02: 100%; Rate: 20min; ed1 22:30 18/10 on BiPap ed1 MDM: 21:57 Patient medically screened. rn 23:50 Differential diagnosis: Myocardial Infarction pneumonia, Pneumothorax pulmonary edema. rn Data reviewed: vital signs, nurses notes, lab test result(s), EKG, radiologic studies, plain films, and as a result, I will admit patient. Counseling: I had a detailed discussion with the patient and/or guardian regarding: the historical points, exam findings, and any diagnostic results supporting the discharge/admit diagnosis, lab results, radiology results, the need for further work-up and treatment in the hospital. Response to treatment: the patient's symptoms have mildly improved after treatment, and as a result, I will admit patient. Admission orders: after a detailed discussion of the patient's condition and case, the admit orders are written by me. 09/23 00:43 ED course: ABG shows CO2 of 39.5, will cont to observe on bipap for need for intubation.rn 09/22 21:58 Order name: Blood Culture Adult (2) rn 09/22 21:58 Order name: BMP; Complete Time: 23:50 rn 09/22 21:58 Order name: CBC with Diff; Complete Time: 23:50 rn 09/22 20:58 Order name: NT PRO-BNP; Complete Time: 23:50 rn 09/22 21:58 Order name: Troponin (emerg Dept Use Only); Complete Time: 23:50 rn 09/22 21:59 Order name: PT-INR; Complete Time: 22:30 rn 09/22 21:58 Order name: BIPAP rn 09/22 21:58 Order name: XRAY CXR (1 view) rn 09/22 22:13 Order name: Lactate; Complete Time: 23:50 rn 09/22 22:13 Order name: Procalcitonin; Complete Time: 23:50 rn 09/22 22:13 Order name: Flu; Complete Time: 23:50 rn 09/22 23:02 Order name: Manual Differential; Complete Time: 23:50 EDMS 09/23 00:24 Order name: ABG Arterial Blood Gas EDKY 09/22 21:58 Order name: EKG; Complete Time: 21:59 rn 09/22 21:58 Order name: Cardiac monitoring; Complete Time: 22:32 rn 09/22 21:58 Order name: EKG - Nurse/Tech; Complete Time: 22:32 rn 09/22 21:58 Order name: IV Saline Lock; Complete Time: 22:32 rn 09/22 21:58 Order name: Labs collected and sent; Complete Time: 22:32 rn 09/22 21:58 Order name: O2 Per Protocol; Complete Time: 22:32 rn 09/22 21:58 Order name: O2 Sat Monitoring; Complete Time: 22:32 rn Administered Medications: 09/22 22:56 Drug: Xopenex 1.25 mg Route: Inhalation; 1 22:56 Drug: NS 0.9% 250 ml Route: IV; Rate: 1 bolus; Site: PICC; 1 23:27 Follow up: IV Status: Completed infusion; IV Intake: 250ml lp1 22:57 Drug: Meropenem 1 grams Route: IV; Rate: calculated rate; Site: PICC; 1 23:26 Follow up: IV Status: Completed infusion lp1 23:29 Drug: LevaQUIN 750 mg Volume: 150 ml; Route: IVPB; Infused Over: 90 mins; Site: PICC; [facility] 09/23 00:59 Follow up: IV Status: Completed infusion 1 Disposition: 09/22 23:50 Critical Care:. rn Disposition: 09/22/18 23:52 Hospitalization ordered by Cary Garrett for Inpatient Admission. Preliminary diagnosis are Pneumonia, Aspiration Pneumonitis, Dyspnea, unspecified, Hypoxemia. - Bed requested for Intensive Care Unit. - Status is Inpatient Admission. ed1 - Condition is Stable. - Problem is new. - Symptoms have improved. UTI on Admission? Yes Critical care time excluding procedures: 23:50 Critical care time: Bedside Care: 25 minutes, Consultation: 5 minutes, Family rn Intervention: 5 minutes. Total time: 35 minutes Signatures: Dispatcher [employer] EDMS Naya East RN RN Carrillo Rae MD MD rn Riggs, Erika, SUPERVISOR CAB SUPERVISOR CAB ed1 Margie Morton, RN RN lp1 Corrections: (The following items were deleted from the chart) 23:52 23:52 Hospitalization Ordered by Cary Garrett MD for Inpatient Admission. Preliminary rn diagnosis is Pneumonia; Aspiration Pneumonitis; Dyspnea, unspecified; Hypoxemia. Bed requested for Intensive Care Unit. Status is Inpatient Admission. Condition is Stable. Problem is new. Symptoms have improved. UTI on Admission? No. rn 09/23 00:37 09/22 23:52 09/22/2018 23:52 Hospitalization Ordered by Cary Garrett MD for Inpatient kl Admission. Preliminary diagnosis is Pneumonia; Aspiration Pneumonitis; Dyspnea, unspecified; Hypoxemia. Bed requested for Intensive Care Unit. Status is Inpatient Admission. Condition is Stable. Problem is new. Symptoms have improved. UTI on Admission? Yes. rn 09/23 01:44 00:37 09/22/2018 23:52 Hospitalization Ordered by Cary Garrett MD for Inpatient ed1 Admission. Preliminary diagnosis is Pneumonia; Aspiration Pneumonitis; Dyspnea, unspecified; Hypoxemia. Bed requested for Intensive Care Unit. Status is Inpatient Admission. Condition is Stable. Problem is new. Symptoms have improved. UTI on Admission? Yes. alva
--- NOTE | 2018-09-22 23:53 | ER ---
Nurse's Notes [facility] Name: Alvarez Aleman Jr Age: 82 yrs Sex: Male : 1935 Arrival Date: 09/22/2018 Time: 21:55 Bed 2 Private MD: Diagnosis: Pneumonia;Aspiration Pneumonitis;Dyspnea, unspecified;Hypoxemia Presentation: 09/22 22:24 Presenting complaint: EMS states: Called to [facility] for low O2 sat in the 80's. He ed1 then came up to 92% on 4L, then 93% while on Albuterol treatment. Recent discharge from this hospital on Monday for UTI and pneumonia. Transition of care: patient was received from another setting of care (long-term care facility), [facility]. Onset of symptoms was September 22, 2018. Risk Assessment: Do you want to hurt yourself or someone else? Patient reports no desire to harm self or others. Initial Sepsis Screen: Does the patient meet any 2 criteria? RR > 20 per min. No. Patient's initial sepsis screen is negative. Does the patient have a suspected source of infection? Yes: Productive cough/pneumonia Dysuria/Frequency/Urgency/UTI Skin breakdown/wound. Care prior to arrival: Medication(s) given: Albuterol Neb x 2, Glucose check: 200 Oxygen administered. via CPAP or BiPAP. 22:24 Method Of Arrival: EMS: [facility] ed1 22:44 Acuity: RYLEY 2 lp1 Historical: - Allergies: 22:08 No Known Allergies; ed1 - Home Meds: 22:08 warfarin 2 mg oral tab 1 tab once daily [Active]; ipratropium-albuterol 0.5 mg-3 mg(2.5 ed1 mg base)/3 mL Inhl nebu 3 mL every 4 hours PRN [Active]; Acidophilus Oral cap 1 cap daily [Active]; Levaquin 500 mg Oral tab 1 tab once daily [Active]; amlodipine 10 mg tab 1 tab once daily [Active]; ascorbic acid (vitamin C) 500 mg tab twice a day [Active]; aspirin 81 mg Oral chew [Active]; carbidopa-levodopa 50-200 mg Oral TbER 1 tab 2 times per day [Active]; carbidopa-levodopa 10-100 mg Oral TbDL 1.5 tabs 4 times per day [Active]; docusate sodium 100 mg Oral tab 1 tab once daily [Active]; donepezil 10 mg Oral tab 1 tab once daily [Active]; ferrous gluconate 325 mg (37 mg iron) Oral tab [Active]; Glucerna Oral liqd twice a day [Active]; Keppra 500 mg Oral tab 1 tab 2 times per day [Active]; Remeron 15 mg Oral tab 1 tab once daily [Active]; thiamine HCl (vitamin B1) 100 mg Oral tab 100 mg daily [Active]; tramadol 50 mg Oral tab 1 tab every 6 hours [Active]; - PMHx: 22:08 Acute embolism \T\ 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 - Social history:: Smoking status: Patient/guardian denies using tobacco. - Ebola Screening: : Patient negative for fever greater than or equal to 101.5 degrees Fahrenheit, and additional compatible Ebola Virus Disease symptoms Patient denies exposure to infectious person Patient denies travel to an Ebola-affected area in the 21 days before illness onset No symptoms or risks identified at this time. - Family history:: not pertinent. - Hospitalizations: : The patient was recently seen at [facility]. Screenin:59 Abuse screen: Denies threats or abuse. Denies injuries from another. Nutritional lp1 screening: No deficits noted. Tuberculosis screening: No symptoms or risk factors identified. Fall Risk Total Santiago Fall Scale indicates High Risk Score (45 or more points). Fall prevention measures have been instituted. Side Rails Up X 2 Frequent Obs/Assessments Occuring. Assessment: 22:00 General: Appears distressed, Behavior is cooperative. Pain: Denies pain. Neuro: Level lp1 of Consciousness is awake, alert, obeys commands, Oriented to person, place, situation. Cardiovascular: Capillary refill < 3 seconds in bilateral fingers toes. Respiratory: Airway is patent Trachea midline Respiratory effort is labored, Respiratory pattern is tachypnea Breath sounds with rhonchi bilaterally. the patient has severe shortness of breath. GI: Abdomen is non-distended. : suprapubic catheter in place to gravity drainage. EENT: Dentures removed, given to patient's daughter. Derm: Skin is fragile, is thin, Skin is pale, Skin temperature is warm Bruising that is dark purple, on left arm Decubitus located on sacrum approximately 2.6 cm to 7.5 cm is stage II. 22:00 Musculoskeletal: Circulation, motion, and sensation intact. foot drop boots in place to lp1 bilateral legs. 23:00 Reassessment: Patient appears in no apparent distress at this time. Patient and/or lp1 family updated on plan of care and expected duration. Pain level reassessed. Patient states being thirsty, informed of BiPAP mask to stay in place. 23:58 Reassessment: Dr. Kennedy at bedside to discuss plan of care with patient and daughter.lp1 Vital Signs: 22:08 BP 147 / 71; Pulse 86; Resp 37; Temp 98(A); Pulse Ox 96% on 100% BiPAP; Pain 0/10; ed1 22:15 BP 130 / 67; Pulse 90; Resp 29; Pulse Ox 100% on 100% BiPAP; lp1 22:21 Temp 99.1(R); ms 22:30 BP 126 / 72; Pulse 88; Resp 40; Pulse Ox 100% on 100% BiPAP; lp1 23:00 Weight 99.79 kg (R); Height 5 ft. 11 in. (180.34 cm) (R); lp1 23:00 BP 129 / 64; Pulse 83; Resp 40; Pulse Ox 100% on 100% BiPAP; lp1 23:12 Weight 86 kg; lp1 23:34 BP 146 / 74; Pulse 83; Resp 35; Pulse Ox 100% on 100% BiPAP; lp1 13 00:00 BP 127 / 64; Pulse 82; Resp 40; Pulse Ox 100% on 100% BiPAP; lp1 00:30 BP 134 / 70; Pulse 86; Resp 35; Pulse Ox 100% on 100% BiPAP; lp1 09/22 23:12 Body Mass Index 26.44 (86.00 kg, 180.34 cm) lp1 ED Course: 09/22 21:55 Patient arrived in ED. al2 21:57 Carrillo Mack MD is Attending Physician. rn 22:00 Accessed PICC line. to R upper arm Clean \T\ dry. Dressing intact. Good blood return. lp1 Flushes easily. 22:00 Initial lab(s) drawn, by me, sent to lab. First set of blood cultures drawn by me. lp1 22:15 Patient has correct armband on for positive identification. Placed in gown. Bed in low lp1 position. Side rails up X2. certified ski patroller on. Pulse ox on. NIBP on. 22:24 Arm band placed on right wrist. ed1 22:29 Notified ED physician of a critical lab result(s). wbc of 21.5. fc 22:31 Margie Morton, RN is Primary Nurse. lp1 22:44 Triage completed. lp1 22:53 XRAY CXR (1 view) In Process Unspecified. EDMS 23:51 Cary Garrett MD is Hospitalizing Provider. rn 23:58 No provider procedures requiring assistance completed. Patient admitted, IV remains in lp1 place. Administered Medications: 22:56 Drug: Xopenex 1.25 mg Route: Inhalation; lp1 22:56 Drug: NS 0.9% 250 ml Route: IV; Rate: 1 bolus; Site: PICC; lp1 23:27 Follow up: IV Status: Completed infusion; IV Intake: 250ml lp1 22:57 Drug: Meropenem 1 grams Route: IV; Rate: calculated rate; Site: PICC; lp1 23:26 Follow up: IV Status: Completed infusion lp1 23:29 Drug: LevaQUIN 750 mg Volume: 150 ml; Route: IVPB; Infused Over: 90 mins; Site: PICC; lp1 09/23 00:59 Follow up: IV Status: Completed infusion lp1 Intake: 09/22 23:27 IV: 250ml; Total: 250ml. lp1 Ventilator: 22:30 Fi02: 100%; Rate: 20min; ed1 22:30 18/10 on BiPap ed1 Outcome: 23:52 Decision to Hospitalize by Provider. rn 23:58 critical lp1 23:58 Instructed on the need for admit. 09/23 01:43 Admitted to ICU accompanied by nurse, family with patient, via stretcher, room ICU 1, ed1 with oxygen, with chart, Report called to Benny critical Discharge instructions given to patient, family, Instructed on the need for admit, Demonstrated understanding of instructions. 01:44 Patient left the ED. ed1 Signatures: Dispatcher [employer] EDMD Annmarie La, RN RN Saira Rachel ms, Roman, MD MD rn Riggs, Erika, SAIL CUTTER SAIL CUTTER ed1 Margie Morton RN RN lp1 Amie Mcginnis2 Corrections: (The following items were deleted from the chart) 09/22 22:59 22:00 Accessed PICC line. Clean \T\ dry. Dressing intact. Good blood return. Flushes lp1 easily. lp1
[2018-09-23 00:22] LABS: Arterial Blood Carboxyhemoglob 0.7 % (0-1.5); Blood Gas Oxyhemoglobin 97.7 % (94-97); Blood O2 Saturation 99.1 % (92-98.5)
[2018-09-23] MEDS ORDERED: ONDANSETRON 4 MG/2 ML VIAL IV PRN (01:17)
[2018-09-23] MEDS ORDERED: VANCOMYCIN 2.5 GM in NA CHLORIDE 0.9% 500 ML IVPB ONE (02:00)
[2018-09-23] MEDS: NA CHLORIDE 0.9% 1,000 ML IV SCH ×2 (02:25→11:17)
[2018-09-23] MEDS ORDERED: VANCOMYCIN 1 GM/VIAL ONE (02:28)
[2018-09-23] MEDS ORDERED: VANCOMYCIN 500 MG/VIAL ONE (02:29)
[2018-09-23] MEDS ORDERED: NA CHLORIDE 0.9% 500 ML ONE (02:32)
--- NOTE | 2018-09-23 05:14 | P.HP ---
Certification for Inpatient Patient admitted to: Inpatient With expected LOS: >2 Midnights Practitioner: I am a practitioner with admitting privileges, knowledge of patient current condition, hospital course, and medical plan of care. Services: Services provided to patient in accordance with Admission requirements found in Title 42 Section 412.3 of the Code of Federal Regulations Patient History Date of Service: 09/23/18 Reason for admission: sepsis, acute respirator failure History of Present Illness: Mr Aleman is an 82 years old male with history of Parkinson's disease, dementia , hypothyroidism, who was admitted last week in the hospital due to sepsis secondary to UTI. Cultures reported Proteous Mirabilis with ESBL. He was discharged to the [place] [facility] about 3 days ago. He was noticed today to be more SOB, with cough, no reported fever, he was hypoxic low 80's on RA, he was placed on O2 support, then O2 sat increased to 93%. At arrival to Ed the patient was very tachypneic, he was placed on BiPAP, partially improving. Lab work shows leukocytosis 21.5K, CXR remarkable for right lower lobe infiltrate consistent with pneumonia. Allergies No Known Allergies Allergy (Verified 04/03/18 20:24) Home medications list reviewed: Yes Home Medications: Ipratropium/Albuterol Sulfate [Iprat-Albut 0.5-3(2.5) mg/3 ml] 3 ml IH Q4HP PRN 09/23/18 Lactobacillus Acidophilus [Acidophilus] 1 each PO BID 09/23/18 Meropenem [Merrem] 1 gm IV Q8H 09/23/18 Warfarin Sodium [Coumadin] 1.5 mg PO DAILY 5 PM 09/23/18 Warfarin Sodium [Coumadin] 2 mg PO DAILY 5 PM 09/23/18 levoFLOXacin [Levaquin] 500 mg PO DAILY 09/23/18 - Past Medical/Surgical History Diabetic: Yes -: Parkinsons -: Dementia -: Seizure disorder -: Anemia -: BPH -: HTN -: Pulmonary Embolism 2015 -: DVT 2001 -: Greater Trochanter broken -: Non Hodgkins Lymphoma -: Triple Bypass 2000 -: Cancer Removal on top of the head 2017 -: Spinal Surgery for Stenosis -: Lithotripsy for Kidney Stones Psychosocial/ Personal History: Lives in correction. - Family History Father -: Heart disease Mother -: Cancer - Social History Smoking Status: Unknown if ever smoked Alcohol use: No CD- Drugs: No Caffeine use: No Place of Residence: [place] Review of Systems 10-point ROS is otherwise unremarkable Physical Examination - Vital Signs Temperature: 99.1 F Blood Pressure: 111/51 Pulse: 70 Respirations: 26 Pulse Ox (%): 96 - Physical Exam General: Alert, In no apparent distress HEENT: Atraumatic, PERRLA, Mucous membr. moist/pink, EOMI, Sclerae nonicteric Neck: Supple, 2+ carotid pulse no bruit, No LAD, Without JVD or thyroid abnormality Respiratory: Normal air movement, Crackles/rales (right base crackles) Cardiovascular: Normal S1 S2, No gallops Gastrointestinal: Normal bowel sounds, No tenderness Musculoskeletal: No tenderness Integumentary: No rashes Neurological: Normal strength at 5/5 x4 extr, Normal affect Lymphatics: No axilla or inguinal lymphadenopathy - Studies Laboratory Data (last 24 hrs) 09/22/18 22:00: PT 14.1 H, INR 1.19 09/22/18 22:00: WBC 21.5 H* D, Hgb 13.6, Hct 42.5, Plt Count 161 D 09/22/18 22:00: Sodium 148 H, Potassium 3.9, BUN 15, Creatinine 1.33 H, Glucose 205 H Microbiology Data (last 24 hrs): 09/22/18 22:39 Nasopharnyx Influenza Type A Antigen Screen - Final 09/22/18 22:39 Nasopharnyx Influenza Type B Antigen Screen - Final Assessment and Plan - Problems (Diagnosis) (1) Acute respiratory failure Current Visit: Yes Status: Acute Qualifiers: Respiratory failure complication: hypoxia Qualified Code(s): J96.01 - Acute respiratory failure with hypoxia (2) Sepsis Current Visit: Yes Status: Acute Qualifiers: Sepsis type: sepsis due to unspecified organism Qualified Code(s): A41.9 - Sepsis, unspecified organism (3) Pneumonia Onset Date: 04/04/18 Current Visit: No Status: Acute Qualifiers: Pneumonia type: aspiration pneumonia Laterality: right Lung location: upper lobe of lung (4) HTN (hypertension) Onset Date: 04/04/18 Current Visit: No Status: Chronic Qualifiers: Hypertension type: essential hypertension Qualified Code(s): I10 - Essential (primary) hypertension (5) Hypothyroidism Onset Date: 09/17/18 Current Visit: No Status: Chronic Qualifiers: Hypothyroidism type: acquired Qualified Code(s): E03.9 - Hypothyroidism, unspecified (6) Parkinson disease Onset Date: 04/04/18 Current Visit: No Status: Chronic - Plan The patient will be admitted to the hospital due to acute respiratory failure, sepsis due to pneumonia. Will continue IV Meropenem and add IV Vancomycins. Continue BiPAP, consult vice president commercial bank. - Advance Directives Does patient have a Living Will: No Does patient have a Durable POA for Healthcare: No - Code Status/Comfort Care Code Status Assessed: Yes Code Status: Full Code
[2018-09-23 05:57] LABS: Potassium 3.5 mmol/L (3.5-5.1)
[2018-09-23] MEDS: Meropenem 1,000 MG in NA CHLORIDE 0.9% 100 ML IV SCH ×2 (08:29→20:10)
[2018-09-23] MEDS ORDERED: ENOXAPARIN 40 MG/0.4 ML SQ SCH (09:00)
[2018-09-23] MEDS ORDERED: Meropenem 1000 MG/VIAL IV SCH (11:00)
[2018-09-23] MEDS ORDERED: HOME MED 1 EA UNK (Ipratropium/Albuterol Sulfate [Iprat-Albut 0.5-3(2.5) Mg/3 Ml] 3 ML) IH PRN (11:33)
--- NOTE | 2018-09-23 12:26 | RAD REPORT ---
EXAM DESCRIPTION: RAD - Chest Single View - 09/22/2018 10:53 pm CLINICAL HISTORY: DYSPNEA Chest pain. COMPARISON: Chest Single View dated 09/19/2018; Chest Single View dated 09/19/2018; Abdomen 1 View (KUB) dated 09/17/2018; Chest Single View dated 09/15/2018 FINDINGS: Portable technique limits examination quality. Airspace opacity is present in the medial right lung base, most compatible with pneumonia. Small bila teral pleural effusions are seen. The heart is normal in size. Right-sided PICC line has tip in the S VC. Two lead pacer device is in place.Sternotomy wires are present. IMPRESSION: Moderate airspace opacity in the medial right lung base most compatible with pneumonia.
[2018-09-23] MEDS: ENOXAPARIN 100 MG/ML SYR SQ SCH (13:52)
[2018-09-23] MEDS: D5 0.45 NS 1,000 ML IV SCH (13:52)
--- NOTE | 2018-09-23 16:29 | EKG ---
Test Date: 2018-09-22 Test Time: 22:03:57 Code Enforcement Inspector: MEASUREMENT RESULTS: Intervals: Rate: 87 PA: QRSD: 96 QT: 366 QTc: 440 [place]: P: PA: QRS: -6 T: 194 INTERPRETIVE STATEMENTS: Atrial fibrillation Low voltage QRS ST & T wave abnormality, consider inferolateral ischemia Abnormal ECG Compared to ECG 09/15/2018 11:54:19 Low QRS voltage now present ST (T wave) deviation now present Sinus tachycardia no longer present Ventricular-paced complex(es) or rhythm no longer present Electronically Signed On 09-23-18 16:28:37 ELECTRONIC SALES AND SERVICE TECHNICIAN by Andres Barnett
--- NOTE | 2018-09-23 16:35 | PN ---
Date of Progress Note: 09/23/2018 Subjective: The patient was seen and examined. Chart reviewed and case discussed with RN. The froilan ent is in mild respiratory distress, on BiPAP. No family at the bedside. Medications: List reviewed. Code Status: Full code. Objective: Vital Signs: Temperature 99.1, heart rate 70, blood pressure 111/51, respirations 26, O2 of 96% on BiPAP with 50% FiO2. General: Awake, alert, oriented, elderly male, appearing in moderate respiratory distress. CV: S1 and S2. Peripheral pulses present. Respiratory: Diminished breath sounds. Diffuse rhonchi heard. The patient is tachypneic with use o f accessory muscles. Gastrointestinal: Abdomen is soft, nontender, nondistended. Positive bowel sounds. Extremities: No clubbing, cyanosis, or edema. Neuro: The patient has pill rolling tremor. No focal neurological deficits. Speech is normal. Laboratory Data: Sodium 152, potassium 3.5, chloride 118, CO2 of 26, BUN 17, creatinine 1.32, glucos e 113, calcium 8.4, magnesium 2. Procalcitonin 0.08. WBC 21.5 from 09/22/2018. Assessment: An 82-year-old male with: 1.Sepsis likely due to urinary tract infection from extended-spectrum beta-lactamase producing Prote us diagnosed on previous visit. We will continue on IV antibiotics. 2.Acute respiratory failure with hypoxia. The patient is requiring BiPAP secondary to pneumonia. 3.Pneumonia, right upper lobe, likely aspiration. We will keep n.p.o. for now. Continue BiPAP. We will consult Pulmonology. 4.Essential hypertension, stable. 5.Hypothyroidism. 6.Parkinson disease, stable. 7.History of pulmonary embolism and deep venous thrombosis. 8.Non-Hodgkin's lymphoma. 9.Benign prostatic hypertrophy. 10.Dementia without behavioral disturbance. 11.Hypernatremia. We will adjust IV fluids. 12.Acute kidney injury. Creatinine is elevated. Baseline was normal upon discharge. Plan: Continue monitoring in ICU setting. Continue broad-spectrum IV antibiotics. We will adjust I V fluids to D5 half NS. Follow up on cultures. Keep the patient n.p.o. Will need speech therapy ev aluation. SA/MODL Voice ID: [id number] Report ID: [id number]
[2018-09-23] MEDS: levETIRAcetam 500 MG in NA CHLORIDE 0.9% 100 ML IV SCH (20:10)
[2018-09-24] MEDS: VANCOMYCIN 1.75 GM in NA CHLORIDE 0.9% 500 ML IVPB SCH (01:18)
[2018-09-24] MEDS: D5 0.45 NS 1,000 ML IV SCH (01:20)
[2018-09-24] MEDS: MEDIHONEY 44 ML TOPICAL TUBE TOP SCH (04:29)
[2018-09-24 06:21] LABS: Hematocrit 39.2 % (39.6-49.0); RBC Red Blood Cell Count 4.15 M/uL (4.33-5.43)
[2018-09-24 06:22] LABS: Absolute Lymphocytes (CBC) 10.1 K/uL (0.7-4.9); Absolute Monocytes 0.5 K/uL (0.1-1.3); Absolute Neutrophil 7.9 K/uL (1.8-8.0); Basophils % 0.2 % (0-1.3); Eosinophils % 0.2 % (0-4.4); Lymphocytes % 54.2 % (15.3-44.8); Monocytes % 2.9 % (3.3-12.3)
[2018-09-24 06:42] LABS: AST/SGOT 17 U/L (15-37); Albumin 2.8 g/dL (3.4-5.0); Alkaline Phosphatase 87 U/L (45-117); BUN Blood Urea Nitrogen 18 mg/dL (7-18); Bicarbonate 25 mmol/L (21-32); Bilirubin Total 0.7 mg/dL (0.2-1.0); Glucose Level 163 mg/dL (74-106); Magnesium 2.2 mg/dL (1.8-2.4); Potassium 4.1 mmol/L (3.5-5.1); Protein, Total 7.1 g/dL (6.4-8.2); Sodium Level 151 mmol/L (136-145)
[2018-09-24 07:03] LABS: ALT/SGPT < 6 U/L (12-78)
--- NOTE | 2018-09-24 07:55 | P.CNS ---
Date of Consult: 09/24/18 Chief Complaint: sepsis, acute respirator failure History of Present Illness: Patient is 82 years of age multiple medical problems he was just discharged with urosepsis and a EsblL became more short of breath with cough no fever he was hypoxic transferred here to the ICU currently on BiPAP alert responsive cooperative patient's white count was elevated in addition to hypernatremia and renal insufficiency patient was been treated with meropenem chest x-ray shows a worsening right hilar infiltrate Allergies No Known Allergies Allergy (Verified 04/03/18 20:24) Home Medications: Amlodipine [Norvasc*] 10 mg PO DAILY 09/23/18 Ascorbic Acid 500 mg PO BID 09/23/18 Carbidopa/Levodopa [Carbidopa-Levo ER 50-200 Tab] 1 tab PO BID 09/23/18 Carbidopa/Levodopa [Carbidopa-Levodopa 10-100 Tab] 1 tab PO QID 09/23/18 Donepezil HCl 10 mg PO BEDTIME 09/23/18 Ferrous Sulfate [Iron] 1 tab PO DAILY 09/23/18 Ipratropium/Albuterol Sulfate [Iprat-Albut 0.5-3(2.5) mg/3 ml] 3 ml IH Q4HP PRN 09/23/18 Lactobacillus Acidophilus [Acidophilus] 1 each PO BID 09/23/18 Meropenem [Merrem] 1 gm IV Q8H 09/23/18 Mirtazapine [Remeron*] 15 mg PO BEDTIME 09/23/18 Thiamine HCl 100 mg PO DAILY 09/23/18 Tramadol HCl [Ultram] 50 mg PO Q6HP PRN 09/23/18 Warfarin Sodium [Coumadin] 1.5 mg PO DAILY 5 PM 09/23/18 Warfarin Sodium [Coumadin] 2 mg PO DAILY 5 PM 09/23/18 levETIRAcetam [Keppra*] 500 mg PO BID 09/23/18 levoFLOXacin [Levaquin] 500 mg PO DAILY 09/23/18 - Past Medical/Surgical History Diabetic: Yes -: Parkinsons -: Dementia -: Seizure disorder -: Anemia -: BPH -: HTN -: Pulmonary Embolism 2015 -: DVT 2001 -: Greater Trochanter broken -: Non Hodgkins Lymphoma -: Triple Bypass 2000 -: 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 - Family History Father Medical History: Heart disease Mother Medical History: Cancer - Social History Smoking Status: Unknown if ever smoked Alcohol use: No CD- Drugs: No Caffeine use: No Place of Residence: [place] Review of Systems is unable to be obtained Physical Examination Temp Pulse Resp BP Pulse Ox 97.7 F 82 46 H 140/63 93 09/24/18 04:00 09/24/18 06:00 09/24/18 06:00 09/24/18 06:00 09/24/18 06:00 General: Alert, Cooperative Respiratory: Expiratory wheezes Cardiovascular: No edema, Normal S1 S2 Gastrointestinal: Normal bowel sounds, Soft and benign Musculoskeletal: No clubbing, No swelling Integumentary: Other (Decubitus ulcer) - Problems (1) Pneumonia Onset Date: 04/04/18 Current Visit: No Status: Acute Plan: Patient is 82 years of age was just recently discharged from the hospital with a urosepsis admitted yet again with respiratory distress worsening right hilar infiltrate white count is also elevated patient is hypernatremic renal function is improving he is back on vancomycin and meropenem change to D5 water blood gases shows a significant hypoxemia I have ordered a CT scan of the chest without contrast continue with vancomycin and meropenem patient unable to cough possible aspiration lives in a [facility] multiple medical problems patient has Parkinson's disease he is on warfarin years also Levaquin on his chart Qualifiers: Pneumonia type: aspiration pneumonia Laterality: right Lung location: upper lobe of lung
[2018-09-24] MEDS: Meropenem 1,000 MG in NA CHLORIDE 0.9% 100 ML IV SCH ×2 (09:16→21:47)
[2018-09-24] MEDS: levETIRAcetam 500 MG in NA CHLORIDE 0.9% 100 ML IV SCH ×2 (09:16→21:47)
[2018-09-24] MEDS: D5W 1,000 ML IV SCH (09:16)
[2018-09-24] MEDS: ENOXAPARIN 100 MG/ML SYR SQ SCH (09:17)
[2018-09-24 10:40] LABS: Arterial Blood Carboxyhemoglob 1.4 % (0-1.5); Blood Gas Oxyhemoglobin 87.9 % (94-97); Blood O2 Saturation 89.4 % (92-98.5)
[2018-09-24] MEDS: ALBUTEROL 2.5 MG/3 ML NEB SOL NEB PRN (14:10)
[2018-09-24] MEDS: IPRATROPIUM BROM 0.5MG/2.5ML NEB PRN (14:10)
--- NOTE | 2018-09-24 14:58 | PN ---
Date of Progress Note: 09/24/2018 Subjective: The patient is seen and examined, chart reviewed, and case discussed with RN and Dr. Hernández. The patient continues to require BiPAP throughout the night, unable to be taken off. The patient declines NG tube feeds for now. Family updated, treatment plan explained, all questions answered. Medications: List reviewed. Physical Examination: Vital Signs: Temperature 97.7, heart rate 76, blood pressure 140/61, respirations 36, and O2 of 93% on BiPAP, 40% FiO2. General: Awake, alert, and oriented x3, in moderate respiratory distress, ill- appearing elderly male. CV: S1 and S2, paced rhythm. Peripheral pulses present. Respiratory: Diminished breath sounds, rhonchi heard. Gastrointestinal: Abdomen is soft, nontender, and nondistended. Positive bowel sounds. Extremities: No clubbing, cyanosis, or edema. Neurologic: Nonfocal. The patient has resting tremor, pill rolling tremor. Laboratory Data: Sodium 151, potassium 4.1, chloride 119, CO2 of 25, BUN 18, creatinine 1.13, glucose 163, calcium 8.2, magnesium 2.2, and albumin 2.8. WBC 18.6, H and H of 12.6 and 39.2, platelets 144. Blood cultures, no growth to date. Assessment And Plan: An 82-year-old male with, 1. Sepsis secondary to urinary tract infection from extended-spectrum beta- lactamase producing Proteus as well as pneumonia. 2. Acute respiratory failure with hypoxia. The patient on BiPAP, unable to be weaned off. We will obtain CT scan of the chest. Appreciate Dr. Hernández's input. 3. Pneumonia, right upper lobe, likely aspiration. We will keep n.p.o. The patient is not stable enough for a modified barium swallow study. We will continue antibiotics. Cultures are negative to date. 4. Hypernatremia. We will switch fluids to D5W and monitor. 5. Essential hypertension, stable. 6. Hypothyroidism. 7. Parkinson disease, stable. 8. History of pulmonary embolism and deep venous thrombosis. The patient is on therapeutic Lovenox and unable to tolerate p.o. at this time. 9. Non-Hodgkin lymphoma. 10. Benign prostatic hypertrophy. 11. Dementia without behavioral disturbance. 12. Acute kidney injury. Creatinine was improved and normalized. We will continue to monitor. Avoid nephrotoxins and NSAIDs. 13. Stage II decubitus ulcer: zinc oxide, off loading. Wound care consulted. Plan: We will continue to monitor in ICU setting. Overall, prognosis is poor. The patient wants to remain full code, at this time declining NG tube. We will have Speech Therapy do a bedside evaluation if possible as the patient is difficult to take off the BiPAP for more than a few minutes. /CHAY Voice ID: [id number] Report ID: [id number] MTDD
[2018-09-25] MEDS: D5W 1,000 ML IV SCH ×3 (00:04→17:24)
[2018-09-25] MEDS: VANCOMYCIN 1.75 GM in NA CHLORIDE 0.9% 500 ML IVPB SCH (02:58)
[2018-09-25 05:36] LABS: Absolute Lymphocytes (CBC) 19.6 K/uL (0.7-4.9); Absolute Monocytes 0.8 K/uL (0.1-1.3); Basophils % 0.3 % (0-1.3); Hematocrit 39.7 % (39.6-49.0); Lymphocytes % 66.4 % (15.3-44.8); MPV 9.6 fL (7.6-11.3); Monocytes % 2.7 % (3.3-12.3); RBC Red Blood Cell Count 4.19 M/uL (4.33-5.43)
[2018-09-25 06:05] LABS: Albumin 2.8 g/dL (3.4-5.0); Bilirubin Total 0.6 mg/dL (0.2-1.0); Potassium 4.2 mmol/L (3.5-5.1)
--- NOTE | 2018-09-25 07:59 | P.PN ---
Subjective Date of Service: 09/25/18 Chief Complaint: Respiratory failure No change patient is still on BiPAP tachypneic shallow breather diffuse nasogastric tube white count is elevated Review of Systems is unable to be obtained Physical Examination - Vital Signs Temperature: 97.7 F Blood Pressure: 123/59 Pulse: 74 Respirations: 36 Pulse Ox (%): 93 - Physical Exam General: Alert, Moderate distress Neck: Supple Respiratory: Clear to auscultation bilaterally, Diminished Assessment & Plan - Problems (Diagnosis) (1) Pneumonia Onset Date: 04/04/18 Current Visit: No Status: Acute Plan: Patient is alert not cooperative on BiPAP repeat chest x-ray white count elevated cultures so far negative results finals are pending consider inserting dobhoff Prognosis is poor Qualifiers: Pneumonia type: aspiration pneumonia Laterality: right Lung location: upper lobe of lung (2) Hypernatremia Onset Date: 09/17/18 Current Visit: No Status: Acute Plan: Increase IV fluid rate
[2018-09-25] MEDS: MEDIHONEY 44 ML TOPICAL TUBE TOP SCH (08:08)
[2018-09-25] MEDS: ZINC OXIDE 20% OINTMENT 60gm TOP SCH (08:08)
[2018-09-25] MEDS: Meropenem 1,000 MG in NA CHLORIDE 0.9% 100 ML IV SCH ×2 (08:08→22:31)
[2018-09-25] MEDS: ENOXAPARIN 100 MG/ML SYR SQ SCH (08:08)
[2018-09-25 08:40] LABS: Urine Appearance TURBID; Urine Bilirubin NEGATIVE (NEG); Urine Blood 3+ (NEG); Urine Color YELLOW; Urine Glucose NEGATIVE (NEG); Urine Protein 2+ (NEG); Urine Specific Gravity 1.025 (1.005-1.030); Urine Urobilinogen 0.2 mg/dL (0.2-1.0); Urine pH 5.5 (5.0-7.0)
[2018-09-25 08:52] LABS: Platelet Estimate ADEQ
[2018-09-25 08:54] LABS: Anisocytosis 2+; Blood Morphology Comment NOTED (NOT SEEN)
--- NOTE | 2018-09-25 08:57 | RAD REPORT ---
EXAM DESCRIPTION: RAD - Chest Single View - 09/25/2018 8:35 am CLINICAL HISTORY: Follow for pneumonia Chest pain. COMPARISON: Chest Single View dated 09/22/2018; Chest Single View dated 09/19/2018; Chest Single View d ated 09/19/2018; Abdomen 1 View (KUB) dated 09/17/2018 FINDINGS: Portable technique limits examination quality. Right upper lobe, parahilar in medial right lung base airspace opacities are again noted, slightly le ss dense in the right base. A small left pleural effusion is noted. Right-sided PICC line has tip in the SVC. The heart is mildly prominent with sternotomy wires present. Dual lead pacer device is prese nt.Enteric tube descends into the upper abdomen, however the tip is coiled upon itself.
[2018-09-25 09:02] LABS: Urine Amorphous Sediment 3+ /HPF (NONE SEEN); Urine Bacteria 20-50 /HPF (NONE SEEN); Urine Culture Reflex Order REFLEXED; Urine RBC >50 /HPF (NONE SEEN)
[2018-09-25] MEDS: levETIRAcetam 500 MG in NA CHLORIDE 0.9% 100 ML IV SCH ×2 (09:30→22:31)
[2018-09-25] MEDS: VITAL AF 1,000 ML BOT RTH SCH (10:25)
--- NOTE | 2018-09-25 11:21 | RAD REPORT ---
EXAM DESCRIPTION: CT - Thorax Wo Con CLINICAL HISTORY: Chest pain Right hilar infiltrate COMPARISON: Thorax Wo Con dated 04/04/2018; Chest Single View dated 09/25/2018 FINDINGS: Prominent airspace opacities are present in both lung bases likely compressive atelectasis . In addition, there is mild area of consolidated lung seen in the posterior right upper lobe. Irregu lar mass is seen in the right hilar region with soft tissue component in the right mainstem bronchus also seen. Bilateral pleural effusions are present, slightly greater on the right. No pneumothorax. Enlarged adenopathy is seen in the mediastinum, progressive since the prior study. Enteric tube desce nds in the stomach. No concerning bony finding. No gross upper abdominal finding. All CT scans are performed using dose optimization technique as appropriate and may include automated exposure control or mA/KV adjustment according to patient size. IMPRESSION: Right hilar mass lesion is suspected with evidence of soft tissue extending into the rig ht mainstem bronchus. Postobstructive pneumonitis in the right upper lobe is present along with exten sive compressive atelectasis in both lung bases.Consider bronchoscopy for further assessment.
--- NOTE | 2018-09-25 18:29 | P.PN ---
Subjective Date of Service: 09/25/18 Chief Complaint: Respiratory failure Subjective: No new changes The patient is seen and examined, chart reviewed, and case discussed with nursing staff. The patient continues to require BiPAP throughout the night, unable to be taken off. Review of Systems 10-point ROS is otherwise unremarkable Physical Examination - Vital Signs Temperature: 97.7 F Blood Pressure: 113/54 Pulse: 67 Respirations: 14 Pulse Ox (%): 97 - Physical Exam General: Mild distress, Moderate distress HEENT: Atraumatic, PERRLA, EOMI Neck: Supple, JVD not distended Respiratory: Diminished, Rhonchi/gurgles Cardiovascular: Regular rate/rhythm, Normal S1 S2 Gastrointestinal: Normal bowel sounds, No tenderness Musculoskeletal: No tenderness Integumentary: No rashes Neurological: Normal speech, Normal tone, Normal affect Lymphatics: No axilla or inguinal lymphadenopathy Assessment And Plan - Plan An 82-year-old male with, 1. Sepsis secondary to urinary tract infection from extended-spectrum beta- lactamase producing Proteus as well as pneumonia. 2. Acute respiratory failure with hypoxia. The patient on BiPAP, unable to be weaned off. Appreciate Dr. Hernández's input. 3. Pneumonia, right upper lobe, likely aspiration. We will keep n.p.o. The patient is not stable enough for a modified barium swallow study. We will continue antibiotics. Cultures are negative to date. 4. Aspiration: Dobhobb tube placed, we will start tube feeds. 5. Hypernatremia. We will switch fluids to D5W and monitor. 6. Essential hypertension, stable. 7. Hypothyroidism. 8. Parkinson disease, stable. 9. History of pulmonary embolism and deep venous thrombosis. The patient is on therapeutic Lovenox and unable to tolerate p.o. at this time. 10. Non-Hodgkin lymphoma. 11. Benign prostatic hypertrophy. 12. Dementia without behavioral disturbance. 13. Acute kidney injury. Creatinine was improved and normalized. We will continue to monitor. Avoid nephrotoxins and NSAIDs. 14. Stage II decubitus ulcer: zinc oxide, off loading. Wound care consulted. Plan: We will continue to monitor in ICU setting. Overall, prognosis is poor. The patient wants to remain full code. Patient is a well established patient of the [place], we will initiate transfer to [facility] though it may take a very long time.
[2018-09-26] MEDS: D5W 1,000 ML IV SCH ×4 (04:00→22:20)
[2018-09-26 05:12] LABS: Absolute Lymphocytes (CBC) 24.7 K/uL (0.7-4.9); Absolute Monocytes 1.2 K/uL (0.1-1.3); Absolute Neutrophil 9.1 K/uL (1.8-8.0); Basophils % 0.2 % (0-1.3); Hematocrit 40.9 % (39.6-49.0); MPV 9.5 fL (7.6-11.3); Monocytes % 3.4 % (3.3-12.3); RBC Red Blood Cell Count 4.22 M/uL (4.33-5.43)
[2018-09-26 05:23] LABS: Lymphocytes % 70.5 % (15.3-44.8)
[2018-09-26 05:34] LABS: Albumin 2.7 g/dL (3.4-5.0); Bilirubin Total 0.3 mg/dL (0.2-1.0); Potassium 4.7 mmol/L (3.5-5.1); Protein, Total 6.7 g/dL (6.4-8.2)
[2018-09-26] MEDS: VANCOMYCIN 1.5 GM in NA CHLORIDE 0.9% 500 ML IVPB SCH (06:08)
--- NOTE | 2018-09-26 07:39 | RAD REPORT ---
EXAM DESCRIPTION: [place] Single View09/26/2018 6:44 am CLINICAL HISTORY: Chest pain COMPARISON: September 25, 2018 FINDINGS: No significant change has occurred in the right hilar mass and right lung opacities. Small pleural effusions are present with bibasilar atelectasis. The heart is mildly enlarged. PICC line is in place. Feeding tube has its tip in the stomach Postsurgical changes involve the chest.
[2018-09-26] MEDS: Meropenem 1,000 MG in NA CHLORIDE 0.9% 100 ML IV SCH ×2 (08:16→21:23)
[2018-09-26] MEDS: ENOXAPARIN 100 MG/ML SYR SQ SCH (08:16)
[2018-09-26] MEDS: ZINC OXIDE 20% OINTMENT 60gm TOP SCH (08:17)
--- NOTE | 2018-09-26 08:36 | P.PN ---
Subjective Date of Service: 09/26/18 Chief Complaint: Respiratory failure Patient is minimally responsive on BiPAP tolerating tube feeds still very hypernatremic despite IV fluids Review of Systems is unable to be obtained Physical Examination - Vital Signs Temperature: 97.1 F Blood Pressure: 100/47 Pulse: 70 Respirations: 19 Pulse Ox (%): 96 - Physical Exam General: Unresponsive HEENT: Atraumatic Respiratory: Clear to auscultation bilaterally, Diminished, Other (Patient is visibly became in tachypneic rapid shallow respirations) Cardiovascular: No edema, Regular rate/rhythm Assessment & Plan - Problems (Diagnosis) (1) Pneumonia Onset Date: 04/04/18 Current Visit: No Status: Acute Plan: Patient has this right-sided infiltrate/mass with bilateral pleural effusions broad-spectrum antibiotics cultures are so far nondiagnostic white count is now significantly elevated he is at risk for fungal superinfection add Diflucan patient is only on 30% FiO2 Qualifiers: Pneumonia type: aspiration pneumonia Laterality: right Lung location: upper lobe of lung (2) Hypernatremia Onset Date: 09/17/18 Current Visit: No Status: Acute Plan: Hypernatremia is worse increase IV fluids and desmopressin. 1 mg S. q. b.i.d.
[2018-09-26] MEDS: MEDIHONEY 44 ML TOPICAL TUBE TOP SCH (08:48)
[2018-09-26 10:09] LABS: Arterial Blood Carboxyhemoglob 1.4 % (0-1.5); Blood Gas Oxyhemoglobin 88.6 % (94-97); Blood O2 Saturation 90.3 % (92-98.5)
[2018-09-26] MEDS: DESMOPRESSIN 4 MCG/ML AMP SQ SCH ×2 (10:14→21:23)
[2018-09-26] MEDS: levETIRAcetam 500 MG in NA CHLORIDE 0.9% 100 ML IV SCH ×2 (10:15→21:23)
[2018-09-26] MEDS: FLUCONAZOLE 400 MG IVPB 400 MG/200 ML BAG IV SCH (10:40)
[2018-09-26] MEDS ORDERED: RSI MEDICATION KIT IV ONE (10:56)
[2018-09-26] MEDS ORDERED: NA CHLORIDE 0.9% 1,000 ML ONE (11:09)
[2018-09-26] MEDS ORDERED: Phenylephrine HCl 10 MG/ML 1 ML VIAL ONE (11:16)
[2018-09-26] MEDS ORDERED: NA CHLORIDE 0.9% 250 ML ONE (11:18)
[2018-09-26] MEDS ORDERED: NOREPINEPHRINE 4 MG/4 ML VIAL ONE (11:18)
[2018-09-26] MEDS ORDERED: NOREPINEPHRINE 4 MG in D5W 250 ML IV PRN (11:18)
[2018-09-26] MEDS ORDERED: PROPOFOL 1,000 MG/100 ML VIAL IV PRN (11:19)
[2018-09-26] MEDS ORDERED: LORazepam 2 MG/ML VIAL IV PRN (11:19)
[2018-09-26] MEDS ORDERED: MIDAZOLAM HCL 2 MG/2 ML INJ IV PRN (11:19)
[2018-09-26] MEDS ORDERED: HALOPERIDOL LACT 5 MG/ML INJ IV PRN (11:19)
[2018-09-26] MEDS ORDERED: NA CHLORIDE 0.9% 250 ML IV PRN (11:19)
[2018-09-26 11:38] LABS: Arterial Blood Carboxyhemoglob 1.5 % (0-1.5); Blood Gas Oxyhemoglobin 89.2 % (94-97); Blood O2 Saturation 90.9 % (92-98.5)
--- NOTE | 2018-09-26 11:53 | RAD REPORT ---
EXAM DESCRIPTION: RAD - Chest Single View - 09/26/2018 11:43 am CLINICAL HISTORY: post intubation Chest pain. COMPARISON: Chest Single View dated 09/26/2018; Chest Single View dated 09/25/2018; Chest Single View dated 09/22/2018; Chest Single View dated 09/19/2018 FINDINGS: Portable technique limits examination quality. Moderate worsening of the right lower pleural and parenchymal lung opacifications since comparative s tudy. Tip of the ET tube is above the ike. Enteric tube is just entering the stomach. The heart is upper limit normal size with dual lead pacer device present. Right-sided PICC line has its tip in th e SVC. IMPRESSION: Moderate worsening of right basilar lung aeration since comparative study.
[2018-09-26] MEDS ORDERED: ETOMIDATE 20 MG/10 ML VIAL IV ONE (14:49)
[2018-09-26] MEDS ORDERED: SUCCINYLCHOLINE 20 MG/ML (10 ML) IV ONE (14:49)
--- NOTE | 2018-09-26 20:47 | P.PN ---
Subjective Date of Service: 09/26/18 Chief Complaint: Respiratory failure Subjective: Worsening The patient is seen and examined, chart reviewed, and case discussed with nursing staff. The patient continues to require BiPAP throughout the night, unable to be taken off. Respiratory status worsening. ABG done, required intubation. Review of Systems 10-point ROS is otherwise unremarkable Physical Examination - Vital Signs Temperature: 98.3 F Blood Pressure: 108/53 Pulse: 70 Respirations: 19 Pulse Ox (%): 100 - Physical Exam General: Moderate distress, Severe distress Respiratory: Other (Tachypneic, diminished air movement) Cardiovascular: Regular rate/rhythm Assessment And Plan - Plan An 82-year-old male with, 1. Sepsis secondary to urinary tract infection from extended-spectrum beta- lactamase producing Proteus as well as pneumonia. 2. Acute respiratory failure with hypoxia. The patient on BiPAP, unable to be weaned off. Now intubated. Appreciate Dr. Hernández's input. 3. Pneumonia, right upper lobe, likely aspiration. We will keep n.p.o. The patient is not stable enough for a modified barium swallow study. We will continue antibiotics. Cultures are negative to date. 4. Aspiration: Dobhobb tube placed, we will continue tube feeds. 5. Hypernatremia. We will switch fluids to D5W and monitor. 6. Essential hypertension, stable. 7. Hypothyroidism. 8. Parkinson disease, stable. 9. History of pulmonary embolism and deep venous thrombosis. The patient is on therapeutic Lovenox and unable to tolerate p.o. at this time. 10. Non-Hodgkin lymphoma. 11. Benign prostatic hypertrophy. 12. Dementia without behavioral disturbance. 13. Acute kidney injury. Creatinine was improved and normalized. We will continue to monitor. Avoid nephrotoxins and NSAIDs. 14. Stage II decubitus ulcer: zinc oxide, off loading. Wound care consulted. 15. Hypotensive after intubation. likely secondary to the anesthetics. Started levophed, BP responding well. Will wean levophed as tolerated. 16. Lung mass on CT chest. this is what is likely causing aspiration (as mass is pushing on bronchus). Patient is scheduled for bronchoscopy tomorrow for further evaluation. Plan: We will continue to monitor in ICU setting. Overall, prognosis is poor. The patient wants to remain full code. [facility], plan was to initiate transfer but patient requiring intubation. Hypotensive after intubation and not stable enough for transfer at this time. Extensive discussion with family regarding goals of care - patient, when alert and oriented, expressed that he would like to be intubated if needed, there pt continues to be a full code at this time. Patient was adamantly refusing feeding tube, but discussed with family that dobhobb is not a permanent solution to feeding and will need to be discussed further. - Code Status/Comfort Care Code Status Assessed: Yes Code Status: Full Code Time Spent Managing PTS Care (In Minutes): 45
[2018-09-27] MEDS: D5W 1,000 ML IV SCH ×3 (05:00→22:20)
[2018-09-27 05:27] LABS: Absolute Lymphocytes (CBC) 14.8 K/uL (0.7-4.9); Absolute Monocytes 0.7 K/uL (0.1-1.3); Absolute Neutrophil 5.9 K/uL (1.8-8.0); Basophils % 0.3 % (0-1.3); Eosinophils % 0.1 % (0-4.4); Hematocrit 33.7 % (39.6-49.0); MPV 9.7 fL (7.6-11.3); Monocytes % 3.3 % (3.3-12.3); RBC Red Blood Cell Count 3.55 M/uL (4.33-5.43)
[2018-09-27 05:38] LABS: Arterial Blood Carboxyhemoglob 1.5 % (0-1.5); Blood Gas Oxyhemoglobin 95.7 % (94-97); Blood O2 Saturation 97.6 % (92-98.5)
[2018-09-27 05:51] LABS: Albumin 2.2 g/dL (3.4-5.0); Bilirubin Total 0.6 mg/dL (0.2-1.0); Potassium 3.7 mmol/L (3.5-5.1); Protein, Total 5.6 g/dL (6.4-8.2)
[2018-09-27] MEDS: VANCOMYCIN 1.5 GM in NA CHLORIDE 0.9% 500 ML IVPB SCH (06:00)
--- NOTE | 2018-09-27 07:03 | RAD REPORT ---
EXAM DESCRIPTION: RAD - Chest Single View - 09/27/2018 6:34 am CLINICAL HISTORY: Respiratory distress, intubation COMPARISON: September 26 TECHNIQUE: AP portable chest image was obtained 0630 hours . FINDINGS: Feeding tube is unchanged in position. ET tube remains in place. No position change identi fiable. Substantial improvement in the right lung base noted. Pleural effusion on with infiltrate and / or atelectasis are substantially improved. There is little measurable pleural fluid on portable jesse ging. Small left pleural effusion remains. Pacemaker is in place. There is a thin curvilinear line in the lateral upper right lung field is probably a skin fold artifact. Pneumothorax is unlikely. There is no history that indicates the patient underwent a thoracentesis procedure. No acute bony abnormal ity seen. No acute aortic findings suspected. IMPRESSION: Significant improvement in the right-side pleural fluid with improvement of the infiltra te and/ or atelectasis at the right base. Small left pleural effusion remains. There is a faint curvilinear line in the upper right lung field. This is probably a skin fold artifac t but is not optimally visualized. There is no known history of thoracentesis procedure that would ra ise concern for minimal pneumothorax.
[2018-09-27] MEDS: FENTANYL CITR 100 MCG/2 ML IV PRN ×2 (07:20→17:41)
[2018-09-27] MEDS ORDERED: Phenylephrine HCl 10 MG/ML 1 ML VIAL ONE ×2 (07:29→08:02)
[2018-09-27] MEDS ORDERED: LIDOCAINE VISCOUS 2% SOLN 15 ML UDC ONE (07:29)
[2018-09-27] MEDS ORDERED: LIDOCAINE 1% MPF 30 ML VIAL ONE (07:32)
[2018-09-27] MEDS ORDERED: GLYCOPYRROLATE 0.2 MG/ML SYR ONE ×2 (07:32→08:03)
[2018-09-27] MEDS ORDERED: KCL 20 MEQ/100 mL IVPB 20 MEQ/100 ML BAG IV SCH (08:00)
[2018-09-27] MEDS ORDERED: EPHEDRINE SULF 50 MG/ML VIAL ONE (08:02)
[2018-09-27] MEDS ORDERED: PROPOFOL 200 MG/20 ML VIAL IV ONE (08:02)
[2018-09-27] MEDS ORDERED: LIDOCAINE 1% MPF 5 ML VIAL ONE (08:03)
--- NOTE | 2018-09-27 08:39 | P.OP ---
Date of Service: 09/27/18 (Bronchoscopy with BAL and a bronchial biopsy and wire brushing) Findings and Operative Technique Patient is 82 years of age evaluated by me for a right hilar mass hence the reason for bronchoscopy Narrative report after obtaining informed consent from the patient's relatives premedicated with 60 mg of propofol Findings normal trachea normal ike normal left-sided bronchial anatomy over he did have on the right main stem friable mass protruding into the lung lumen what people endobronchial biopsies wire brushing and lavage was performed patient did not experience any significant desaturation of bleeding this was done while patient was on a ventilator with an endotracheal tube
--- NOTE | 2018-09-27 08:43 | P.PN ---
Subjective Date of Service: 09/27/18 Chief Complaint: Respiratory failure Patient is currently on a ventilator white count is improving chest x-ray has also improved status post bronchoscopy today Review of Systems is unable to be obtained Physical Examination - Vital Signs Temperature: 98.4 F Blood Pressure: 125/56 Pulse: 70 Respirations: 21 Pulse Ox (%): 100 - Physical Exam General: Unresponsive Respiratory: Clear to auscultation bilaterally, Diminished Gastrointestinal: Normal bowel sounds Assessment & Plan - Problems (Diagnosis) (1) Hypernatremia Onset Date: 09/17/18 Current Visit: No Status: Acute Plan: Hypernatremia resolved reduce dose of IV fluid (2) Lung mass Onset Date: 09/17/18 Current Visit: No Status: Acute Plan: Patient has a right-sided lung mass discuss with the relatives a history of lymphoma/CLL he did have a friable [place] lung mass protruding into the right mainstem bronchus bronchoscopy done today patient's white count is declining blood gases shows a respiratory alkalosis sputum cultures pending blood cultures are so far negative his chest x-ray has improved white count is also declining continue with meropenem and Diflucan Dc vancomycin
[2018-09-27] MEDS: Meropenem 1,000 MG in NA CHLORIDE 0.9% 100 ML IV SCH ×2 (08:54→21:07)
[2018-09-27] MEDS: DESMOPRESSIN 4 MCG/ML AMP SQ SCH ×2 (08:54→21:07)
[2018-09-27] MEDS: MEDIHONEY 44 ML TOPICAL TUBE TOP SCH (08:55)
[2018-09-27] MEDS: ENOXAPARIN 100 MG/ML SYR SQ SCH (09:00)
[2018-09-27] MEDS: levETIRAcetam 500 MG in NA CHLORIDE 0.9% 100 ML IV SCH ×2 (09:01→22:12)
[2018-09-27] MEDS: ZINC OXIDE 20% OINTMENT 60gm TOP SCH (09:02)
[2018-09-27] MEDS: FLUCONAZOLE 400 MG IVPB 400 MG/200 ML BAG IV SCH (10:22)
--- NOTE | 2018-09-27 10:32 | RAD REPORT ---
EXAM DESCRIPTION: Frandy Single View09/27/2018 9:59 am CLINICAL HISTORY: Bronchoscopy/ shortness of breath COMPARISON: September 27, 2018 FINDINGS: Previously described possible right pneumothorax is not visualized on the current exam. If a pneumothorax is present it is very small. Endotracheal tube has its tip well above the ike. A feeding tube has its tip 9 centimeters into the stomach No change has occurred in the right lung opacities. IMPRESSION: Previously described possible right pneumothorax is not visualized on the current exam. If a pneumothorax is present it is very small.
--- NOTE | 2018-09-27 13:10 | P.PN ---
Subjective Date of Service: 09/27/18 Chief Complaint: Respiratory failure The patient is seen and examined, chart reviewed, and case discussed with nursing staff. Intubated. alert, follows commands off levaphed, BP stable Review of Systems 10-point ROS is otherwise unremarkable Physical Examination - Vital Signs Temperature: 98.4 F Blood Pressure: 125/56 Pulse: 70 Respirations: 21 Pulse Ox (%): 100 - Physical Exam General: Alert HEENT: Atraumatic, PERRLA, EOMI Neck: Supple, JVD not distended Respiratory: Diminished, Rhonchi/gurgles, Other (intubated) Cardiovascular: Regular rate/rhythm, Normal S1 S2 Gastrointestinal: Normal bowel sounds, No tenderness Musculoskeletal: No tenderness Integumentary: No rashes Neurological: Normal speech, Normal tone, Normal affect Lymphatics: No axilla or inguinal lymphadenopathy Assessment And Plan - Plan An 82-year-old male with, 1. Sepsis secondary to urinary tract infection from extended-spectrum beta- lactamase producing Proteus as well as pneumonia. 2. Acute respiratory failure with hypoxia. The patient on BiPAP, unable to be weaned off. Now intubated. Appreciate Dr. Hernández's input. 3. Pneumonia, right upper lobe, likely aspiration. We will keep n.p.o. The patient is not stable enough for a modified barium swallow study. We will continue antibiotics. Cultures are negative to date. 4. Aspiration: Dobhobb tube placed, we will continue tube feeds. 5. Hypernatremia. Resolved.Continue D5W. 6. Essential hypertension, stable. 7. Hypothyroidism. 8. Parkinson disease, stable. 9. History of pulmonary embolism and deep venous thrombosis. The patient is on therapeutic Lovenox and unable to tolerate p.o. at this time. 10. Non-Hodgkin lymphoma. 11. Benign prostatic hypertrophy. 12. Dementia without behavioral disturbance. 13. Acute kidney injury. Creatinine was improved and normalized. We will continue to monitor. Avoid nephrotoxins and NSAIDs. 14. Stage II decubitus ulcer: zinc oxide, off loading. Wound care consulted. 15. Hypotensive after intubation. likely secondary to the anesthetics. Started levophed, BP responding well. Levophed weaned off, BP now stable off of pressors. 16. Lung mass on CT chest. this is what is likely causing aspiration (as mass is pushing on bronchus). s/p bronchoscopy today. . Plan: We will continue to monitor in ICU setting. Overall, prognosis is poor. The patient wants to remain full code. [facility], plan was to initiate transfer but patient requiring intubation. Hypotensive after intubation and not stable enough for transfer at this time. Extensive discussion with family regarding goals of care - patient, when alert and oriented, expressed that he would like to be intubated if needed, there pt continues to be a full code at this time. Patient was adamantly refusing feeding tube, but discussed with family that dobhobb is not a permanent solution to feeding and will need to be discussed further. Time Spent Managing PTS Care (In Minutes): 45
[2018-09-28] MEDS: D5W 1,000 ML IV SCH ×2 (02:22→15:19)
[2018-09-28] MEDS ORDERED: VANCOMYCIN 1.5 GM in NA CHLORIDE 0.9% 500 ML IVPB SCH (08:00)
--- NOTE | 2018-09-28 08:46 | RAD REPORT ---
EXAM DESCRIPTION: RAD - Chest Single View - 09/28/2018 6:48 am CLINICAL HISTORY: intubated Chest pain. COMPARISON: Chest Single View dated 09/27/2018; Chest Single View dated 09/27/2018; Chest Single View dated 09/26/2018; Chest Single View dated 09/26/2018 FINDINGS: Portable technique limits examination quality. Tip of the ET tube is above the ike. Enteric tube descends into the stomach. Linear subsegmental a telectasis is seen in the right upper lobe. The heart is mildly enlarged in size with a dual lead pac er device present. Sternotomy wires present. IMPRESSION: Stable chest since preceding day's examination.
[2018-09-28] MEDS: levETIRAcetam 500 MG in NA CHLORIDE 0.9% 100 ML IV SCH ×2 (09:34→20:11)
[2018-09-28] MEDS: APIXABAN 5 MG TABLET PO SCH (09:34)
[2018-09-28] MEDS: ENOXAPARIN 100 MG/ML SYR SQ SCH (09:34)
[2018-09-28] MEDS: DESMOPRESSIN 4 MCG/ML AMP SQ SCH ×2 (09:34→20:11)
[2018-09-28] MEDS: FLUCONAZOLE 400 MG IVPB 400 MG/200 ML BAG IV SCH (09:34)
[2018-09-28] MEDS: Meropenem 1,000 MG in NA CHLORIDE 0.9% 100 ML IV SCH (09:36)
[2018-09-28] MEDS: MEDIHONEY 44 ML TOPICAL TUBE TOP SCH (09:37)
[2018-09-28] MEDS: ZINC OXIDE 20% OINTMENT 60gm TOP SCH (09:37)
[2018-09-28] MEDS: FENTANYL CITR 100 MCG/2 ML IV PRN ×2 (11:04→19:20)
--- NOTE | 2018-09-28 12:26 | P.PN ---
Subjective Date of Service: 09/28/18 Chief Complaint: Respiratory failure Patient's condition is stable he is alert responsive cooperative tolerating tube feeds on a ventilator Review of Systems is unable to be obtained Physical Examination - Vital Signs Temperature: 97.8 F Blood Pressure: 123/53 Pulse: 70 Respirations: 11 Pulse Ox (%): 97 - Physical Exam General: Alert, Cooperative Neck: Supple Respiratory: Clear to auscultation bilaterally Cardiovascular: Regular rate/rhythm, Normal S1 S2 - Studies Microbiology Data (last 24 hrs): 09/22/18 22:48 Blood - Blood Aerobic Blood Culture - Final No growth in 5 days. 09/22/18 22:48 Blood - Blood Anaerobic Blood Culture - Final 09/22/18 22:00 Blood - Blood Aerobic Blood Culture - Final No growth in 5 days. 09/22/18 22:00 Blood - Blood Anaerobic Blood Culture - Final No growth in 5 days. Assessment & Plan - Problems (Diagnosis) (1) Hypernatremia Onset Date: 09/17/18 Current Visit: No Status: Acute Plan: This hypernatremia is improving on will await for labs today his IV infusion rate was decreased to 75 (2) Lung mass Onset Date: 09/17/18 Current Visit: No Status: Acute Plan: Patient has a lung mass on bronchoscopy in the right mainstem bronchus biopsies pending (3) Acute respiratory failure Onset Date: 09/24/18 Current Visit: Yes Status: Acute Plan: Respiratory failure patient intubated the chest x-ray had a significant improvement yesterday will plan to wean hopefully can extubate him is tolerating tube feeds white count is still elevated there appears to be no evidence of an infection there was no evidence of any poor leads in his respiratory tract will Dc the antibiotics as quite possible that is masses related to his underlying lymphoma patient currently is only on 25% oxygen Qualifiers: Respiratory failure complication: hypoxia Qualified Code(s): J96.01 - Acute respiratory failure with hypoxia
[2018-09-28 12:31] LABS: Potassium 3.6 mmol/L (3.5-5.1)
--- NOTE | 2018-09-28 17:26 | P.PN ---
Subjective Date of Service: 09/28/18 Chief Complaint: Respiratory failure Subjective: No new changes The patient is seen and examined, chart reviewed, and case discussed with nursing staff. Intubated. Off of Levophed Review of Systems 10-point ROS is otherwise unremarkable Physical Examination - Vital Signs Temperature: 97.8 F Blood Pressure: 117/53 Pulse: 70 Respirations: 31 Pulse Ox (%): 96 - Physical Exam General: Mild distress HEENT: Atraumatic Neck: Supple Respiratory: Other (Intubated, ) Cardiovascular: Edema (Generalized) - Studies Microbiology Data (last 24 hrs): 09/22/18 22:48 Blood - Blood Aerobic Blood Culture - Final No growth in 5 days. 09/22/18 22:48 Blood - Blood Anaerobic Blood Culture - Final 09/22/18 22:00 Blood - Blood Aerobic Blood Culture - Final No growth in 5 days. 09/22/18 22:00 Blood - Blood Anaerobic Blood Culture - Final No growth in 5 days. Assessment And Plan - Plan An 82-year-old male with, 1. Sepsis secondary to urinary tract infection from extended-spectrum beta- lactamase producing Proteus as well as pneumonia. 2. Acute respiratory failure with hypoxia. The patient on BiPAP, unable to be weaned off. Now intubated. Appreciate Dr. Hernández's input. 3. Pneumonia, right upper lobe, likely aspiration. We will keep n.p.o. The patient is not stable enough for a modified barium swallow study. We will continue antibiotics. Cultures are negative to date. 4. Aspiration: Dobhobb tube placed, we will continue tube feeds. 5. Hypernatremia. Resolved.Continue D5W. 6. Essential hypertension, stable. 7. Hypothyroidism. 8. Parkinson disease, stable. 9. History of pulmonary embolism and deep venous thrombosis. The patient is on therapeutic Lovenox and unable to tolerate p.o. at this time. 10. Non-Hodgkin lymphoma. 11. Benign prostatic hypertrophy. 12. Dementia without behavioral disturbance. 13. Acute kidney injury. Creatinine was improved and normalized. We will continue to monitor. Avoid nephrotoxins and NSAIDs. 14. Stage II decubitus ulcer: zinc oxide, off loading. Wound care consulted. 15. Hypotensive after intubation. likely secondary to the anesthetics. Started levophed, BP responding well. Levophed weaned off, BP now stable off of pressors. 16. Lung mass on CT chest. this is what is likely causing aspiration (as mass is pushing on bronchus). s/p bronchoscopy today. . Plan: We will continue to monitor in ICU setting. Overall, prognosis is poor. The patient wants to remain full code. [facility], plan was to initiate transfer but patient requiring intubation. Hypotensive after intubation and not stable enough for transfer at this time. Extensive discussion with family regarding goals of care - patient, when alert and oriented, expressed that he would like to be intubated if needed, there pt continues to be a full code at this time. Patient was adamantly refusing feeding tube, but discussed with family that dobhobb is not a permanent solution to feeding and will need to be discussed further.
[2018-09-28 17:29] LABS: Arterial Blood Carboxyhemoglob 1.7 % (0-1.5); Blood Gas Oxyhemoglobin 91.7 % (94-97); Blood O2 Saturation 93.7 % (92-98.5)
[2018-09-29] MEDS: D5W 1,000 ML IV SCH (04:08)
[2018-09-29 06:04] LABS: Hematocrit 35.4 % (39.6-49.0); MPV 11.2 fL (7.6-11.3); RBC Red Blood Cell Count 3.78 M/uL (4.33-5.43)
--- NOTE | 2018-09-29 08:49 | RAD REPORT ---
EXAM DESCRIPTION: Frandy Single View09/29/2018 6:30 am CLINICAL HISTORY: Shortness of breath COMPARISON: September 28 FINDINGS: Lines and tubes remain in place. Left lung opacities have worsened and are [id number]. No significant change in right lung opaci ties. Small pleural effusions suspected
[2018-09-29] MEDS: ZINC OXIDE 20% OINTMENT 60gm TOP SCH (09:00)
[2018-09-29] MEDS: DESMOPRESSIN 4 MCG/ML AMP SQ SCH (09:21)
[2018-09-29] MEDS: KCL 20 MEQ/100 mL IVPB 20 MEQ/100 ML BAG IV SCH ×2 (09:22→10:54)
[2018-09-29] MEDS: levETIRAcetam 500 MG in NA CHLORIDE 0.9% 100 ML IV SCH ×2 (09:22→20:01)
[2018-09-29] MEDS: APIXABAN 5 MG TABLET PO SCH (09:22)
[2018-09-29] MEDS: FLUCONAZOLE 100 MG TAB PO SCH (09:22)
[2018-09-29] MEDS: MEDIHONEY 44 ML TOPICAL TUBE TOP SCH (09:24)
--- NOTE | 2018-09-29 10:27 | P.PN ---
Subjective Date of Service: 09/29/18 Chief Complaint: Respiratory failure Patient 7 isha does spontaneous breathing trial is still tachypneic on the ventilator stage II decubitus ulcers tolerating tube feeds chest x-ray no change still has is right hilar mass pathology is pending Review of Systems is unable to be obtained Physical Examination - Vital Signs Temperature: 96.7 F Blood Pressure: 109/58 Pulse: 70 Respirations: 16 Pulse Ox (%): 98 - Physical Exam General: Alert, Other (Tachypneic) HEENT: Atraumatic Neck: Supple Respiratory: Clear to auscultation bilaterally Cardiovascular: Edema (Patient has mild edema) Musculoskeletal: Other (Stage II decubitus ulcers on the buttocks) Assessment & Plan - Problems (Diagnosis) (1) Hypernatremia Onset Date: 09/17/18 Current Visit: No Status: Resolved Plan: Hypernatremia has resolved will Dc the desmopressin water flushes Dc IV fluid (2) Lung mass Onset Date: 09/17/18 Current Visit: No Status: Acute Plan: Patient has a lung mass on bronchoscopy in the right mainstem bronchus biopsies pending no change (3) Acute respiratory failure Onset Date: 09/24/18 Current Visit: Yes Status: Acute Plan: Plan to wean and extubate patient has a respiratory alkalosis Qualifiers: Respiratory failure complication: hypoxia Qualified Code(s): J96.01 - Acute respiratory failure with hypoxia
--- NOTE | 2018-09-29 14:01 | P.PN ---
Subjective Date of Service: 09/29/18 Chief Complaint: Respiratory failure Subjective: No new changes The patient is seen and examined, chart reviewed, and case discussed with nursing staff. Intubated. Off of Levophed Review of Systems 10-point ROS is otherwise unremarkable Physical Examination - Vital Signs Temperature: 96.7 F Blood Pressure: 124/55 Pulse: 70 Respirations: 41 Pulse Ox (%): 95 - Physical Exam General: In no apparent distress, Confused HEENT: Atraumatic, PERRLA, EOMI Neck: Supple, JVD not distended Respiratory: Dull, Other (Extubated) Cardiovascular: No edema Musculoskeletal: No tenderness Integumentary: No rashes Assessment And Plan - Plan An 82-year-old male with, 1. Sepsis secondary to urinary tract infection from extended-spectrum beta- lactamase producing Proteus as well as pneumonia. 2. Acute respiratory failure with hypoxia. The patient on BiPAP, unable to be weaned off. Now intubated. Appreciate Dr. Hernández's input. 3. Pneumonia, right upper lobe, likely aspiration. We will keep n.p.o. The patient is not stable enough for a modified barium swallow study. We will continue antibiotics. Cultures are negative to date. 4. Aspiration: Dobhobb tube placed, we will continue tube feeds. 5. Hypernatremia. Resolved.Continue D5W. 6. Essential hypertension, stable. 7. Hypothyroidism. 8. Parkinson disease, stable. 9. History of pulmonary embolism and deep venous thrombosis. The patient is on therapeutic Lovenox and unable to tolerate p.o. at this time. 10. Non-Hodgkin lymphoma. 11. Benign prostatic hypertrophy. 12. Dementia without behavioral disturbance. 13. Acute kidney injury. Creatinine was improved and normalized. We will continue to monitor. Avoid nephrotoxins and NSAIDs. 14. Stage II decubitus ulcer: zinc oxide, off loading. Wound care consulted. 15. Hypotensive after intubation. likely secondary to the anesthetics. Started levophed, BP responding well. Levophed weaned off, BP now stable off of pressors. 16. Lung mass on CT chest. this is what is likely causing aspiration (as mass is pushing on bronchus). s/p bronchoscopy today. . Plan: We will continue to monitor in ICU setting. Overall, prognosis is poor. The patient wants to remain full code. [facility], plan was to initiate transfer but patient requiring intubation. Hypotensive after intubation and not stable enough for transfer at this time. Extensive discussion with family regarding goals of care - patient, when alert and oriented, expressed that he would like to be intubated if needed, there pt continues to be a full code at this time. Patient was adamantly refusing feeding tube, but discussed with family that dobhobb is not a permanent solution to feeding and will need to be discussed further.
[2018-09-29] MEDS: VITAL AF 1,000 ML BOT RTH SCH (15:20)
[2018-09-29] MEDS ORDERED: KCL 20 MEQ/100 mL IVPB 20 MEQ/100 ML BAG IV SCH (20:00)
[2018-09-30 05:41] LABS: Hematocrit 33.6 % (39.6-49.0); MPV 10.3 fL (7.6-11.3); RBC Red Blood Cell Count 3.58 M/uL (4.33-5.43)
[2018-09-30 05:50] LABS: Potassium 3.6 mmol/L (3.5-5.1)
[2018-09-30] MEDS ORDERED: POTASSIUM 25 MEQ EFFERV TAB PO ONE (09:00)
[2018-09-30] MEDS: FENTANYL CITR 100 MCG/2 ML IV PRN ×2 (10:06→20:22)
[2018-09-30] MEDS: APIXABAN 5 MG TABLET PO SCH (10:07)
[2018-09-30] MEDS: FLUCONAZOLE 100 MG TAB PO SCH (10:07)
[2018-09-30] MEDS: levETIRAcetam 500 MG in NA CHLORIDE 0.9% 100 ML IV SCH ×2 (10:07→20:22)
[2018-09-30] MEDS: MEDIHONEY 44 ML TOPICAL TUBE TOP SCH (10:08)
[2018-09-30] MEDS: ZINC OXIDE 20% OINTMENT 60gm TOP SCH (10:08)
[2018-09-30] MEDS: ALBUTEROL 2.5 MG/3 ML NEB SOL NEB PRN (14:01)
[2018-09-30] MEDS: IPRATROPIUM BROM 0.5MG/2.5ML NEB PRN (14:01)
[2018-09-30 14:47] LABS: Arterial Blood Carboxyhemoglob 1.2 % (0-1.5); Blood O2 Saturation 93.6 % (92-98.5)
[2018-09-30 16:47] LABS: Arterial Blood Carboxyhemoglob 1.2 % (0-1.5); Blood Gas Oxyhemoglobin 98.2 % (94-97); Blood O2 Saturation 99.7 % (92-98.5)
--- NOTE | 2018-09-30 17:19 | P.PN ---
Subjective Date of Service: 09/30/18 Chief Complaint: Respiratory failure The patient is seen and examined, chart reviewed, and case discussed with nursing staff. extubated, though in acute respiratory distress, put back on bipap Off of Levophed Review of Systems 10-point ROS is otherwise unremarkable Physical Examination - Vital Signs Temperature: 97.5 F Blood Pressure: 126/64 Pulse: 73 Respirations: 28 Pulse Ox (%): 100 - Physical Exam General: Alert, Mild distress, Confused, Other (Follows commands) HEENT: Atraumatic, PERRLA, EOMI Neck: Supple, JVD not distended Respiratory: Crackles/rales, Expiratory wheezes Cardiovascular: Regular rate/rhythm, Normal S1 S2 Gastrointestinal: Normal bowel sounds, No tenderness Musculoskeletal: No tenderness Integumentary: No rashes Neurological: Normal speech, Normal tone, Normal affect Lymphatics: No axilla or inguinal lymphadenopathy Assessment And Plan - Plan An 82-year-old male with, 1. Sepsis secondary to urinary tract infection from extended-spectrum beta- lactamase producing Proteus as well as pneumonia. 2. Acute respiratory failure with hypoxia. The patient on BiPAP, unable to be weaned off. Now intubated. Appreciate Dr. Hernández's input. 3. Pneumonia, right upper lobe, likely aspiration. We will keep n.p.o. The patient is not stable enough for a modified barium swallow study. We will continue antibiotics. Cultures are negative to date. 4. Aspiration: Dobhobb tube placed, we will continue tube feeds. 5. Hypernatremia. Resolved.Continue D5W. 6. Essential hypertension, stable. 7. Hypothyroidism. 8. Parkinson disease, stable. 9. History of pulmonary embolism and deep venous thrombosis. The patient is on therapeutic Lovenox and unable to tolerate p.o. at this time. 10. Non-Hodgkin lymphoma. 11. Benign prostatic hypertrophy. 12. Dementia without behavioral disturbance. 13. Acute kidney injury. Creatinine was improved and normalized. We will continue to monitor. Avoid nephrotoxins and NSAIDs. 14. Stage II decubitus ulcer: zinc oxide, off loading. Wound care consulted. 15. Hypotensive after intubation. likely secondary to the anesthetics. Started levophed, BP responding well. Levophed weaned off, BP now stable off of pressors. 16. Lung mass on CT chest. this is what is likely causing aspiration (as mass is pushing on bronchus). s/p bronchoscopy today. . Plan: We will continue to monitor in ICU setting. Overall, prognosis is poor. The patient wants to remain full code. [facility], plan was to initiate transfer but patient requiring intubation. Hypotensive after intubation and not stable enough for transfer at this time. Extensive discussion with family regarding goals of care - patient, when alert and oriented, expressed that he would like to be intubated if needed, there pt continues to be a full code at this time. Patient was adamantly refusing feeding tube, but discussed with family that dobhobb is not a permanent solution to feeding and will need to be discussed further.
[2018-10-01] MEDS: FENTANYL CITR 100 MCG/2 ML IV PRN (02:26)
[2018-10-01 06:03] LABS: Magnesium 2.1 mg/dL (1.8-2.4)
[2018-10-01 06:05] LABS: Hematocrit 32.6 % (39.6-49.0); MPV 10.7 fL (7.6-11.3); RBC Red Blood Cell Count 3.47 M/uL (4.33-5.43)
[2018-10-01 07:17] LABS: Potassium 3.6 mmol/L (3.5-5.1)
--- NOTE | 2018-10-01 08:05 | P.PN ---
Subjective Date of Service: 10/01/18 Chief Complaint: Respiratory failure Patient was extubated over the weekend developed some respiratory distress requiring a BiPAP otherwise ill is alert responsive cooperative tolerating tube feeds white count is declining Review of Systems is unable to be obtained Physical Examination - Vital Signs Temperature: 97.7 F Blood Pressure: 133/56 Pulse: 70 Respirations: 26 Pulse Ox (%): 100 - Physical Exam General: Alert, Cooperative Respiratory: Clear to auscultation bilaterally, Diminished Cardiovascular: Regular rate/rhythm, Edema Assessment & Plan - Problems (Diagnosis) (1) Lung mass Onset Date: 09/17/18 Current Visit: No Status: Acute Plan: Biopsy results pending (2) Acute respiratory failure Onset Date: 09/24/18 Current Visit: Yes Status: Acute Plan: Patient is requiring intermittent BiPAP white count is declining recent blood gases showed mild hypercapnia normal sodium creatinine is also improving Qualifiers: Respiratory failure complication: hypoxia Qualified Code(s): J96.01 - Acute respiratory failure with hypoxia
[2018-10-01 09:24] LABS: Arterial Blood Carboxyhemoglob 1.4 % (0-1.5); Blood Gas Oxyhemoglobin 90.2 % (94-97); Blood O2 Saturation 91.9 % (92-98.5)
--- NOTE | 2018-10-01 09:37 | RAD REPORT ---
EXAM DESCRIPTION: Frandy Single View10/01/2018 8:34 am CLINICAL HISTORY: Shortness of breath COMPARISON: September 29 FINDINGS: The endotracheal tube is no longer visualized. A feeding tube is present within the stomac h. No significant change in the bilateral pulmonary opacities. Small pleural effusions suspected. IMPRESSION: Endotracheal tube is not visualized and presumably has been removed. This should be alejandro elated clinically. No change in bilateral pulmonary opacities
[2018-10-01] MEDS: APIXABAN 5 MG TABLET PO SCH (09:38)
[2018-10-01] MEDS: FLUCONAZOLE 100 MG TAB PO SCH (09:38)
[2018-10-01] MEDS: levETIRAcetam 500 MG in NA CHLORIDE 0.9% 100 ML IV SCH ×2 (09:38→21:00)
[2018-10-01] MEDS: MEDIHONEY 44 ML TOPICAL TUBE TOP SCH (09:39)
[2018-10-01] MEDS: ZINC OXIDE 20% OINTMENT 60gm TOP SCH (09:40)
[2018-10-01] MEDS ORDERED: POTASSIUM 25 MEQ EFFERV TAB PO ONE (11:35)
[2018-10-01] MEDS: VITAL AF 1,000 ML BOT RTH SCH (12:46)
--- NOTE | 2018-10-01 14:31 | RAD REPORT ---
EXAM DESCRIPTION: RAD - Barium Swallow Modified - 10/01/2018 2:26 pm CLINICAL HISTORY: r/o aspiration Dysphagia, aspiration. COMPARISON: Barium Swallow Modified dated 09/17/2018 TECHNIQUE: The patient was given liquid, semi-solid and solid forms of barium. Lateral view fluorosc opic imaging was performed in conjunction with speech pathology service. FINDINGS: Pharyngeal residue: Vallecular and Pyriform. Moderate with honey and pudding, cleared to minimum with cued consecutive dry swallows. Total fluoroscopy time: 2 minutes and 52 seconds
[2018-10-01] MEDS: VANCOMYCIN ORAL SOLN 250 MG/5 ML OSYR FT SCH ×3 (15:48→23:55)
--- NOTE | 2018-10-01 18:25 | P.PN ---
Subjective Date of Service: 10/01/18 Chief Complaint: Respiratory failure The patient is seen and examined, chart reviewed, and case discussed with nursing staff. extubated, though in acute respiratory distress, continue to be on and off BiPAP intermittently. Off of Levophed, blood pressure stable Review of Systems 10-point ROS is otherwise unremarkable Physical Examination - Vital Signs Temperature: 97.7 F Blood Pressure: 129/55 Pulse: 70 Respirations: 35 Pulse Ox (%): 95 - Physical Exam General: In no apparent distress, Oriented x2, Oriented x1 HEENT: Atraumatic, PERRLA, EOMI Neck: Supple, JVD not distended Respiratory: Diminished, Crackles/rales, Expiratory wheezes Cardiovascular: Regular rate/rhythm, Normal S1 S2 Gastrointestinal: Normal bowel sounds, No tenderness Musculoskeletal: No tenderness Integumentary: No rashes Neurological: Normal speech, Normal tone, Normal affect Assessment And Plan - Plan An 82-year-old male with, 1. Sepsis secondary to urinary tract infection from extended-spectrum beta- lactamase producing Proteus as well as pneumonia. Antibiotics discontinued per pulmonology. 2. Acute respiratory failure with hypoxia. The patient is now extubated, continues to be intermittently on and off BiPAP. Pulmonology on board, Appreciate Dr. Hernández's input. 3. Pneumonia, right upper lobe, likely aspiration. Patient underwent a modified barium swallow study today, past. Modified diet ordered. 4. Aspiration: Dobhobb tube placed; we can plan on taking the tube out once patient able to tolerate a modified oral diet 5. Hypernatremia. Resolved.Continue D5W. 6. Essential hypertension, stable. 7. Hypothyroidism. 8. Parkinson disease, stable. 9. History of pulmonary embolism and deep venous thrombosis. The patient is on therapeutic Lovenox and unable to tolerate p.o. at this time. 10. Non-Hodgkin lymphoma. 11. Benign prostatic hypertrophy. 12. Dementia without behavioral disturbance. 13. Acute kidney injury. Creatinine was improved and normalized. We will continue to monitor. Avoid nephrotoxins and NSAIDs. 14. Stage II decubitus ulcer: zinc oxide, off loading. Wound care consulted. 15. Hypotensive after intubation. likely secondary to the anesthetics. Started levophed, BP responding well. Levophed weaned off, BP now stable off of pressors. 16. Lung mass on CT chest. this is what is likely causing aspiration (as mass is pushing on bronchus). Bronchoscopy was done. Pathology shows low-grade B- cell lymphoma, MALT lymphoma. 17. C. diff infection: Started oral vancomycin via NG tube. 18. Stage III sacral pressure ulcer: Wound care consulted. Recommendations appreciated. continue wound care per wound care instructions Plan: We will continue to monitor in ICU setting. Overall, prognosis is poor. The patient wants to remain full code. [facility], plan was to initiate transfer but patient requiring intubation. Hypotensive after intubation and not stable enough for transfer at this time. Extensive discussion with family regarding goals of care - patient, when alert and oriented, expressed that he would like to be intubated if needed, there pt continues to be a full code at this time. Patient was adamantly refusing feeding tube, but discussed with family that dobhobb is not a permanent solution to feeding and will need to be discussed further.
[2018-10-01] MEDS ORDERED: TRAZODONE 50 MG TABLET PO ONE (22:36)
[2018-10-02 05:12] LABS: Hematocrit 35.1 % (39.6-49.0); MPV 10.8 fL (7.6-11.3)
[2018-10-02 05:27] LABS: Magnesium 2.2 mg/dL (1.8-2.4); Potassium 3.7 mmol/L (3.5-5.1)
[2018-10-02] MEDS ORDERED: POTASSIUM 25 MEQ EFFERV TAB PO ONE (06:58)
--- NOTE | 2018-10-02 08:41 | RAD REPORT ---
EXAM DESCRIPTION: RAD - Chest Single View - 10/02/2018 6:51 am CLINICAL HISTORY: Respiratory failure Chest pain. COMPARISON: Chest Single View dated 10/01/2018; Chest Single View dated 09/29/2018; Chest Single View dated 09/28/2018; Chest Single View dated 09/27/2018 FINDINGS: Portable technique limits examination quality. Endotracheal tube tip is not seen on this examination. Right-sided PICC line has tip in the SVC. Ente carlee tube enters the stomach. Little overall change is seen in the bilateral pulmonary opacities since comparative study.
[2018-10-02] MEDS: levETIRAcetam 500 MG in NA CHLORIDE 0.9% 100 ML IV SCH ×2 (09:04→21:00)
[2018-10-02] MEDS: FLUCONAZOLE 100 MG TAB PO SCH (09:04)
[2018-10-02] MEDS: VANCOMYCIN ORAL SOLN 250 MG/5 ML OSYR FT SCH ×3 (09:04→18:00)
[2018-10-02] MEDS: APIXABAN 5 MG TABLET PO SCH (09:04)
[2018-10-02] MEDS: ZINC OXIDE 20% OINTMENT 60gm TOP SCH (09:40)
[2018-10-02] MEDS: MEDIHONEY 44 ML TOPICAL TUBE TOP SCH (09:40)
--- NOTE | 2018-10-02 11:50 | P.PN ---
Subjective Date of Service: 10/02/18 Chief Complaint: Respiratory failure Patient is doing much better he is more alert responsive cooperative trying to talk tolerating tube feeds he stayed off his BiPAP Review of Systems is unable to be obtained Physical Examination - Vital Signs Temperature: 97 F Blood Pressure: 153/69 Pulse: 70 Respirations: 19 Pulse Ox (%): 96 - Physical Exam General: Alert, Cooperative Respiratory: Clear to auscultation bilaterally, Diminished Cardiovascular: Normal S1 S2, Abnormal S3, Edema Assessment & Plan - Problems (Diagnosis) (1) Lymphoma Current Visit: Yes Status: Acute Plan: 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 difficile patient's vital signs are stable can go to the floor to discuss with family members regarding a PEG tube DNR hospice care continue with Diflucan for now he is high risk for fungal infection in UA he did improve with this medication Qualifiers: B-cell lymphoma type: unspecified B-cell Lymphoma site: intrathoracic nodes
--- NOTE | 2018-10-02 15:24 | PN ---
Date of Progress Note: 09/30/2018 Patient seen and examined. Chart reviewed and case discussed with RN. The patient is familiar to me from earlier in this hospitalization. The patient is still in the ICU, now off BiPAP and requiring it intermittently. Appears to be in about the same condition. Medications: List reviewed. Code Status: Full. Physical Examination: Vital Signs: Temperature 97, heart rate 70, blood pressure 152/69, respirations 27, O2 100% on 4 L v ia nasal cannula. General: Awake, alert, oriented x3. Ill-appearing male, elderly. CV: S1, S2. Pe ripheral pulses present. Respiratory: Diminished breath sounds. Some rhonchi heard. Tachypneic. Th e patient is using accessory muscles. Gastrointestinal: Abdomen is soft, nontender, nondistended. P ositive bowel sounds. Extremities: No clubbing, cyanosis. The patient has peripheral edema. Neurologic: Nonfocal. Has overall generalized weakness. Laboratory Data: Sodium 145, potassium 3.7, chloride 111, CO2 26, BUN 45, creatinine 1.18, glucose 1 26, calcium 8.4, magnesium 2.2. WBC 16.7, H and H 11.1, 35.1, platelets 151. Blood cultures, no dat wth to date. Wound cultures from the sacrum growing Acinetobacter baumannii. Chest x-ray personally reviewed shows PICC line in place. Bilateral pulmonary opacities present. Assessment And Plan: An 82-year-old male with: 1.Sepsis secondary to UTI from ESBL Proteus pneumonia. The patient has completed antibiotics. 2.Acute respiratory failure with hypoxia. The patient now extubated, requiring BiPAP on and off. A ppreciate Dr. Hernández's input. 3.Pneumonia, right upper lobe, likely aspiration. Modified barium swallow study done. The patient will be able to be started on modified diet. 4.Aspiration. 5.Hypernatremia, resolved with just IV fluids. 6.Essential hypertension, stable. 7.Hypothyroidism. 8.Parkinson disease, stable. 9.History of PE and DVT. The patient is on therapeutic Lovenox and able to tolerate p.o. at this ti me. 10.Non-Hodgkin's lymphoma. 11.Benign prostatic hypertrophy. 12.Lung mass, status post bronchoscopy, with pathology showing low-grade B-cell lymphoma, malt lymph phillip. 13.Hypertension, improving. The patient now off Levophed. 14.Stage III sacral pressure ulcer. Continue wound care, offloading. 15.Acute kidney injury. Creatinine has normalized. We will avoid NSAIDs and nephrotoxins. Continu e monitoring. 16.Dementia with behavioral disturbance. 17.Benign prostatic hypertrophy. Plan: Overall poor prognosis. Continue monitoring in ICU setting. Family wants transfer to [place]. The patient is established patient there. We will speak with case management regarding transfer. The p atient is still full code. As patient tolerates modified diet, may be able to remove NG tube. SA/MODL Voice ID: [id number] Report ID: [id number]
[2018-10-02] MEDS: VITAL AF 1,000 ML BOT RTH SCH (21:00)
[2018-10-02] MEDS ORDERED: TRAZODONE 50 MG TABLET PO ONE (22:36)
[2018-10-03] MEDS: VANCOMYCIN ORAL SOLN 250 MG/5 ML OSYR FT SCH ×2 (00:34→06:48)
--- NOTE | 2018-10-03 02:14 | P.PN ---
Date of Service: 10/03/18 Overnight the patient become more obtunded, with respiratory distress. Family member was called to clarify code status. His daughter who is the POA, decided to be DNI, but she wants chest compression if is necessary. She is also agree with BiPAP. ABG shows CO2 retention 98, so he was placed on BiPAP.
[2018-10-03 02:46] LABS: Blood Gas Oxyhemoglobin 93.2 % (94-97); Blood O2 Saturation 94.6 % (92-98.5)
[2018-10-03 03:42] LABS: Absolute Lymphocytes (CBC) 8.7 K/uL (0.7-4.9); Absolute Monocytes 0.6 K/uL (0.1-1.3); Absolute Neutrophil 9.9 K/uL (1.8-8.0); Basophils % 0.3 % (0-1.3); Eosinophils % 0.1 % (0-4.4); Hematocrit 35.8 % (39.6-49.0); Lymphocytes % 45.1 % (15.3-44.8); MPV 10.3 fL (7.6-11.3); Monocytes % 3.3 % (3.3-12.3)
[2018-10-03 04:13] LABS: Albumin 2.5 g/dL (3.4-5.0); Bilirubin Total 0.3 mg/dL (0.2-1.0); Potassium 4.4 mmol/L (3.5-5.1); Protein, Total 6.7 g/dL (6.4-8.2)
[2018-10-03 05:11] LABS: Blood Morphology Comment NOT SEEN (NOT SEEN); Platelet Estimate ADEQ
[2018-10-03 05:40] VITALS: BMI 29.1
[2018-10-03 08:29] LABS: Arterial Blood Carboxyhemoglob 1.1 % (0-1.5); Blood Gas Oxyhemoglobin 89.9 % (94-97); Blood O2 Saturation 91.2 % (92-98.5)
--- NOTE | 2018-10-03 08:48 | RAD REPORT ---
EXAM DESCRIPTION: CT - Ct Stroke Brain Wo Cont - 10/03/2018 6:03 am CLINICAL HISTORY: Alteration of awareness/memory loss COMPARISON: September 16, 2018 TECHNIQUE: Computed axial tomography of the head was obtained. IV contrast was not requested. All CT scans are performed using dose optimization technique as appropriate and may include automated exposure control or mA/KV adjustment according to patient size. FINDINGS: An intracranial bleed is not seen . The ventricles are normal in caliber. No extra-axial fluid collection is noted. Mild to moderate low-density areas within periventricular, deep and subcortical white matter likely represent ischemic changes secondary to small vessel disease . Cerebral atrophy is noted. IMPRESSION: No acute intracranial abnormality is seen. If patient's symptoms persist MRI of the bra in would be recommended. A preliminary report was faxed by [facility] 3:53 a.m. October 03, 2018. The exam was discuss ed by telephone by Myron Howard MD with Dr. Billingsley 4:15 a.m. October 03, 2017
--- NOTE | 2018-10-03 09:16 | RAD REPORT ---
EXAM DESCRIPTION: Frandy Single View10/03/2018 8:58 am CLINICAL HISTORY: Shortness of breath COMPARISON: October 02, 2018 FINDINGS: Postsurgical changes involve the chest Mild worsening in left lung opacities has occurred. Mild improvement in right lung opacities is noted . The heart is mildly enlarged. Feeding tube has its tip in stomach
[2018-10-03] MEDS: FLUCONAZOLE 100 MG TAB PO SCH (09:39)
[2018-10-03] MEDS: levETIRAcetam 500 MG in NA CHLORIDE 0.9% 100 ML IV SCH (09:40)
[2018-10-03] MEDS: ZINC OXIDE 20% OINTMENT 60gm TOP SCH (09:40)
[2018-10-03] MEDS: MEDIHONEY 44 ML TOPICAL TUBE TOP SCH (09:40)
[2018-10-03] MEDS ORDERED: NA CHLORIDE 0.9% 500 ML IV ONE (11:32)
[2018-10-03] MEDS ORDERED: NOREPINEPHRINE 4 MG in D5W 250 ML IV PRN (11:32)
--- NOTE | 2018-10-03 12:22 | PN ---
Date of Progress Note: 10/03/2018 Subjective: The patient is seen and examined. Chart reviewed, and case discussed with RN. The patient had deterioration in his status yesterday with worsening respiratory status and decreased mental status. The patient was evaluated by hand tier during this event and was started on BiPAP. The patient 's code status was changed to do not intubate per the patient yesterday. He had a conversation with myself with his family members present. The patient was transferred back to ICU and has been on BiPAP, largely nonresponsive. Medications: List reviewed. Physical Examination: Vital Signs: Temperature 97.9; heart rate 71; blood pressure 112/56; respirations 17; O2 of 93% on BiPAP, 100% FiO2. General: Asleep, not arousable, not oriented, largely nonresponsive. CV: S1, S2. Peripheral pulses present. Respiratory: Diminished breath sounds and some rhonchi heard. The patient is tachypneic. Gastrointestinal: Abdomen is soft, nontender, nondistended. Positive bowel sounds. Extremities: No clubbing or cyanosis. The patient does have peripheral edema. Neuro: Does move all 4 extremities on his own. Opens eyes to stimulation. Nonverbal. Laboratory Data: Sodium 145, potassium 4.4, chloride 111, CO2 of 27, BUN 49, creatinine 1.44, glucose 129, calcium 8.4, albumin 2.5. WBC 19.3, H and H 11.2 and 35.8, platelets 163, neutrophils 51%. ABG; pH 7.11, pCO2 of 82.6, pO2 of 72 , bicarb 25.3. Blood cultures, no growth to date. Wound culture from the sacrum growing Acinetobacter baumannii. Urine culture has ESBL-producing bacteria. CT scan of the brain personally reviewed, shows no acute changes. Chest x-ray shows mild worsening in left lung opacity, mild improvement in right lung opacity, heart mildly enlarged, feeding tube has tip in the stomach. Assessment: An 83-year-old male with: 1. Sepsis secondary to urinary tract infection from extended-spectrum beta- lactamase and pneumonia. The patient also has positive wound cultures. Antibiotics discontinued by Pulmonary. The patient has lymphoma. WBC count likely related to that. 2. Acute respiratory failure with hypoxia. The patient now back on BiPAP with worsening ABG with CO2 retention and hypercapnia. ABG improved slightly from this morning. The patient's status is do not intubate. We will discuss further with family. 3. Right upper lobe pneumonia, likely aspiration. Barium swallow study completed, and the patient was placed on pureed diet. Chest x-ray shows some worsening on the left, but improvement on the right. 4. Aspiration. 5. Hypernatremia, corrected. We will continue to monitor. 6. Essential hypertension, stable. 7. Hypothyroidism. Continue levothyroxine. 8. Parkinson disease, stable. 9. History of pulmonary embolism and deep venous thrombosis. The patient is switched over to oral anticoagulation. 10. Non-Hodgkin's lymphoma. 11. Benign prostatic hypertrophy. 12. Lung mass, status post bronchoscopy. Pathology showing low-grade B-cell lymphoma. The patient is unfortunately not a candidate for chemo or radiation therapy. 13. Hypotension with septic shock, improving. The patient now off Levophed. 14. History of sacral ulcer. Wound care positive for Acinetobacter. Continue wound care and offloading. 15. Acute kidney injury. Creatinine bumped up again today. We will continue to monitor. Avoid NSAIDs and nephrotoxins. 16. Dementia with behavioral disturbance. 17. Gastrointestinal and deep venous thrombosis prophylaxis addressed. Plan: We will discuss plan of care with family. If they want to continue to be aggressive and if the pt survives, will need LTAC placement. The patient currently is do not intubate. His condition has worsened. The patient likely has a very poor prognosis. We will discuss hospice as an option as well. Continue tube feeds. The patient is not alert enough to tolerate a diet. Appreciate Dr. Hernández's input. ROCHELLE Voice ID: [id number] Report ID: [id number] MTDD
--- NOTE | 2018-10-03 12:31 | P.PN ---
Date of Service: 10/03/18 Called by nurse regarding decreased BP. Patient assessed at bedside. MPA<53. Will bolus 1/2L NS and start on levophed if not responding to fluid challenge. Patients condition is deteriorating. 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 Non responsive since last night. Even though ABG shows mild improvement, O2 sats are dropping. Patient is DNI. Cont BIPAP. Recommend hospice care for pt. Spoke with Dr. Hernández - no further recommendations. 12:38 Daughter at the bedside. Pts condition explained to her. She understands that he will likely from his disease process. Son also on his way from work. Family wants to keep pt comfortable at this time. They do not wish for any heroic measures. She understands that even with CPR ( should he need it) his oxygenation is deteriorating and without mechanical ventilation, he will not survive. As per conversation yesterday with family, pt did not want to be re- intubated. At this time will initiate care and comfort measures. Patient not expected to survive. Overall very poor prognosis.
[2018-10-03] MEDS ORDERED: SCOPOLAMINE HYDROBROMIDE PATCH TD ONE (12:42)
[2018-10-03] MEDS ORDERED: LORazepam 2 MG/ML VIAL IV PRN (12:42)
[2018-10-03] MEDS ORDERED: MORPHINE 4 MG/ML SYR IV PRN (12:42)
[2018-10-03 14:18] VITALS: BP 38/24
[2018-10-03 14:35] VITALS: TEMP 97.7
[2018-10-03 14:49] VITALS: O2SAT 91
--- NOTE | 2018-10-04 04:35 | DS ---
Date of Discharge: 10/03/2018 Consultants: Dr. Hernández with Pulmonology. Procedures: A bronchoscopy on 09/27/[address] Hernández with cytology showing B-cell, low-grade, consistent with small lymphocytic lymphoma. Discharge Diagnoses: 1. Sepsis secondary to urinary tract infection from extended-spectrum beta- lactamases producing bacteria and also pneumonia as well as positive wound cultures. 2. Acute respiratory failure with hypoxia. 3. Right upper lobe pneumonia, likely aspiration. 4. Lung mass, status post bronchoscopy. Pathology showing low-grade B-cell lymphoma, not a candidate for chemo or radiation. 5. Hypertension with septic shock, requiring pressors. 6. Hypernatremia, corrected. 7. Essential hypertension, became hypotensive. 8. Hypothyroidism, on levothyroxine. 9. Parkinson disease. 10. History of pulmonary embolism and deep vein thrombosis, on anticoagulation. 11. Non-Hodgkin lymphoma. 12. Benign prostatic hypertrophy. 13. Sacral ulcer. Wound cultures positive for Acinetobacter. 14. Acute kidney injury. 15. Dementia with behavioral disturbance. 16. Acute encephalopathy secondary to CO2 narcosis. Hospital Course: The patient was an 83-year-old male, admitted to the hospital on 09/23/2018, who had a protracted course in the hospital and eventually who on 10/03/2018 under palliative care. The patient has a past medical history of Parkinson disease, dementia, hypothyroidism, who had been in and out of the hospital multiple times due to sepsis and urinary tract infection. The patient was found to have Proteus mirabilis, which was ESBL producing. The patient was readmitted for shortness of breath, cough, fever, hypoxia with saturation as low as 80% on room air. The patient initially needed BiPAP. His workup revealed a white count of 21,000 and his chest x-ray was consistent with pneumonia in the right lower lobe. Initially, aspiration was suspected. He was treated with IV antibiotics. Pulmonology was also on the case. The patient did have some electrolyte abnormalities, which were corrected, including hypernatremia. The patient did have multiple episodes of confusion but improved back to his baseline. He also had some acute kidney injury which resolved. The patient's white blood cell count did trend down and improved, however never completely resolved. The patient initially was full code and wanted everything to be done. Therefore, he was intubated due to respiratory failure. The patient did have a bronchoscopy done as well, which was consistent with B-cell lymphoma. The patient's overall condition deteriorated. His cultures grew out Acinetobacter baumannii from wound cultures, which were multi-drug resistant. It is also growing out yeast. His blood cultures remained negative. His C diff assay was also positive. Family was updated on patient's condition. Subsequently, the patient was stepped down from the ICU; however, he did have some confusion overnight and got into respiratory distress , was replaced on BiPAP and transferred back to ICU. Of note, he did have a modified barium swallow study done and was switched over to a puree diet. Previously, he had been on feeding tubes. Initially, the patient had refused the feeding tubes but then agreed. Due to patient's deteriorating condition, code status was readdressed. The patient then opted for 'Do Not Intubate.' He clearly stated that he did not want to be intubated, did not want to have mechanical ventilation. Conversation took place in the presence of interdisciplinary team including the charge nurse and caseworker protective services as well as the patient's family members including the daughter, son, and [id number]. The patient's code status was changed to 'Do Not Intubate." Following his repeat deterioration in mental status and respiratory status, the patient remained on BiPAP, however became hypoxic. He became nonresponsive. The patient's family members then wished to pursue palliative care, did not wish to have the patient be in pain as his prognosis was very poor and he would not survive. They understood his prognosis showed as intubating him and resuscitating him with CPR. Patient would not survive and may not even survive with resuscitation. However, the family opted to pursue palliative care. The patient was made 'Do Not Resuscitate.' Care and comfort measures were initiated. The patient at 1:20 p.m. Family members were at the bedside. /CHAY Voice ID: [id number] Report ID: [id number] MTDD
== END 2018-10-03 13:20 | disposition expired | DRG 871 ==
LOC: ER 21:54 → ERHOLD 09-23 00:07 → 3RD-ICU 09-23 01:11 → 4TH 10-02 13:05 → 3RD-ICU 10-03 04:10
PROVIDERS: ADMIT Internal Medicine; ATTEND Family Medicine
PROC: 5A09457 Assistance with Respiratory Ventilation, 24-96 Consecutive Hours, Continuous Positive Airway Pressure (ICD-10-PCS; 2018-09-23)
PROC: 0DH67UZ Insertion of Feeding Device into Stomach, Via Natural or Artificial Opening (ICD-10-PCS; 2018-09-23)
PROC: 3E0G76Z Introduction of Nutritional Substance into Upper GI, Via Natural or Artificial Opening (ICD-10-PCS; 2018-09-23)
PROC: 0BH17EZ Insertion of Endotracheal Airway into Trachea, Via Natural or Artificial Opening (ICD-10-PCS; principal; 2018-09-26)
PROC: 5A1945Z Respiratory Ventilation, 24-96 Consecutive Hours (ICD-10-PCS; 2018-09-26)
PROC: 0B9 Respiratory System, Drainage (ICD-10-PCS; 2018-09-27)
PROC: 0BDK8ZX Extraction of Right Lung, Via Natural or Artificial Opening Endoscopic, Diagnostic (ICD-10-PCS; 2018-09-27)
DX: A41.9 Sepsis, unspecified organism (principal); J69.0 Pneumonitis due to inhalation of food and vomit; R65.21 Severe sepsis with septic shock; J96.01 Acute respiratory failure with hypoxia; C85.19 Unspecified B-cell lymphoma, extranodal and solid organ sites; E87.0 Hyperosmolality and hypernatremia; F02.81 Dementia in other diseases classified elsewhere, unspecified severity, with behavioral disturbance; N17.9 Acute kidney failure, unspecified; G93.49 Other encephalopathy; C85.89 Other specified types of non-Hodgkin lymphoma, extranodal and solid organ sites; N39.0 Urinary tract infection, site not specified; B37.89 Other sites of candidiasis; I95.9 Hypotension, unspecified; E03.9 Hypothyroidism, unspecified; G20 Parkinson's disease; Z86.711 Personal history of pulmonary embolism; Z86.718 Personal history of other venous thrombosis and embolism; N40.0 Benign prostatic hyperplasia without lower urinary tract symptoms; Z51.5 Encounter for palliative care; B96.4 Proteus (mirabilis) (morganii) as the cause of diseases classified elsewhere; Z16.12 Extended spectrum beta lactamase (ESBL) resistance; G40.909 Epilepsy, unspecified, not intractable, without status epilepticus; L89.152 Pressure ulcer of sacral region, stage 2; B96.89 Other specified bacterial agents as the cause of diseases classified elsewhere
CPT/HCPCS: 36415; 70450; 71045; 71250; 74230; 80048; 80053; 80202; 81001; 82805; 83605; 83735; 83880; 84132; 84145; 84484; 85025; 85027; 85610; 87015; 87040; 87070; 87077; 87086; 87088; 87116; 87186; 87205; 87206; 87493; 87804; 88108; 88305; 92526; 92610; 92611; 93005; 94002; 94003; 94640; 94660; 94760; 96365; 96367; 99285; J0330; J1450; J1650; J1953; J2185; J2370; J2597; J2704; J3010; J7030; J7060